=== PATIENT | female | born 1970 | race Caucasian/White ===

== ENCOUNTER 2016-02-15 10:28 | Inpatient (IN) | payer MEDICARE, MEDICAID ==
[~2016-02-15] VITALS: Ht 154.9 cm; Wt 94.9 kg
[2016-02-15] MEDS ORDERED: LORazepam 1 MG TAB As Ordered ONE ×2 (11:02→16:26)
[2016-02-15 11:27] LABS: MEAN CORPUSCULAR HEMOGLOBIN 29.8 pg (27.0-33.0); MEAN CORPUSCULAR HGB CONC 33.9 g/dl (32.0-36.5); RED CELL DISTRIBUTION WIDTH 15.2 % (11.5-14.5); WHITE BLOOD COUNT 13.7 K/mm3 (4.0-10.0)
[2016-02-15 11:34] LABS: AMPHETAMINES LEVEL URINE NEGATIVE (NEGATIVE); BENZODIAZEPINES URINE POSITIVE (NEGATIVE); COCAINE METABOLITE URINE NEGATIVE (NEGATIVE); CONTROL LINE INT CTR LINE PRESENT; METHADONE URINE NEGATIVE (NEGATIVE); OPIATES URINE NEGATIVE (NEGATIVE); TRICYCLIC ANTIDEPRESS URINE NEGATIVE (NEGATIVE)
[2016-02-15 11:36] LABS: CONTROL LINE HCG INT CTR LINE PRESENT
[2016-02-15 11:48] LABS: ALBUMIN 3.9 GM/DL (3.2-5.2); ALBUMIN/GLOBULIN RATIO 1.22 (1.00-1.93); ALKALINE PHOSPHATASE 57 U/L (45-117); ALT/SGPT 24 U/L (12-78); ANION GAP 8 MEQ/L (8-16); AST/SGOT 10 U/L (15-37); BILIRUBIN,DIRECT 0.1 MG/DL (0.0-0.2); BILIRUBIN,TOTAL 0.2 MG/DL (0.2-1.0); BLOOD UREA NITROGEN 16 MG/DL (7-18); CALCIUM LEVEL 8.9 MG/DL (8.5-10.1); CARBON DIOXIDE LEVEL 25 MEQ/L (21-32); CHLORIDE LEVEL 107 MEQ/L (98-107); CREATININE FOR GFR 0.89 MG/DL (0.55-1.02); FREE T4 1.46 NG/DL (0.76-1.46); GLOMERULAR FILTRATION RATE > 60.0 (>58); GLUCOSE, FASTING 107 MG/DL (70-105); POTASSIUM SERUM 4.4 MEQ/L (3.5-5.1); SODIUM LEVEL 140 MEQ/L (136-145); TOTAL PROTEIN 7.1 GM/DL (6.4-8.2)
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
--- NOTE | 2016-02-15 18:23 | EDDOCDS ---
Physician Documentation [facility] Name: Felicita Loomis Age: 45 yrs Sex: Female : 1970 Arrival Date: 02/15/2016 Time: 10:28 Bed BHU2 Private MD: Disposition: 02/14 14:18 Critical Care: Critical care not applicable. pc Disposition: 02/15/16 14:22 Hospitalization ordered by Serafin Watts for Inpatient Admission. Preliminary diagnosis is Delusional disorders. - Bed requested for Admit. - Status is Inpatient Admission. bcj - Condition is Stable. - Problem is new. - Symptoms are unchanged. HPI: 11:36 This 45 yrs old Female presents to ER via Police Car with complaints of Psych pc Problem. 11:36 The history is obtained from the patient, the patient's family/friend, a police pc officer. Her manager stone called police for her bizarre behavior; running in the street, believing a plow reefer truck driver was plotting to kill her, that her apartment was bugged. Her daughter states she has been smoking a lot of marijuana lately but does have a psychiatric history. Historical: - Allergies: Codeine Sulfate (Rash); Morphine ("issues during surgery"); PENICILLINS (Unknown); - PMHx: Anxiety; COPD; Depression; Herniated Disc in Neck and Back; Hypothyroidism; DAVID; - PSHx: ; Lumpectomy- Right; Breast biopsy- Right; Breast Reduction; Hernia repair; Gastric Bypass; Cholecystectomy; - The history from nurses notes was reviewed: and I agree with what is documented. - Social history: Smoking status: Patient uses tobacco products, current every day smoker. No barriers to communication noted, The patient speaks fluent Armenian. - : The pt / caregiver states he / she is not on anticoagulants. Note Will call Eleazar in [place] for current list. - Hospitalizations: : No recent hospitalization is reported. - Exposure Risk Screening:: None identified. - Immunization history:: All immunizations up-to-date. - Family history: Not pertinent. - Social history:: the patient smokes cigarettes the patient drinks alcohol, the patient uses illicit drugs, including marijuana. SPRAYER INSECTICIDE: 10:43 LMP N/A - Post-menopause aa3 ROS: 11:36 All systems are negative except as listed. The psychiatric and neurological components pc are also addressed in the HPI. Exam: 11:36 General Appearance: alert, no acute distress. pc 11:36 ENT: ear, nose and throat normal, pharynx normal. 11:36 Eyes: pupils equal, round and reactive to light, extraocular motions intact. 11:36 Neck: The exam reveals no acute abnormalities. ROM is normal and painless. No nuchal rigidity is noted.. 11:36 Respiratory: breathing is even and unlabored, breath sounds are normal. 11:36 Cardiovascular: regular pulse rate, regular heart rhythm, normal heart sounds, equal and full pulses bilaterally. 11:36 Abdomen: soft, non-tender, no organomegaly, normal bowel sounds. 11:36 Skin: skin color is normal, warm, dry. 11:36 Extremities: The extremities have a grossly normal appearance, are non-tender, without acute ROM abnormalities. 11:36 Neuro: alert, oriented to person, place and time, cranial nerves normal as tested, no motor deficits, no sensory deficits. 11:36 Psych: mood is angry, paranoid. affect is animated. Vital Signs: 11:02 BP 176 / 91; Pulse 118; Resp 18; Temp 98.4(TE); Pulse Ox 94% on R/A; nb2 11:19 Weight 99.79 kg / 220 lbs; Height 5 ft. 2 in. (157.48 cm); js13 18:13 BP 145 / 72; Pulse 108; Resp 20; Temp 97.9; Pulse Ox 99% on R/A; nb2 11:19 Body Mass Index 40.24 (99.79 kg, 157.48 cm) js13 MDM: 10:37 Consult PFS/PSA/Supervisor Looping: Patient's case requires discussion with on-call pc Psychiatrist ordered. 10:37 PSA/PFS to call Nursing Endoscopy Technican, to enter patient data on [place] Safe Act if patient pc involuntarily admitted or transferred for SI or HI ordered. 10:37 Confirm accurate psychiatric medication list and times of last dosage ordered. pc 10:37 Detain Pt Until Medically/PFS Cleared ordered. pc 10:38 Acetaminophen Level Ordered. EDMS 10:38 Basic Metabolic Profile Ordered. EDMS 10:38 Complete Blood Count Ordered. EDMS 10:38 Drug Eval Toxicology ED Only Ordered. EDMS 10:38 Ethyl Alcohol (ethanol) Ordered. EDMS 10:38 HCG,Serum Qualitative Ordered. EDMS 10:38 Liver Profile Ordered. EDMS 10:38 Salicylate Level Ordered. EDMS 10:38 Thyroid Stimulating Hormone Ordered. EDMS 10:42 FREE T4 Ordered. EDMS 10:58 LORazepam 2 mg PO once ordered. pc 11:17 Financial registration complete. mm15 11:18 [facility] Payment Agreement was scanned into [employer] and attached to record. mm15 11:29 LORazepam 1 mg PO once ordered. js13 11:36 Differential diagnosis: acute paranoia. Plan: labs, meds, PFS eval. pc 11:41 Complete Blood Count Reviewed. pc 11:41 Drug Eval Toxicology ED Only Reviewed. pc 11:41 HCG,Serum Qualitative Reviewed. pc 12:03 Acetaminophen Level Reviewed. pc 12:03 Basic Metabolic Profile Reviewed. pc 12:03 Liver Profile Reviewed. pc 12:03 Salicylate Level Reviewed. pc 12:03 Ethyl Alcohol (ethanol) Reviewed. pc 12:03 HCG,Serum Qualitative Reviewed. pc 12:03 Thyroid Stimulating Hormone Reviewed. pc 12:03 FREE T4 Reviewed. pc 13:17 Consult PFS/PSA/Supervisor Looping: Patient's case requires discussion with on-call ms Psychiatrist complete. 13:17 PSA/PFS to call Nursing Endoscopy Technican, to enter patient data on [facility] Safe Act if patient ms involuntarily admitted or transferred for SI or HI complete. 13:20 REGULAR DIET PLASTIC CORONA+DIET ordered. EDMS 13:45 BED REQUEST+ADM ordered. EDMS 14:18 The patient has been medically cleared for psychiatric evaluation, admission and/or pc transfer. [place] Safe Act reporting: Reporting to the [place] Safe [place] was not completed because the patient did not display any suicidal or homicidal ideation and was not considered a risk to self or others. Data reviewed: old medical records, vital signs, nurses notes, lab test results. Test interpretation: LAB - all labs as ordered have been reviewed, interpreted and considered in the overall management of the clinical presentation;. The patient has been re-examined and re-evaluated. The patient's symptoms have mildly improved after treatment. Disposition: The historical points, examination findings, and any diagnostic results supporting the provided diagnosis, were discussed with the patient or legal guardian. The need for further work-up and/or treatment in the hospital was explained. 16:25 LORazepam 2 mg PO once ordered. pc 17:34 Admit to [facility]: ordered. EDMS 17:36 [facility] Legal paperwork was scanned into [employer] and attached to record. ml4 18:13 [facility] Legal paperwork was scanned into [employer] and attached to record. ml4 Administered Medications: 11:25 Drug: LORazepam 1 mg [lorazepam 1 mg tablet (1 tabs)] Route: PO; js13 12:30 Follow up: Response: Anxiety is improved js13 11:28 Not Given (Patient Refused): LORazepam 2 mg PO once js13 16:39 Drug: LORazepam 2 mg [lorazepam 1 mg tablet (2 tabs)] Route: PO; [facility] Signatures: Dispatcher [employer] EDMS Dedrick Stacy MD MD pc Johnson, Bruce, RN RN bcj Kenia Brewer, PSA PSA ms Mi Hobson, PSA PSA ml4 Gaby Sun,RN RN js13 Jeanne Cox mm15 Deyanira Nair,RN RN aa3 The chart was reviewed and I authenticate all verbal orders and agree with the evaluation and treatment provided.Corrections: (The following items were deleted from the chart) 10:42 10:38 FREE T4+LAB ordered. EDMS EDMS Attachments: 11:18 [facility] Payment Agreement mm15 MTDD
[2016-02-15 18:43] VITALS: BP 138/94
[2016-02-15] MEDS ORDERED: MOM 30ML SUSPENSION UDC PO PRN (20:15)
[2016-02-15] MEDS ORDERED: traZODone 50 MG TAB PO PRN (20:15)
[2016-02-16] MEDS: MAALOX 30 ML SUSP *UDC PO PRN (02:51)
[2016-02-16] MEDS: ACETAMINOPHEN TAB 650MG DOSE (2X325MG) PO PRN (02:52)
[2016-02-16 06:22] VITALS: BP 148/83
[2016-02-16] MEDS: NICOTINE 21MG/24HR 1 EA TRANSDERMAL TD SCH (09:39)
--- NOTE | 2016-02-16 10:01 | HPEPDOC ---
Medical History and Physical Date of Admission Feb 15, 2016 at 18:38 History and Physical PCP: Enmanuel RODRIGUES ATTENDING: Dr. Sushant Ross HPI: 45 yo F admitted to [facility] for psychotic disorder, being medically examined today. Patient was seen at the emergency department 02/12/16 and treated for COPD exacerbation with doxycycline 100 mg by mouth twice a day. She states breathing has been better. Cough improved. Less sputum production. No chest discomfort. She also recently established with a new PCP, Enmanuel RODRIGUES. She has orders at home for a mammogram. Routine lab work. And has been referred for routine colonoscopy/EGD. Denies any fevers, chills, weakness, fatigue, GUTIERREZ, CP, SOB, cough, palpitations, abdominal pain, N/V/D or changes in bowel or bladder habits. PMHx: COPD Anxiety/depression Degenerative disc disease Chronic neck pain/low back pain History of obesity status post gastric bypass-patient states has maintained 100 pound weight loss since 2004 History of DAVID, off CPAP since gastric bypass restarted on nocturnal oxygen 2 L nasal cannula as per PCP. Hypothyroidism PSHX: Right lumpectomy Right breast biopsy Breast reduction Hernia repair Gastric bypass Cholecystectomy SOCHX: Resides in: [place] Marital Status: Kids: 1 Employment: Disabled Tobacco use: One half pack per day ETOH: One drink every 6 months or less Illicit Drugs: Marijuana daily for the past 2-3 months IV Drug Use: Denies Tattoos done unprofessionally: Denies FAMHX: Mother: , CAD Father: , colon cancer Siblings: One sister Alive, well. One sister breast cancer Children: Alive, well Unexpected deaths due to medical reasons: None. ROS: As noted in HPI, otherwise 11pt ROS of systems reviewed and remarkable only for LMP NA-uterine ablation. PE: GEN: 45 yo F, appears stated age. Well-nourished, well developed. No acute distress. Alert and oriented x 3. Pleasant, interactive. HEENT: Normocephalic, atraumatic. Pupils are equal, round, and reactive to light. Extraocular movements are intact. No nystagmus appreciated. Sclera are nonicteric. Conjunctiva without injection. Nose midline. Nasal turbinates without bogginess. EACs both patent BL. TMs both visualized and villa with good cone of light, no bulging or erythema. No facial asymmetry. Moist mucous membranes. Dentition fair. Pharynx pink and moist, no cobblestoning. Neck supple , trachea midline. No lymphadenopathy or thyromegaly appreciated. CHEST: Regular rate and rhythm, +S1, +S2 LUNGS: Clear to auscultation bilaterally. No wheezes, rales, or rhonchi. Breathing appears symmetric and easy. Patient is speaking in full sentences. No accessory muscle use. ABD: Round, soft, non-tender, non-distended. Healed surgical scars. +Bowel sounds throughout. No rebound or guarding. No costovertebral angle tenderness. EXT: Pulses 2+ bilaterally dorsalis pedis and radial. No lower extremity edema appreciated. SKIN: [place], dry, warm. Capillary refill <2sec. No rashes. NEURO: Alert and oriented x 3. Cranial nerves III-XII are intact. No focal deficits appreciated. EK02/12/16 SR 95 bpm. PCXR 02/12/16 Negative portable chest radiograph. A&P: 45 yo F admitted to [facility] for psychotic disorder 1. Psych. Plan per Psychiatry. EKG on file. Also check UA/UC. 2. Nicotine dependence. Patch available. 3. COPD/COPD exacerbation. Patient will finish course of doxycycline 100 mg by mouth twice a day started at the emergency department 02/12/16. Recheck CBC in AM. 4. Follow up with PCP on discharge. Enmanuel RODRIGUES. 5. Substance use. Per psychiatry. 6. Accompanied throughout exam by staff member safety raquel Griffin. 7. Await medication reconciliation. Vital Signs Vital Signs Label Value Date Time Patient Temperature 97.7 degrees F 02/16/16 06 Temperature Source Tympanic 02/16/16 06 Pulse 90 02/16/16 06 Respiratory Rate 18 bpm 02/16/16 06 Blood Pressure Assessment 148/83 (104) 02/16/16 06 Laboratory Data Labs 24H Laboratory Tests 2 02/15/16 11:13: Acetaminophen Level < 2.0L, Aspartate Amino Transf (AST/SGOT) 10L, Alanine Aminotransferase (ALT/SGPT) 24, Alkaline Phosphatase 57, Total Bilirubin 0.2, Direct Bilirubin 0.1, Albumin 3.9, Albumin/Globulin Ratio 1.22, Anion Gap 8, Calcium Level 8.9, Ethyl Alcohol Level < 0.003, Free Thyroxine 1.46, Glomerular Filtration Rate > 60.0, Human Chorionic Gonadotropin, Qual NEGATIVE, Salicylates Level 4.2L, Thyroid Stimulating Hormone (TSH) 0.706, Total Protein 7.1, Urine Amphetamine Level NEGATIVE, Urine Benzodiazepines Screen POSITIVEH, Urine Cannabinoids POSITIVEH, Urine Cocaine Metabolite NEGATIVE, Urine Opiates Screen NEGATIVE, Urine Barbiturates, Qualitative NEGATIVE, Urine Methadone Screen NEGATIVE, Urine Tricyclic Antidepressants NEGATIVE CBC/BMP Laboratory Tests 02/15/16 11:13 Red Blood Count 4.21, Mean Corpuscular Volume 88.0, Mean Corpuscular Hemoglobin 29.8, Mean Corpuscular Hemoglobin Concent 33.9, Red Cell Distribution Width 15.2 H Home Medications Unable to Obtain Active Prescriptions or Reported Meds Allergies Coded Allergies: Morphine (Verified Allergy, Unknown, 02/15/16) Penicillins (Verified Allergy, Unknown, 02/15/16) Childhood allergy Nataly Escalante Feb 16, 2016 10:01
[2016-02-16 10:51] LABS: MEAN CORPUSCULAR HEMOGLOBIN 28.8 pg (27.0-33.0); MEAN CORPUSCULAR VOLUME 84.9 fl (80.0-96.0); RED CELL DISTRIBUTION WIDTH 14.4 % (11.5-14.5); WHITE BLOOD COUNT 9.4 K/mm3 (4.0-10.0)
[2016-02-16] MEDS: DOXYCYCLINE HYCLATE 100 MG TAB PO SCH ×2 (14:22→21:10)
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
[2016-02-16 18:00] VITALS: BP 144/85
[2016-02-16] MEDS ORDERED: VITA50003 PO (19:04)
[2016-02-16] MEDS ORDERED: BUPR200T PO (19:04)
[2016-02-16] MEDS ORDERED: DULO1CAP3 PO (19:04)
[2016-02-16] MEDS ORDERED: HYDR-4274 PO (19:04)
[2016-02-16] MEDS ORDERED: ATIV1TAB7 PO (19:04)
[2016-02-16] MEDS ORDERED: DOXY-278 PO (19:04)
[2016-02-16] MEDS ORDERED: LEVO125T3 PO (19:04)
[2016-02-16] MEDS ORDERED: OXYC1TAB23 PO (19:04)
[2016-02-16] MEDS ORDERED: BENZ200C44 PO (19:04)
[2016-02-16] MEDS ORDERED: IBUP-1114 PO (19:04)
[2016-02-16] MEDS ORDERED: FURO20TA2 PO (19:04)
[2016-02-16] MEDS: hydrOXYzine 50 MG TAB PO PRN (21:47)
[2016-02-16 22:50] VITALS: BP 186/90
[2016-02-16 23:30] VITALS: BP 120/80
[2016-02-17] MEDS ORDERED: FUROSEMIDE 20 MG TAB PO ONE (00:30)
[2016-02-17] MEDS: LEVOTHYROXINE 0.125 MG TAB (125 MCG) PO SCH (06:06)
[2016-02-17 06:34] VITALS: BP 141/97
--- NOTE | 2016-02-17 08:18 | ECGEPIP ---
Stationary ECG Study [facility] Test Date: 2016-02-16 Pat Name: CALEB OSPINA Department: Room: [place] [address] Gender: F Medical Lab Specialist: SOURAV NICE : 1970 Requested By: CARISA WHITMAN Order Number: [id number] Reading MD: Kimberly Cohen Measurements Intervals [place] Rate: 99 P: -6 [place]: 121 QRS: 38 QRSD: 86 T: 40 QT: 332 QTc: 427 Interpretive Statements SINUS RHYTHM NORMAL STABLE C/W 02/12/16 Electronically Signed On 02-17-2016 8:18:28 EST by Kimberly Cohen
[2016-02-17] MEDS: DOXYCYCLINE HYCLATE 100 MG TAB PO SCH ×2 (09:26→21:06)
[2016-02-17] MEDS: DULoxetine 30 MG CAP (CYMBALTA) PO SCH (09:26)
[2016-02-17] MEDS: NICOTINE 21MG/24HR 1 EA TRANSDERMAL TD SCH (09:26)
[2016-02-17] MEDS: hydrOXYzine 50 MG TAB PO PRN (09:28)
[2016-02-17] MEDS: LORazepam 1 MG TAB PO PRN ×2 (10:53→23:25)
[2016-02-17 10:54] VITALS: BP 144/88
[2016-02-17] MEDS: ACETAMINOPHEN TAB 650MG DOSE (2X325MG) PO PRN ×2 (12:59→21:07)
[2016-02-17] MEDS: hydrOXYzine 50 MG TAB PO SCH ×2 (16:58→21:06)
[2016-02-17 18:00] VITALS: BP 148/90
--- NOTE | 2016-02-17 19:23 | EDDOCDS ---
Physician Documentation [facility] Name: Felicita Loomis Age: 45 yrs Sex: Female : 1970 Arrival Date: 02/15/2016 Time: 10:28 Bed BHU2 Private MD: Disposition: 02/14 14:18 Critical Care: Critical care not applicable. pc Disposition: 02/15/16 14:22 Hospitalization ordered by Serafin Watts for Inpatient Admission. Preliminary diagnosis is Delusional disorders. - Bed requested for Admit. - Status is Inpatient Admission. bcj - Condition is Stable. - Problem is new. - Symptoms are unchanged. HPI: 11:36 This 45 yrs old Female presents to ER via Police Car with complaints of Psych pc Problem. 11:36 The history is obtained from the patient, the patient's family/friend, a police pc officer. Her physical plant manager called police for her bizarre behavior; running in the street, believing a plow driver trainer was plotting to kill her, that her apartment was bugged. Her daughter states she has been smoking a lot of marijuana lately but does have a psychiatric history. Historical: - Allergies: Codeine Sulfate (Rash); Morphine ("issues during surgery"); PENICILLINS (Unknown); - PMHx: Anxiety; COPD; Depression; Herniated Disc in Neck and Back; Hypothyroidism; DAVID; - PSHx: ; Lumpectomy- Right; Breast biopsy- Right; Breast Reduction; Hernia repair; Gastric Bypass; Cholecystectomy; - The history from nurses notes was reviewed: and I agree with what is documented. - Social history: Smoking status: Patient uses tobacco products, current every day smoker. No barriers to communication noted, The patient speaks fluent Jamaican. - : The pt / caregiver states he / she is not on anticoagulants. Note Will call [facility] in [place] for current list. - Hospitalizations: : No recent hospitalization is reported. - Exposure Risk Screening:: None identified. - Immunization history:: All immunizations up-to-date. - Family history: Not pertinent. - Social history:: the patient smokes cigarettes the patient drinks alcohol, the patient uses illicit drugs, including marijuana. PERSONAL SECURITY SPECIALIST: 10:43 LMP N/A - Post-menopause aa3 ROS: 11:36 All systems are negative except as listed. The psychiatric and neurological components pc are also addressed in the HPI. Exam: 11:36 General Appearance: alert, no acute distress. pc 11:36 ENT: ear, nose and throat normal, pharynx normal. 11:36 Eyes: pupils equal, round and reactive to light, extraocular motions intact. 11:36 Neck: The exam reveals no acute abnormalities. ROM is normal and painless. No nuchal rigidity is noted.. 11:36 Respiratory: breathing is even and unlabored, breath sounds are normal. 11:36 Cardiovascular: regular pulse rate, regular heart rhythm, normal heart sounds, equal and full pulses bilaterally. 11:36 Abdomen: soft, non-tender, no organomegaly, normal bowel sounds. 11:36 Skin: skin color is normal, warm, dry. 11:36 Extremities: The extremities have a grossly normal appearance, are non-tender, without acute ROM abnormalities. 11:36 Neuro: alert, oriented to person, place and time, cranial nerves normal as tested, no motor deficits, no sensory deficits. 11:36 Psych: mood is angry, paranoid. affect is animated. Vital Signs: 11:02 BP 176 / 91; Pulse 118; Resp 18; Temp 98.4(TE); Pulse Ox 94% on R/A; nb2 11:19 Weight 99.79 kg / 220 lbs; Height 5 ft. 2 in. (157.48 cm); js13 18:13 BP 145 / 72; Pulse 108; Resp 20; Temp 97.9; Pulse Ox 99% on R/A; nb2 11:19 Body Mass Index 40.24 (99.79 kg, 157.48 cm) js13 MDM: 10:37 Consult PFS/PSA/Market Research Manager: Patient's case requires discussion with on-call pc Psychiatrist ordered. 10:37 PSA/PFS to call Nursing Computer Forensics Investigator, to enter patient data on [place] Safe Act if patient pc involuntarily admitted or transferred for SI or HI ordered. 10:37 Confirm accurate psychiatric medication list and times of last dosage ordered. pc 10:37 Detain Pt Until Medically/PFS Cleared ordered. pc 10:38 Acetaminophen Level Ordered. EDMS 10:38 Basic Metabolic Profile Ordered. EDMS 10:38 Complete Blood Count Ordered. EDMS 10:38 Drug Eval Toxicology ED Only Ordered. EDMS 10:38 Ethyl Alcohol (ethanol) Ordered. EDMS 10:38 HCG,Serum Qualitative Ordered. EDMS 10:38 Liver Profile Ordered. EDMS 10:38 Salicylate Level Ordered. EDMS 10:38 Thyroid Stimulating Hormone Ordered. EDMS 10:42 FREE T4 Ordered. EDMS 10:58 LORazepam 2 mg PO once ordered. pc 11:17 Financial registration complete. mm15 11:18 [facility] Payment Agreement was scanned into [employer] and attached to record. mm15 11:29 LORazepam 1 mg PO once ordered. js13 11:36 Differential diagnosis: acute paranoia. Plan: labs, meds, PFS eval. pc 11:41 Complete Blood Count Reviewed. pc 11:41 Drug Eval Toxicology ED Only Reviewed. pc 11:41 HCG,Serum Qualitative Reviewed. pc 12:03 Acetaminophen Level Reviewed. pc 12:03 Basic Metabolic Profile Reviewed. pc 12:03 Liver Profile Reviewed. pc 12:03 Salicylate Level Reviewed. pc 12:03 Ethyl Alcohol (ethanol) Reviewed. pc 12:03 HCG,Serum Qualitative Reviewed. pc 12:03 Thyroid Stimulating Hormone Reviewed. pc 12:03 FREE T4 Reviewed. pc 13:17 Consult PFS/PSA/Market Research Manager: Patient's case requires discussion with on-call ms Psychiatrist complete. 13:17 PSA/PFS to call Nursing Computer Forensics Investigator, to enter patient data on [facility] Safe Act if patient ms involuntarily admitted or transferred for SI or HI complete. 13:20 REGULAR DIET PLASTIC CORONA+DIET ordered. EDMS 13:45 BED REQUEST+ADM ordered. EDMS 14:18 The patient has been medically cleared for psychiatric evaluation, admission and/or pc transfer. [place] Safe [place] reporting: Reporting to the [place] Safe [place] was not completed because the patient did not display any suicidal or homicidal ideation and was not considered a risk to self or others. Data reviewed: old medical records, vital signs, nurses notes, lab test results. Test interpretation: LAB - all labs as ordered have been reviewed, interpreted and considered in the overall management of the clinical presentation;. The patient has been re-examined and re-evaluated. The patient's symptoms have mildly improved after treatment. Disposition: The historical points, examination findings, and any diagnostic results supporting the provided diagnosis, were discussed with the patient or legal guardian. The need for further work-up and/or treatment in the hospital was explained. 16:25 LORazepam 2 mg PO once ordered. pc 17:34 [facility] to [facility]: ordered. EDMS 17:36 [facility] Legal paperwork was scanned into [employer] and attached to record. ml4 18:13 [facility] Legal paperwork was scanned into [employer] and attached to record. ml4 Administered Medications: 11:25 Drug: LORazepam 1 mg [lorazepam 1 mg tablet (1 tabs)] Route: PO; js13 12:30 Follow up: Response: Anxiety is improved js13 11:28 Not Given (Patient Refused): LORazepam 2 mg PO once js13 16:39 Drug: LORazepam 2 mg [lorazepam 1 mg tablet (2 tabs)] Route: PO; [facility] Signatures: Dispatcher [employer] EDMS Dedrick Stacy MD MD pc Johnson, Bruce, RN RN bcj Kenia Brewer, PSA PSA ms Mi Hobson, PSA PSA ml4 Gaby Sun,RN RN js13 Jeanne Cox mm15 Deyanira Nair,RN RN aa3 The chart was reviewed and I authenticate all verbal orders and agree with the evaluation and treatment provided.Corrections: (The following items were deleted from the chart) 10:42 10:38 FREE T4+LAB ordered. EDMS EDMS Attachments: 11:18 [facility] Payment Agreement mm15 Chart Complete MTDD
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
--- NOTE | 2016-02-17 19:24 | EDDOCDS ---
Physician Documentation [facility] Name: Felicita Loomis Age: 45 yrs Sex: Female : 1970 Arrival Date: 02/15/2016 Time: 10:28 Bed BHU2 Private MD: Disposition: 02/14 14:18 Critical Care: Critical care not applicable. pc Disposition: 02/15/16 14:22 Hospitalization ordered by Serafin Watts for Inpatient Admission. Preliminary diagnosis is Delusional disorders. - Bed requested for Admit. - Status is Inpatient Admission. bcj - Condition is Stable. - Problem is new. - Symptoms are unchanged. HPI: 11:36 This 45 yrs old Female presents to ER via Police Car with complaints of Psych pc Problem. 11:36 The history is obtained from the patient, the patient's family/friend, a police pc officer. Her business development manager called police for her bizarre behavior; running in the street, believing a plow water truck driver was plotting to kill her, that her apartment was bugged. Her daughter states she has been smoking a lot of marijuana lately but does have a psychiatric history. Historical: - Allergies: Codeine Sulfate (Rash); Morphine ("issues during surgery"); PENICILLINS (Unknown); - PMHx: Anxiety; COPD; Depression; Herniated Disc in Neck and Back; Hypothyroidism; DAVID; - PSHx: ; Lumpectomy- Right; Breast biopsy- Right; Breast Reduction; Hernia repair; Gastric Bypass; Cholecystectomy; - The history from nurses notes was reviewed: and I agree with what is documented. - Social history: Smoking status: Patient uses tobacco products, current every day smoker. No barriers to communication noted, The patient speaks fluent Tuvaluan. - : The pt / caregiver states he / she is not on anticoagulants. Note Will call [facility] in [place] for current list. - Hospitalizations: : No recent hospitalization is reported. - Exposure Risk Screening:: None identified. - Immunization history:: All immunizations up-to-date. - Family history: Not pertinent. - Social history:: the patient smokes cigarettes the patient drinks alcohol, the patient uses illicit drugs, including marijuana. INSULATION PACKER: 10:43 LMP N/A - Post-menopause aa3 ROS: 11:36 All systems are negative except as listed. The psychiatric and neurological components pc are also addressed in the HPI. Exam: 11:36 General Appearance: alert, no acute distress. pc 11:36 ENT: ear, nose and throat normal, pharynx normal. 11:36 Eyes: pupils equal, round and reactive to light, extraocular motions intact. 11:36 Neck: The exam reveals no acute abnormalities. ROM is normal and painless. No nuchal rigidity is noted.. 11:36 Respiratory: breathing is even and unlabored, breath sounds are normal. 11:36 Cardiovascular: regular pulse rate, regular heart rhythm, normal heart sounds, equal and full pulses bilaterally. 11:36 Abdomen: soft, non-tender, no organomegaly, normal bowel sounds. 11:36 Skin: skin color is normal, warm, dry. 11:36 Extremities: The extremities have a grossly normal appearance, are non-tender, without acute ROM abnormalities. 11:36 Neuro: alert, oriented to person, place and time, cranial nerves normal as tested, no motor deficits, no sensory deficits. 11:36 Psych: mood is angry, paranoid. affect is animated. Vital Signs: 11:02 BP 176 / 91; Pulse 118; Resp 18; Temp 98.4(TE); Pulse Ox 94% on R/A; nb2 11:19 Weight 99.79 kg / 220 lbs; Height 5 ft. 2 in. (157.48 cm); js13 18:13 BP 145 / 72; Pulse 108; Resp 20; Temp 97.9; Pulse Ox 99% on R/A; nb2 11:19 Body Mass Index 40.24 (99.79 kg, 157.48 cm) js13 MDM: 10:37 Consult PFS/PSA/Chemistry Instructor: Patient's case requires discussion with on-call pc Psychiatrist ordered. 10:37 PSA/PFS to call Nursing Automatic Punch Press Operator, to enter patient data on [place] Safe Act if patient pc involuntarily admitted or transferred for SI or HI ordered. 10:37 Confirm accurate psychiatric medication list and times of last dosage ordered. pc 10:37 Detain Pt Until Medically/PFS Cleared ordered. pc 10:38 Acetaminophen Level Ordered. EDMS 10:38 Basic Metabolic Profile Ordered. EDMS 10:38 Complete Blood Count Ordered. EDMS 10:38 Drug Eval Toxicology ED Only Ordered. EDMS 10:38 Ethyl Alcohol (ethanol) Ordered. EDMS 10:38 HCG,Serum Qualitative Ordered. EDMS 10:38 Liver Profile Ordered. EDMS 10:38 Salicylate Level Ordered. EDMS 10:38 Thyroid Stimulating Hormone Ordered. EDMS 10:42 FREE T4 Ordered. EDMS 10:58 LORazepam 2 mg PO once ordered. pc 11:17 Financial registration complete. mm15 11:18 [facility] Payment Agreement was scanned into [employer] and attached to record. mm15 11:29 LORazepam 1 mg PO once ordered. js13 11:36 Differential diagnosis: acute paranoia. Plan: labs, meds, PFS eval. pc 11:41 Complete Blood Count Reviewed. pc 11:41 Drug Eval Toxicology ED Only Reviewed. pc 11:41 HCG,Serum Qualitative Reviewed. pc 12:03 Acetaminophen Level Reviewed. pc 12:03 Basic Metabolic Profile Reviewed. pc 12:03 Liver Profile Reviewed. pc 12:03 Salicylate Level Reviewed. pc 12:03 Ethyl Alcohol (ethanol) Reviewed. pc 12:03 HCG,Serum Qualitative Reviewed. pc 12:03 Thyroid Stimulating Hormone Reviewed. pc 12:03 FREE T4 Reviewed. pc 13:17 Consult PFS/PSA/Chemistry Instructor: Patient's case requires discussion with on-call ms Psychiatrist complete. 13:17 PSA/PFS to call Nursing Automatic Punch Press Operator, to enter patient data on [facility] Safe Act if patient ms involuntarily admitted or transferred for SI or HI complete. 13:20 REGULAR DIET PLASTIC CORONA+DIET ordered. EDMS 13:45 BED REQUEST+ADM ordered. EDMS 14:18 The patient has been medically cleared for psychiatric evaluation, admission and/or pc transfer. [place] Safe [place] reporting: Reporting to the [place] Safe [place] was not completed because the patient did not display any suicidal or homicidal ideation and was not considered a risk to self or others. Data reviewed: old medical records, vital signs, nurses notes, lab test results. Test interpretation: LAB - all labs as ordered have been reviewed, interpreted and considered in the overall management of the clinical presentation;. The patient has been re-examined and re-evaluated. The patient's symptoms have mildly improved after treatment. Disposition: The historical points, examination findings, and any diagnostic results supporting the provided diagnosis, were discussed with the patient or legal guardian. The need for further work-up and/or treatment in the hospital was explained. 16:25 LORazepam 2 mg PO once ordered. pc 17:34 Admit to [facility]: ordered. EDMS 17:36 [facility] Legal paperwork was scanned into [employer] and attached to record. ml4 18:13 [facility] Legal paperwork was scanned into [employer] and attached to record. ml4 Administered Medications: 11:25 Drug: LORazepam 1 mg [lorazepam 1 mg tablet (1 tabs)] Route: PO; js13 12:30 Follow up: Response: Anxiety is improved js13 11:28 Not Given (Patient Refused): LORazepam 2 mg PO once js13 16:39 Drug: LORazepam 2 mg [lorazepam 1 mg tablet (2 tabs)] Route: PO; [facility] Signatures: Dispatcher [employer] EDMS Dedrick Stacy MD MD pc Johnson, Bruce, RN RN bcj Kenia Brewer, PSA PSA ms Mi Hobson, PSA PSA ml4 Gaby Sun,RN RN js13 Jeanne Cox mm15 Deyanira Nair,RN RN aa3 The chart was reviewed and I authenticate all verbal orders and agree with the evaluation and treatment provided.Corrections: (The following items were deleted from the chart) 10:42 10:38 FREE T4+LAB ordered. EDMS EDMS Attachments: 11:18 [facility] [place] mm15 Chart Complete MTDD
[2016-02-17] MEDS: DOCUSATE SODIUM 100 MG CAP PO SCH (21:06)
[2016-02-18] MEDS: LEVOTHYROXINE 0.125 MG TAB (125 MCG) PO SCH (05:33)
[2016-02-18] MEDS: ACETAMINOPHEN TAB 650MG DOSE (2X325MG) PO PRN ×3 (05:47→21:31)
[2016-02-18 06:25] VITALS: BP 138/78
[2016-02-18] MEDS: hydrOXYzine 50 MG TAB PO SCH ×4 (08:37→21:31)
[2016-02-18] MEDS: NICOTINE 21MG/24HR 1 EA TRANSDERMAL TD SCH (08:40)
[2016-02-18] MEDS: DULoxetine 30 MG CAP (CYMBALTA) PO SCH (08:40)
[2016-02-18] MEDS: DOXYCYCLINE HYCLATE 100 MG TAB PO SCH ×2 (08:40→21:31)
[2016-02-18] MEDS: DOCUSATE SODIUM 100 MG CAP PO SCH ×2 (08:40→21:34)
[2016-02-18] MEDS: FUROSEMIDE 20 MG TAB PO SCH (08:40)
[2016-02-18 18:00] VITALS: BP 128/82
[2016-02-18] MEDS: LORazepam 0.5 MG TAB PO PRN (18:27)
[2016-02-19] MEDS: LORazepam 0.5 MG TAB PO PRN ×3 (01:34→23:00)
[2016-02-19 06:00] VITALS: BP 154/91
[2016-02-19] MEDS: LEVOTHYROXINE 0.125 MG TAB (125 MCG) PO SCH (06:09)
[2016-02-19] MEDS: DOCUSATE SODIUM 100 MG CAP PO SCH ×2 (08:38→21:07)
[2016-02-19] MEDS: NICOTINE 21MG/24HR 1 EA TRANSDERMAL TD SCH (08:38)
[2016-02-19] MEDS: DULoxetine 30 MG CAP (CYMBALTA) PO SCH (08:38)
[2016-02-19] MEDS: DOXYCYCLINE HYCLATE 100 MG TAB PO SCH ×2 (08:39→21:08)
[2016-02-19] MEDS: ACETAMINOPHEN TAB 650MG DOSE (2X325MG) PO PRN ×2 (08:39→16:53)
[2016-02-19] MEDS: hydrOXYzine 50 MG TAB PO SCH ×4 (08:39→21:07)
[2016-02-19 18:00] VITALS: BP 135/75
[2016-02-19] MEDS: MAALOX 30 ML SUSP *UDC PO PRN (23:38)
[2016-02-20] MEDS: LEVOTHYROXINE 0.125 MG TAB (125 MCG) PO SCH (06:04)
[2016-02-20] MEDS: ACETAMINOPHEN TAB 650MG DOSE (2X325MG) PO PRN ×3 (06:15→21:57)
[2016-02-20 06:55] VITALS: BP 134/74
[2016-02-20] MEDS: DOCUSATE SODIUM 100 MG CAP PO SCH ×2 (09:32→21:57)
[2016-02-20] MEDS: DULoxetine 30 MG CAP (CYMBALTA) PO SCH (09:32)
[2016-02-20] MEDS: FUROSEMIDE 20 MG TAB PO SCH (09:32)
[2016-02-20] MEDS: DOXYCYCLINE HYCLATE 100 MG TAB PO SCH ×2 (09:32→21:57)
[2016-02-20] MEDS: hydrOXYzine 50 MG TAB PO SCH ×4 (09:32→21:57)
[2016-02-20] MEDS: NICOTINE 21MG/24HR 1 EA TRANSDERMAL TD SCH (09:36)
[2016-02-20 18:00] VITALS: BP 148/88
--- NOTE | 2016-02-20 18:26 | IPN ---
DATE: 02/17/2016 VITAL SIGNS: Temperature 97.5, pulse 99, respiratory rate 16, blood pressure 141/97. CURRENT MEDICATIONS: - Lasix - hydroxyzine as needed - Cymbalta 60 mg - Synthroid - Ativan as needed - trazodone as needed HISTORY OF PRESENTING ILLNESS: The patient's daughter was visiting when I went to see her and they both wanted to talk to me. The patient complained about the fact that her medication list was just confirmed today and her medications are just back on board. She states she is not sure if Atarax is the medication for her. The patient stating she wants to back on the Atarax scheduled versus as needed, and she wants to decide if Atarax is sufficient for anxiety. If not, she states she wants to discuss with the prescriber here about an alternative for Atarax for her anxiety management. She states she does not particularly want to be on benzodiazepines. She states she thinks she is here because her marijuana was laced with something else. 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 The patient is displaying pressured speech. MENTAL STATUS EXAMINATION: A 45-year-old Lithuanian female, average height, obese build, agitated, angry, irritable. Affect restricted, mood congruent. Thought form logical, coherent, goal directed, organized but pressured speech. Thought content: Denies suicidal ideation (SI), homicidal ideation (HI), delusions. Perception: Denies auditory or visual hallucinations. Insight and judgment fair. Impulse control fair. ASSESSMENT: A 45-year-old Lithuanian female hospitalized with psychotic symptoms. PLAN: Continue current medication unchanged. Monitor closely. Change Atarax as needed to scheduled four times a day dosing. DIAGNOSES: 1. Rule out narcissistic personality disorder. 2. Rule out bipolar disorder, unspecified.
--- NOTE | 2016-02-20 18:38 | IPNPDOC ---
[facility] Progress Note Progress Note DATE: 02/20/16 HISTORY: Patient was seen today to assess treatment progress on the inpatient unit. Patient was observed to be visible in the hallway, had been attending group, and readily engaged with fiction writer for assessment purposes. Patient denied symptoms of anxiety and depression, denied suicidal and homicidal ideation, denied audiovisual hallucinations, and denied urge to engage in self-injurious behavior. However, when asked how doing, patient noted "I cry but there are tears of seeing the light. I can now clearly see that they were trying to sell me and my daughter for sex. I know too much information and the security demarco knows my daughter." Patient reiterates she feels her current symptom status is directly related to smoking laced marijuana noting, "there are lots of people in the world to get taken and just like I did buy drug dealers. It's a huge prostitution ring and they cover the business up to disguise it. It's all a disguise and now makes perfect sense. They're sick people." Patient also noted that she believes the police at been watching her and are "keeping tabs" on her. Patient presented with no signs of acute distress, denied challenges to appetite, sleep, concentration or energy levels. Patient indicated she feels safe on the inpatient unit. Patient was able to verbalize that the thinking she is experiencing may be paranoia and was open to discussing possible changes to her medication regimen. Patient denies current medication side effects and she denied symptoms of pain. VITAL SIGNS: See below. Patient is asymptomatic, will monitor vitals. NEW TEST RESULTS: Please see below. Cardiac markers WNL, Hct on 02/16/16 low. Labs on admission indicate AST and Hct low, glucose elevated. UDS positive for benzos and cannabis on admission. UA pending. CURRENT MEDICATIONS: See below. MENTAL STATUS EXAMINATION: Patient is a 45 year old female female who has one adult child, presents today as disheveled dressed in personal clothing. Patient is cooperative, is obese, and appears stated age. Speech: Is pressured at times, tangential at times, normal volume Thought processes: Racing at times, generally goal-directed Thought content: Delusional, paranoid, indicates she has been associating with drug dealers and "bad people" Abstract reasoning: Tangential. Abnormal or psychotic thoughts: Denies hallucinations and delusions however symptoms are noted pertaining to grandiose and paranoid delusional system Judgment: Poor Insight: Poor Oriented to Time, place and person. Recent and Remote Memory: Limited. Attention Span and Concentration: Limited. Language: Within normal limits. Fund of knowledge: Appears limited Mood: "I'm okay, is concerned, this is so big and I don't think there is anywhere safe for me to go and I get out of here. I'll have to go on the witness protection program." Expansive and lability noted at time of interaction Affect: Constriction but brightens, lability noted, generally congruent with mood DIAGNOSES: Unspecified mood disorder, cannabis use disorder, rule out substance- induced psychosis, rule out bipolar disorder, rule out narcissistic personality disorder ASSESSMENT: Patient presents today with increased symptoms of psychosis, she appears delusional, and her mood is more labile than noted during last interaction with this fiction writer. Patient continues to experience paranoid thinking , believes she will be the target of drug dealers and sex trade operators upon discharge adding she will need to be placed in the witness protection program as there is "nowhere safe" for her to go upon discharge. Patient's speech is pressured, rambling, tangential, rapid, her mood is labile and expansive at times, and she appears anxious with mild agitation at times. Patient was recently restarted on Cymbalta which may be exacerbating symptoms of mood instability. Due to patient's potential cardiac complications, this fiction writer spoke with patient about trialing Latuda in effort to address symptoms. Patient is in agreement with the discontinuation of Cymbalta and the initiation of Latuda. Patient otherwise appears to be adjusting to unit well, has been visible , attending most groups, and interacting with peers and staff. Patient is again requesting to take medication in am due to reported impact on nighttime symptoms of DAVID and COPD so will prescribe Latuda for am dosing. Patient was encouraged to participate in unit programming. Patient had previously indicated when ready she would like to discharge to home and follow-up with outpatient psychotherapy and medication management services in the [place] area. However , today patient indicates discharge to home up he safe due to persecution by drug dealers. Will continue to make efforts to engage patient in the discharge planning process. MANAGEMENT PLAN: Discontinue Cymbalta 60 mg po q hs Initiate Latuda 20 mg po q am to be taken with food, continue standing order of hydroxyzine Maintain safety precautions Patient to attend groups and participate in unit programming to develop coping strategies Engage patient in discharge planning process to ensure safe and effective discharge plan Patient to follow up with PCM within 5-7 days of discharge Vital Signs Vital Sign - Last 24 Hours 02/20/16 02/20/16 06:55 18:00 Temp 96.6 96.9 Pulse 104 102 Resp 18 18 B/P 134/74 148/88 Current Medications Current Medications Acetaminophen (Tylenol) 650 mg Q6HP PRN PO HEADACHE or DISCOMFORT Last administered on 02/20/16at 13:49; Start 02/15/16 at 20:15; Stop 03/16/16 at 20: 14 Al Hydrox/Mg Hydrox/Simethicone (Mylanta) 30 ml Q4HP PRN PO HEARTBURN/ INDIGESTION Last administered on 02/19/16at 23:38; Start 02/15/16 at 20:15; Stop 03/16/16 at 20:14 Docusate Sodium (Colace) 100 mg BID PO Last administered on 02/20/16at 09:32; Start 02/17/16 at 21:00; Stop 03/18/16 at 20:59 Doxycycline Hyclate (Vibramycin) 100 mg BID PO Last administered on 02/20/16at 09:32; Start 02/16/16 at 09:00; Stop 02/22/16 at 23:59 Duloxetine HCl (Cymbalta) 60 mg QAM PO Last administered on 02/20/16at 09:32; Start 02/17/16 at 09:00; Stop 02/20/16 at 17:49; Status DC Furosemide (Lasix) 20 mg NOW ONCE PO Last administered on 02/17/16at 00:37; Start 02/17/16 at 00:30; Stop 02/17/16 at 00:31; Status DC Furosemide (Lasix) 20 mg Q2D PO Last administered on 02/20/16at 09:32; Start 02/18/16 at 09:00; Stop 03/19/16 at 08:59 Home Med (Med Rec Complete!) ASDIRECTED XX ; Start 02/15/16 at 14:15; Stop at 14:15; Status DC Home Med (Med Rec Complete!) ASDIRECTED XX ; Start 02/16/16 at 19:15; Stop at 19:15; Status DC Hydroxyzine HCl (Atarax) 50 mg Q6HP PRN PO ANXIETY Last administered on at 09:28; Start 02/16/16 at 18:30; Stop 02/17/16 at 15:54; Status DC Hydroxyzine HCl (Atarax) 50 mg QID PO Last administered on 02/20/16at 17:33; Start 02/17/16 at 17:00; Stop 03/18/16 at 16:59 Levothyroxine Sodium (Synthroid) 0.125 mg DAILY@06 PO Last administered on at 06:04; Start 02/17/16 at 06:00; Stop 03/18/16 at 05:59 Lorazepam (Ativan) 0.5 mg Q6HP PRN PO ANXIETY/AGITATION Last administered on at 23:00; Start 02/18/16 at 10:30; Stop 02/25/16 at 10:29 Lorazepam (Ativan) 1 mg Q6HP PRN PO ANXIETY/AGITATION Last administered on at 23:25; Start 02/15/16 at 20:15; Stop 02/18/16 at 10:22; Status DC Lorazepam (Ativan) 2 mg STK-MED ONCE As Ordered ; Start 02/15/16 at 11:02; Stop 02/15/16 at 11:03; Status DC Lorazepam (Ativan) 2 mg STK-MED ONCE As Ordered ; Start 02/15/16 at 16:26; Stop 02/15/16 at 16:27; Status DC Lurasidone HCl (Latuda (Lurasidone)) 20 mg DAILY@08 PO ; Start 02/21/16 at 08: 00; Stop 03/22/16 at 07:59 Magnesium Hydroxide (Milk Of Magnesia) 30 ml DAILYPRN PRN PO CONSTIPATION; Start 02/15/16 at 20:15; Stop 03/16/16 at 20:14 Nicotine (Nicoderm Cq 21mg) 1 patch DAILY TD Last administered on 02/20/16at 09 :36; Start 02/16/16 at 09:00; Stop 1/22/17 at 08:59 Trazodone HCl (Desyrel) 50 mg QHSP PRN PO INSOMNIA; Start 02/15/16 at 20:15; Stop 03/16/16 at 20:14 Allergies Coded Allergies: Morphine (Verified Allergy, Unknown, 02/15/16) Penicillins (Verified Allergy, Unknown, 02/15/16) Childhood allergy KarynAzaelSarah Feb 20, 2016 18:38 Start 02/17/16 at 17:00; Stop 03/18/16 at 16:59 Levothyroxine Sodium (Synthroid) 0.125 mg DAILY@06 PO Last administered on at 06:04; Start 02/17/16 at 06:00; Stop 03/18/16 at 05:59 Lorazepam (Ativan) 0.5 mg Q6HP PRN PO ANXIETY/AGITATION Last administered on at 23:00; Start 02/18/16 at 10:30; Stop 02/25/16 at 10:29 Lorazepam (Ativan) 1 mg Q6HP PRN PO ANXIETY/AGITATION Last administered on at 23:25; Start 02/15/16 at 20:15; Stop 02/18/16 at 10:22; Status DC Lorazepam (Ativan) 2 mg STK-MED ONCE As Ordered ; Start 02/15/16 at 11:02; Stop 02/15/16 at 11:03; Status DC Lorazepam (Ativan) 2 mg STK-MED ONCE As Ordered ; Start 02/15/16 at 16:26; Stop 02/15/16 at 16:27; Status DC Lurasidone HCl (Latuda (Lurasidone)) 20 mg DAILY@08 PO ; Start 02/21/16 at 08: 00; Stop 03/22/16 at 07:59 Magnesium Hydroxide (Milk Of Magnesia) 30 ml DAILYPRN PRN PO CONSTIPATION; Start 02/15/16 at 20:15; Stop 03/16/16 at 20:14 Nicotine (Nicoderm Cq 21mg) 1 patch DAILY TD Last administered on 02/20/16at 09 :36; Start 02/16/16 at 09:00; Stop 03/17/16 at 08:59 Trazodone HCl (Desyrel) 50 mg QHSP PRN PO INSOMNIA; Start 02/15/16 at 20:15; Stop 03/16/16 at 20:14 Allergies Coded Allergies: Morphine (Verified Allergy, Unknown, 02/15/16) Penicillins (Verified Allergy, Unknown, 02/15/16) Childhood allergy Sarah Boss Feb 20, 2016 18:38 Trazodone HCl (Desyrel) 50 mg QHSP PRN PO INSOMNIA; Start 02/15/16 at 20:15; Stop 03/16/16 at 20:14 Allergies Coded Allergies: Morphine (Verified Allergy, Unknown, 02/15/16) Penicillins (Verified Allergy, Unknown, 02/15/16) Childhood allergy Sarah Boss Feb 20, 2016 18:38
[2016-02-20] MEDS: LORazepam 0.5 MG TAB PO PRN (22:40)
--- NOTE | 2016-02-21 05:29 | IPN ---
DATE: 02/18/2016 VITAL SIGNS: Temperature 98.4, pulse 78, respiratory rate 16, blood pressure 138/78. CURRENT MEDICATION: - Lasix 20 mg every 2 days - Colace - Atarax - Cymbalta - Synthroid - doxycycline - trazodone as needed HISTORY OF PRESENT ILLNESS: Patient is pressured in speech. She is angry stating she found a bug on her bed. On close inspection, several staff looked at it. It looks like flea. I have advised her staff nurse Leslye to put in an incident report about this. Patient states that there are several things on this unit and in "I have special osborn and I know how to pull out bad people and find everything that is wrong here. The state is going to come down on this unit checking everything because they messed up my medication." She states, she refused her scheduled Atarax because she took Ativan last night. We reduced Ativan to 0.5 because she states the 1 mg is too much and she is used to taking 0.5. She denies suicidal ideation. Denies thoughts to hurt herself or other. However, she remains very pressured, grandiose delusional beliefs and got some paranoid ideas. MENTAL STATUS EXAMINATION: 45-year-old [place] female, average height, obese build, agitated, cooperative. Affect restricted. Mood congruent. Thought form logical, coherent and goal directed, organized. Thought content: Denies suicidal ideation (SI), homicidal ideation (HI). Endorses delusions. Perception: Denies auditory or visual hallucinations. Insight and judgment poor. Impulse control poor. ASSESSMENT: 45-year-old Slov[place] female hospitalized for psychotic symptoms. PLAN: Continue to monitor response to medication. Edited: 02/21/2016 0531 danisha DOBSON
[2016-02-21] MEDS: LEVOTHYROXINE 0.125 MG TAB (125 MCG) PO SCH (06:18)
[2016-02-21 06:23] VITALS: BP 141/71
--- NOTE | 2016-02-21 07:53 | IPN ---
DATE: 02/19/2016 VITAL SIGNS: Temperature 99.3, pulse 102, respiratory rate 16, blood pressure 154/91, pulse oximetry 97% room air. CURRENT MEDICATION: - Ativan as needed - Lasix - Colace - Atarax - Cymbalta - Synthroid - doxycycline HISTORY OF PRESENTING ILLNESS: Patient states that he is feeling better today. She states she is feeling calm. Patient does appear to be better and less pressured. She appears to be thinking clearer today. She states cannabis helps her for chronic pain and she does not want to take opiates because she states that is too addictive and it makes her crave the opiates more than you need. She states her daughter did not visit yesterday, but she understood she was busy at work. She states she does not want to return to her home because it has mold and she needs to contact the local agency to help with that. She states till then she needs to find some emergency housing such as with [facility]. She states if she really had to she could stay with her daughter, although she does not want to be because her daughter has a significant other. She thinks she got a bad batch of cannabis laced with something. She states she does not want to take any drugs from the street for pain relief and wants to get it her from her doctor, such as medical marijuana. MENTAL STATUS EXAMINATION: 45-year-old Fijian male, average height, obese build, pleasant, calm, cooperative. Mood is euthymic. Affect full range, reactive. Mood congruent. Thought form logical, coherent, goal directed, organized. Thought content: Denies suicidal ideation (SI), homicidal ideation (HI), delusions. Perception: Denies auditory or visual hallucinations. Insight and judgment fair. Impulse control fair. ASSESSMENT: 46-year-old Fijian female hospitalized for psychosis. PLAN: Continue to monitor response to current medication. Patient may need help with finding a place to return to upon discharge. MTDD
[2016-02-21] MEDS: DOXYCYCLINE HYCLATE 100 MG TAB PO SCH ×2 (08:23→20:45)
[2016-02-21] MEDS: DOCUSATE SODIUM 100 MG CAP PO SCH ×2 (08:24→20:45)
[2016-02-21] MEDS: LURASIDONE 20 MG TAB (LATUDA) PO SCH (08:24)
[2016-02-21] MEDS: ACETAMINOPHEN TAB 650MG DOSE (2X325MG) PO PRN ×2 (08:24→22:41)
[2016-02-21] MEDS: hydrOXYzine 50 MG TAB PO SCH ×4 (08:24→20:45)
[2016-02-21] MEDS: NICOTINE 21MG/24HR 1 EA TRANSDERMAL TD SCH (08:25)
[2016-02-21] MEDS: MAALOX 30 ML SUSP *UDC PO PRN (11:18)
--- NOTE | 2016-02-21 12:34 | IPNPDOC ---
[facility] Progress Note Progress Note DATE: 02/21/16 HISTORY: Patient was seen today to assess treatment progress on the inpatient unit. Patient was observed to be visible in the hallway, walking, interacting with peers, and she remains easily engaged and met with racebook writer in office. Patient reported current anxiety level as 3/10, denied depression, denied suicidal and homicidal ideation, denied audiovisual hallucinations, and denied urge to engage in self-injurious behavior. Patient today presents as calmer, more redirectable, reduced pressured speech, but remains rambling and tangential. Patient indicates she continues to experience mood lability but feels she is less paranoid and feeling "better." Patient became tearful 1 during today's interaction when talking about her daughter and the possibility that she might have "black mold" in her apartment. Patient indicated that though she feels safer, she still needs "to be careful who I talked to, my building is on by [employer] but you just never know who is connected." Patient today states she does not feel she will need to go into the witness protection program upon discharge from hospital. Patient remains pleasant with no signs of acute distress, denied challenges to appetite, sleep, concentration or energy levels. Patient indicated she feels safe on the inpatient unit. Patient presented with medication side effect printout, asked multiple questions pertaining to potential side effects, indicated she is comfortable with the med change which she started this morning , denies medication side effects. VITAL SIGNS: See below. Patient is asymptomatic, will continue to monitor vitals. NEW TEST RESULTS: Please see below. Glucose, A1c, and CMP within normal limits. EKG - sinus rhythm normal, stable c/w 02/12/16. Cardiac markers WNL, Hct on low. Labs on admission indicate AST and Hct low, glucose elevated. UDS positive for benzos and cannabis on admission. UA pending. CURRENT MEDICATIONS: See below. MENTAL STATUS EXAMINATION: Patient is a 45 year old female female who has one adult child, presents today with improved personal hygiene, dressed in personal clothing and makeup applied appropriately. Patient is obese and appears stated age. Speech: Is pressured at times, tangential at times, normal volume Thought processes: Racing at times, generally goal-directed Thought content: Delusional, paranoid, indicates she must remain cautious in terms of with whom she speaks, today denies need for witness protection program Abstract reasoning: Tangential. Abnormal or psychotic thoughts: Denies hallucinations and delusions however symptoms are noted pertaining to grandiose and paranoid delusional system Judgment: Poor Insight: Poor Oriented to Time, place and person. Recent and Remote Memory: Limited. Attention Span and Concentration: Limited. Language: Within normal limits. Fund of knowledge: Appears limited Mood: "I'm feeling better, today I do not feel in danger." Some expansiveness and lability noted at time of interaction Affect: Constricted but brightens, lability noted but less than yesterday, generally more congruent with mood DIAGNOSES: Unspecified mood disorder, cannabis use disorder, rule out substance- induced psychosis, rule out bipolar disorder, rule out narcissistic personality disorder ASSESSMENT: Patient presents today with slight reduction to symptoms of delusional thinking, mood remains labile, patient denies symptoms of depression , reports ongoing low level anxiety which she today he attributes to "the black mold in my apartment." Patient continues to experience paranoid thinking. Patient denies suicidal and homicidal ideation, denies audiovisual hallucinations, and denies urge to engage in self-injurious behavior. Patient's speech remains pressured, rambling, tangential, and her mood is labile and expansive at times. Patient appears less anxious today with no indication of agitation. Patient took first dose of Latuda 20 mg by mouth this morning, denies side effects. Patient presents today with medication printout and her questions pertaining to side effects were answered, she remained in agreement with continuing Latuda medication trial. Patient was encouraged to continue participating in unit programming. Patient today indicates she remains unsure as to her discharge location, but remains willing to follow-up with outpatient psychotherapy and medication management services in the [place] area. Patient was also encouraged to consider participating in outpatient substance abuse treatment. MANAGEMENT PLAN: Continue Latuda 20 mg po q am to be taken with food, continue standing order of hydroxyzine Maintain safety precautions Patient to attend groups and participate in unit programming to develop coping strategies Engage patient in discharge planning process to ensure safe and effective discharge plan Encourage patient to consider participating in outpatient substance abuse treatment Patient to follow up with PCM within 5-7 days of discharge Vital Signs Vital Sign - Last 24 Hours 02/20/16 02/21/16 18:00 06:23 Temp 96.9 97.0 Pulse 102 95 Resp 18 18 B/P 148/88 141/71 Laboratory Data 24H Labs Laboratory Tests 2 02/21/16 06:31: Triglycerides Level 70, Cholesterol Level 124, HDL Cholesterol 57, LDL Cholesterol 53.0, Cholesterol/HDL Ratio 2.175, Estimated Mean Plasma Glucose 91 , Hemoglobin A1c 4.8, Non-HDL Cholesterol (LDL + VLDL) 67 Current Medications Current Medications Acetaminophen (Tylenol) 650 mg Q6HP PRN PO HEADACHE or DISCOMFORT Last administered on 02/21/16at 08:24; Start 02/15/16 at 20:15; Stop 03/16/16 at 20: 14 Al Hydrox/Mg Hydrox/Simethicone (Mylanta) 30 ml Q4HP PRN PO HEARTBURN/ INDIGESTION Last administered on 02/21/16at 11:18; Start 02/15/16 at 20:15; Stop 03/16/16 at 20:14 Docusate Sodium (Colace) 100 mg BID PO Last administered on 02/21/16at 08:24; Start 02/17/16 at 21:00; Stop 03/18/16 at 20:59 Doxycycline Hyclate (Vibramycin) 100 mg BID PO Last administered on 02/21/16at 08:23; Start 02/16/16 at 09:00; Stop 02/22/16 at 23:59 Duloxetine HCl (Cymbalta) 60 mg QAM PO Last administered on 02/20/16at 09:32; Start 02/17/16 at 09:00; Stop 02/20/16 at 17:49; Status DC Furosemide (Lasix) 20 mg NOW ONCE PO Last administered on 02/17/16at 00:37; Start 02/17/16 at 00:30; Stop 02/17/16 at 00:31; Status DC Furosemide (Lasix) 20 mg Q2D PO Last administered on 02/20/16at 09:32; Start 02/18/16 at 09:00; Stop 03/19/16 at 08:59 Home Med (Med Rec Complete!) ASDIRECTED XX ; Start 02/15/16 at 14:15; Stop at 14:15; Status DC Home Med (Med Rec Complete!) ASDIRECTED XX ; Start 02/16/16 at 19:15; Stop at 19:15; Status DC Hydroxyzine HCl (Atarax) 50 mg Q6HP PRN PO ANXIETY Last administered on at 09:28; Start 02/16/16 at 18:30; Stop 02/17/16 at 15:54; Status DC Hydroxyzine HCl (Atarax) 50 mg QID PO Last administered on 02/21/16at 08:24; Start 02/17/16 at 17:00; Stop 03/18/16 at 16:59 Levothyroxine Sodium (Synthroid) 0.125 mg DAILY@06 PO Last administered on at 06:18; Start 02/17/16 at 06:00; Stop 03/18/16 at 05:59 Lorazepam (Ativan) 0.5 mg Q6HP PRN PO ANXIETY/AGITATION Last administered on at 22:40; Start 02/18/16 at 10:30; Stop 02/25/16 at 10:29 Lorazepam (Ativan) 1 mg Q6HP PRN PO ANXIETY/AGITATION Last administered on at 23:25; Start 02/15/16 at 20:15; Stop 02/18/16 at 10:22; Status DC Lorazepam (Ativan) 2 mg STK-MED ONCE As Ordered ; Start 02/15/16 at 11:02; Stop 02/15/16 at 11:03; Status DC Lorazepam (Ativan) 2 mg STK-MED ONCE As Ordered ; Start 02/15/16 at 16:26; Stop 02/15/16 at 16:27; Status DC Lurasidone HCl (Latuda (Lurasidone)) 20 mg DAILY@08 PO Last administered on at 08:24; Start 02/21/16 at 08:00; Stop 03/22/16 at 07:59 Magnesium Hydroxide (Milk Of Magnesia) 30 ml DAILYPRN PRN PO CONSTIPATION; Start 02/15/16 at 20:15; Stop 03/16/16 at 20:14 Nicotine (Nicoderm Cq 21mg) 1 patch DAILY TD Last administered on 02/21/16at 08 :25; Start 02/16/16 at 09:00; Stop 03/17/16 at 08:59 Trazodone HCl (Desyrel) 50 mg QHSP PRN PO INSOMNIA; Start 02/15/16 at 20:15; Stop 03/16/16 at 20:14 Allergies Coded Allergies: Morphine (Verified Allergy, Unknown, 02/15/16) Penicillins (Verified Allergy, Unknown, 02/15/16) Childhood allergy Sarah Boss Feb 21, 2016 12:34
[2016-02-21] MEDS: BISACODYL 5 MG TAB PO SCH (14:41)
[2016-02-21 18:00] VITALS: BP 133/85
[2016-02-21] MEDS: LORazepam 0.5 MG TAB PO PRN (22:40)
[2016-02-22] MEDS: LEVOTHYROXINE 0.125 MG TAB (125 MCG) PO SCH (05:58)
[2016-02-22] MEDS: ACETAMINOPHEN TAB 650MG DOSE (2X325MG) PO PRN ×3 (06:02→21:48)
[2016-02-22 06:09] VITALS: BP 131/84
[2016-02-22] MEDS: DOXYCYCLINE HYCLATE 100 MG TAB PO SCH ×2 (08:23→21:17)
[2016-02-22] MEDS: LURASIDONE 20 MG TAB (LATUDA) PO SCH (08:23)
[2016-02-22] MEDS: NICOTINE 21MG/24HR 1 EA TRANSDERMAL TD SCH (08:23)
[2016-02-22] MEDS: DOCUSATE SODIUM 100 MG CAP PO SCH ×2 (08:23→21:17)
[2016-02-22] MEDS: hydrOXYzine 50 MG TAB PO SCH ×4 (08:23→21:17)
[2016-02-22] MEDS: BISACODYL 5 MG TAB PO SCH (08:23)
[2016-02-22] MEDS: FUROSEMIDE 20 MG TAB PO SCH (08:23)
[2016-02-22] MEDS ORDERED: ALBUTEROL 90 MCG/ACT 8GM HFA INHALER INH PRN (11:30)
[2016-02-22] MEDS: SYMBICORT 160/4.5MCG INHALER 6GM INH SCH ×2 (12:48→21:17)
--- NOTE | 2016-02-22 15:30 | IPNPDOC ---
[facility] Progress Note Progress Note DATE: 02/22/16 HISTORY: Patient was seen today to assess treatment progress on the inpatient unit. Patient was observed to be visible in the hallway, walking, interacting with peers, and she remains easily engaged and met with medical writer in office. Patient reported current anxiety level as 2/10, denied depression, denied suicidal and homicidal ideation, denied audiovisual hallucinations, and denied urge to engage in self-injurious behavior. Patient indicates today she feels Latuda is helpful in reducing racing thoughts and symptoms of anxiety and agitation, denies medication side effects. Patient also continues to take hydroxyzine 50 mg QID and ativan 0.5 mg po PRN with good effect reported. Patient presents as calmer, more redirectable than yesterday, continues to display rapid, pressured speech, and remains rambling and tangential. Patient feels she is experiencing reduced mood lability and reduce symptoms of paranoia. Patient becomes tearful 1 during this interaction as singing her grandchildren, also continues to express unusual thinking related to returning home, apartment complex conspiracy, her "special gifts," and the need to be careful about with whom she speaks. Patient reiterates today she no longer believes she needs to be in the witness protection program upon discharge from hospital, and she is able to verbalize some insight in terms of her "unusual" thinking and behavior prior to hospitalization. Patient remains pleasant with no signs of acute distress, denied challenges to appetite, sleep, concentration or energy levels. Patient denies physical pain. Patient indicated she feels safe on the inpatient unit. VITAL SIGNS: See below. Patient is asymptomatic, will continue to monitor vitals. NEW TEST RESULTS: Please see below. Glucose, A1c, and CMP within normal limits. EKG - sinus rhythm normal, stable c/w 02/12/16. Cardiac markers WNL, Hct on low. Labs on admission indicate AST and Hct low, glucose elevated. UDS positive for benzos and cannabis on admission. UA pending. CURRENT MEDICATIONS: See below. MENTAL STATUS EXAMINATION: Patient is a 45 year old female female who has one adult child, presents today with improved personal hygiene, dressed in personal clothing and makeup applied appropriately. Patient is obese and appears stated age. Speech: Is pressured, rambling, tangential at times, normal volume Thought processes: Racing, generally goal-directed Thought content: Delusional, less paranoid Abstract reasoning: Tangential. Abnormal or psychotic thoughts: Denies hallucinations and delusions however symptoms are noted pertaining to grandiose and paranoid delusional system Judgment: Poor Insight: Poor, some improvement Oriented to Time, place and person. Recent and Remote Memory: Limited. Attention Span and Concentration: Limited. Language: Within normal limits. Fund of knowledge: Appears limited Mood: "I'm feeling better, happy but not too happy most of the time." Some expansiveness, some euphoria and lability noted at time of interaction Affect: Constricted but brightens, lability noted but less than yesterday, generally more congruent with mood DIAGNOSES: Unspecified mood disorder, cannabis use disorder, rule out substance- induced psychosis, rule out bipolar disorder, rule out narcissistic personality disorder ASSESSMENT: Patient presents today with slight reduction to symptoms of delusional thinking, mood remains labile, patient denies symptoms of depression , reports ongoing low level anxiety which she today he attributes to "being away from my babies (grandchildren)." Patient continues to express concern related to the black mold in her apartment which may or may not be justified, and continues to express concerns about being the target of a drug cartel, however denise no longer indicates she needs to be in the witness protection program upon discharge. Patient continues to express paranoid thinking, denies suicidal and homicidal ideation, denies audiovisual hallucinations, and denies urge to engage in self-injurious behavior. Patient's speech remains pressured, rambling, tangential. Patient's mood remains labile but is less so than yesterday, she appears less anxious and displays no symptoms of agitation, remains expansive at times. Patient has been taking Latuda 20 mg po X 2 days with good effect reported patient denies side effects. Patient states she feels medication is helping to stabilize her mood and reduce symptoms of anxiety, depression, paranoid thinking, and racing thoughts. Patient states today she is in agreement with dose increase in effort to further reduce aforementioned symptoms. Patient was encouraged to continue participating in unit programming. Patient today indicates she is not certain of her discharge plan, but states she is considering going to stay with her daughter temporarily into her home. Patient also today indicates she is willing to participate in outpatient substance abuse treatment at [facility], adds she is considering dissipating in outpatient psychotherapy and medication management at the [facility]. MANAGEMENT PLAN: Increase Latuda to 40 mg po q am to be taken with food, continue standing order of hydroxyzine Maintain safety precautions Patient to attend groups and participate in unit programming to develop coping strategies Engage patient in discharge planning process to ensure safe and effective discharge plan Encourage patient to consider participating in outpatient substance abuse treatment, agrees to attend [facility] and [facility] Patient to follow up with PCM within 5-7 days of discharge Vital Signs Vital Sign - Last 24 Hours 02/21/16 02/21/16 02/22/16 18:00 18:00 06:09 Temp 96.5 96.1 Pulse 80 104 Resp 98 16 18 B/P 133/85 131/84 FiO2 95 Current Medications Current Medications Acetaminophen (Tylenol) 650 mg Q6HP PRN PO HEADACHE or DISCOMFORT Last administered on 02/22/16at 06:02; Start 02/15/16 at 20:15; Stop 03/16/16 at 20: 14 Al Hydrox/Mg Hydrox/Simethicone (Mylanta) 30 ml Q4HP PRN PO HEARTBURN/ INDIGESTION Last administered on 02/21/16at 11:18; Start 02/15/16 at 20:15; Stop 03/16/16 at 20:14 Albuterol Sulfate (Proventil, Ventolin Hfa) 2 puff Q4HP PRN INH SHORTNESS OF BREATH; Start 02/22/16 at 11:30; Stop 03/23/16 at 11:29 Bisacodyl (Dulcolax) 10 mg DAILY PO Last administered on 02/22/16at 08:23; Start 02/21/16 at 09:00; Stop 03/22/16 at 08:59 Budesonide/ Formoterol Fumarate (Symbicort 160/ 4.5mcg) 2 puff BID INH Last administered on 02/22/16at 12:48; Start 02/22/16 at 09:00; Stop 03/23/16 at 08: 59 Docusate Sodium (Colace) 100 mg BID PO Last administered on 02/22/16at 08:23; Start 02/17/16 at 21:00; Stop 03/18/16 at 20:59 Doxycycline Hyclate (Vibramycin) 100 mg BID PO Last administered on 02/22/16at 08:23; Start 02/16/16 at 09:00; Stop 02/22/16 at 23:59 Duloxetine HCl (Cymbalta) 60 mg QAM PO Last administered on 02/20/16at 09:32; Start 02/17/16 at 09:00; Stop 02/20/16 at 17:49; Status DC Furosemide (Lasix) 20 mg NOW ONCE PO Last administered on 02/17/16at 00:37; Start 02/17/16 at 00:30; Stop 02/17/16 at 00:31; Status DC Furosemide (Lasix) 20 mg Q2D PO Last administered on 02/22/16at 08:23; Start 02/18/16 at 09:00; Stop 03/19/16 at 08:59 Home Med (Med Rec Complete!) ASDIRECTED XX ; Start 02/15/16 at 14:15; Stop at 14:15; Status DC Home Med (Med Rec Complete!) ASDIRECTED XX ; Start 02/16/16 at 19:15; Stop at 19:15; Status DC Hydroxyzine HCl (Atarax) 50 mg Q6HP PRN PO ANXIETY Last administered on at 09:28; Start 02/16/16 at 18:30; Stop 02/17/16 at 15:54; Status DC Hydroxyzine HCl (Atarax) 50 mg QID PO Last administered on 02/22/16at 12:48; Start 02/17/16 at 17:00; Stop 03/18/16 at 16:59 Levothyroxine Sodium (Synthroid) 0.125 mg DAILY@06 PO Last administered on at 05:58; Start 02/17/16 at 06:00; Stop 03/18/16 at 05:59 Lorazepam (Ativan) 0.5 mg Q6HP PRN PO ANXIETY/AGITATION Last administered on at 22:40; Start 02/18/16 at 10:30; Stop 02/25/16 at 10:29 Lorazepam (Ativan) 1 mg Q6HP PRN PO ANXIETY/AGITATION Last administered on at 23:25; Start 02/15/16 at 20:15; Stop 02/18/16 at 10:22; Status DC Lorazepam (Ativan) 2 mg STK-MED ONCE As Ordered ; Start 02/15/16 at 11:02; Stop 02/15/16 at 11:03; Status DC Lorazepam (Ativan) 2 mg STK-MED ONCE As Ordered ; Start 02/15/16 at 16:26; Stop 02/15/16 at 16:27; Status DC Lurasidone HCl (Latuda (Lurasidone)) 20 mg DAILY@08 PO Last administered on at 08:23; Start 02/21/16 at 08:00; Stop 02/22/16 at 15:05; Status DC Lurasidone HCl (Latuda (Lurasidone)) 40 mg DAILY@08 PO ; Start 02/23/16 at 08: 00; Stop 03/24/16 at 07:59; Status UNV Magnesium Hydroxide (Milk Of Magnesia) 30 ml DAILYPRN PRN PO CONSTIPATION; Start 02/15/16 at 20:15; Stop 03/16/16 at 20:14 Nicotine (Nicoderm Cq 21mg) 1 patch DAILY TD Last administered on 02/22/16at 08 :23; Start 02/16/16 at 09:00; Stop 03/17/16 at 08:59 Trazodone HCl (Desyrel) 50 mg QHSP PRN PO INSOMNIA; Start 02/15/16 at 20:15; Stop 03/16/16 at 20:14 Allergies Coded Allergies: Morphine (Verified Allergy, Unknown, 02/15/16) Penicillins (Verified Allergy, Unknown, 02/15/16) Childhood allergy Sarah Boss Feb 22, 2016 15:30
[2016-02-22] MEDS: LORazepam 0.5 MG TAB PO PRN ×2 (15:55→21:47)
[2016-02-22 16:37] VITALS: BP 159/101
[2016-02-22 16:38] VITALS: BP_SYST 159; BP_SYST 165; BP_DIAS 89; BP_DIAS 94
[2016-02-22 17:18] VITALS: BP 122/82
[2016-02-22 18:00] VITALS: BP 142/76
[2016-02-22] MEDS: MAALOX 30 ML SUSP *UDC PO PRN (22:26)
[2016-02-23] MEDS: LEVOTHYROXINE 0.125 MG TAB (125 MCG) PO SCH (05:30)
[2016-02-23 06:27] VITALS: BP 117/66
[2016-02-23] MEDS: BISACODYL 5 MG TAB PO SCH (08:32)
[2016-02-23] MEDS: SYMBICORT 160/4.5MCG INHALER 6GM INH SCH ×2 (08:32→22:04)
[2016-02-23] MEDS: NICOTINE 21MG/24HR 1 EA TRANSDERMAL TD SCH (08:32)
[2016-02-23] MEDS: LURASIDONE HCL 40 MG TAB (LATUDA) PO SCH (08:32)
[2016-02-23] MEDS: hydrOXYzine 50 MG TAB PO SCH ×4 (08:32→22:05)
[2016-02-23] MEDS: DOCUSATE SODIUM 100 MG CAP PO SCH ×2 (08:32→22:04)
--- NOTE | 2016-02-23 11:24 | IPNPDOC ---
[facility] Progress Note Progress Note DATE: 02/23/16 HISTORY: Patient was seen today to assess treatment progress on the inpatient unit. Patient was observed to be visible in the hallway, walking, interacting with peers, and she has been attending groups. Patient met with typewriter aligner in office and reported reduced anxiety level of 1/10, denied depression, denied suicidal and homicidal ideation, denied audiovisual hallucinations, and denied urge to engage in self-injurious behavior. Patient took first increased dose of dose Latuda this morning, notes she feels medication remains "very helpful," and denies medication side effects. Patient stated "I feel like I'm more in reality, I'm more peaceful, and my mood feels like it's getting more level." Patient also continues to take hydroxyzine 50 mg QID and ativan 0.5 mg po PRN with good effect reported. Patient presents as clear with fewer indications of delusional thinking, she is calmer, mood appears more stable though is still labile, patient is less tangential and focus and concentration appear to be improved. Patient is able to verbalize previous experiences involving paranoid thinking and racing thoughts, notes today she has residual symptoms but reports notable improvement, continues shows signs of improved insight and judgment. Patient remains pleasant and cooperative with staff on unit. Patient presents with no signs of acute distress, denies challenges to appetite and energy level , and denies sleep-related challenges. Patient denies physical pain at time of interaction, however, notes she has been experiencing GI related discomfort, notes she was given Mylanta last night with good but temporary effect, adds she has a history of GERD and has taken omeprazole with good effect in the past. Strip Mine Supervisor has asked that patient be evaluated to rule out other possible origins of symptoms and to determine if omeprazole restart would be appropriate. VITAL SIGNS: See below. Patient is asymptomatic at time of interaction but typewriter aligner has requested evaluation of blood pressure in light of fluctuation and recently reported symptoms of GERD-type discomfort. NEW TEST RESULTS: Please see below. Glucose, A1c, and CMP within normal limits. EKG - sinus rhythm normal, stable c/w 02/12/16. Cardiac markers WNL, Hct on low. Labs on admission indicate AST and Hct low, glucose elevated. UDS positive for benzos and cannabis on admission. UA pending. CURRENT MEDICATIONS: See below. MENTAL STATUS EXAMINATION: Patient is a 45 year old female female who has one adult child, presents today with improved personal hygiene, dressed in personal clothing and makeup applied appropriately. Patient is obese and appears stated age. Speech: Is less pressured, continues to be rambling but is less tangential, normal volume Thought processes: Less racing, more goal-directed Thought content: Less delusional, less paranoid Abstract reasoning: Remains tangential but less so today. Abnormal or psychotic thoughts: Denies hallucinations and delusions. Delusional thinking appears to be reduced and there is less grandiosity and paranoia Judgment: Poor, some improvement Insight: Limited, continues to improve Oriented to Time, place and person. Recent and Remote Memory: Limited but improving. Attention Span and Concentration: Limited but improving. Language: Within normal limits. Fund of knowledge: Appears limited but improving Mood: "I'm starting to feel better, more like I'm in reality again." Remains expansive, less euphoria and lability noted Affect: Constricted but brightens, lability noted but less than yesterday, generally more congruent with mood DIAGNOSES: Unspecified mood disorder, cannabis use disorder, rule out substance- induced psychosis, rule out bipolar disorder, rule out narcissistic personality disorder ASSESSMENT: Patient presents today with reduction to symptoms of delusional thinking and mood lability, she is clearer and more logical, no tearfulness noted during today's interaction. Patient denies symptoms of depression, reports ongoing low level anxiety which she states is related to "being here and not being at home for the holiday." Patient today mentions concerns about black mold in her apartment, makes reference to finding "true love" and her melonie in God, but is generally less labile, less tangential, displays reduction in pressured speech and racing thoughts. Patient is also able to verbalize today that when she came into the hospital she was "not reality based," indicates she is beginning to feel "better." Patient continues to express some paranoid thinking, denies suicidal and homicidal ideation, denies audiovisual hallucinations, and denies urge to engage in self-injurious behavior. Patient has been taking Latuda 40 mg po X 1 day with good effect reported and patient denies side effects. Patient states she feels medication continues to help stabilize her mood and reduce symptoms of anxiety, depression, paranoid thinking , and racing thoughts. Patient was encouraged to continue participating in unit programming. Patient remains uncertain of discharge plan, but reiterates today she is considering going to stay with her daughter temporarily prior to returning to her home. Patient also reiterates today she is willing to participate in outpatient substance abuse treatment at [facility], adds she is working with commercial coordinator to arrange outpatient psychotherapy and medication management at the [facility]. MANAGEMENT PLAN: Continue Latuda to 40 mg po q am to be taken with food, continue standing order of hydroxyzine and PRN Ativan Maintain safety precautions Patient to attend groups and participate in unit programming to develop coping strategies Engage patient in discharge planning process to ensure safe and effective discharge plan Encourage patient to consider participating in outpatient substance abuse treatment, agrees to attend [facility] and [facility] Patient to follow up with PCM within 5-7 days of discharge Vital Signs Vital Sign - Last 24 Hours 02/22/16 02/22/16 02/22/16 02/22/16 16:37 16:38 16:38 17:18 Pulse 99 106 101 104 B/P 159/101 165/94 159/89 122/82 02/22/16 02/23/16 18:00 06:27 Temp 97.8 96.5 Pulse 104 97 Resp 16 16 B/P 142/76 117/66 Pulse Ox 97 O2 Delivery Room Air Current Medications Current Medications Acetaminophen (Tylenol) 650 mg Q6HP PRN PO HEADACHE or DISCOMFORT Last administered on 02/22/16at 21:48; Start 02/15/16 at 20:15; Stop 03/16/16 at 20: 14 Al Hydrox/Mg Hydrox/Simethicone (Mylanta) 30 ml Q4HP PRN PO HEARTBURN/ INDIGESTION Last administered on 02/22/16at 22:26; Start 02/15/16 at 20:15; Stop 03/16/16 at 20:14 Albuterol Sulfate (Proventil, Ventolin Hfa) 2 puff Q4HP PRN INH SHORTNESS OF BREATH; Start 02/22/16 at 11:30; Stop 03/23/16 at 11:29 Bisacodyl (Dulcolax) 10 mg DAILY PO Last administered on 02/23/16at 08:32; Start 02/21/16 at 09:00; Stop 03/22/16 at 08:59 Budesonide/ Formoterol Fumarate (Symbicort 160/ 4.5mcg) 2 puff BID INH Last administered on 02/23/16 08:32; Start 02/22/16 at 09:00; Stop 03/23/16 at 08: 59 Docusate Sodium (Colace) 100 mg BID PO Last administered on 02/23/16at 08:32; Start 02/17/16 at 21:00; Stop 03/18/16 at 20:59 Doxycycline Hyclate (Vibramycin) 100 mg BID PO Last administered on 02/22/16at 21:17; Start 02/16/16 at 09:00; Stop 02/22/16 at 23:59; Status DC Duloxetine HCl (Cymbalta) 60 mg QAM PO Last administered on 02/20/16at 09:32; Start 02/17/16 at 09:00; Stop 02/20/16 at 17:49; Status DC Furosemide (Lasix) 20 mg NOW ONCE PO Last administered on 02/17/16at 00:37; Start 02/17/16 at 00:30; Stop 02/17/16 at 00:31; Status DC Furosemide (Lasix) 20 mg Q2D PO Last administered on 02/22/16at 08:23; Start 02/18/16 at 09:00; Stop 03/19/16 at 08:59 Home Med (Med Rec Complete!) ASDIRECTED XX ; Start 02/15/16 at 14:15; Stop at 14:15; Status DC Home Med (Med Rec Complete!) ASDIRECTED XX ; Start 02/16/16 at 19:15; Stop at 19:15; Status DC Hydroxyzine HCl (Atarax) 50 mg Q6HP PRN PO ANXIETY Last administered on at 09:28; Start 02/16/16 at 18:30; Stop 02/17/16 at 15:54; Status DC Hydroxyzine HCl (Atarax) 50 mg QID PO Last administered on 02/23/16at 08:32; Start 02/17/16 at 17:00; Stop 03/18/16 at 16:59 Levothyroxine Sodium (Synthroid) 0.125 mg DAILY@06 PO Last administered on at 05:30; Start 02/17/16 at 06:00; Stop 03/18/16 at 05:59 Lorazepam (Ativan) 0.5 mg Q6HP PRN PO ANXIETY/AGITATION Last administered on at 21:47; Start 02/18/16 at 10:30; Stop 02/25/16 at 10:29 Lorazepam (Ativan) 1 mg Q6HP PRN PO ANXIETY/AGITATION Last administered on at 23:25; Start 02/15/16 at 20:15; Stop 02/18/16 at 10:22; Status DC Lorazepam (Ativan) 2 mg STK-MED ONCE As Ordered ; Start 02/15/16 at 11:02; Stop 02/15/16 at 11:03; Status DC Lorazepam (Ativan) 2 mg STK-MED ONCE As Ordered ; Start 02/15/16 at 16:26; Stop 02/15/16 at 16:27; Status DC Lurasidone HCl (Latuda (Lurasidone)) 20 mg DAILY@08 PO Last administered on at 08:23; Start 02/21/16 at 08:00; Stop 02/22/16 at 15:05; Status DC Lurasidone HCl (Latuda) 40 mg DAILY@08 PO Last administered on 02/23/16at 08:32 ; Start 02/23/16 at 08:00; Stop 03/24/16 at 07:59 Magnesium Hydroxide (Milk Of Magnesia) 30 ml DAILYPRN PRN PO CONSTIPATION; Start 02/15/16 at 20:15; Stop 03/16/16 at 20:14 Nicotine (Nicoderm Cq 21mg) 1 patch DAILY TD Last administered on 02/23/16at 08 :32; Start 02/16/16 at 09:00; Stop 03/17/16 at 08:59 Trazodone HCl (Desyrel) 50 mg QHSP PRN PO INSOMNIA; Start 02/15/16 at 20:15; Stop 03/16/16 at 20:14 Allergies Coded Allergies: Morphine (Verified Allergy, Unknown, 02/15/16) Penicillins (Verified Allergy, Unknown, 02/15/16) Childhood allergy Sarah Boss Feb 23, 2016 11:24
[2016-02-23] MEDS: ACETAMINOPHEN TAB 650MG DOSE (2X325MG) PO PRN ×2 (11:56→18:41)
[2016-02-23 18:00] VITALS: BP 137/74
[2016-02-23] MEDS: LORazepam 0.5 MG TAB PO PRN (18:59)
[2016-02-23] MEDS: OMEPRAZOLE 20 MG CAP PO SCH (22:04)
[2016-02-24] MEDS: ACETAMINOPHEN TAB 650MG DOSE (2X325MG) PO PRN ×3 (01:27→23:48)
[2016-02-24] MEDS: LEVOTHYROXINE 0.125 MG TAB (125 MCG) PO SCH (06:10)
[2016-02-24] MEDS: MAALOX 30 ML SUSP *UDC PO PRN (06:19)
[2016-02-24 06:28] VITALS: BP 128/88
[2016-02-24] MEDS: FUROSEMIDE 20 MG TAB PO SCH (08:26)
[2016-02-24] MEDS: DOCUSATE SODIUM 100 MG CAP PO SCH ×2 (08:26→23:48)
[2016-02-24] MEDS: SYMBICORT 160/4.5MCG INHALER 6GM INH SCH ×2 (08:26→23:49)
[2016-02-24] MEDS: LURASIDONE HCL 40 MG TAB (LATUDA) PO SCH (08:27)
[2016-02-24] MEDS: hydrOXYzine 50 MG TAB PO SCH ×4 (08:27→23:48)
[2016-02-24] MEDS: BISACODYL 5 MG TAB PO SCH (08:27)
[2016-02-24] MEDS: NICOTINE 21MG/24HR 1 EA TRANSDERMAL TD SCH (08:27)
[2016-02-24] MEDS: FLUTICASONE PROP 0.05% NASAL SPRAY 16 GM (FLONASE) SCH ×2 (09:55→23:48)
[2016-02-24 18:00] VITALS: BP 126/84
[2016-02-24 20:17] VITALS: BP 126/84
[2016-02-24] MEDS: OMEPRAZOLE 20 MG CAP PO SCH (23:48)
[2016-02-25] MEDS: MAALOX 30 ML SUSP *UDC PO PRN (03:57)
[2016-02-25] MEDS: LEVOTHYROXINE 0.125 MG TAB (125 MCG) PO SCH (06:01)
[2016-02-25 06:07] VITALS: BP 134/89
[2016-02-25] MEDS: BISACODYL 5 MG TAB PO SCH (08:20)
[2016-02-25] MEDS: FLUTICASONE PROP 0.05% NASAL SPRAY 16 GM (FLONASE) SCH ×2 (08:20→21:22)
[2016-02-25] MEDS: hydrOXYzine 50 MG TAB PO SCH ×4 (08:20→21:22)
[2016-02-25] MEDS: LURASIDONE HCL 40 MG TAB (LATUDA) PO SCH (08:21)
[2016-02-25] MEDS: DOCUSATE SODIUM 100 MG CAP PO SCH ×2 (08:21→21:22)
[2016-02-25] MEDS: NICOTINE 21MG/24HR 1 EA TRANSDERMAL TD SCH (08:21)
[2016-02-25] MEDS: SYMBICORT 160/4.5MCG INHALER 6GM INH SCH ×2 (08:21→21:21)
[2016-02-25] MEDS: ACETAMINOPHEN TAB 650MG DOSE (2X325MG) PO PRN (12:11)
[2016-02-25] MEDS: LORazepam 0.5 MG TAB PO PRN ×2 (14:58→22:49)
[2016-02-25 18:00] VITALS: BP 134/78
[2016-02-25] MEDS: OMEPRAZOLE 20 MG CAP PO SCH (21:22)
[2016-02-26] MEDS: LEVOTHYROXINE 0.125 MG TAB (125 MCG) PO SCH (05:34)
[2016-02-26 06:00] VITALS: BP 140/77
[2016-02-26] MEDS: LURASIDONE HCL 40 MG TAB (LATUDA) PO SCH (07:33)
[2016-02-26] MEDS: LORazepam 0.5 MG TAB PO PRN ×3 (07:34→22:08)
--- NOTE | 2016-02-26 07:39 | IPN ---
DATE: 02/23/2016 I was asked to see her on an acute care visit. She has history of gastric bypass. She has been having severe heartburn, especially when lying down. She had it as an outpatient as well. She has had intermittent rectal bleeding. She states she is being set up as an outpatient for a colonoscopy and upper endoscopy. She also has history of a breast lumps and in the past she has had history of biopsies. She is set to have a mammogram as an outpatient. She denies any nipple discharge. No cough. No hemoptysis. No orthopnea. She states she used to take omeprazole 40 twice a day and that her doctor had to cut that back secondary to having gastric bypass. She has tried ranitidine with no improvement. She has tried Maalox with some improvement, but she states it is bad again where she lies down and it comes up into her throat. OBJECTIVE: Blood pressure 137/74. Pulse 76. Respirations 16. Temperature 96.1. The patient is alert and oriented times three. Pupils equal and react to light. Extraocular movements intact. Cornea and sclera clear. Conjunctiva normal. No facial asymmetry. Pharynx, tongue and gums pink and moist. Tongue is midline. Neck is supple, without lymphadenopathy. No thyromegaly. No goiter. Chest clear to auscultation, without wheeze or retraction. Heart is regular. Abdomen benign. Bowel sounds positive. Genitourinary ()/Rectal: Not done. Extremities show no cyanosis, clubbing or edema. Skin is warm and dry. IMPRESSION: Gastroesophageal reflux disease (GERD). Will do omeprazole just at a low dose 20 mg. Monitor her magnesium level. Maalox as needed. She needs to keep her appointments as an outpatient. Need to ensure that they are made for her and that she has dates and times for them. She states she is having a colonoscopy set up as an outpatient by her primary as well as a mammography and an upper endoscopy. Edited: frederick 02/28/2016 1058 MTDD
[2016-02-26] MEDS: SYMBICORT 160/4.5MCG INHALER 6GM INH SCH ×2 (08:45→20:40)
[2016-02-26] MEDS: NICOTINE 21MG/24HR 1 EA TRANSDERMAL TD SCH (08:46)
[2016-02-26] MEDS: FUROSEMIDE 20 MG TAB PO SCH (08:46)
[2016-02-26] MEDS: FLUTICASONE PROP 0.05% NASAL SPRAY 16 GM (FLONASE) SCH ×2 (08:46→20:40)
[2016-02-26] MEDS: DOCUSATE SODIUM 100 MG CAP PO SCH ×2 (08:46→20:39)
[2016-02-26] MEDS: hydrOXYzine 50 MG TAB PO SCH ×4 (08:46→20:39)
[2016-02-26] MEDS: BISACODYL 5 MG TAB PO SCH (08:46)
[2016-02-26] MEDS: ACETAMINOPHEN TAB 650MG DOSE (2X325MG) PO PRN (08:47)
[2016-02-26 18:00] VITALS: BP 141/71
[2016-02-26] MEDS: OMEPRAZOLE 20 MG CAP PO SCH (20:39)
[2016-02-27] MEDS: MAALOX 30 ML SUSP *UDC PO PRN (00:55)
[2016-02-27] MEDS: LEVOTHYROXINE 0.125 MG TAB (125 MCG) PO SCH (05:02)
[2016-02-27 06:00] VITALS: BP 149/95
[2016-02-27] MEDS: LURASIDONE HCL 40 MG TAB (LATUDA) PO SCH (07:37)
[2016-02-27] MEDS: DOCUSATE SODIUM 100 MG CAP PO SCH (08:08)
[2016-02-27] MEDS: BISACODYL 5 MG TAB PO SCH (08:08)
[2016-02-27] MEDS: FLUTICASONE PROP 0.05% NASAL SPRAY 16 GM (FLONASE) SCH (08:08)
[2016-02-27] MEDS: SYMBICORT 160/4.5MCG INHALER 6GM INH SCH (08:08)
[2016-02-27] MEDS: hydrOXYzine 50 MG TAB PO SCH ×2 (08:08→12:03)
[2016-02-27] MEDS: ACETAMINOPHEN TAB 650MG DOSE (2X325MG) PO PRN (08:09)
[2016-02-27] MEDS: NICOTINE 21MG/24HR 1 EA TRANSDERMAL TD SCH (08:09)
[2016-02-27] MEDS ORDERED: LATU40TA PO (11:16)
[2016-02-27 11:34] VITALS: BP 132/90
[2016-02-27] MEDS ORDERED: FLON50SP (11:59)
[2016-02-27] MEDS ORDERED: PRIL20CA PO (11:59)
[2016-02-27] MEDS ORDERED: NICO14DI3 TD (11:59)
[2016-02-27] MEDS ORDERED: SYMB16INH INH (12:22)
[2016-02-27] MEDS ORDERED: ATIV1TAB10 PO (12:22)
[2016-02-27] MEDS ORDERED: IBUP200C PO (12:22)
[2016-02-27] MEDS ORDERED: ALBU17IN2 INH (12:22)
[2016-02-27 13:56] LABS: CONTROL LINE INT CTR LINE PRESENT; HIV SCRN NEGATIVE (NEGATIVE); HIV SCRN1 NEGATIVE (NEGATIVE)
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
== END 2016-02-27 14:00 | disposition home or self-care (01) | DRG 897 ==
LOC: M ED 10:28 → M PSY 18:38
PROVIDERS: ADMIT Psychiatry & Neurology Psychiatry; ATTEND Psychiatry & Neurology Psychiatry
DX: F19.94 Other psychoactive substance use, unspecified with psychoactive substance-induced mood disorder (principal); J44.1 Chronic obstructive pulmonary disease with (acute) exacerbation; F31.9 Bipolar disorder, unspecified; F60.81 Narcissistic personality disorder; F12.90 Cannabis use, unspecified, uncomplicated; F17.210 Nicotine dependence, cigarettes, uncomplicated; M79.7 Fibromyalgia; G47.33 Obstructive sleep apnea (adult) (pediatric); E03.9 Hypothyroidism, unspecified; E66.9 Obesity, unspecified; I10 Essential (primary) hypertension; K21.9 Gastro-esophageal reflux disease without esophagitis; Z88.0 Allergy status to penicillin; Z88.5 Allergy status to narcotic agent; Z79.899 Other long term (current) drug therapy; M54.5 Low back pain; Z98.84 Bariatric surgery status; M54.2 Cervicalgia

== ENCOUNTER 2016-03-04 01:04 | Emergency (ER) | payer MEDICARE, MEDICAID ==
[~2016-03-04 01:04] MED LIST: ALBU17IN2 INH; ATIV1TAB10 PO; ATIV1TAB7 PO; BENZ200C44 PO; BUPR200T PO; DOXY-278 PO; DULO1CAP3 PO; FLON50SP; FURO20TA2 PO; HYDR-4274 PO; IBUP-1114 PO; IBUP200C PO; LATU40TA PO; LEVO125T3 PO; NICO14DI3 TD; OXYC1TAB23 PO; PRIL20CA9 PO; SYMB16INH INH; VITA50003 PO
[2016-03-04] MEDS ORDERED: LORazepam 1 MG TAB As Ordered ONE (02:32)
[2016-03-04] MEDS ORDERED: ONDANSETRON 4 MG ORAL DISINTEGRATING TAB (S0181) As Ordered ONE (02:52)
[2016-03-04 02:58] LABS: MEAN CORPUSCULAR HEMOGLOBIN 29.8 pg (27.0-33.0); MEAN CORPUSCULAR HGB CONC 34.4 g/dl (32.0-36.5); MEAN CORPUSCULAR VOLUME 86.7 fl (80.0-96.0); RED CELL DISTRIBUTION WIDTH 14.4 % (11.5-14.5)
[2016-03-04 03:10] LABS: AMPHETAMINES LEVEL URINE NEGATIVE (NEGATIVE); BENZODIAZEPINES URINE NEGATIVE (NEGATIVE); COCAINE METABOLITE URINE NEGATIVE (NEGATIVE); CONTROL LINE INT CTR LINE PRESENT; METHADONE URINE NEGATIVE (NEGATIVE); OPIATES URINE NEGATIVE (NEGATIVE); TRICYCLIC ANTIDEPRESS URINE NEGATIVE (NEGATIVE)
[2016-03-04 03:25] LABS: ALBUMIN 3.4 GM/DL (3.2-5.2); ALKALINE PHOSPHATASE 66 U/L (45-117); ALT/SGPT 34 U/L (12-78); ANION GAP 15 MEQ/L (8-16); AST/SGOT 15 U/L (15-37); BILIRUBIN,DIRECT 0.1 MG/DL (0.0-0.2); BILIRUBIN,TOTAL 0.2 MG/DL (0.2-1.0); BLOOD UREA NITROGEN 8 MG/DL (7-18); CALCIUM LEVEL 8.1 MG/DL (8.5-10.1); CARBON DIOXIDE LEVEL 22 MEQ/L (21-32); CHLORIDE LEVEL 108 MEQ/L (98-107); CREATININE FOR GFR 0.96 MG/DL (0.55-1.02); GLOMERULAR FILTRATION RATE > 60.0 (>58); GLUCOSE, FASTING 90 MG/DL (70-105); MAGNESIUM LEVEL 2.1 MG/DL (1.8-2.4); POTASSIUM SERUM 3.5 MEQ/L (3.5-5.1); SODIUM LEVEL 145 MEQ/L (136-145); TOTAL PROTEIN 6.5 GM/DL (6.4-8.2)
--- NOTE | 2016-03-04 04:10 | EDDOCDS ---
Physician Documentation [facility] Name: Felicita Loomis Age: 45 yrs Sex: Female : 1970 Arrival Date: 03/04/2016 Time: 01:04 Bed 31 Private MD: Disposition: 03/04/16 03:54 Discharged to Home/Self Care. Impression: Acute stress reaction. - Condition is Stable. - Discharge Instructions: Panic Attacks, Self-Destructive Behavior, Panic Attacks, [id number]. - Medication Reconciliation, Local Pharmacy Hours form. - Follow up: Private Physician; When: Call to arrange an appointment; Reason: Continuance of care. - Problem is an acute exacerbation. - Symptoms have improved. Historical: - Allergies: PENICILLINS (Unknown); Morphine ("issues during surgery"); Codeine Sulfate (Rash); - Home Meds: 1. albuterol sulfate 90 mcg/actuation Inhl HFAA 1 puff every 4 hours 2. cough and cold medicine 3. cyclobenzaprine 10 mg Oral tab 1 tab 3 times per day as needed 4. Cymbalta 60 mg Oral cpDR 1 cap twice a day 5. furosemide 20 mg Oral tab 1 tab every other day 6. hydroxyzine HCl 50 mg Oral tab 1 tab 4 times per day 7. levothyroxine 125 mcg Oral tab 1 tab once daily 8. Oxygen 2 Liters nightly 9. BERENICE-COLACE oral 1 cap twice a day 10. Symbicort inhalation 2 puffs 2 times per day 11. Tylenol 500 mg Oral 2 tabs as needed 12. Vitamin C 500 mg Oral tab twice a day 13. [place] [address] unit three times weekly 14. Wellbutrin 100 mg Oral tab 2 tab 2 times per day - PMHx: Anxiety; COPD; Depression; Herniated Disc in Neck and Back; Hypothyroidism; DAVID; - PSHx: ; Lumpectomy- Right; Breast biopsy- Right; Breast Reduction; Hernia repair; Gastric Bypass; Cholecystectomy; - Social history: Smoking status: Patient uses tobacco products, light tobacco smoker. No barriers to communication noted, The patient speaks fluent Urdu, Speaks appropriately for age. - Family history: Not pertinent. - : The pt / caregiver states he / she is not on anticoagulants. Home medication list is obtained from the patient, [employer] import data. - Exposure Risk Screening:: None identified. PIPE STRIPPER: 03/04 01:17 LMP N/A - Uterine ablation kmg1 Vital Signs: 01:17 BP 154 / 84; Pulse 99; Resp 18; Temp 97.5(O); Pulse Ox 95% on R/A; Weight 94.8 kg / 209 kmg1 lbs (R); Height 5 ft. 1 in. (154.94 cm) (R); Pain 0/10; 04:09 BP 157 / 91; Pulse 93; Resp 18 S; Temp 97.1(O); Pulse Ox 99% on R/A; af2 01:17 Body Mass Index 39.49 (94.80 kg, 154.94 cm) kmg1 MDM: 01:52 Consult PFS/PSA/Pug Mill Operator ordered. feb 01:52 Consult PFS/PSA/Pug Mill Operator: Patient's case requires discussion with on-call lucrecia Psychiatrist ordered. 01:52 PSA/PFS to call Nursing Recycling Sorter, to enter patient data [place] if patient lucrecia involuntarily admitted or transferred for SI or HI ordered. 01:52 Confirm accurate psychiatric medication list and times of last dosage ordered. feb 01:52 Detain Pt Until Medically/PFS Cleared ordered. feb 01:52 Acetaminophen Level Ordered. EDMS 01:52 Basic Metabolic Profile Ordered. EDMS 01:52 Complete Blood Count Ordered. EDMS 01:52 Drug Eval Toxicology ED Only Ordered. EDMS 01:53 Ethyl Alcohol (ethanol) Ordered. EDMS 01:53 Liver Profile Ordered. EDMS 01:53 Salicylate Level Ordered. EDMS 01:53 Thyroid Stimulating Hormone Ordered. EDMS 02:30 LORazepam 0.5 mg PO once ordered. mm11 02:49 Ondansetron ODT Oral Disintegrating Tablet 4 mg PO once ordered. mm11 02:53 MAGNESIUM LEVEL Ordered. EDMS 03:36 Acetaminophen Level Reviewed. mm11 03:36 Basic Metabolic Profile Reviewed. mm11 03:36 Complete Blood Count Reviewed. mm11 03:36 Salicylate Level Reviewed. mm11 03:36 Thyroid Stimulating Hormone Reviewed. mm11 03:36 Drug Eval Toxicology ED Only Reviewed. mm11 03:36 Ethyl Alcohol (ethanol) Reviewed. mm11 03:36 Liver Profile Reviewed. mm11 03:36 MAGNESIUM LEVEL Reviewed. mm11 03:39 Consult PFS/PSA/Pug Mill Operator complete. hm1 03:39 Consult PFS/PSA/Pug Mill Operator: Patient's case requires discussion with on-call hm1 Psychiatrist complete. 03:39 PSA/PFS to call Nursing Recycling Sorter, to enter patient data [place] if patient hm1 involuntarily admitted or transferred for SI or HI complete. 03:55 Financial registration complete. [facility] 03:58 PSA Outpatient Referrals was scanned into [employer] and attached to record. [facility] 04:01 [facility] Payment Agreement was scanned into [employer] and attached to record. [facility] Administered Medications: 02:48 Drug: LORazepam 0.5 mg [lorazepam 0.5 mg tablet (1 tabs)] Route: PO; ka4 03:55 Follow up: Response: Anxiety is improved af2 02:55 Drug: Ondansetron ODT 4 mg [ondansetron 4 mg disintegrating tablet (1 tabs)] Route: PO; ka4 03:56 Follow up: Response: Nausea is decreased af2 Signatures: Dispatcher [employer] EDMS Sarah Pemberton RN RN kmg1 Magui Mcallister RN RN Jabier Doherty, DO mm11 Sonja Long, PSA PSA hm1 Katina Wheeler,MAKE UP OPERATOR MAKE UP OPERATOR ka4 Lacy Daugherty Moraima Berger RN af2 The chart was reviewed and I authenticate all verbal orders and agree with the evaluation and treatment provided.Corrections: (The following items were deleted from the chart) 02:53 02:31 MAGNESIUM LEVEL+LAB ordered. EDMS EDMS Attachments: 04:01 [facility] Payment Agreement [facility] MTDD
--- NOTE | 2016-03-04 04:10 | EDDOCDS ---
Nurse's Notes [facility] Name: Felicita Loomis Age: 45 yrs Sex: Female : 1970 Arrival Date: 03/04/2016 Time: 01:04 Bed 31 Private MD: Diagnosis: Acute stress reaction Presentation: 03/04 01:07 Presenting complaint: Patient states: Daughter called police and reported that patient kmg1 needs to have blood tests. Patient is angry because "I called her out on everything." Daughter feels that patient is taking drugs. Patient reports that she has a walk in appointment at [facility] for help with marijuana abuse. Patient has not used in 18-20 days. Mental Health Triage Level: Level 1- Pt displays no suicidal or homicidal ideations and does not appear to be a danger to self or others. Suicide/Homicide risk assessment- The patient reports that he/she has been admitted to an inpatient mental health facility in the last 30 days. The patient reports that he/she has a recent or current history of substance abuse. The patient reports that he/she has no prior history of suicide attempt and/or organized plan. The patient reports that he/she has experienced a significant life altering event in the last 30 days. The patient reports that he/she. Status: Patient is not a cloud services architect or dependent. Transition of care: patient was not received from another setting of care. 01:07 Method Of Arrival[place] [facility] [place] Acuity: HARIS Level 3 [facility] 04:08 Adult Sepsis Screening: The patient does not have new or worsening altered mentation. af2 Patient's respiratory rate is less than 22. Systolic blood pressure is greater than 100. Patient has a qSOFA score of 0- Negative Sepsis Screen. Triage Assessment: 01:17 General: Appears in no apparent distress, comfortable, Behavior is appropriate for age, kmg1 cooperative. Pain: Denies pain. HIV screening NA for this visit Offered previously. Neurological: Level of Consciousness is awake, alert. EENT: No deficits noted. Cardiovascular: No deficits noted. Respiratory: No deficits noted. Airway is patent Respiratory effort is even, unlabored, Respiratory pattern is regular, symmetrical. GI: No deficits noted. : No deficits noted. Derm: No deficits noted. Musculoskeletal: No deficits noted. HYDROPONICS GROWER: 01:17 LMP N/A - Uterine ablation [facility] Historical: - Allergies: PENICILLINS (Unknown); Morphine ("issues during surgery"); Codeine Sulfate (Rash); - Home Meds: 1. albuterol sulfate 90 mcg/actuation Inhl HFAA 1 puff every 4 hours 2. cough and cold medicine 3. cyclobenzaprine 10 mg Oral tab 1 tab 3 times per day as needed 4. Cymbalta 60 mg Oral cpDR 1 cap twice a day 5. furosemide 20 mg Oral tab 1 tab every other day 6. hydroxyzine HCl 50 mg Oral tab 1 tab 4 times per day 7. levothyroxine 125 mcg Oral tab 1 tab once daily 8. Oxygen 2 Liters nightly 9. BERENICE-COLACE oral 1 cap twice a day 10. Symbicort inhalation 2 puffs 2 times per day 11. Tylenol 500 mg Oral 2 tabs as needed 12. Vitamin C 500 mg Oral tab twice a day 13. Vitamin D Oral 28886 unit three times weekly 14. Wellbutrin 100 mg Oral tab 2 tab 2 times per day - PMHx: Anxiety; COPD; Depression; Herniated Disc in Neck and Back; Hypothyroidism; DAVID; - PSHx: ; Lumpectomy- Right; Breast biopsy- Right; Breast Reduction; Hernia repair; Gastric Bypass; Cholecystectomy; - Social history: Smoking status: Patient uses tobacco products, light tobacco smoker. No barriers to communication noted, The patient speaks fluent Sri Lankan, Speaks appropriately for age. - Family history: Not pertinent. - : The pt / caregiver states he / she is not on anticoagulants. Home medication list is obtained from the patient, [employer] import data. - Exposure Risk Screening:: None identified. Screenin:28 Screening information is obtained from the patient. Fall risk: No risks identified. af2 Assistance ADL's: requires no assistance with activities of daily living. Abuse/DV Screen: The patient / caregiver reports he/she is: not in a situation that causes fear, pain or injury. Nutritional screening: No deficits noted. Advance Directives: Currently, there is no health care proxy. home support is adequate. Assessment: 01:50 General: Appears in no apparent distress, Behavior is cooperative. General: PSA Sonja Long in speaking with pt.. Respiratory: Airway is patent Respiratory effort is even, unlabored, Respiratory pattern is regular, symmetrical. 03:29 General: Appears in no apparent distress, Behavior is cooperative, pt lying on af2 stretcher resting quietly with eyes closed. safety maintained, security observing. will continue to monitor. . 04:00 General: Appears in no apparent distress, comfortable, Behavior is cooperative. ka4 Respiratory: Airway is patent Respiratory effort is even, unlabored, Respiratory pattern is regular, symmetrical. Derm: Skin is pink, warm & dry. Mental Health Eval: 03:07 Mental health consult is initiated at 02:20. Status: The patient is not a hm1 cloud services architect or dependent. [facility] Behavioral Health: The patient is not an established patient of [facility] Behavioral Health. Referral Information: Evaluation referral is generated by the patient himself / herself. The patient was referred for evaluation because Pt's daughter called police to check on her welfare after pt got into an argument with her daughter on the phone, police did not feel pt met criteria for involuntary transport, however pt agreed to bring herself to the ED as she felt that she should have blood work and a drug test to prove herself to her daughter. Subjective: The patients chief complaint is Pt reports that she had been staying with her daughter following her discharge from [facility], however they weren't getting along and pt states that she reported her daughter to CPS, leading to her moving out and staying at [facility]. Pt states that her daughter called her today and accused her of continuing to use drugs, pt reports that her daughter sent the police to check on her and she agreed to bring herself for further evaluation. Pt denies SI/HI. Delusions are denied. Patient's mood is anxious, Hallucinations are denied. Pt was admitted to [facility] from 02/14-02/26, reports that she has followed up with all recommendations, states that she has been taking her medications as prescribed, she had her first appointment for therapy with LANEY Coyne, and she had an intake appointment with LANEY to assist her with housing. Pt also has an intake appointment scheduled for later this morning at [facility]. Pt states that her daughter accused her of using acid and marijuana today, prompting her to come to the ED for drug testing. Pt also states that she worries her magnesium levels are toxic, which she states she discovered by researching her symptoms on the internet. She states that she decided to bring herself into the ED to "make everyone happy". she adamantly denies SI/HI, admits to telling her daughter that she was "condemning her to hell", which her daughter had reported to the police, however pt states that she believes this because her daughter told her she doesn't believe in God. Mental Health history: anxiety, psychosis, Mental Health Admissions: [facility], 02/15/16-02/27/16 Current Outpatient Mental Health Services: Therapist / Agency: [facility] Coyne. Current living environment is Family / Home Support: pt is currently paying for herself to stay [place] until she is able to secure more appropriate housing homeless. Patient presents to Emergency Department with the following symptoms within the past 2 weeks: anxiety, relational problem, sleep disturbance - insomnia. Substance abuse: Pt denies. Mental status exam: Patients appearance is appropriate, Patient's behavior is cooperative, Speech is rapid. Affect is appropriate. Mood is anxious. Hallucinations are denied. Appetite is normal. Memory is fair. Energy level is normal. Content of thought is normal. Thought process is intact. Cognitive level is oriented to person, place, time and situation Patient's insight is fair. Judgement is fair. Rapport with interviewer is good. Suicidal Ideation is denied. Homicidal ideation is denied. 03:37 Disposition: Medically cleared for disposition by Jabier Champagne DO Psychiatric 1 Consult is performed by phone with Dr Atilio Mayorga The patient has a safe destination which is pt will be discharged back to her motel room and will continue to follow up with outpatient providers as scheduled. Pt continues to deny SI/Hi/AH/VH, fully oriented, denies any safety concerns at this time. Pt will drive herself back to her room. [facility] Admission Criteria: Not Applicable. [place] because the patient does not display any suicidal or homicidal ideations and does not pose a risk to self or others. DSM-V Differential Diagnosis: Unspecified Anxiety Disorder (F41.9). Vital Signs: 01:17 BP 154 / 84; Pulse 99; Resp 18; Temp 97.5(O); Pulse Ox 95% on R/A; Weight 94.8 kg (R); kmg1 Height 5 ft. 1 in. (154.94 cm) (R); Pain 0/10; 04:09 BP 157 / 91; Pulse 93; Resp 18 S; Temp 97.1(O); Pulse Ox 99% on R/A; af2 01:17 Body Mass Index 39.49 (94.80 kg, 154.94 cm) [facility] Vitals: 01:17 Log In Time: March 04, 2016 at 01:04. [facility] ED Course: 01:05 Patient visited by Aletha Davey. gjb 01:05 Patient moved to Waiting gjb 01:07 Patient moved to Triage 1 km 01:13 Triage Initiated [facility] 01:19 Jabier Davis,SIM is Primary Nurse. mgs 01:20 Patient moved to [facility] km 01:51 Patient visited by Katina Wheeler LPN. ka4 01:53 Katina Wheeler LPN is Primary Nurse. ka4 02:08 Jabier Champagne DO is Attending Physician. mm11 02:08 Patient visited by Jabier Champagne DO. mm11 02:29 Patient visited by Jabier Champagne DO. mm11 02:48 Acetaminophen Level Sent. ka4 02:48 Basic Metabolic Profile Sent. ka4 02:48 Complete Blood Count Sent. ka4 02:48 Drug Eval Toxicology ED Only Sent. ka4 02:48 Ethyl Alcohol (ethanol) Sent. ka4 02:48 Liver Profile Sent. ka4 02:48 Thyroid Stimulating Hormone Sent. ka4 02:48 Salicylate Level Sent. ka4 03:00 Psych Safety Check: Location: Psych Room. Visual Assessment: Cooperative. kb5 03:13 Patient visited by Andres Dan PCA. kb5 03:29 The patient / caregiver is instructed regarding the plan of care and ED course. Patient af2 has correct armband on for positive identification. Placed in gown. 03:29 No IV's were initiated during this patient's visit. No procedures done that require af2 assistance. 03:31 Patient visited by Moraima Christina RN. af2 03:34 Patient visited by Andres Dan PCA. kb5 03:46 Patient visited by Anrdes Dan PCA. kb5 03:58 PSA Outpatient Referrals was scanned into [employer] and attached to record. ka4 04:01 [facility] [place] Agreement was scanned into [employer] and attached to record. [facility] 04:03 Patient visited by Andres Dan PCA. kb5 04:06 Patient moved to 31 ka4 Administered Medications: 02:48 Drug: LORazepam 0.5 mg [lorazepam 0.5 mg tablet (1 tabs)] Route: PO; ka4 03:55 Follow up: Response: Anxiety is improved af2 02:55 Drug: Ondansetron ODT 4 mg [ondansetron 4 mg disintegrating tablet (1 tabs)] Route: PO; ka4 03:56 Follow up: Response: Nausea is decreased af2 Order Results: Lab Order: Acetaminophen Level; SPEC'M 03/04/16 02:46 Test: ACETAMINOPHEN LEVEL; Value: 6.4; Range: 10.0-30.0; Abnormal: Below low normal; Units: UG/ML; Status: F Lab Order: Basic Metabolic Profile; SPEC'M 03/04/16 02:46 Test: GLUCOSE, FASTING; Value: 90; Range: 70-105; Units: MG/DL; Status: F Test: BLOOD UREA NITROGEN; Value: 8; Range: 7-18; Units: MG/DL; Status: F Test: CREATININE FOR GFR; Value: 0.96; Range: 0.55-1.02; Units: MG/DL; Status: F Test: GLOMERULAR FILTRATION RATE; Value: > 60.0; Range: >58; Status: F Test: SODIUM LEVEL; Value: 145; Range: 136-145; Units: MEQ/L; Status: F Test: POTASSIUM SERUM; Value: 3.5; Range: 3.5-5.1; Units: MEQ/L; Status: F Test: CHLORIDE LEVEL; Value: 108; Range: 98-107; Abnormal: Above high normal; Units: MEQ/L; Status: F Test: CARBON DIOXIDE LEVEL; Value: 22; Range: 21-32; Units: MEQ/L; Status: F Test: ANION GAP; Value: 15; Range: 8-16; Units: MEQ/L; Status: F Test: CALCIUM LEVEL; Value: 8.1; Range: 8.5-10.1; Abnormal: Below low normal; Units: MG/DL; Status: F Test Note: ; Units are mL/min/1.73 m2 Chronic Kidney Disease Staging per NKF: Stage I & II GFR >=60 Normal to Mildly Decreased Stage III GFR 30-59 Moderately Decreased Stage IV GFR 15-29 Severely Decreased Stage V GFR <15 Very Little GFR Left ESRD GFR <15 on [employer]OFF [employer]UCK [employer]IVER Lab Order: Complete Blood Count; SPEC'M 03/04/16 02:46 Test: WHITE BLOOD COUNT; Value: 9.0; Range: 4.0-10.0; Units: K/mm3; Status: F Test: RED BLOOD COUNT; Value: 4.14; Range: 4.00-5.40; Units: M/mm3; Status: F Test: HEMOGLOBIN; Value: 12.3; Range: 12.0-16.0; Units: g/dl; Status: F Test: HEMATOCRIT; Value: 35.9; Range: 36.0-47.0; Abnormal: Below low normal; Units: %; Status: F Test: MEAN CORPUSCULAR VOLUME; Value: 86.7; Range: 80.0-96.0; Units: fl; Status: F Test: MEAN CORPUSCULAR HEMOGLOBIN; Value: 29.8; Range: 27.0-33.0; Units: pg; Status: F Test: MEAN CORPUSCULAR HGB CONC; Value: 34.4; Range: 32.0-36.5; Units: g/dl; Status: F Test: RED CELL DISTRIBUTION WIDTH; Value: 14.4; Range: 11.5-14.5; Units: %; Status: F Test: PLATELET COUNT, AUTOMATED; Value: 241; Range: 150-450; Units: k/mm3; Status: F Lab Order: Drug Eval Toxicology ED Only; SPEC'M 03/04/16 02:39 Test: AMPHETAMINES LEVEL URINE; Value: NEGATIVE; Range: NEGATIVE; Status: F Test: BARBITURATES URINE; Value: NEGATIVE; Range: NEGATIVE; Status: F Test: BENZODIAZEPINES URINE; Value: NEGATIVE; Range: NEGATIVE; Status: F Test: CANNABINOIDS URINE; Value: NEGATIVE; Range: NEGATIVE; Status: F Test: COCAINE METABOLITE URINE; Value: NEGATIVE; Range: NEGATIVE; Status: F Test: METHADONE URINE; Value: NEGATIVE; Range: NEGATIVE; Status: F Test: OPIATES URINE; Value: NEGATIVE; Range: NEGATIVE; Status: F Test: TRICYCLIC ANTIDEPRESS URINE; Value: NEGATIVE; Range: NEGATIVE; Status: F Test Note: ; ALL PRESUMPTIVE POSITIVE FINDINGS ARE UNCONFIRMED NORMAL VALUES THRESHOLD IN NG/ML AMPHETAMINES 1000 METHAMPHETAMINES 1000 BARBITURATES 300 BENZODIAZEPINES 300 CANNABINOIDS (THC) 50 COCAINE METABOLITE 300 METHADONE 300 OPIATES 300 PHENCYCLIDINE 25 TRICYCLIC ANTIDEPRESSANTS 1000 RESULTS ARE FOR MEDICAL PURPOSES ONLY. ALL URINE SPECIMENS WILL BE SAVED FOR 3 DAYS. IF CONFIRMATION OF A PRESUMPTIVE POSTIVE SCREEN RESULT IS DESIRED, CALL CHEMISTRY ([phone]) AND REQUEST URINE TO BE SENT TO REFERENCE LAB. FOR A LIST OF CLOSELY RELATED COMPOUNDS PLEASE CALL THE LAB. Lab Order: Ethyl Alcohol (ethanol); SPEC03/04/16 02:46 Test: ETHYL ALCOHOL (ETHANOL); Value: < 0.003; Range: 0.000-0.010; Units: %; Status: F Lab Order: Liver Profile; 03/04/16 02:46 Test: AST/SGOT; Value: 15; Range: 15-37; Units: U/L; Status: F Test: ALT/SGPT; Value: 34; Range: 12-78; Units: U/L; Status: F Test: ALKALINE PHOSPHATASE; Value: 66; Range: 45-117; Units: U/L; Status: F Test: BILIRUBIN,TOTAL; Value: 0.2; Range: 0.2-1.0; Units: MG/DL; Status: F Test: BILIRUBIN,DIRECT; Value: 0.1; Range: 0.0-0.2; Units: MG/DL; Status: F Test: TOTAL PROTEIN; Value: 6.5; Range: 6.4-8.2; Units: GM/DL; Status: F Test: ALBUMIN; Value: 3.4; Range: 3.2-5.2; Units: GM/DL; Status: F Test: ALBUMIN/GLOBULIN RATIO; Value: 1.10; Range: 1.00-1.93; Status: F Lab Order: Salicylate Level; 03/04/16 02:46 Test: SALICYLATE LEVEL; Value: 2.2; Range: 5.0-30.0; Abnormal: Below low normal; Units: MG/DL; Status: F Lab Order: Thyroid Stimulating Hormone; 03/04/16 02:46 Test: THYROID STIMULATING HORMONE; Value: 0.194; Range: 0.358-3.740; Abnormal: Below low normal; Units: uIU/ML; Status: F Lab Order: MAGNESIUM LEVEL; SPEC'M 03/04/16 02:46 Test: MAGNESIUM LEVEL; Value: 2.1; Range: 1.8-2.4; Units: MG/DL; Status: F Outcome: 03:54 Discharge ordered by Provider. mm11 04:00 Discharge Assessment: Patient awake, alert and oriented x 3. No cognitive and/or ka4 functional deficits noted. Patient verbalized understanding of disposition instructions. patient administered narcotics - no. The following High Risk Discharge criteria are identified: None. Discharged to home ambulatory. Condition: good Condition: stable. No special radiology studies were completed. Property :Personal belongings accompany Pt. 04:00 Discharge instructions given to patient, Instructed on discharge instructions, follow ka4 up and referral plans. Demonstrated understanding of instructions, Pt was receptive of discharge instructions/ teaching. 04:09 Patient left the ED. ka4 Signatures: Sarah Pemberton, RN RN kmg1 Andres Dan, STUDENT DEVELOPMENT DEAN STUDENT DEVELOPMENT DEAN kb5 Jabier Champagne, DO mm11 Sonja Long, PSA PSA hm1 Katina Wheeler,PROGRAMMER PROGRAMMER ka4 Lacy Daugherty Matthew, RN RN mgs [place], AmberRN RN teddy2 Aletha Davey Corrections: (The following items were deleted from the chart) 02:53 02:48 MAGNESIUM LEVEL+LAB sent. ka4 EDMS BRONSON
--- NOTE | 2016-03-06 05:10 | EDDOCDS ---
Physician Documentation [facility] Name: Felicita Loomis Age: 45 yrs Sex: Female : 1970 Arrival Date: 03/04/2016 Time: 01:04 Bed 31 Private MD: Disposition: 03/04/16 03:54 Discharged to Home/Self Care. Impression: Acute stress reaction. - Condition is Stable. - Discharge Instructions: Panic Attacks, Self-Destructive Behavior, Panic Attacks, [id number]. - Medication Reconciliation, Local Pharmacy Hours form. - Follow up: Private Physician; When: Call to arrange an appointment; Reason: Continuance of care. - Problem is an acute exacerbation. - Symptoms have improved. Historical: - Allergies: PENICILLINS (Unknown); Morphine ("issues during surgery"); Codeine Sulfate (Rash); - Home Meds: 1. albuterol sulfate 90 mcg/actuation Inhl HFAA 1 puff every 4 hours 2. cough and cold medicine 3. cyclobenzaprine 10 mg Oral tab 1 tab 3 times per day as needed 4. Cymbalta 60 mg Oral cpDR 1 cap twice a day 5. furosemide 20 mg Oral tab 1 tab every other day 6. hydroxyzine HCl 50 mg Oral tab 1 tab 4 times per day 7. levothyroxine 125 mcg Oral tab 1 tab once daily 8. Oxygen 2 Liters nightly 9. BERENICE-COLACE oral 1 cap twice a day 10. Symbicort inhalation 2 puffs 2 times per day 11. Tylenol 500 mg Oral 2 tabs as needed 12. Vitamin C 500 mg Oral tab twice a day 13. [place] [address] unit three times weekly 14. Wellbutrin 100 mg Oral tab 2 tab 2 times per day - PMHx: Anxiety; COPD; Depression; Herniated Disc in Neck and Back; Hypothyroidism; DAVID; - PSHx: ; Lumpectomy- Right; Breast biopsy- Right; Breast Reduction; Hernia repair; Gastric Bypass; Cholecystectomy; - Social history: Smoking status: Patient uses tobacco products, light tobacco smoker. No barriers to communication noted, The patient speaks fluent Yi, Speaks appropriately for age. - Family history: Not pertinent. - : The pt / caregiver states he / she is not on anticoagulants. Home medication list is obtained from the patient, [employer] import data. - Exposure Risk Screening:: None identified. 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 1 in. (154.94 cm) (R); Pain 0/10; 04:09 BP 157 / 91; Pulse 93; Resp 18 S; Temp 97.1(O); Pulse Ox 99% on R/A; af2 01:17 Body Mass Index 39.49 (94.80 kg, 154.94 cm) kmg1 MDM: 01:52 Consult PFS/PSA/Wound Treatment Rn ordered. feb 01:52 Consult PFS/PSA/Wound Treatment Rn: Patient's case requires discussion with on-call lucrecia Psychiatrist ordered. 01:52 PSA/PFS to call Nursing Vamp Throater, to enter patient data on [place] Safe [place] if patient lucrecia involuntarily admitted or transferred for SI or HI ordered. 01:52 Confirm accurate psychiatric medication list and times of last dosage ordered. feb 01:52 Detain Pt Until Medically/PFS Cleared ordered. feb 01:52 Acetaminophen Level Ordered. EDMS 01:52 Basic Metabolic Profile Ordered. EDMS 01:52 Complete Blood Count Ordered. EDMS 01:52 Drug Eval Toxicology ED Only Ordered. EDMS 01:53 Ethyl Alcohol (ethanol) Ordered. EDMS 01:53 Liver Profile Ordered. EDMS 01:53 Salicylate Level Ordered. EDMS 01:53 Thyroid Stimulating Hormone Ordered. EDMS 02:30 LORazepam 0.5 mg PO once ordered. mm11 02:49 Ondansetron ODT Oral Disintegrating Tablet 4 mg PO once ordered. mm11 02:53 MAGNESIUM LEVEL Ordered. EDMS 03:36 Acetaminophen Level Reviewed. mm11 03:36 Basic Metabolic Profile Reviewed. mm11 03:36 Complete Blood Count Reviewed. mm11 03:36 Salicylate Level Reviewed. mm11 03:36 Thyroid Stimulating Hormone Reviewed. mm11 03:36 Drug Eval Toxicology ED Only Reviewed. mm11 03:36 Ethyl Alcohol (ethanol) Reviewed. mm11 03:36 Liver Profile Reviewed. mm11 03:36 MAGNESIUM LEVEL Reviewed. mm11 03:39 Consult PFS/PSA/Wound Treatment Rn complete. hm1 03:39 Consult PFS/PSA/Wound Treatment Rn: Patient's case requires discussion with on-call hm1 Psychiatrist complete. 03:39 PSA/PFS to call Nursing Vamp Throater, to enter patient data [place] Safe [place] if patient hm1 involuntarily admitted or transferred for SI or HI complete. 03:55 Financial registration complete. [facility] 03:58 PSA Outpatient Referrals was scanned into [employer] and attached to record. [facility] 04:01 [facility] Payment Agreement was scanned into [employer] and attached to record. [facility] 13:26 T-Sheet-- Draft Copy was scanned into [employer] and attached to record. gb Administered Medications: 02:48 Drug: LORazepam 0.5 mg [lorazepam 0.5 mg tablet (1 tabs)] Route: PO; ka4 03:55 Follow up: Response: Anxiety is improved af2 02:55 Drug: Ondansetron ODT 4 mg [ondansetron 4 mg disintegrating tablet (1 tabs)] Route: PO; ka4 03:56 Follow up: Response: Nausea is decreased af2 Signatures: Dispatcher [employer] EDSarah Cook, RN RN kmg1 Magui Mcallister RN RN Stacy Dawn, Reg Reg gb Jabier Champagne, DO mm11 Sonja Long, PSA PSA hm1 Katina Wheeler,SARAHY WEATHERS ka4 Lacy Daugherty Moraima Berger RN af2 The chart was reviewed and I authenticate all verbal orders and agree with the evaluation and treatment provided.Corrections: (The following items were deleted from the chart) 02:53 02:31 MAGNESIUM LEVEL+LAB ordered. EDMS EDMS Attachments: 04:01 [facility] Payment Agreement [facility] 13:26 T-Sheet-- Draft Copy gb Chart Complete MTDD
--- NOTE | 2016-03-06 05:10 | EDDOCDS ---
Nurse's Notes [facility] Name: Felicita Loomis Age: 45 yrs Sex: Female : 1970 Arrival Date: 03/04/2016 Time: 01:04 Bed 31 Private MD: Diagnosis: Acute stress reaction Presentation: 03/04 01:07 Presenting complaint: Patient states: Daughter called police and reported that patient kmg1 needs to have blood tests. Patient is angry because "I called her out on everything." Daughter feels that patient is taking drugs. Patient reports that she has a walk in appointment at [facility] for help with marijuana abuse. Patient has not used in 18-20 days. Mental Health Triage Level: Level 1- Pt displays no suicidal or homicidal ideations and does not appear to be a danger to self or others. Suicide/Homicide risk assessment- The patient reports that he/she has been admitted to an inpatient mental health facility in the last 30 days. The patient reports that he/she has a recent or current history of substance abuse. The patient reports that he/she has no prior history of suicide attempt and/or organized plan. The patient reports that he/she has experienced a significant life altering event in the last 30 days. The patient reports that he/she. Status: Patient is not a dictating transcribing machine servicer or dependent. Transition of care: patient was not received from another setting of care. 01:07 Method Of Arrival: Ambulance [facility] 01:07 Acuity: HARIS Level 3 [facility] 04:08 Adult Sepsis Screening: The patient does not have new or worsening altered mentation. af2 Patient's respiratory rate is less than 22. Systolic blood pressure is greater than 100. Patient has a qSOFA score of 0- Negative Sepsis Screen. Triage Assessment: 01:17 General: Appears in no apparent distress, comfortable, Behavior is appropriate for age, kmg1 cooperative. Pain: Denies pain. HIV screening NA for this visit Offered previously. Neurological: Level of Consciousness is awake, alert. EENT: No deficits noted. Cardiovascular: No deficits noted. Respiratory: No deficits noted. Airway is patent Respiratory effort is even, unlabored, Respiratory pattern is regular, symmetrical. GI: No deficits noted. : No deficits noted. Derm: No deficits noted. Musculoskeletal: No deficits noted. 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 albuterol sulfate 90 mcg/actuation Inhl HFAA 1 puff every 4 hours 2. cough and cold medicine 3. cyclobenzaprine 10 mg Oral tab 1 tab 3 times per day as needed 4. Cymbalta 60 mg Oral cpDR 1 cap twice a day 5. furosemide 20 mg Oral tab 1 tab every other day 6. hydroxyzine HCl 50 mg Oral tab 1 tab 4 times per day 7. levothyroxine 125 mcg Oral tab 1 tab once daily 8. Oxygen 2 Liters nightly 9. BERENICE-COLACE oral 1 cap twice a day 10. Symbicort inhalation 2 puffs 2 times per day 11. Tylenol 500 mg Oral 2 tabs as needed 12. Vitamin C 500 mg Oral tab twice a day 13. Vitamin D Oral 38379 unit three times weekly 14. Wellbutrin 100 mg Oral tab 2 tab 2 times per day - PMHx: Anxiety; COPD; Depression; Herniated Disc in Neck and Back; Hypothyroidism; DAVID; - PSHx: ; Lumpectomy- Right; Breast biopsy- Right; Breast Reduction; Hernia repair; Gastric Bypass; Cholecystectomy; - Social history: Smoking status: Patient uses tobacco products, light tobacco smoker. No barriers to communication noted, The patient speaks fluent Indonesian, Speaks appropriately for age. - Family history: Not pertinent. - : The pt / caregiver states he / she is not on anticoagulants. Home medication list is obtained from the patient, [employer] import data. - Exposure Risk Screening:: None identified. Screenin:28 Screening information is obtained from the patient. Fall risk: No risks identified. af2 Assistance ADL's: requires no assistance with activities of daily living. Abuse/DV Screen: The patient / caregiver reports he/she is: not in a situation that causes fear, pain or injury. Nutritional screening: No deficits noted. Advance Directives: Currently, there is no health care proxy. home support is adequate. Assessment: 01:50 General: Appears in no apparent distress, Behavior is cooperative. General: PSA Sonja Long in speaking with pt.. Respiratory: Airway is patent Respiratory effort is even, unlabored, Respiratory pattern is regular, symmetrical. 03:29 General: Appears in no apparent distress, Behavior is cooperative, pt lying on af2 stretcher resting quietly with eyes closed. safety maintained, security observing. will continue to monitor. . 04:00 General: Appears in no apparent distress, comfortable, Behavior is cooperative. ka4 Respiratory: Airway is patent Respiratory effort is even, unlabored, Respiratory pattern is regular, symmetrical. Derm: Skin is pink, warm & dry. Mental Health Eval: 03:07 Mental health consult is initiated at 02:20. Status: The patient is not a hm1 dictating transcribing machine servicer or dependent. [facility] Behavioral Health: The patient is not an established patient of [facility] Behavioral Health. Referral Information: Evaluation referral is generated by the patient himself / herself. The patient was referred for evaluation because Pt's daughter called police to check on her welfare after pt got into an argument with her daughter on the phone, police did not feel pt met criteria for involuntary transport, however pt agreed to bring herself to the ED as she felt that she should have blood work and a drug test to prove herself to her daughter. Subjective: The patients chief complaint is Pt reports that she had been staying with her daughter following her discharge from [facility], however they weren't getting along and pt states that she reported her daughter to CPS, leading to her moving out and staying at [facility]. Pt states that her daughter called her today and accused her of continuing to use drugs, pt reports that her daughter sent the police to check on her and she agreed to bring herself for further evaluation. Pt denies SI/HI. Delusions are denied. Patient's mood is anxious, Hallucinations are denied. Pt was admitted to [facility] from 02/14-02/26, reports that she has followed up with all recommendations, states that she has been taking her medications as prescribed, she had her first appointment for therapy with LANEY Coyne, and she had an intake appointment with LANEY to assist her with housing. Pt also has an intake appointment scheduled for later this morning at [facility]. Pt states that her daughter accused her of using acid and marijuana today, prompting her to come to the ED for drug testing. Pt also states that she worries her magnesium levels are toxic, which she states she discovered by researching her symptoms on the internet. She states that she decided to bring herself into the ED to "make everyone happy". she adamantly denies SI/HI, admits to telling her daughter that she was "condemning her to hell", which her daughter had reported to the police, however pt states that she believes this because her daughter told her she doesn't believe in God. Mental Health history: anxiety, psychosis, Mental Health Admissions: [facility], 02/15/16-02/27/16 Current Outpatient Mental Health Services: Therapist / Agency: [facility] Coyne. Current living environment is Family / Home Support: pt is currently paying for herself to stay at [place] until she is able to secure more appropriate housing homeless. Patient presents to Emergency Department with the following symptoms within the past 2 weeks: anxiety, relational problem, sleep disturbance - insomnia. Substance abuse: Pt denies. Mental status exam: Patients appearance is appropriate, Patient's behavior is cooperative, Speech is rapid. Affect is appropriate. Mood is anxious. Hallucinations are denied. Appetite is normal. Memory is fair. Energy level is normal. Content of thought is normal. Thought process is intact. Cognitive level is oriented to person, place, time and situation Patient's insight is fair. Judgement is fair. Rapport with interviewer is good. Suicidal Ideation is denied. Homicidal ideation is denied. 03:37 Disposition: Medically cleared for disposition by Jabier Champagne DO Psychiatric 1 Consult is performed by phone with Dr Atilio Mayorga The patient has a safe destination which is pt will be discharged back to her motel room and will continue to follow up with outpatient providers as scheduled. Pt continues to deny SI/Hi/AH/VH, fully oriented, denies any safety concerns at this time. Pt will drive herself back to her room. [facility] Admission Criteria: Not Applicable. [place] because the patient does not display any suicidal or homicidal ideations and does not pose a risk to self or others. DSM-V Differential Diagnosis: Unspecified Anxiety Disorder (F41.9). Vital Signs: 01:17 BP 154 / 84; Pulse 99; Resp 18; Temp 97.5(O); Pulse Ox 95% on R/A; Weight 94.8 kg (R); kmg1 Height 5 ft. 1 in. (154.94 cm) (R); Pain 0/10; 04:09 BP 157 / 91; Pulse 93; Resp 18 S; Temp 97.1(O); Pulse Ox 99% on R/A; af2 01:17 Body Mass Index 39.49 (94.80 kg, 154.94 cm) [facility] Vitals: 01:17 Log In Time: March 04, 2016 at 01:04. [facility] ED Course: 01:05 Patient visited by Aletha Davey. gjb 01:05 Patient moved to Waiting gjb 01:07 Patient moved to Triage 1 km 01:13 Triage Initiated [facility] 01:19 Jabier Davis,SIM is Primary Nurse. mgs 01:20 Patient moved to RUST km 01:51 Patient visited by Katina Wheeler LPN. ka4 01:53 Katina Wheeler LPN is Primary Nurse. ka4 02:08 Jabier Champagne DO is Attending Physician. mm11 02:08 Patient visited by Jabier Champagne DO. mm11 02:29 Patient visited by Jabier Champagne DO. mm11 02:48 Acetaminophen Level Sent. ka4 02:48 Basic Metabolic Profile Sent. ka4 02:48 Complete Blood Count Sent. ka4 02:48 Drug Eval Toxicology ED Only Sent. ka4 02:48 Ethyl Alcohol (ethanol) Sent. ka4 02:48 Liver Profile Sent. ka4 02:48 Thyroid Stimulating Hormone Sent. ka4 02:48 Salicylate Level Sent. ka4 03:00 Psych Safety Check: Location: Psych Room. Visual Assessment: Cooperative. kb5 03:13 Patient visited by Andres Dan PCA. kb5 03:29 The patient / caregiver is instructed regarding the plan of care and ED course. Patient af2 has correct armband on for positive identification. Placed in gown. 03:29 No IV's were initiated during this patient's visit. No procedures done that require af2 assistance. 03:31 Patient visited by Moraima Christina RN. af2 03:34 Patient visited by Andres Dan PCA. kb5 03:46 Patient visited by Andres Dan PCA. kb5 03:58 PSA Outpatient Referrals was scanned into [employer] and attached to record. ka4 04:01 [facility] [place] Agreement was scanned into [employer] and attached to record. [facility] 04:03 Patient visited by Andres Dan PCA. kb5 04:06 Patient moved to 31 ka4 13:26 T-Sheet-- Draft Copy was scanned into [employer] and attached to record. gb Administered Medications: 02:48 Drug: LORazepam 0.5 mg [lorazepam 0.5 mg tablet (1 tabs)] Route: PO; ka4 03:55 Follow up: Response: Anxiety is improved af2 02:55 Drug: Ondansetron ODT 4 mg [ondansetron 4 mg disintegrating tablet (1 tabs)] Route: PO; ka4 03:56 Follow up: Response: Nausea is decreased af2 Order Results: Lab Order: Acetaminophen Level; SPEC'M 03/04/16 02:46 Test: ACETAMINOPHEN LEVEL; Value: 6.4; Range: 10.0-30.0; Abnormal: Below low normal; Units: UG/ML; Status: F Lab Order: Basic Metabolic Profile; SPEC'M 03/04/16 02:46 Test: GLUCOSE, FASTING; Value: 90; Range: 70-105; Units: MG/DL; Status: F Test: BLOOD UREA NITROGEN; Value: 8; Range: 7-18; Units: MG/DL; Status: F Test: CREATININE FOR GFR; Value: 0.96; Range: 0.55-1.02; Units: MG/DL; Status: F Test: GLOMERULAR FILTRATION RATE; Value: > 60.0; Range: >58; Status: F Test: SODIUM LEVEL; Value: 145; Range: 136-145; Units: MEQ/L; Status: F Test: POTASSIUM SERUM; Value: 3.5; Range: 3.5-5.1; Units: MEQ/L; Status: F Test: CHLORIDE LEVEL; Value: 108; Range: 98-107; Abnormal: Above high normal; Units: MEQ/L; Status: F Test: CARBON DIOXIDE LEVEL; Value: 22; Range: 21-32; Units: MEQ/L; Status: F Test: ANION GAP; Value: 15; Range: 8-16; Units: MEQ/L; Status: F Test: CALCIUM LEVEL; Value: 8.1; Range: 8.5-10.1; Abnormal: Below low normal; Units: MG/DL; Status: F Test Note: ; Units are mL/min/1.73 m2 Chronic Kidney Disease Staging per NKF: Stage I & II GFR >=60 Normal to Mildly Decreased Stage III GFR 30-59 Moderately Decreased Stage IV GFR 15-29 Severely Decreased Stage V GFR <15 Very Little GFR Left ESRD GFR <15 on [employer] Lab Order: Complete Blood Count; SPEC'M 03/04/16 02:46 Test: WHITE BLOOD COUNT; Value: 9.0; Range: 4.0-10.0; Units: K/mm3; Status: F Test: RED BLOOD COUNT; Value: 4.14; Range: 4.00-5.40; Units: M/mm3; Status: F Test: HEMOGLOBIN; Value: 12.3; Range: 12.0-16.0; Units: g/dl; Status: F Test: HEMATOCRIT; Value: 35.9; Range: 36.0-47.0; Abnormal: Below low normal; Units: %; Status: F Test: MEAN CORPUSCULAR VOLUME; Value: 86.7; Range: 80.0-96.0; Units: fl; Status: F Test: MEAN CORPUSCULAR HEMOGLOBIN; Value: 29.8; Range: 27.0-33.0; Units: pg; Status: F Test: MEAN CORPUSCULAR HGB CONC; Value: 34.4; Range: 32.0-36.5; Units: g/dl; Status: F Test: RED CELL DISTRIBUTION WIDTH; Value: 14.4; Range: 11.5-14.5; Units: %; Status: F Test: PLATELET COUNT, AUTOMATED; Value: 241; Range: 150-450; Units: k/mm3; Status: F Lab Order: Drug Eval Toxicology ED Only; SPEC'M 03/04/16 02:39 Test: AMPHETAMINES LEVEL URINE; Value: NEGATIVE; Range: NEGATIVE; Status: F Test: BARBITURATES URINE; Value: NEGATIVE; Range: NEGATIVE; Status: F Test: BENZODIAZEPINES URINE; Value: NEGATIVE; Range: NEGATIVE; Status: F Test: CANNABINOIDS URINE; Value: NEGATIVE; Range: NEGATIVE; Status: F Test: COCAINE METABOLITE URINE; Value: NEGATIVE; Range: NEGATIVE; Status: F Test: METHADONE URINE; Value: NEGATIVE; Range: NEGATIVE; Status: F Test: OPIATES URINE; Value: NEGATIVE; Range: NEGATIVE; Status: F Test: TRICYCLIC ANTIDEPRESS URINE; Value: NEGATIVE; Range: NEGATIVE; Status: F Test Note: ; ALL PRESUMPTIVE POSITIVE FINDINGS ARE UNCONFIRMED NORMAL VALUES THRESHOLD IN NG/ML AMPHETAMINES 1000 METHAMPHETAMINES 1000 BARBITURATES 300 BENZODIAZEPINES 300 CANNABINOIDS (THC) 50 COCAINE METABOLITE 300 METHADONE 300 OPIATES 300 PHENCYCLIDINE 25 TRICYCLIC ANTIDEPRESSANTS 1000 RESULTS ARE FOR MEDICAL PURPOSES ONLY. ALL URINE SPECIMENS WILL BE SAVED FOR 3 DAYS. IF CONFIRMATION OF A PRESUMPTIVE POSTIVE SCREEN RESULT IS DESIRED, CALL CHEMISTRY ([phone]) AND REQUEST URINE TO BE SENT TO REFERENCE LAB. FOR A LIST OF CLOSELY RELATED COMPOUNDS PLEASE CALL THE LAB. Lab Order: Ethyl Alcohol (ethanol); SPEC'03/04/16 02:46 Test: ETHYL ALCOHOL (ETHANOL); Value: < 0.003; Range: 0.000-0.010; Units: %; Status: F Lab Order: Liver Profile; SPEC' 03/04/16 02:46 Test: AST/SGOT; Value: 15; Range: 15-37; Units: U/L; Status: F Test: ALT/SGPT; Value: 34; Range: 12-78; Units: U/L; Status: F Test: ALKALINE PHOSPHATASE; Value: 66; Range: 45-117; Units: U/L; Status: F Test: BILIRUBIN,TOTAL; Value: 0.2; Range: 0.2-1.0; Units: MG/DL; Status: F Test: BILIRUBIN,DIRECT; Value: 0.1; Range: 0.0-0.2; Units: MG/DL; Status: F Test: TOTAL PROTEIN; Value: 6.5; Range: 6.4-8.2; Units: GM/DL; Status: F Test: ALBUMIN; Value: 3.4; Range: 3.2-5.2; Units: GM/DL; Status: F Test: ALBUMIN/GLOBULIN RATIO; Value: 1.10; Range: 1.00-1.93; Status: F Lab Order: Salicylate Level; SPEC'03/04/16 02:46 Test: SALICYLATE LEVEL; Value: 2.2; Range: 5.0-30.0; Abnormal: Below low normal; Units: MG/DL; Status: F Lab Order: Thyroid Stimulating Hormone; SPEC'03/04/16 02:46 Test: THYROID STIMULATING HORMONE; Value: 0.194; Range: 0.358-3.740; Abnormal: Below low normal; Units: uIU/ML; Status: F Lab Order: MAGNESIUM LEVEL; CHRISTEL'lAyse 03/04/16 02:46 Test: MAGNESIUM LEVEL; Value: 2.1; Range: 1.8-2.4; Units: MG/DL; Status: F Outcome: 03:54 Discharge ordered by Provider. mm11 04:00 Discharge Assessment: Patient awake, alert and oriented x 3. No cognitive and/or ka4 functional deficits noted. Patient verbalized understanding of disposition instructions. patient administered narcotics - no. The following High Risk Discharge criteria are identified: None. Discharged to home ambulatory. Condition: good Condition: stable. No special radiology studies were completed. Property :Personal belongings accompany Pt. 04:00 Discharge instructions given to patient, Instructed on discharge instructions, follow ka4 up and referral plans. Demonstrated understanding of instructions, Pt was receptive of discharge instructions/ teaching. 04:09 Patient left the ED. ka4 Signatures: Sarah Pemberton, RN RN kmg1 Stacy Holland, Reg Reg gb Ni, Andres, CERTIFIED JUVENILE PROBATION OFFICER CERTIFIED JUVENILE PROBATION OFFICER kb5 Jabier Champagne, DO mm11 Sonja Long, PSA PSA hm1 Katina Wheeler,SARAHY GROUNDWATER MONITORING TECHNICIAN ka4 Lacy Daugherty Matthew,RN RN Moraima Patel,RN RN af2 Aletha Davey Corrections: (The following items were deleted from the chart) 02:53 02:48 MAGNESIUM LEVEL+LAB sent. ka4 EDMS Chart Complete MTDD
--- NOTE | 2016-03-06 05:10 | EDDOCDS ---
Physician Documentation Name: Felicita Loomis Age: 45 yrs Sex: Female : 1970 Arrival Date: 03/04/2016 Time: 01:04 Bed 31 Private MD: Disposition: 03/04/16 03:54 Discharged to Home/Self Care. Impression: Acute stress reaction. - Condition is Stable. - Discharge Instructions: Panic Attacks, Self-Destructive Behavior, Panic Attacks, [id number]. - Medication Reconciliation, Local Pharmacy Hours form. - Follow up: Private Physician; When: Call to arrange an appointment; Reason: Continuance of care. - Problem is an acute exacerbation. - Symptoms have improved. Historical: - Allergies: PENICILLINS (Unknown); Morphine ("issues during surgery"); Codeine Sulfate (Rash); - Home Meds: 1. albuterol sulfate 90 mcg/actuation Inhl HFAA 1 puff every 4 hours 2. cough and cold medicine 3. cyclobenzaprine 10 mg Oral tab 1 tab 3 times per day as needed 4. Cymbalta 60 mg Oral cpDR 1 cap twice a day 5. furosemide 20 mg Oral tab 1 tab every other day 6. hydroxyzine HCl 50 mg Oral tab 1 tab 4 times per day 7. levothyroxine 125 mcg Oral tab 1 tab once daily 8. Oxygen 2 Liters nightly 9. BERENICE-COLACE oral 1 cap twice a day 10. Symbicort inhalation 2 puffs 2 times per day 11. Tylenol 500 mg Oral 2 tabs as needed 12. Vitamin C 500 mg Oral tab twice a day 13. [place] [address] unit three times weekly 14. Wellbutrin 100 mg Oral tab 2 tab 2 times per day - PMHx: Anxiety; COPD; Depression; Herniated Disc in Neck and Back; Hypothyroidism; DAVID; - PSHx: ; Lumpectomy- Right; Breast biopsy- Right; Breast Reduction; Hernia repair; Gastric Bypass; Cholecystectomy; - Social history: Smoking status: Patient uses tobacco products, light tobacco smoker. No barriers to communication noted, The patient speaks fluent Amharic, Speaks appropriately for age. - Family history: Not pertinent. - : The pt / caregiver states he / she is not on anticoagulants. Home medication list is obtained from the patient, PingSome import data. - Exposure Risk Screening:: None identified. 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 1 in. (154.94 cm) (R); Pain 0/10; 04:09 BP 157 / 91; Pulse 93; Resp 18 S; Temp 97.1(O); Pulse Ox 99% on R/A; af2 01:17 Body Mass Index 39.49 (94.80 kg, 154.94 cm) kmg1 MDM: 01:52 Consult PFS/PSA/Golf Ball Cover Treater ordered. feb 01:52 Consult PFS/PSA/Golf Ball Cover Treater: Patient's case requires discussion with on-call lucrecia Psychiatrist ordered. 01:52 PSA/PFS to call Nursing Artistic Director, to enter patient data on [place] Safe Act if patient lucrecia involuntarily admitted or transferred for SI or HI ordered. 01:52 Confirm accurate psychiatric medication list and times of last dosage ordered. feb 01:52 Detain Pt Until Medically/PFS Cleared ordered. feb 01:52 Acetaminophen Level Ordered. EDMS 01:52 Basic Metabolic Profile Ordered. EDMS 01:52 Complete Blood Count Ordered. EDMS 01:52 Drug Eval Toxicology ED Only Ordered. EDMS 01:53 Ethyl Alcohol (ethanol) Ordered. EDMS 01:53 Liver Profile Ordered. EDMS 01:53 Salicylate Level Ordered. EDMS 01:53 Thyroid Stimulating Hormone Ordered. EDMS 02:30 LORazepam 0.5 mg PO once ordered. mm11 02:49 Ondansetron ODT Oral Disintegrating Tablet 4 mg PO once ordered. mm11 02:53 MAGNESIUM LEVEL Ordered. EDMS 03:36 Acetaminophen Level Reviewed. mm11 03:36 Basic Metabolic Profile Reviewed. mm11 03:36 Complete Blood Count Reviewed. mm11 03:36 Salicylate Level Reviewed. mm11 03:36 Thyroid Stimulating Hormone Reviewed. mm11 03:36 Drug Eval Toxicology ED Only Reviewed. mm11 03:36 Ethyl Alcohol (ethanol) Reviewed. mm11 03:36 Liver Profile Reviewed. mm11 03:36 MAGNESIUM LEVEL Reviewed. mm11 03:39 Consult PFS/PSA/Golf Ball Cover Treater complete. hm1 03:39 Consult PFS/PSA/Golf Ball Cover Treater: Patient's case requires discussion with on-call hm1 Psychiatrist complete. 03:39 PSA/PFS to call Nursing Artistic Director, to enter patient data [place] Safe [place] if patient hm1 involuntarily admitted or transferred for SI or HI complete. 03:55 Financial registration complete. [facility] 03:58 PSA Outpatient Referrals was scanned into [employer] and attached to record. [facility] 04:01 [facility] Payment Agreement was scanned into [employer] and attached to record. [facility] 13:26 T-Sheet-- Draft Copy was scanned into [employer] and attached to record. gb Administered Medications: 02:48 Drug: LORazepam 0.5 mg [lorazepam 0.5 mg tablet (1 tabs)] Route: PO; ka4 03:55 Follow up: Response: Anxiety is improved af2 02:55 Drug: Ondansetron ODT 4 mg [ondansetron 4 mg disintegrating tablet (1 tabs)] Route: PO; ka4 03:56 Follow up: Response: Nausea is decreased af2 Signatures: Dispatcher MedHost EDSarah Cook, RN RN kmg1 Magui Mcallister RN RN Stacy Dawn, Reg Reg gb Jabier Champagne, DO mm11 Sonja Long, PSA PSA hm1 Katina Wheeler,SARAHY [employer]ATH[employer] ka4 Lacy Daugherty Moraima Berger RN af2 The chart was reviewed and I authenticate all verbal orders and agree with the evaluation and treatment provided.Corrections: (The following items were deleted from the chart) 02:53 02:31 MAGNESIUM LEVEL+LAB ordered. EDMS EDMS Attachments: 04:01 [facility] Payment Agreement [facility] 13:26 T-Sheet-- Draft Copy gb Chart Complete MTDD
== END 2016-03-04 04:09 | disposition home or self-care (01) ==
LOC: M ED 01:04
DX: F43.0 Acute stress reaction (principal); F41.9 Anxiety disorder, unspecified; F32.9 Major depressive disorder, single episode, unspecified; J44.9 Chronic obstructive pulmonary disease, unspecified; E03.9 Hypothyroidism, unspecified; G47.33 Obstructive sleep apnea (adult) (pediatric); M50.20 Other cervical disc displacement, unspecified cervical region; M51.27 Other intervertebral disc displacement, lumbosacral region; Z98.84 Bariatric surgery status; Z90.49 Acquired absence of other specified parts of digestive tract; F17.200 Nicotine dependence, unspecified, uncomplicated; Z79.51 Long term (current) use of inhaled steroids; Z79.899 Other long term (current) drug therapy; Z88.0 Allergy status to penicillin; Z88.2 Allergy status to sulfonamides; Z88.5 Allergy status to narcotic agent
CPT/HCPCS: 36415; 80048; 80076; 80306; 83735; 84443; 85027; 99283; G0480

== ENCOUNTER 2016-03-08 03:38 | Emergency (ER) | payer MEDICARE, MEDICAID ==
[2016-03-08] MEDS ORDERED: METOCLOPRAMIDE INJ 10MG/2ML VIAL (J2765) As Ordered ONE (05:39)
[2016-03-08] MEDS ORDERED: KETOROLAC 30 MG/ML VIAL (J1885) As Ordered ONE (06:04)
[2016-03-08 06:15] LABS: BASO # 0.1 K/mm3 (0.0-0.2); EOS # 0.3 K/mm3 (0.0-0.50); EOS % 2.6 % (0.0-3.0); LARGE UNSTAINED CELL # 0.3 K/mm3 (0.0-0.4); LARGE UNSTAINED CELL % 2.5 % (0.0-4.0); LYMPH # 2.4 K/mm3 (1.5-4.5); LYMPH % 21.1 % (24.0-44.0); MEAN CORPUSCULAR HEMOGLOBIN 28.5 pg (27.0-33.0); MEAN CORPUSCULAR HGB CONC 33.3 g/dl (32.0-36.5); MEAN CORPUSCULAR VOLUME 85.5 fl (80.0-96.0); MONO # 0.7 K/mm3 (0.0-0.8); MONO % 6.3 % (0.0-5.0); NEUTROPHILS # 6.9 K/mm3 (1.8-7.7); NEUTROPHILS % 66.6 % (36.0-66.0); PLATELET COUNT, AUTOMATED 243 k/mm3 (150-450); RED CELL DISTRIBUTION WIDTH 15.1 % (11.5-14.5); WHITE BLOOD COUNT 10.3 K/mm3 (4.0-10.0)
[2016-03-08 06:29] LABS: ALBUMIN 3.2 GM/DL (3.2-5.2); ALBUMIN/GLOBULIN RATIO 1.03 (1.00-1.93); ALKALINE PHOSPHATASE 64 U/L (45-117); ALT/SGPT 28 U/L (12-78); AMYLASE 26 U/L (25-115); ANION GAP 8 MEQ/L (8-16); AST/SGOT 14 U/L (15-37); BILIRUBIN,DIRECT 0.1 MG/DL (0.0-0.2); BILIRUBIN,TOTAL 0.2 MG/DL (0.2-1.0); BLOOD UREA NITROGEN 8 MG/DL (7-18); CALCIUM LEVEL 8.6 MG/DL (8.5-10.1); CARBON DIOXIDE LEVEL 25 MEQ/L (21-32); CHLORIDE LEVEL 108 MEQ/L (98-107); CREATININE FOR GFR 0.76 MG/DL (0.55-1.02); GLOMERULAR FILTRATION RATE > 60.0 (>58); GLUCOSE, FASTING 80 MG/DL (70-105); POTASSIUM SERUM 3.5 MEQ/L (3.5-5.1); SODIUM LEVEL 141 MEQ/L (136-145); TOTAL PROTEIN 6.3 GM/DL (6.4-8.2)
--- NOTE | 2016-03-08 07:26 | EDDOCDS ---
Physician Documentation [facility] Name: Felicita Loomis Age: 45 yrs Sex: Female : 1970 Arrival Date: 03/08/2016 Time: 03:38 Bed 7 Private MD: Disposition: 03/08/16 07:12 Discharged to Home/Self Care. Impression: Other and unspecified noninfective gastroenteritis and colitis. - Condition is Stable. - Discharge Instructions: Nausea and Vomiting, Nausea and Vomiting, [id number]. - Medication Reconciliation, Local Pharmacy Hours form. - Follow up: Private Physician; When: Call to arrange an appointment; Reason: Recheck today's complaints. - Problem is new. - Symptoms are resolved. Historical: - Allergies: Codeine Sulfate (Rash); Morphine ("issues during surgery"); PENICILLINS (Unknown); - Home Meds: 1. albuterol sulfate 90 mcg/actuation Inhl HFAA 1 puff every 4 hours 2. cough and cold medicine 3. cyclobenzaprine 10 mg Oral tab 1 tab 3 times per day as needed 4. Cymbalta 60 mg Oral cpDR 1 cap twice a day 5. furosemide 20 mg Oral tab 1 tab every other day 6. hydroxyzine HCl 50 mg Oral tab 1 tab 4 times per day 7. levothyroxine 125 mcg Oral tab 1 tab once daily 8. Oxygen 2 Liters nightly 9. BERENICE-COLACE oral 1 cap twice a day 10. Symbicort inhalation 2 puffs 2 times per day 11. Tylenol 500 mg Oral 2 tabs as needed 12. Vitamin C 500 mg Oral tab twice a day 13. Vitamin D Oral 96916 unit three times weekly 14. Wellbutrin 100 mg Oral tab 2 tab 2 times per day - PMHx: Anxiety; COPD; Depression; Herniated Disc in Neck and Back; Hypothyroidism; DAVID; - Social history: Smoking status: Patient uses tobacco products, light tobacco smoker. No barriers to communication noted, The patient speaks fluent Gabonese, Speaks appropriately for age. - Family history: Not pertinent. - : The pt / caregiver states he / she is not on anticoagulants. Home medication list is obtained from the patient. - Exposure Risk Screening:: None identified. 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 1 in. (154.94 cm); 07:22 BP 130 / 63; Pulse 97; Resp 18; Temp 97.6; Pulse Ox 99% on R/A; Pain 0/10; pml 03:46 Body Mass Index 39.30 (94.35 kg, 154.94 cm) cz MDM: 05:00 Financial registration complete. hs2 05:16 [facility] Payment Agreement was scanned into [employer] and attached to record. hs2 05:20 IV Saline Lock ordered. cs11 05:20 Metoclopramide 10 mg IV at 40 mg/hr once over 15 mins ordered. cs11 05:20 Consult PFS/PSA/Classification Analyst ordered. cs11 05:20 NS 0.9% 500 ml IV at bolus once ordered. cs11 05:20 CBC with Diff Ordered. EDMS 05:20 MED Profile Ordered. EDMS 05:20 Liver Profile Ordered. EDMS 05:20 Amylase Ordered. EDMS 05:20 Lipase Ordered. EDMS 05:33 Consult PFS/PSA/Classification Analyst complete. cf2 06:04 ketorolac 30 mg IVP once ordered. cs11 06:36 CBC with Diff Reviewed. cs11 06:36 MED Profile Reviewed. cs11 06:36 Liver Profile Reviewed. cs11 06:36 Amylase Reviewed. cs11 06:36 Lipase Reviewed. cs11 Administered Medications: 06:08 Drug: Metoclopramide 10 mg [metoclopramide 5 mg/mL injection solution] Route: IV; Rate: cf2 40 mg/hr; Infused Over: 15 mins; Site: left antecubital; 06:08 Drug: NS 0.9% 500 ml [sodium chloride 0.9 % intravenous solution] Route: IV; Rate: cf2 bolus; Site: left antecubital; 07:23 Follow up: IV Status: Completed infusion; IV Intake: 500ml pml 06:08 Drug: ketorolac 30 mg [ketorolac 30 mg/mL (1 mL) injection solution (1 mL)] Route: IVP; cf2 Site: left antecubital; Signatures: Dispatcher MedHost EDMS Keshia Larson MD MD sd1 Zecher, Joni, Sagrario Damon RN, RN RN pml Schiff, Craig, DO cs11 Radha Tian, Reg Reg hs2 Idalia Caban RN RN cf2 The chart was reviewed and I authenticate all verbal orders and agree with the evaluation and treatment provided.Attachments: 05:16 [facility] Payment Agreement hs2 MTDD
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
[2016-03-08] MEDS ORDERED: LATU40TA PO (16:33)
[2016-03-08] MEDS ORDERED: LEVO125T3 PO (16:33)
[2016-03-08] MEDS ORDERED: NICO14DI20 TD (16:33)
[2016-03-08] MEDS ORDERED: FLON1SPR (16:33)
[2016-03-08] MEDS ORDERED: OMEP20CA3 PO (16:33)
--- NOTE | 2016-03-10 08:26 | EDDOCDS ---
Physician Documentation [facility] Name: Felicita Loomis Age: 45 yrs Sex: Female : 1970 Arrival Date: 03/08/2016 Time: 03:38 Bed 7 Private MD: Disposition: 03/08/16 07:12 Discharged to Home/Self Care. Impression: Other and unspecified noninfective gastroenteritis and colitis. - Condition is Stable. - Discharge Instructions: Nausea and Vomiting, Nausea and Vomiting, [id number]. - Medication Reconciliation, Local Pharmacy Hours form. - Follow up: Private Physician; When: Call to arrange an appointment; Reason: Recheck today's complaints. - Problem is new. - Symptoms are resolved. Historical: - Allergies: Codeine Sulfate (Rash); Morphine ("issues during surgery"); PENICILLINS (Unknown); - Home Meds: 1. albuterol sulfate 90 mcg/actuation Inhl HFAA 1 puff every 4 hours 2. cough and cold medicine 3. cyclobenzaprine 10 mg Oral tab 1 tab 3 times per day as needed 4. Cymbalta 60 mg Oral cpDR 1 cap twice a day 5. furosemide 20 mg Oral tab 1 tab every other day 6. hydroxyzine HCl 50 mg Oral tab 1 tab 4 times per day 7. levothyroxine 125 mcg Oral tab 1 tab once daily 8. Oxygen 2 Liters nightly 9. BERENICE-COLACE oral 1 cap twice a day 10. Symbicort inhalation 2 puffs 2 times per day 11. Tylenol 500 mg Oral 2 tabs as needed 12. Vitamin C 500 mg Oral tab twice a day 13. Vitamin D Oral 65001 unit three times weekly 14. Wellbutrin 100 mg Oral tab 2 tab 2 times per day - PMHx: Anxiety; COPD; Depression; Herniated Disc in Neck and Back; Hypothyroidism; DAVID; - Social history: Smoking status: Patient uses tobacco products, light tobacco smoker. No barriers to communication noted, The patient speaks fluent Gambian, Speaks appropriately for age. - Family history: Not pertinent. - : The pt / caregiver states he / she is not on anticoagulants. Home medication list is obtained from the patient. - Exposure Risk Screening:: None identified. PSYCH ARNP: 03/08 03:46 history of uterine ablasion cz Vital Signs: 03:46 BP 138 / 88; Pulse 92; Resp 16; Temp 97(T); Pulse Ox 99% ; Weight 94.35 kg / 208.01 cz lbs; Height 5 ft. 1 in. (154.94 cm); 07:22 BP 130 / 63; Pulse 97; Resp 18; Temp 97.6; Pulse Ox 99% on R/A; Pain 0/10; pml 03:46 Body Mass Index 39.30 (94.35 kg, 154.94 cm) cz MDM: 05:00 Financial registration complete. hs2 05:16 [facility] Payment Agreement was scanned into [employer] and attached to record. hs2 05:20 IV Saline Lock ordered. cs11 05:20 Metoclopramide 10 mg IV at 40 mg/hr once over 15 mins ordered. cs11 05:20 Consult PFS/PSA/Raw Scales Operator ordered. cs11 05:20 NS 0.9% 500 ml IV at bolus once ordered. cs11 05:20 CBC with Diff Ordered. EDMS 05:20 MED Profile Ordered. EDMS 05:20 Liver Profile Ordered. EDMS 05:20 Amylase Ordered. EDMS 05:20 Lipase Ordered. EDMS 05:33 Consult PFS/PSA/Raw Scales Operator complete. cf2 06:04 ketorolac 30 mg IVP once ordered. cs11 06:36 CBC with Diff Reviewed. cs11 06:36 MED Profile Reviewed. cs11 06:36 Liver Profile Reviewed. cs11 06:36 Amylase Reviewed. cs11 06:36 Lipase Reviewed. cs11 14:27 T-Sheet-- Draft Copy was scanned into [employer] and attached to record. gb Administered Medications: 06:08 Drug: Metoclopramide 10 mg [metoclopramide 5 mg/mL injection solution] Route: IV; Rate: cf2 40 mg/hr; Infused Over: 15 mins; Site: left antecubital; 06:08 Drug: NS 0.9% 500 ml [sodium chloride 0.9 % intravenous solution] Route: IV; Rate: cf2 bolus; Site: left antecubital; 07:23 Follow up: IV Status: Completed infusion; IV Intake: 500ml pml 06:08 Drug: ketorolac 30 mg [ketorolac 30 mg/mL (1 mL) injection solution (1 mL)] Route: IVP; cf2 Site: left antecubital; Signatures: Dispatcher [employer] EDMS Jeevan Larsonah, MD MD sd1 Joni Lobo RN RN cz Stacy Holland, Reg Reg gb Sagrario Noguera RN RN Joe Holliday, DO cs11 Radha Tian, Reg Reg hs2 Idalia Caban RN RN cf2 The chart was reviewed and I authenticate all verbal orders and agree with the evaluation and treatment provided.Attachments: 05:16 [facility] Payment Agreement hs2 14:27 T-Sheet-- Draft Copy gb Chart Complete MTDD
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
--- NOTE | 2016-03-10 08:26 | EDDOCDS ---
Physician Documentation [facility] Name: Felicita Loomis Age: 45 yrs Sex: Female : 1970 Arrival Date: 03/08/2016 Time: 03:38 Bed 7 Private MD: Disposition: 03/08/16 07:12 Discharged to Home/Self Care. Impression: Other and unspecified noninfective gastroenteritis and colitis. - Condition is Stable. - Discharge Instructions: Nausea and Vomiting, Nausea and Vomiting, [id number]. - Medication Reconciliation, Local Pharmacy Hours form. - Follow up: Private Physician; When: Call to arrange an appointment; Reason: Recheck today's complaints. - Problem is new. - Symptoms are resolved. Historical: - Allergies: Codeine Sulfate (Rash); Morphine ("issues during surgery"); PENICILLINS (Unknown); - Home Meds: 1. albuterol sulfate 90 mcg/actuation Inhl HFAA 1 puff every 4 hours 2. cough and cold medicine 3. cyclobenzaprine 10 mg Oral tab 1 tab 3 times per day as needed 4. Cymbalta 60 mg Oral cpDR 1 cap twice a day 5. furosemide 20 mg Oral tab 1 tab every other day 6. hydroxyzine HCl 50 mg Oral tab 1 tab 4 times per day 7. levothyroxine 125 mcg Oral tab 1 tab once daily 8. Oxygen 2 Liters nightly 9. BERENICE-COLACE oral 1 cap twice a day 10. Symbicort inhalation 2 puffs 2 times per day 11. Tylenol 500 mg Oral 2 tabs as needed 12. Vitamin C 500 mg Oral tab twice a day 13. Vitamin D Oral 92000 unit three times weekly 14. Wellbutrin 100 mg Oral tab 2 tab 2 times per day - PMHx: Anxiety; COPD; Depression; Herniated Disc in Neck and Back; Hypothyroidism; DAVID; - Social history: Smoking status: Patient uses tobacco products, light tobacco smoker. No barriers to communication noted, The patient speaks fluent Iraqi, Speaks appropriately for age. - Family history: Not pertinent. - : The pt / caregiver states he / she is not on anticoagulants. Home medication list is obtained from the patient. - Exposure Risk Screening:: None identified. 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 1 in. (154.94 cm); 07:22 BP 130 / 63; Pulse 97; Resp 18; Temp 97.6; Pulse Ox 99% on R/A; Pain 0/10; pml 03:46 Body Mass Index 39.30 (94.35 kg, 154.94 cm) cz MDM: 05:00 Financial registration complete. hs2 05:16 [facility] Payment Agreement was scanned into [employer] and attached to record. hs2 05:20 IV Saline Lock ordered. cs11 05:20 Metoclopramide 10 mg IV at 40 mg/hr once over 15 mins ordered. cs11 05:20 Consult PFS/PSA/Machine Finisher ordered. cs11 05:20 NS 0.9% 500 ml IV at bolus once ordered. cs11 05:20 CBC with Diff Ordered. EDMS 05:20 MED Profile Ordered. EDMS 05:20 Liver Profile Ordered. EDMS 05:20 Amylase Ordered. EDMS 05:20 Lipase Ordered. EDMS 05:33 Consult PFS/PSA/Machine Finisher complete. cf2 06:04 ketorolac 30 mg IVP once ordered. cs11 06:36 CBC with Diff Reviewed. cs11 06:36 MED Profile Reviewed. cs11 06:36 Liver Profile Reviewed. cs11 06:36 Amylase Reviewed. cs11 06:36 Lipase Reviewed. cs11 14:27 T-Sheet-- Draft Copy was scanned into [employer] and attached to record. gb Administered Medications: 06:08 Drug: Metoclopramide 10 mg [metoclopramide 5 mg/mL injection solution] Route: IV; Rate: cf2 40 mg/hr; Infused Over: 15 mins; Site: left antecubital; 06:08 Drug: NS 0.9% 500 ml [sodium chloride 0.9 % intravenous solution] Route: IV; Rate: cf2 bolus; Site: left antecubital; 07:23 Follow up: IV Status: Completed infusion; IV Intake: 500ml pml 06:08 Drug: ketorolac 30 mg [ketorolac 30 mg/mL (1 mL) injection solution (1 mL)] Route: IVP; cf2 Site: left antecubital; Signatures: Dispatcher [employer] EDMS Jeevan Larsonah, MD MD sd1 Joni Lobo RN RN cz Stacy Holland, Reg Reg gb Sagrario Noguera RN RN Joe Holliday, DO cs11 Radha Tian, Reg Reg hs2 Idalia Caban RN RN cf2 The chart was reviewed and I authenticate all verbal orders and agree with the evaluation and treatment provided.Attachments: 05:16 [facility] [place] Payment Agreement hs2 14:27 T-Sheet-- Draft Copy gb Chart Complete MTDD
== END 2016-03-08 07:24 | disposition home or self-care (01) ==
LOC: M ED 03:38
DX: K52.9 Noninfective gastroenteritis and colitis, unspecified (principal); F41.9 Anxiety disorder, unspecified; J44.9 Chronic obstructive pulmonary disease, unspecified; F32.9 Major depressive disorder, single episode, unspecified; M51.9 Unspecified thoracic, thoracolumbar and lumbosacral intervertebral disc disorder; E03.9 Hypothyroidism, unspecified; G47.33 Obstructive sleep apnea (adult) (pediatric); F17.210 Nicotine dependence, cigarettes, uncomplicated; Z99.81 Dependence on supplemental oxygen; Z79.899 Other long term (current) drug therapy; Z79.51 Long term (current) use of inhaled steroids; Z88.8 Allergy status to other drugs, medicaments and biological substances; Z88.0 Allergy status to penicillin

== ENCOUNTER 2016-03-08 12:57 | Inpatient (IN) | payer MEDICARE, MEDICAID ==
[~2016-03-08] VITALS: Ht 167.6 cm; Wt 95.5 kg
[2016-03-08 13:55] LABS: AMPHETAMINES LEVEL URINE NEGATIVE (NEGATIVE); BENZODIAZEPINES URINE POSITIVE (NEGATIVE)
[2016-03-08 13:56] LABS: COCAINE METABOLITE URINE NEGATIVE (NEGATIVE); CONTROL LINE INT CTR LINE PRESENT; METHADONE URINE NEGATIVE (NEGATIVE); OPIATES URINE NEGATIVE (NEGATIVE); TRICYCLIC ANTIDEPRESS URINE NEGATIVE (NEGATIVE)
[2016-03-08 14:09] LABS: MAGNESIUM LEVEL 2.1 MG/DL (1.8-2.4); T UPTAKE 34 % (30-39); THYROXINE (T4) 13.8 UG/DL (4.5-12.0)
[2016-03-08] MEDS ORDERED: LORazepam 1 MG TAB As Ordered ONE (15:31)
[2016-03-08] MEDS ORDERED: NICO14DI20 TD (16:33)
[2016-03-08] MEDS ORDERED: LATU40TA PO (16:33)
[2016-03-08] MEDS ORDERED: LEVO125T3 PO (16:33)
[2016-03-08] MEDS ORDERED: OMEP20CA3 PO (16:33)
[2016-03-08] MEDS ORDERED: FLON1SPR (16:33)
--- NOTE | 2016-03-08 16:48 | EDDOCDS ---
Physician Documentation [facility] Name: Felicita Loomis Age: 45 yrs Sex: Female : 1970 Arrival Date: 03/08/2016 Time: 12:57 Bed [facility] Private MD: Disposition: 03/08/16 16:00 Hospitalization ordered by Keisha Thayer for Inpatient Admission. Preliminary diagnosis is Unspecified psychosis not due to a substance or known physiological condition. - Bed requested for Admit. - Status is Inpatient Admission. js13 - Condition is Stable. - Problem is an acute exacerbation. - Symptoms are unchanged. Historical: - Allergies: Codeine Sulfate (Rash); Morphine ("issues during surgery"); PENICILLINS (Unknown); - Home Meds: 1. Cymbalta 60 mg Oral cpDR 1 cap twice a day 2. furosemide 20 mg Oral tab 1 tab every other day 3. [place] 47220 unit three times weekly 4. Oxygen 2 Liters nightly 5. levothyroxine 125 mcg Oral tab 1 tab once daily 6. lorazepam 0.5 mg Oral tab 1 tab 2 times per day PRN 7. hydroxyzine HCl 50 mg Oral tab 1 tab 4 times per day PRN 8. Wellbutrin SR 200 mg Oral TbER 1 tab 2 times per day 9. ibuprofen 800 mg Oral tab 1 tab 3 times per day 10. Flonase 50 mcg/actuation Nasal spsn 1 spray 2 times per day 11. ALL MEDICATIONS [email or web address] AND [facility] IN [place], UNABLE TO VERIFY LAST DOSE TAKEN WITH PATIENT - PMHx: Anxiety; COPD; Depression; Herniated Disc in Neck and Back; Hypothyroidism; DAVID; severe nocturnal hypoxia; - PSHx: ; Gastric Bypass; - Social history: Smoking status: unknown if patient ever smoked tobacco. No barriers to communication noted, The patient speaks fluent Indonesian. - Family history: Not pertinent. - : The pt / caregiver states he / she is not on anticoagulants. Home medication list is obtained from [employer] import data. - Exposure Risk Screening:: None identified. SOCIAL WORKER MASTERS: 03/08 13:40 LMP N/A - Post-menopause Vital Signs: 13:31 BP 135 / 82; Pulse 100; Resp 18; Temp 98.7(T); Pulse Ox 96% on R/A; Weight 94.35 kg / rn1 208.01 lbs (R); Height 5 ft. 1 in. (154.94 cm) (R); Pain 0/10; 16:43 BP 153 / 93; Pulse 101; Resp 16; Temp 98.0(O); Pulse Ox 99% on R/A; Pain 0/10; js13 13:31 Body Mass Index 39.30 (94.35 kg, 154.94 cm) rn1 MDM: 13:34 Consult PFS/PSA/Field Investigator ordered. le 13:34 Consult PFS/PSA/Field Investigator: Patient's case requires discussion with on-call le Psychiatrist ordered. 13:34 PSA/PFS to call Nursing Remanufacturing Technician, to enter patient data on [place] Safe [place] if patient le involuntarily admitted or transferred for SI or HI ordered. 13:34 Confirm accurate psychiatric medication list and times of last dosage ordered. le 13:34 Detain Pt Until Medically/PFS Cleared ordered. le 13:35 Acetaminophen Level Ordered. EDMS 13:35 Salicylate Level Ordered. EDMS 13:35 ETOH Ordered. EDMS 13:35 Thyroid Profile Ordered. EDMS 13:35 Magnesium Level Ordered. EDMS 13:35 Urine Toxicology Ordered. EDMS 14:26 Acetaminophen Level Reviewed. le 14:26 Salicylate Level Reviewed. le 14:26 Thyroid Profile Reviewed. le 14:26 Urine Toxicology Reviewed. le 14:26 ETOH Reviewed. le 14:26 Magnesium Level Reviewed. le 14:46 Consult PFS/PSA/Field Investigator complete. rb 15:02 Financial registration complete. lg 15:31 LORazepam 0.5 mg PO once ordered. le 15:48 Consult PFS/PSA/Field Investigator: Patient's case requires discussion with on-call rb Psychiatrist complete. 15:49 PSA/PFS to call Nursing Remanufacturing Technician, to enter patient data [place] Safe [place] if patient rb involuntarily admitted or transferred for SI or HI complete. 15:59 [facility] [place] was scanned into [employer] and attached to record. gjb 16:03 BED REQUEST+ADM ordered. EDMS 16:14 Admit to [facility]: ordered. EDMS 16:23 [facility] Legal paperwork was scanned into [employer] and attached to record. cs Administered Medications: 15:40 Drug: LORazepam 0.5 mg [lorazepam 1 mg tablet (0.5 tabs)] Route: PO; js13 16:41 Follow up: Response: Anxiety is improved Signatures: Dispatcher [employer] EDMS Jaqueline Yan, PSA PSA rb Jesus Khan, PSA PSA cs Pito Ramos, Reg Reg lg Hannah Cash, ENVIRONMENTAL DESIGNER ENVIRONMENTAL DESIGNER Gaby Benoit,RN RN js13 Aletha Davey The chart was reviewed and I authenticate all verbal orders and agree with the evaluation and treatment provided.Corrections: (The following items were deleted from the chart) 13:22 Home Meds: Wellbutrin 100 mg Oral tab 2 tab 2 times per day; js 14: 13:22 Home Meds: albuterol sulfate 90 mcg/actuation Inhl HFAA 1 puff every 4 hours; [id number] 14: 13:22 Home Meds: cough and cold medicine; js 14: 13:22 Home Meds: cyclobenzaprine 10 mg Oral tab 1 tab 3 times per day; as needed; 14: 13:22 Home Meds: hydroxyzine HCl 50 mg Oral tab 1 tab 4 times per day; js 14: 13:22 Home Meds: Vitamin C 500 mg Oral tab twice a day; 14: 13:22 Home Meds: Tylenol 500 mg Oral 2 tabs as needed; js 14: 13:22 Home Meds: Symbicort inhalation 2 puffs 2 times per day; js js13 14: 13:22 Home Meds: BERENICE-COLACE oral 1 cap twice a day; js13 js13 Attachments: 15:59 [facility] Payment Agreement gjb MTDD
--- NOTE | 2016-03-08 16:48 | EDDOCDS ---
Nurse's Notes [facility] Name: Felicita Loomis Age: 45 yrs Sex: Female : 1970 Arrival Date: 03/08/2016 Time: 12:[address] MD: Diagnosis: Unspecified psychosis not due to a substance or known physiological condition Presentation: 03/08 13:12 Presenting complaint: State troopers brought patient in after numerous complaints from [facility] neighbors in same apartment building. Patient has been knocking on doors stating that people are out to kill her and are poisoning her. Patient states that there are people everywhere that want to kill her and that she just wants to move. State police state that she has been coming to the station almost daily for approx 2 weeks stating the same and that they have had to respond to her stalking people thinking they were going to kill her. Mental Health Triage Level: Level 2: The patient was brought to the ED for evaluation because of a legal pickup order. Adult Sepsis Screening: Patient has new or worsening altered mentation (1 point). Patient's respiratory rate is less than 22. Systolic blood pressure is greater than 100. Patient has a qSOFA score of 1- Negative Sepsis Screen. Mental Health Triage Level: Level 2: The patient was brought to the ED for evaluation because of a legal pickup order. Suicide/Homicide risk assessment- the patient denies having any suicidal and/or homicidal ideations and does not present with any other emotional, behavioral or mental health complaints. Status: Patient is not a mail service coordinator or dependent. Transition of care: patient was not received from another setting of care. 13:12 Acuity: HARIS Level 3 [facility] 13:12 Method Of Arrival: Police Car [facility] Triage Assessment: 13:22 General: Appears obese, Behavior is agitated, anxious, restless. Pain: Denies pain. Pt js13 Declines HIV testing. Neurological: Level of Consciousness is awake, alert. Respiratory: Airway is patent Respiratory effort is even, unlabored, Respiratory pattern is regular, symmetrical. Derm: Skin is pink, warm & dry. MAINTENANCE PORTER: 13:40 LMP N/A - Post-menopause js13 Historical: - Allergies: Codeine Sulfate (Rash); Morphine ("issues during surgery"); PENICILLINS (Unknown); - Home Meds: 1. Cymbalta 60 mg Oral cpDR 1 cap twice a day 2. furosemide 20 mg Oral tab 1 tab every other day 3. Vitamin D [place] 99334 unit three times weekly 4. Oxygen 2 Liters nightly 5. levothyroxine 125 mcg Oral tab 1 tab once daily 6. lorazepam 0.5 mg Oral tab 1 tab 2 times per day PRN 7. hydroxyzine HCl 50 mg Oral tab 1 tab 4 times per day PRN 8. Wellbutrin SR 200 mg Oral TbER 1 tab 2 times per day 9. ibuprofen 800 mg Oral tab 1 tab 3 times per day 10. Flonase 50 mcg/actuation Nasal spsn 1 spray 2 times per day 11. ALL MEDICATIONS VERIFIED BY [facility] IN [facility] AND [facility] IN [place], UNABLE TO VERIFY LAST DOSE TAKEN WITH PATIENT - PMHx: Anxiety; COPD; Depression; Herniated Disc in Neck and Back; Hypothyroidism; DAVID; severe nocturnal hypoxia; - PSHx: ; Gastric Bypass; - Social history: Smoking status: unknown if patient ever smoked tobacco. No barriers to communication noted, The patient speaks fluent Croatian. - Family history: Not pertinent. - : The pt / caregiver states he / she is not on anticoagulants. Home medication list is obtained from [employer] import data. - Exposure Risk Screening:: None identified. Screenin:40 Screening information is obtained from the patient. Fall risk: No risks identified. js13 Assistance ADL's: requires no assistance with activities of daily living. Abuse/DV Screen: The patient / caregiver reports he/she is: not in a situation that causes fear, pain or injury. Nutritional screening: No deficits noted. Advance Directives: There is no active DNR order. home support is adequate. Assessment: 13:40 General: Appears obese, Behavior is agitated, anxious, inappropriate for age, restless. js13 Pain: Denies pain. Neurological: Level of Consciousness is awake, alert. Respiratory: Airway is patent Respiratory effort is even, unlabored, Respiratory pattern is regular, symmetrical. GI: Abdomen is non- distended Bowel sounds Abd is soft and non tender. Derm: Skin is pink, warm & dry. 15:00 General: Appears in no apparent distress, comfortable, to be sleeping. Respiratory: js13 Airway is patent Respiratory effort is even, unlabored, Respiratory pattern is regular, symmetrical. Derm: Skin is pink, warm & dry. 15:47 General: Patient came out of room and was stating that she was feeling that something js13 was going to happen to someone in her family. She states she has a sixth sense and can tell things like that. Patient then tried to hug RN and then was laying on the floor hugging the RN's leg and stating she loved the RN and that she felt safe with her. Patient is coming out and arguing with staff about being admitted and wants to make sure that the RN tells Hannah Shreya GLORIA "thanks for ruining her fucking life and to shove her doctorate up her ass." Patient was given Ativan 0.5 mg at 1540 and patient still arguing and being belligerent with staff. . 16:22 General: Appears obese, Behavior is agitated, anxious, inappropriate for age, restless. js13 Pain: Denies pain. Neurological: Level of Consciousness is awake, alert. Respiratory: Airway is patent Respiratory effort is even, unlabored, Respiratory pattern is regular, symmetrical. GI: Abdomen is non- distended obese. Derm: Skin is pink, warm & dry. Mental Health Eval: 14:44 Mental health consult is initiated at 14:00. Status: The patient is not a mail service coordinator or dependent. [facility]: The patient is not an established patient of [facility]. Referral Information: Evaluation referral is generated by a police agency: [facility] randa Ro #[id number]. The patient was referred for evaluation because Pt was reported to have been knocking on neighbors doors past 7- 8 days, paranoid delusions of people trying to kill her, and she has been going to the [address] for the same amount of time, [place]. Pt reports there is evil in her apartment building, people on the bottom floor are all ing, "everything I feel is in my heart, God is great, people are evil, they are trying to kill me, I have to solve my own murder case, police are not doing anything, a demarco named Jorge is using all different names on face book to get me, poisoned with magnesium, know she is going to be , somebody has stolen, from me before I was DC from upstairs, someone poisoned, messed with her old bottles of medications, thrown them all out, and staying at [facility] [address] since [place] because she refusing to stay where evil is.". Subjective: The patients chief complaint is Pt reports she believes someone is trying to kill her,, she wants the police to look into her attempted murder, knocking on her neighbor's doors, neighbors called the police today, screaming "I am the light of God" Randa reports she has been seeing them daily for the past 7-8 days, not sure if she is taking her medications, pt states she has, but threw all of her medications out because she believed evil has poisoned them all, not sleeping, given a lunch packet, kept the milk and was afraid someone did something to the packet.. Delusions are jain, paranoid, persecutory, Patient's mood is angry, anxious, depressed, elevated, euphoric, hopeless, Hallucinations are denied. Mental Health history: anxiety, depression, abusing narcotics. Mental Health Admissions: [facility] 02/15/16 until Feb 27 2016 Current Outpatient Mental Health Services: [facility] / Agency: [facility], . Current living environment is. Patient presents to Emergency Department with the following symptoms within the past 2 weeks: agitation, anxiety, delusions of persecution, denial, depressed mood, euphoria, feelings of helplessness/hopelessness, hyperactivity, labile mood, brian, non-compliance, poor concentration, poor impulse control, psychosis, relational problem, sleep disturbance - insomnia. Substance abuse: Pt denies. Substance abuse: Pt was looking for [employer] 2-3 days ago, kenny JOSEPH certified financial planner. Per Hannah RODRIGUES pt is Hyperthyroid Down TSH,, UP T4, normal T3 uptake, and vitals do not support a thyroid issue. Mental status exam: Patients appearance is disheveled obese, Patient's behavior is agitated, bizarre, Speech is pressured. rapid. Affect is labile. Mood is angry. anxious. depressed. euphoric. irritable. Hallucinations are denied. Appetite is poor. Memory is poor. Energy level is tires easily. Content of thought is paranoid. Evil, Everyone is evil, I am the light of God, Jorge is messing with me, someone is trying to kill me, my neighbor is trying to kill me because I turned in his son a convicted criminal, that he was staying in the complex to the financial risk manager, and swears she did not, and they are poisoning her with magnesium. She also has complained to the police and they are doing nothing to solve her being attempted to be murdered, she will do it herself delusional. The evil is in the apartment complex and she will not live there, she is staying at [facility] on [address] The ground floor, "Every one is dieing, for no good reason, unexpectedly" Thought process is tangential. loose. characterized by flight of ideas. Cognitive level is oriented to person, place, time and situation Patient's insight is absent. Judgement is absent. Rapport with interviewer is poor. Suicidal Ideation is denied. Homicidal ideation is denied. Disposition: Medically cleared for disposition by Hannah CASTRO. Disposition: Psychiatric Consult is performed by phone with Dr Keisha Thayer. [facility] Admission Criteria: The patient displays symptoms of severe psychiatric disorder resulting in disordered behavior and significant interference with his / her ability to maintain self care. Delusions. Severe Anxiety. The patient requires continuous observation and/or control to protect self, others or property. The patient's care requires a multi-modal treatment plan under close supervision and coordination due to the complexity and severity of the patient's symptoms. The patient requires administration and monitoring of psychoactive medications by skilled medical providers due to the side effects of the psychoactive medications or significant dosage adjustments. Legal Status: Patient's legal status will be Emergency admission: . [place] Safe [place] because patient was registered less than 6 months ago. 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 Psych: 13:53 Mental Health Triage Level: Level 2: The patient was brought to the ED for evaluation js13 because of a legal pickup order. 13:53 Subjective: The patients chief complaint is Patient thinks numerous people are out to kill her. Patient has been knocking on doors of neighbors stating that someone is trying to kill her also stalking people thinking they are the ones who are trying to kill her. . 13:53 Objective: Patient is agitated, bizarre, challenging, defensive, irritable, restless, suspicious, Speech is normal. loud, rapid, Affect is tearful. 13:53 Substance abuse: Pt denies Vital Signs: 13:31 BP 135 / 82; Pulse 100; Resp 18; Temp 98.7(T); Pulse Ox 96% on R/A; Weight 94.35 kg rn1 (R); Height 5 ft. 1 in. (154.94 cm) (R); Pain 0/10; 16:43 BP 153 / 93; Pulse 101; Resp 16; Temp 98.0(O); Pulse Ox 99% on R/A; Pain 0/10; js13 13:31 Body Mass Index 39.30 (94.35 kg, 154.94 cm) rn1 Vitals: 13:39 Log In Time: March 08, 2016 at 12:57. 13 ED Course: 13:00 Patient visited by Jeanne Cox. mm15 13:00 Patient moved to [facility] mm15 13:03 Hannah Cash FNP is [facility]. le 13:09 Patient moved to [address] 13:09 Pt greeted and oriented to ED. Patient advised of names of staff involved in care, pjf location of call doyle, wait times and NPO status. Accompanied by Law Enforcement, Patient has correct armband on for positive identification. Placed in psych safe attire. Bed in low position. Call light in reach. Side rails up X 1. Security observing. Property removed, secured in belongings bag- Placed in locker #3. Door closed. Noise minimized. Visitors limited. Report received from rn - psych. triage level #2, Ams, cooperative \\T\\ this time. The patient / caregiver is instructed regarding the plan of care and ED course. Psych Safety Check: Location: Psych Room. 13:12 Patient visited by Fernando Shell Security Aideaston. pjf 13:17 Triage Initiated js13 13:23 Patient visited by Gaby Sun RN. js13 13:32 Psych Safety Check: Location: Psych Room. Visual Assessment: Agitated. rn1 13:34 Patient visited by Hannah Cash FNP. le 13:34 Patient visited by Hannah Cash FNP. le 13:38 Urine Toxicology Sent. js13 13:38 Magnesium Level Sent. js13 13:38 Thyroid Profile Sent. js13 13:38 ETOH Sent. js13 13:38 Salicylate Level Sent. js13 13:38 Acetaminophen Level Sent. js13 13:40 No IV's were initiated during this patient's visit. No procedures done that require [facility] assistance. Labs drawn. (by ED staff). Sent per order to lab. Urine collected. Clean catch specimen. Urine specimen sent to lab. 13:53 Patient visited by Gaby Sun RN. js13 14:10 Patient visited by Fernando Shell Security Aide. pjf 14:29 Patient visited by Fernando Shell Security Aide. pjf 14:45 Patient visited by Fernando hSell Security Aide. pjf 14:59 Patient visited by Fernando Shell Security Aide. pjf 15:29 Psych Safety Check: Location: Psych Room. Visual Assessment: Agitated. pjf 15:59 [facility] Payment Agreement was scanned into [employer] and attached to record. b 16:00 Keisha Thayer is Hospitalizing Provider. le 16:23 [facility] Legal paperwork was scanned into [employer] and attached to record. cs Administered Medications: 15:40 Drug: LORazepam 0.5 mg [lorazepam 1 mg tablet (0.5 tabs)] Route: PO; js13 16:41 Follow up: Response: Anxiety is improved js13 Attachments: 16:23 E Legal paperwork cs Order Results: Lab Order: Acetaminophen Level; SPEC'M 03/08/16 13:31 Test: ACETAMINOPHEN LEVEL; Value: < 2.0; Range: 10.0-30.0; Abnormal: Below low normal; Units: UG/ML; Status: F Lab Order: Salicylate Level; SPEC'M 03/08/16 13:31 Test: SALICYLATE LEVEL; Value: 2.2; Range: 5.0-30.0; Abnormal: Below low normal; Units: MG/DL; Status: F Lab Order: ETOH; SPEC'M 03/08/16 13:31 Test: ETHYL ALCOHOL (ETHANOL); Value: < 0.003; Range: 0.000-0.010; Units: %; Status: F Lab Order: Thyroid Profile; SPEC'M 03/08/16 13:31 Test: T UPTAKE; Value: 34; Range: 30-39; Units: %; Status: F Test: THYROXINE (T4); Value: 13.8; Range: 4.5-12.0; Abnormal: Above high normal; Units: UG/DL; Status: F Test: FREE THYROXINE INDEX; Value: 4.7; Range: 1.3-4.8; Units: %; Status: F Test: THYROID STIMULATING HORMONE; Value: 0.087; Range: 0.358-3.740; Abnormal: Below low normal; Units: uIU/ML; Status: F Lab Order: Magnesium Level; SPEC'M 03/08/16 13:31 Test: MAGNESIUM LEVEL; Value: 2.1; Range: 1.8-2.4; Units: MG/DL; Status: F Lab Order: Urine Toxicology; SPEC'M 03/08/16 13:31 Test: AMPHETAMINES LEVEL URINE; Value: NEGATIVE; Range: NEGATIVE; Status: F Test: BARBITURATES URINE; Value: NEGATIVE; Range: NEGATIVE; Status: F Test: BENZODIAZEPINES URINE; Value: POSITIVE; Range: NEGATIVE; Abnormal: Above high normal; Status: F Test: CANNABINOIDS URINE; Value: POSITIVE; Range: NEGATIVE; Abnormal: Above high normal; Status: F Test: COCAINE METABOLITE URINE; Value: NEGATIVE; Range: NEGATIVE; Status: F Test: METHADONE URINE; Value: NEGATIVE; Range: NEGATIVE; Status: F Test: OPIATES URINE; Value: NEGATIVE; Range: NEGATIVE; Status: F Test: TRICYCLIC ANTIDEPRESS URINE; Value: NEGATIVE; Range: NEGATIVE; Status: F Test Note: ; FALSE POSITIVE RESULTS CAN BE CAUSED BY THE USE OF PANTOPRAZOLE (PROTONIX). Outcome: 16:00 Decision to Hospitalize by Provider. le 16:44 Discharge Assessment: Patient awake, alert and oriented x 3. No cognitive and/or js13 functional deficits noted. Patient verbalized understanding of disposition instructions. patient administered narcotics - yes. Patient was admitted to the hospital or transferred to another facility. The following High Risk Discharge criteria are identified: None. Admitted to Psych accompanied by tech, via wheelchair, with chart. Condition: stable. No special radiology studies were completed. Admission hand-off:. 16:47 Patient left the ED. js13 Signatures: Jesus Khan, EDYTA PSA Fernando Hooper, Security Aide Hannah Hicks, COMPENSATION BUSINESS PARTNER COMPENSATION BUSINESS PARTNER Gaby Benoit,RN RN js13 Jeanne Cox mm15 Toro Mcallister rn1 Aletha Davey Corrections: (The following items were deleted from the chart) 13:22 Home Meds: Wellbutrin 100 mg Oral tab 2 tab 2 times per day; 13:22 Home Meds: albuterol sulfate 90 mcg/actuation Inhl HFAA 1 puff every 4 hours; [id number] 14:09 13:22 Home Meds: cough and cold medicine; 13:22 Home Meds: cyclobenzaprine 10 mg Oral tab 1 tab 3 times per day; as needed; 13: Home Meds: hydroxyzine HCl 50 mg Oral tab 1 tab 4 times per day; 13:22 Home Meds: Vitamin C 500 mg Oral tab twice a day; 13:22 Home Meds: Tylenol 500 mg Oral 2 tabs as needed; 13:22 Home Meds: Symbicort inhalation 2 puffs 2 times per day; 13:22 Home Meds: BERENICE-COLACE oral 1 cap twice a day; MTDD
[2016-03-08 17:20] VITALS: BP 136/86
[2016-03-08] MEDS ORDERED: LORazepam 1 MG TAB PO PRN (19:00)
[2016-03-08] MEDS: hydrOXYzine 50 MG TAB PO PRN (20:05)
[2016-03-08] MEDS: MOM 30ML SUSPENSION UDC PO PRN (20:05)
[2016-03-08] MEDS: DOCUSATE SODIUM 100 MG CAP PO SCH (20:47)
[2016-03-08] MEDS: LORazepam 0.5 MG TAB PO PRN (20:47)
[2016-03-08] MEDS: SYMBICORT 160/4.5MCG INHALER 6GM INH SCH (23:23)
[2016-03-09 06:03] VITALS: BP 144/59
[2016-03-09] MEDS: LEVOTHYROXINE 0.125 MG TAB (125 MCG) PO SCH (06:07)
[2016-03-09] MEDS: hydrOXYzine 50 MG TAB PO PRN ×4 (07:16→23:03)
[2016-03-09] MEDS: LORazepam 0.5 MG TAB PO PRN (07:49)
[2016-03-09] MEDS: OMEPRAZOLE 20 MG CAP PO SCH (07:52)
[2016-03-09] MEDS: DOCUSATE SODIUM 100 MG CAP PO SCH ×2 (07:52→20:24)
[2016-03-09] MEDS: LURASIDONE HCL 40 MG TAB (LATUDA) PO SCH (07:52)
[2016-03-09] MEDS: SYMBICORT 160/4.5MCG INHALER 6GM INH SCH ×2 (07:54→20:25)
[2016-03-09] MEDS ORDERED: LORazepam 2 MG TAB PO PRN (09:15)
[2016-03-09] MEDS: MAALOX 30 ML SUSP *UDC PO PRN ×2 (09:24→19:14)
[2016-03-09] MEDS: LORazepam 1 MG TAB PO PRN ×2 (13:00→20:25)
[2016-03-09] MEDS: ALBUTEROL 90 MCG/ACT 8GM HFA INHALER INH PRN (14:57)
[2016-03-09 18:00] VITALS: BP 120/72
[2016-03-10] MEDS: ALBUTEROL 90 MCG/ACT 8GM HFA INHALER INH PRN ×3 (03:33→15:52)
[2016-03-10] MEDS: LEVOTHYROXINE 0.125 MG TAB (125 MCG) PO SCH (06:15)
[2016-03-10 06:22] VITALS: BP 127/87
[2016-03-10] MEDS: hydrOXYzine 50 MG TAB PO PRN ×4 (08:04→22:12)
[2016-03-10] MEDS: OMEPRAZOLE 20 MG CAP PO SCH (08:05)
[2016-03-10] MEDS: FUROSEMIDE 20 MG TAB PO PRN (08:05)
[2016-03-10] MEDS: LURASIDONE HCL 40 MG TAB (LATUDA) PO SCH (08:05)
[2016-03-10] MEDS: SYMBICORT 160/4.5MCG INHALER 6GM INH SCH ×2 (08:05→20:03)
[2016-03-10] MEDS: DOCUSATE SODIUM 100 MG CAP PO SCH ×2 (08:05→20:03)
[2016-03-10] MEDS: ACETAMINOPHEN TAB 650MG DOSE (2X325MG) PO PRN ×3 (08:07→22:32)
[2016-03-10] MEDS: LORazepam 1 MG TAB PO PRN ×3 (08:50→20:46)
--- NOTE | 2016-03-10 09:29 | MHHPE ---
DATE OF ADMISSION: 03/08/2016 DATE OF EVALUATION: 03/09/2016 HISTORY OF PRESENT ILLNESS: This is a 45-year-old white woman with a long standing history of treatment for bipolar disorder, who was admitted after she was brought in by the police. She had been knocking on neighbor's doors over the past days, very delusional and thinking that people were trying to kill her. She was talking about there being evil in her apartment building. She is making statements like "everything I feel is in my heart, God is great, people are evil , they are trying to kill me." She says that there is someone named Deejay is using different names on Facebook trying to get her killed and poison her with magnesium. She has been staying at a motel because she is refusing to stay in her apartment building. The patient is fairly unreliable. It is not clear whether she has been taking her medications. In the emergency room, she says that someone had messed with her bottles of medications, someone threw them out. Today, the patient is very irritated and angry and very loud. She is constantly talking and at times even yelling. She wants to know why she is in the hospital. She says that there is nothing wrong with her. She is demanding to be discharged and basically I am not able to get any reliable information from her. I did review the medications the patient was discharged on and she was discharged on Latuda 40 mg daily, Cymbalta 60 mg twice a day, hydroxyzine 50 mg four times a day as needed for anxiety. In the emergency room records, it says that she is also on Cymbalta 60 mg twice a day and Wellbutrin SR 200 mg twice a day, however , when I looked at the medication that she was discharged on, these medications were not included. I reviewed the old records to obtain some history about this patient and it seemed that she was just in the hospital from 02/15/2016 and discharged on 02/27/2016. She was admitted in what appeared to be a manic-like episode. She had been upset with a snowplow man because she thought that he was affiliated with some drug dealers. She was noted to be paranoid with grandiose delusions, talking about being able to predict the future. She also thought that someone was trying to kill her. The patient was diagnosed with unspecified mood disorder, cannabis use disorder, rule out substance induced psychosis, rule out bipolar disorder, rule out narcissistic personality disorder. She was discharged to [facility] for her substance abuse and also for her psychiatric treatment. She was going to [facility] ([facility] PAST PSYCHIATRIC HISTORY: This is obtained from the medical record where it states that she was receiving outpatient treatment from [facility] and they had been prescribing Cymbalta 60 mg twice a day for fibromyalgia and Wellbutrin 200 mg twice a day for depression. She also said they were prescribing Ativan as needed for anxiety. She denies that she has ever made any suicidal attempts and when she was admitted in January she indicated that was her first psychiatric hospitalization, so this would be her second psychiatric hospitalization. FAMILY HISTORY: The patient's mother is bipolar, according to the patient's information that was obtained during her January hospitalization. Also, there was no reported history of family suicides. SUBSTANCE ABUSE: The patient uses cannabis for at least the past few months. According to the January admission, they indicated "off and on all day long," as far as the marijuana goes. According to the records from her January admission , there is some mention that the patient stated that she had some reduced appetite , depressed mood and paranoia during that admission. ABUSE HISTORY: According to the January records, the patient denied any physical or sexual abuse. MEDICAL HISTORY: According to the January hospitalization records, she has a history of fibromyalgia, chronic obstructive pulmonary disease (COPD), history of gastric bypass, history of hypertension, hypothyroidism, gastroesophageal reflux disease (GERD). REVIEW OF SYSTEMS: VITAL SIGNS: Blood pressure 144/59, pulse 98, respirations 20. NEUROMUSCULAR SYSTEM: There were no involuntary movements noted. Her gait was normal. APPEARANCE: The patient appeared to exhibit fairly good hygiene. All other systems were reviewed and found to be negative. MENTAL STATUS EXAMINATION: This patient is pacing the hallway back and forth. She is agitated with pressured speech, at times screaming. She is going to every person that she sees stating that there is nothing wrong with her and that she be discharged. There are flight of ideas noted. She denies any hallucinations. She is severely paranoid talking about how someone is trying to kill her and how everybody is evil. She denies suicidal or homicidal ideations. Affect is labile. Concentration is poor. Insight and judgment are poor. DIAGNOSES: 1. Other specified bipolar disorder. 2. Cannabis use disorder, severe. 3. Fibromyalgia. 4. Chronic obstructive pulmonary disease (COPD). 5. Sleep apnea. 6. Status post gastric bypass. 7. History of hypertension. 8. Hypothyroidism. TREATMENT PLAN: At this point, we are going to continue the patient on her current medications of Latuda 40 mg daily and hydroxyzine 50 mg four times a day as needed for anxiety. I have also ordered some Ativan up to 1 mg every four hours as needed for anxiety since the patient is very agitated. MTDD
--- NOTE | 2016-03-10 17:47 | EDDOCDS ---
Nurse's Notes [facility] Name: Felicita Loomis Age: 45 yrs Sex: Female : 1970 Arrival Date: 03/08/2016 Time: 12:[address] MD: Diagnosis: Unspecified psychosis not due to a substance or known physiological condition Presentation: 03/08 13:12 Presenting complaint: State troopers brought patient in after numerous complaints from [facility] neighbors in same apartment building. Patient has been knocking on doors stating that people are out to kill her and are poisoning her. Patient states that there are people everywhere that want to kill her and that she just wants to move. State police state that she has been coming to the station almost daily for approx 2 weeks stating the same and that they have had to respond to her stalking people thinking they were going to kill her. Mental Health Triage Level: Level 2: The patient was brought to the ED for evaluation because of a legal pickup order. Adult Sepsis Screening: Patient has new or worsening altered mentation (1 point). Patient's respiratory rate is less than 22. Systolic blood pressure is greater than 100. Patient has a qSOFA score of 1- Negative Sepsis Screen. Mental Health Triage Level: Level 2: The patient was brought to the ED for evaluation because of a legal pickup order. Suicide/Homicide risk assessment- the patient denies having any suicidal and/or homicidal ideations and does not present with any other emotional, behavioral or mental health complaints. Status: Patient is not a sales service manager or dependent. Transition of care: patient was not received from another setting of care. 13:12 Acuity: HARIS Level [address] [facility] 13:12 Method Of Arrival: Police Car [facility] Triage Assessment: 13:22 General: Appears obese, Behavior is agitated, anxious, restless. Pain: Denies pain. Pt js13 Declines HIV testing. Neurological: Level of Consciousness is awake, alert. Respiratory: Airway is patent Respiratory effort is even, unlabored, Respiratory pattern is regular, symmetrical. Derm: Skin is pink, warm & dry. MACHINE DYER: 13:40 LMP N/A - Post-menopause js13 Historical: - Allergies: Codeine Sulfate (Rash); Morphine ("issues during surgery"); PENICILLINS (Unknown); - Home Meds: 1. Cymbalta 60 mg Oral cpDR 1 cap twice a day 2. furosemide 20 mg Oral tab 1 tab every other day 3. [place] [address] unit three times weekly 4. Oxygen 2 Liters nightly 5. levothyroxine 125 mcg Oral tab 1 tab once daily 6. lorazepam 0.5 mg Oral tab 1 tab 2 times per day PRN 7. hydroxyzine HCl 50 mg Oral tab 1 tab 4 times per day PRN 8. Wellbutrin SR 200 mg Oral TbER 1 tab 2 times per day 9. ibuprofen 800 mg Oral tab 1 tab 3 times per day 10. Flonase 50 mcg/actuation Nasal spsn 1 spray 2 times per day 11. ALL MEDICATIONS VERIFIED BY [facility] [place], UNABLE TO VERIFY LAST DOSE TAKEN WITH PATIENT - PMHx: Anxiety; COPD; Depression; Herniated Disc in Neck and Back; Hypothyroidism; DAVID; severe nocturnal hypoxia; - PSHx: ; Gastric Bypass; - Social history: Smoking status: unknown if patient ever smoked tobacco. No barriers to communication noted, The patient speaks fluent Kyrgyz. - Family history: Not pertinent. - : The pt / caregiver states he / she is not on anticoagulants. Home medication list is obtained from [employer] import data. - Exposure Risk Screening:: None identified. Screenin:40 Screening information is obtained from the patient. Fall risk: No risks identified. js13 Assistance ADL's: requires no assistance with activities of daily living. Abuse/DV Screen: The patient / caregiver reports he/she is: not in a situation that causes fear, pain or injury. Nutritional screening: No deficits noted. Advance Directives: There is no active DNR order. home support is adequate. Assessment: 13:40 General: Appears obese, Behavior is agitated, anxious, inappropriate for age, restless. js13 Pain: Denies pain. Neurological: Level of Consciousness is awake, alert. Respiratory: Airway is patent Respiratory effort is even, unlabored, Respiratory pattern is regular, symmetrical. GI: Abdomen is non- distended Bowel sounds Abd is soft and non tender. Derm: Skin is pink, warm & dry. 15:00 General: Appears in no apparent distress, comfortable, to be sleeping. Respiratory: js13 Airway is patent Respiratory effort is even, unlabored, Respiratory pattern is regular, symmetrical. Derm: Skin is pink, warm & dry. 15:47 General: Patient came out of room and was stating that she was feeling that something js13 was going to happen to someone in her family. She states she has a sixth sense and can tell things like that. Patient then tried to hug RN and then was laying on the floor hugging the RN's leg and stating she loved the RN and that she felt safe with her. Patient is coming out and arguing with staff about being admitted and wants to make sure that the RN tells Hannah Shreya GLORIA "thanks for ruining her fucking life and to shove her doctorate up her ass." Patient was given Ativan 0.5 mg at 1540 and patient still arguing and being belligerent with staff. . 16:22 General: Appears obese, Behavior is agitated, anxious, inappropriate for age, restless. js13 Pain: Denies pain. Neurological: Level of Consciousness is awake, alert. Respiratory: Airway is patent Respiratory effort is even, unlabored, Respiratory pattern is regular, symmetrical. GI: Abdomen is non- distended obese. Derm: Skin is pink, warm & dry. Mental Health Eval: 14:44 Mental health consult is initiated at 14:00. Status: The patient is not a sales service manager or dependent. [facility] Behavioral Health: The patient is not an established patient of [facility] Behavioral Health. Referral Information: Evaluation referral is generated by a police agency: [facility] randa Ro [id number]. The patient was referred for evaluation because Pt was reported to have been knocking on neighbors doors past 7- 8 days, paranoid delusions of people trying to kill her, and she has been going to the [address] for the same amount of time, Randa Ro. Pt reports there is evil in her apartment building, people on the bottom floor are all ing, "everything I feel is in my heart, God is great, people are evil, they are trying to kill me, I have to solve my own murder case, police are not doing anything, a demarco named Jorge is using all different names on face book to get me, poisoned with magnesium, know she is going to be , somebody has stolen, from me before I was DC from upstairs, someone poisoned, messed with her old bottles of medications, thrown them all out, and staying at [facility] [address] since [place] because she refusing to stay where evil is.". Subjective: The patients chief complaint is Pt reports she believes someone is trying to kill her,, she wants the police to look into her attempted murder, knocking on her neighbor's doors, neighbors called the police today, screaming "I am the light of God" Randa reports she has been seeing them daily for the past 7-8 days, not sure if she is taking her medications, pt states she has, but threw all of her medications out because she believed evil has poisoned them all, not sleeping, given a lunch packet, kept the milk and was afraid someone did something to the packet.. Delusions are bahai, paranoid, persecutory, Patient's mood is angry, anxious, depressed, elevated, euphoric, hopeless, Hallucinations are denied. Mental Health history: anxiety, depression, abusing narcotics. Mental Health Admissions: [facility] 02/15/16 until Feb 27 2016 Current Outpatient Mental Health Services: [employer] / Agency: [facility], . Current living environment is. Patient presents to Emergency Department with the following symptoms within the past 2 weeks: agitation, anxiety, delusions of persecution, denial, depressed mood, euphoria, feelings of helplessness/hopelessness, hyperactivity, labile mood, brian, non-compliance, poor concentration, poor impulse control, psychosis, relational problem, sleep disturbance - insomnia. Substance abuse: Pt denies. Substance abuse: Pt was looking for [facility] 2-3 days ago, kenny JOSEPH regional planner. Per Hannah RODRIGUES pt is Hyperthyroid Down TSH,, UP T4, normal T3 uptake, and vitals do not support a thyroid issue. Mental status exam: Patients appearance is disheveled obese, Patient's behavior is agitated, bizarre, Speech is pressured. rapid. Affect is labile. Mood is angry. anxious. depressed. euphoric. irritable. Hallucinations are denied. Appetite is poor. Memory is poor. Energy level is tires easily. Content of thought is paranoid. Evil, Everyone is evil, I am the light of God, Jorge is messing with me, someone is trying to kill me, my neighbor is trying to kill me because I turned in his son a convicted criminal, that he was staying in the complex to the escrow manager, and swears she did not, and they are poisoning her with magnesium. She also has complained to the police and they are doing nothing to solve her being attempted to be murdered, she will do it herself delusional. The evil is in the apartment complex and she will not live there, she is staying at [facility] on [address] The ground floor, "Every one is dieing, for no good reason, unexpectedly" Thought process is tangential. loose. characterized by flight of ideas. Cognitive level is oriented to person, place, time and situation Patient's insight is absent. Judgement is absent. Rapport with interviewer is poor. Suicidal Ideation is denied. Homicidal ideation is denied. Disposition: Medically cleared for disposition by Hannah CASTRO. Disposition: Psychiatric Consult is performed by phone with Dr Keisha Thayer. [facility] Admission Criteria: The patient displays symptoms of severe psychiatric disorder resulting in disordered behavior and significant interference with his / her ability to maintain self care. Delusions. Severe Anxiety. The patient requires continuous observation and/or control to protect self, others or property. The patient's care requires a multi-modal treatment plan under close supervision and coordination due to the complexity and severity of the patient's symptoms. The patient requires administration and monitoring of psychoactive medications by skilled medical providers due to the side effects of the psychoactive medications or significant dosage adjustments. Legal Status: Patient's legal status will be Emergency admission: . [place] because patient was registered less than 6 months ago. 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 Psych: 13:53 Mental Health Triage Level: Level 2: The patient was brought to the ED for evaluation js13 because of a legal pickup order. 13:53 Subjective: The patients chief complaint is Patient thinks numerous people are out to kill her. Patient has been knocking on doors of neighbors stating that someone is trying to kill her also stalking people thinking they are the ones who are trying to kill her. . 13:53 Objective: Patient is agitated, bizarre, challenging, defensive, irritable, restless, suspicious, Speech is normal. loud, rapid, Affect is tearful. 13:53 Substance abuse: Pt denies Vital Signs: 13:31 BP 135 / 82; Pulse 100; Resp 18; Temp 98.7(T); Pulse Ox 96% on R/A; Weight 94.35 kg rn1 (R); Height 5 ft. 1 in. (154.94 cm) (R); Pain 0/10; 16:43 BP 153 / 93; Pulse 101; Resp 16; Temp 98.0(O); Pulse Ox 99% on R/A; Pain 0/10; js13 13:31 Body Mass Index 39.30 (94.35 kg, 154.94 cm) rn1 Vitals: 13:39 Log In Time: March 08, 2016 at 12:57. 13 ED Course: 13:00 Patient visited by Jeanne Cox. mm15 13:00 Patient moved to [facility] mm15 13:03 Hannah Cash FNP is [facility]. le 13:09 Patient moved to [address] 13:09 Pt greeted and oriented to ED. Patient advised of names of staff involved in care, pjf location of call doyle, wait times and NPO status. Accompanied by Law Enforcement, Patient has correct armband on for positive identification. Placed in psych safe attire. Bed in low position. Call light in reach. Side rails up X 1. Security observing. Property removed, secured in belongings bag- Placed in locker #3. Door closed. Noise minimized. Visitors limited. Report received from rn - psych. triage level #2, Ams, cooperative \\T\\ this time. The patient / caregiver is instructed regarding the plan of care and ED course. Psych Safety Check: Location: Psych Room. 13:12 Patient visited by Fernando Shell Security Aideaston. pjf 13:17 Triage Initiated js13 13:23 Patient visited by Gaby Sun RN. js13 13:32 Psych Safety Check: Location: Psych Room. Visual Assessment: Agitated. rn1 13:34 Patient visited by Hannah Cash FNP. le 13:34 Patient visited by Hannah Cash FNP. le 13:38 Urine Toxicology Sent. js13 13:38 Magnesium Level Sent. js13 13:38 Thyroid Profile Sent. js13 13:38 ETOH Sent. js13 13:38 Salicylate Level Sent. js13 13:38 Acetaminophen Level Sent. js13 13:40 No IV's were initiated during this patient's visit. No procedures done that require [facility] assistance. Labs drawn. (by ED staff). Sent per order to lab. Urine collected. Clean catch specimen. Urine specimen sent to lab. 13:53 Patient visited by Gaby Sun RN. js13 14:10 Patient visited by Fernando Shell Security Aide. pjf 14:29 Patient visited by Fernando Shell Security Aide. pjf 14:45 Patient visited by Fernando Shell Security Aide. pjf 14:59 Patient visited by Fernando Shell Security Aide. pjf 15:29 Psych Safety Check: Location: Psych Room. Visual Assessment: Agitated. pjf 15:59 [facility] Payment Agreement was scanned into [employer] and attached to record. gjb 16:00 Keisha Thayer is Hospitalizing Provider. le 16:23 [facility] Legal paperwork was scanned into [employer] and attached to record. cs 03/09 08:43 T-Sheet-- Draft Copy was scanned into [employer] and attached to record. se 11:58 Other: DRUG UTILIZATION REPORT was scanned into [employer] and attached to record. gb Administered Medications: 03/08 15:40 Drug: LORazepam 0.5 mg [lorazepam 1 mg tablet (0.5 tabs)] Route: PO; js13 16:41 Follow up: Response: Anxiety is improved [facility] Attachments: 16:23 E Legal paperwork cs Order Results: Lab Order: Acetaminophen Level; SPEC'M 03/08/16 13:31 Test: ACETAMINOPHEN LEVEL; Value: < 2.0; Range: 10.0-30.0; Abnormal: Below low normal; Units: UG/ML; Status: F Lab Order: Salicylate Level; SPEC'M 03/08/16 13:31 Test: SALICYLATE LEVEL; Value: 2.2; Range: 5.0-30.0; Abnormal: Below low normal; Units: MG/DL; Status: F Lab Order: ETOH; SPEC'M 03/08/16 13:31 Test: ETHYL ALCOHOL (ETHANOL); Value: < 0.003; Range: 0.000-0.010; Units: %; Status: F Lab Order: Thyroid Profile; SPEC'M 03/08/16 13:31 Test: T UPTAKE; Value: 34; Range: 30-39; Units: %; Status: F Test: THYROXINE (T4); Value: 13.8; Range: 4.5-12.0; Abnormal: Above high normal; Units: UG/DL; Status: F Test: FREE THYROXINE INDEX; Value: 4.7; Range: 1.3-4.8; Units: %; Status: F Test: THYROID STIMULATING HORMONE; Value: 0.087; Range: 0.358-3.740; Abnormal: Below low normal; Units: uIU/ML; Status: F Lab Order: Magnesium Level; SPEC'M 03/08/16 13:31 Test: MAGNESIUM LEVEL; Value: 2.1; Range: 1.8-2.4; Units: MG/DL; Status: F Lab Order: Urine Toxicology; SPEC'M 03/08/16 13:31 Test: AMPHETAMINES LEVEL URINE; Value: NEGATIVE; Range: NEGATIVE; Status: F Test: BARBITURATES URINE; Value: NEGATIVE; Range: NEGATIVE; Status: F Test: BENZODIAZEPINES URINE; Value: POSITIVE; Range: NEGATIVE; Abnormal: Above high normal; Status: F Test: CANNABINOIDS URINE; Value: POSITIVE; Range: NEGATIVE; Abnormal: Above high normal; Status: F Test: COCAINE METABOLITE URINE; Value: NEGATIVE; Range: NEGATIVE; Status: F Test: METHADONE URINE; Value: NEGATIVE; Range: NEGATIVE; Status: F Test: OPIATES URINE; Value: NEGATIVE; Range: NEGATIVE; Status: F Test: TRICYCLIC ANTIDEPRESS URINE; Value: NEGATIVE; Range: NEGATIVE; Status: F Test Note: ; FALSE POSITIVE RESULTS CAN BE CAUSED BY THE USE OF PANTOPRAZOLE (PROTONIX). Outcome: 03/08 16:00 Decision to Hospitalize by Provider. le 16:44 Discharge Assessment: Patient awake, alert and oriented x 3. No cognitive and/or js13 functional deficits noted. Patient verbalized understanding of disposition instructions. patient administered narcotics - yes. Patient was admitted to the hospital or transferred to another facility. The following High Risk Discharge criteria are identified: None. Admitted to Psych accompanied by tech, via wheelchair, with chart. Condition: stable. No special radiology studies were completed. Admission hand-off:. 16:47 Patient left the ED. js13 Signatures: Jesus Khan, PSA PSA Stacy Marquez, Abdoulaye Reg Fernando Onofre, Security Aide Jose Manuelpjf Hannah Cash, MIXER HELPER MIXER HELPER Gaby Benoit,RN RN js13 Jeanne Cox mm15 Toro Mcallister rn1 Aletha Davey Sarah seh Corrections: (The following items were deleted from the chart) 14: 13:22 Home Meds: Wellbutrin 100 mg Oral tab 2 tab 2 times per day; js js 14 13:22 Home Meds: albuterol sulfate 90 mcg/actuation Inhl HFAA 1 puff every 4 hours; [id number] 14: 13:22 Home Meds: cough and cold medicine; js13 js13 14: 13:22 Home Meds: cyclobenzaprine 10 mg Oral tab 1 tab 3 times per day; as needed; js13 13 14 13:22 Home Meds: hydroxyzine HCl 50 mg Oral tab 1 tab 4 times per day; js13 js13 14: 13:22 Home Meds: Vitamin C 500 mg Oral tab twice a day; js13 13 14: 13:22 Home Meds: Tylenol 500 mg Oral 2 tabs as needed; js13 js13 14: 13:22 Home Meds: Symbicort inhalation 2 puffs 2 times per day; js13 js13 : 13:22 Home Meds: BERENICE-COLACE oral 1 cap twice a day; js13 js13 Chart Complete MTDD
--- NOTE | 2016-03-10 17:47 | EDDOCDS ---
Physician Documentation [facility] Name: Felicita Loomis Age: 45 yrs Sex: Female : 1970 Arrival Date: 03/08/2016 Time: 12:57 Bed [facility] Private MD: Disposition: 03/08/16 16:00 Hospitalization ordered by Keisha Thayer for Inpatient Admission. Preliminary diagnosis is Unspecified psychosis not due to a substance or known physiological condition. - Bed requested for Admit. - Status is Inpatient Admission. [id number] - Condition is Stable. - Problem is an acute exacerbation. - Symptoms are unchanged. Historical: - Allergies: Codeine Sulfate (Rash); Morphine ("issues during surgery"); PENICILLINS (Unknown); - Home Meds: 1. Cymbalta 60 mg Oral cpDR 1 cap twice a day 2. furosemide 20 mg Oral tab 1 tab every other day 3. Vitamin D Oral 97349 unit three times weekly 4. Oxygen 2 Liters nightly 5. levothyroxine 125 mcg Oral tab 1 tab once daily 6. lorazepam 0.5 mg Oral tab 1 tab 2 times per day PRN 7. hydroxyzine HCl 50 mg Oral tab 1 tab 4 times per day PRN 8. Wellbutrin SR 200 mg Oral TbER 1 tab 2 times per day 9. ibuprofen 800 mg Oral tab 1 tab 3 times per day 10. Flonase 50 mcg/actuation Nasal spsn 1 spray 2 times per day 11. ALL MEDICATIONS [facility] BY [facility] AND [facility] IN [place], UNABLE TO VERIFY LAST DOSE TAKEN WITH PATIENT - PMHx: Anxiety; COPD; Depression; Herniated Disc in Neck and Back; Hypothyroidism; DAVID; severe nocturnal hypoxia; - PSHx: ; Gastric Bypass; - Social history: Smoking status: unknown if patient ever smoked tobacco. No barriers to communication noted, The patient speaks fluent Brazilian. - Family history: Not pertinent. - : The pt / caregiver states he / she is not on anticoagulants. Home medication list is obtained from [employer] import data. - Exposure Risk Screening:: None identified. AUTOMATION DESIGN ENGINEER: 03/08 13:40 LMP N/A - Post-menopause Vital Signs: 13:31 BP 135 / 82; Pulse 100; Resp 18; Temp 98.7(T); Pulse Ox 96% on R/A; Weight 94.35 kg / rn1 208.01 lbs (R); Height 5 ft. 1 in. (154.94 cm) (R); Pain 0/10; 16:43 BP 153 / 93; Pulse 101; Resp 16; Temp 98.0(O); Pulse Ox 99% on R/A; Pain 0/10; js13 13:31 Body Mass Index 39.30 (94.35 kg, 154.94 cm) rn1 MDM: 13:34 Consult PFS/PSA/Outboard Motor Tester ordered. le 13:34 Consult PFS/PSA/Outboard Motor Tester: Patient's case requires discussion with on-call le Psychiatrist ordered. 13:34 PSA/PFS to call Nursing Stone Rubber, to [place] if patient le involuntarily admitted or transferred for SI or HI ordered. 13:34 Confirm accurate psychiatric medication list and times of last dosage ordered. le 13:34 Detain Pt Until Medically/PFS Cleared ordered. le 13:35 Acetaminophen Level Ordered. EDMS 13:35 Salicylate Level Ordered. EDMS 13:35 ETOH Ordered. EDMS 13:35 Thyroid Profile Ordered. EDMS 13:35 Magnesium Level Ordered. EDMS 13:35 Urine Toxicology Ordered. EDMS 14:26 Acetaminophen Level Reviewed. le 14:26 Salicylate Level Reviewed. le 14:26 Thyroid Profile Reviewed. le 14:26 Urine Toxicology Reviewed. le 14:26 ETOH Reviewed. le 14:26 Magnesium Level Reviewed. le 14:46 Consult PFS/PSA/Outboard Motor Tester complete. rb 15:02 Financial registration complete. lg 15:31 LORazepam 0.5 mg PO once ordered. le 15:48 Consult PFS/PSA/Outboard Motor Tester: Patient's case requires discussion with on-call rb Psychiatrist complete. 15:49 PSA/PFS to call Nursing [employer]ber, to enter [place] if patient rb involuntarily admitted or transferred for SI or HI complete. 15:59 [facility] Payment Agreement was scanned into [employer] and attached to record. gjb 16:03 BED REQUEST+ADM ordered. EDMS 16:14 Admit to [facility]: ordered. EDMS 16:23 M[facility] Legal paperwork was scanned into [employer] and attached to record. cs 03/09 08:43 T-Sheet-- Draft Copy was scanned into [employer] and attached to record. seh 11:58 Other: DRUG UTILIZATION REPORT was scanned into [employer] and attached to record. Administered Medications: 03/08 15:40 Drug: LORazepam 0.5 mg [lorazepam 1 mg tablet (0.5 tabs)] Route: PO; 16:41 Follow up: Response: Anxiety is improved Signatures: Dispatcher [employer] EDMS Yan, Jaqueline, PSA PSA rb Jesus Khan, PSA PSA cs Stacy Holland, Reg Reg gb Pito Ramos, Reg Reg lg Hannah Cash, MID LEVEL PROJECT MANAGER Gaby Santos,RN RN [id number] Aletha Davey Sarah se The chart was reviewed and I authenticate all verbal orders and agree with the evaluation and treatment provided.Corrections: (The following items were deleted from the chart) 14: 13:22 Home Meds: Wellbutrin 100 mg Oral tab 2 tab 2 times per day; 14: 13:22 Home Meds: albuterol sulfate 90 mcg/actuation Inhl HFAA 1 puff every 4 hours; [id number] 14: 13:22 Home Meds: cough and cold medicine; 14: 13:22 Home Meds: cyclobenzaprine 10 mg Oral tab 1 tab 3 times per day; as needed; 14: 13:22 Home Meds: hydroxyzine HCl 50 mg Oral tab 1 tab 4 times per day; 14: 13:22 Home Meds: Vitamin C 500 mg Oral tab twice a day; 14: 13:22 Home Meds: Tylenol 500 mg Oral 2 tabs as needed; 14: 13:22 Home Meds: Symbicort inhalation 2 puffs 2 times per day; 14: 13:22 Home Meds: BERENICE-COLACE oral 1 cap twice a day; js Attachments: 15:59 [facility] Payment Agreement gjb 03/09 08:43 T-Sheet-- Draft Copy [facility] Chart Complete MTDD
--- NOTE | 2016-03-10 17:47 | EDDOCDS ---
Physician Documentation [facility] Name: Felicita Loomis Age: 45 yrs Sex: Female : 1970 Arrival Date: 03/08/2016 Time: 12:57 Bed [facility] Private MD: Disposition: 03/08/16 16:00 Hospitalization ordered by Keisha Thayer for Inpatient Admission. Preliminary diagnosis is Unspecified psychosis not due to a substance or known physiological condition. - Bed requested for Admit. - Status is Inpatient Admission. [id number] - Condition is Stable. - Problem is an acute exacerbation. - Symptoms are unchanged. Historical: - Allergies: Codeine Sulfate (Rash); Morphine ("issues during surgery"); PENICILLINS (Unknown); - Home Meds: 1. Cymbalta 60 mg Oral cpDR 1 cap twice a day 2. furosemide 20 mg Oral tab 1 tab every other day 3. Vitamin D Oral 25099 unit three times weekly 4. Oxygen 2 Liters nightly 5. levothyroxine 125 mcg Oral tab 1 tab once daily 6. lorazepam 0.5 mg Oral tab 1 tab 2 times per day PRN 7. hydroxyzine HCl 50 mg Oral tab 1 tab 4 times per day PRN 8. Wellbutrin SR 200 mg Oral TbER 1 tab 2 times per day 9. ibuprofen 800 mg Oral tab 1 tab 3 times per day 10. Flonase 50 mcg/actuation Nasal spsn 1 spray 2 times per day 11. ALL MEDICATIONS VERIFIED [facility] AND [facility] IN [place], UNABLE TO VERIFY LAST DOSE TAKEN WITH PATIENT - PMHx: Anxiety; COPD; Depression; Herniated Disc in Neck and Back; Hypothyroidism; DAVID; severe nocturnal hypoxia; - PSHx: ; Gastric Bypass; - Social history: Smoking status: unknown if patient ever smoked tobacco. No barriers to communication noted, The patient speaks fluent Chilean. - Family history: Not pertinent. - : The pt / caregiver states he / she is not on anticoagulants. Home medication list is obtained from [employer] import data. - Exposure Risk Screening:: None identified. ANESTHESIOLOGY PHYSICIAN ASSISTANT: 03/08 13:40 LMP N/A - Post-menopause Vital Signs: 13:31 BP 135 / 82; Pulse 100; Resp 18; Temp 98.7(T); Pulse Ox 96% on R/A; Weight 94.35 kg / rn1 208.01 lbs (R); Height 5 ft. 1 in. (154.94 cm) (R); Pain 0/10; 16:43 BP 153 / 93; Pulse 101; Resp 16; Temp 98.0(O); Pulse Ox 99% on R/A; Pain 0/10; js13 13:31 Body Mass Index 39.30 (94.35 kg, 154.94 cm) rn1 MDM: 13:34 Consult PFS/PSA/Political Science Professor ordered. le 13:34 Consult PFS/PSA/Political Science Professor: Patient's case requires discussion with on-call le Psychiatrist ordered. 13:34 PSA/PFS to call Nursing Cds Sales Advisor, to [place] if patient le involuntarily admitted or transferred for SI or HI ordered. 13:34 Confirm accurate psychiatric medication list and times of last dosage ordered. le 13:34 Detain Pt Until Medically/PFS Cleared ordered. le 13:35 Acetaminophen Level Ordered. EDMS 13:35 Salicylate Level Ordered. EDMS 13:35 ETOH Ordered. EDMS 13:35 Thyroid Profile Ordered. EDMS 13:35 Magnesium Level Ordered. EDMS 13:35 Urine Toxicology Ordered. EDMS 14:26 Acetaminophen Level Reviewed. le 14:26 Salicylate Level Reviewed. le 14:26 Thyroid Profile Reviewed. le 14:26 Urine Toxicology Reviewed. le 14:26 ETOH Reviewed. le 14:26 Magnesium Level Reviewed. le 14:46 Consult PFS/PSA/Political Science Professor complete. rb 15:02 Financial registration complete. lg 15:31 LORazepam 0.5 mg PO once ordered. le 15:48 Consult PFS/PSA/Political Science Professor: Patient's case requires discussion with on-call rb Psychiatrist complete. 15:49 PSA/PFS to call Nursing Cds Sales Advisor, to enter [place] if patient rb involuntarily admitted or transferred for SI or HI complete. 15:59 [facility] Payment Agreement was scanned into [employer] and attached to record. gjb 16:03 BED REQUEST+ADM ordered. EDMS 16:14 Admit to [facility]: ordered. EDMS 16:23 M[facility] Legal paperwork was scanned into [employer] and attached to record. cs 03/09 08:43 T-Sheet-- Draft Copy was scanned into [employer] and attached to record. seh 11:58 Other: DRUG UTILIZATION REPORT was scanned into [employer] and attached to record. Administered Medications: 03/08 15:40 Drug: LORazepam 0.5 mg [lorazepam 1 mg tablet (0.5 tabs)] Route: PO; 16:41 Follow up: Response: Anxiety is improved Signatures: Dispatcher [employer] EDMS Yan, Jaqueline, PSA PSA rb Jesus Khan, PSA PSA cs Stacy Holland, Reg Reg gb Pito Ramos, Reg Reg lg Hannah Cash, CAD MANAGER Gaby Santos,RN RN [id number] Aletha Davey Sarah se The chart was reviewed and I authenticate all verbal orders and agree with the evaluation and treatment provided.Corrections: (The following items were deleted from the chart) 14: 13:22 Home Meds: Wellbutrin 100 mg Oral tab 2 tab 2 times per day; 14: 13:22 Home Meds: albuterol sulfate 90 mcg/actuation Inhl HFAA 1 puff every 4 hours; [id number] 14: 13:22 Home Meds: cough and cold medicine; 14: 13:22 Home Meds: cyclobenzaprine 10 mg Oral tab 1 tab 3 times per day; as needed; 14: 13:22 Home Meds: hydroxyzine HCl 50 mg Oral tab 1 tab 4 times per day; 14: 13:22 Home Meds: Vitamin C 500 mg Oral tab twice a day; 14: 13:22 Home Meds: Tylenol 500 mg Oral 2 tabs as needed; 14: 13:22 Home Meds: Symbicort inhalation 2 puffs 2 times per day; 14: 13:22 Home Meds: BERENICE-COLACE oral 1 cap twice a day; js Attachments: 15:59 [facility] Payment Agreement gjb 03/09 08:43 T-Sheet-- Draft Copy [facility] Chart Complete MTDD
[2016-03-10 18:00] VITALS: BP 134/86
[2016-03-10 21:03] VITALS: BP 135/79
[2016-03-10 22:15] LABS: BASO % 0.3 % (0.0-1.0); EOS # 0.1 K/mm3 (0.0-0.50); EOS % 1.7 % (0.0-3.0); LARGE UNSTAINED CELL # 0.1 K/mm3 (0.0-0.4); LARGE UNSTAINED CELL % 1.6 % (0.0-4.0); LYMPH # 1.3 K/mm3 (1.5-4.5); LYMPH % 18.6 % (24.0-44.0); MEAN CORPUSCULAR HGB CONC 34.3 g/dl (32.0-36.5); MEAN CORPUSCULAR VOLUME 87.5 fl (80.0-96.0); MONO # 0.5 K/mm3 (0.0-0.8); MONO % 6.6 % (0.0-5.0); NEUTROPHILS # 4.8 K/mm3 (1.8-7.7); NEUTROPHILS % 71.2 % (36.0-66.0); PLATELET COUNT, AUTOMATED 211 k/mm3 (150-450); RED CELL DISTRIBUTION WIDTH 14.3 % (11.5-14.5); WHITE BLOOD COUNT 6.7 K/mm3 (4.0-10.0)
--- NOTE | 2016-03-10 22:20 | REPUSA ---
CLINICAL HISTORY: Cough. COMMENTS: PA and lateral views of chest reveal no evidence of active pleural or pulmonary parenchymal abnormali ty. The cardiac silhouette is within limits of normal. The mediastinum and pulmonary vessels appear n ormal. The bony structures are unremarkable. IMPRESSION: No evidence of acute pulmonary pathology.
[2016-03-10] MEDS: FLUTICASONE PROP 0.05% NASAL SPRAY 16 GM (FLONASE) SCH (22:29)
[2016-03-10] MEDS: LevoFLOXacin 750 MG TABLET PO SCH (22:29)
[2016-03-10 22:33] LABS: ANION GAP 9 MEQ/L (8-16); BLOOD UREA NITROGEN 7 MG/DL (7-18); CALCIUM LEVEL 8.1 MG/DL (8.5-10.1); CARBON DIOXIDE LEVEL 23 MEQ/L (21-32); CHLORIDE LEVEL 111 MEQ/L (98-107); CREATININE FOR GFR 0.83 MG/DL (0.55-1.02); GLOMERULAR FILTRATION RATE > 60.0 (>58); GLUCOSE, FASTING 96 MG/DL (70-105); POTASSIUM SERUM 3.7 MEQ/L (3.5-5.1); SODIUM LEVEL 143 MEQ/L (136-145)
[2016-03-10] MEDS: CEPACOL LOZENGE PO PRN (23:01)
--- NOTE | 2016-03-11 01:54 | IPN ---
DATE OF SERVICE: 03/10/2016 The patient today remains quite manic and paranoid. She just came out of [place] and she said that "I have to tell Lulu she can't have my daughter." She said something about having to take the song with this message. She feels that this person has been taking advantage of his daughter. The patient is very paranoid about everything and everyone. MENTAL STATUS EXAMINATION: She is alert and oriented times three. Eye contact is fairly good. Speech is pressured. She has flight of ideas to the point where it is very difficult to redirect her sometimes. She says her mood is fine, but she is very irritable and her affect is labile. She is very paranoid. She is denying suicidal or homicidal ideation. Concentration is fair. Memory is intact. Insight and judgment is poor. DIAGNOSES: 1. Other specified bipolar disorder. 2. Cannabis use disorder. TREATMENT PLAN: We will further observe and evaluate this patient for ongoing psychotic and manic episode. She has been restarted on her Latuda 40 mg daily as apparently there was a lapse of the Latuda when she was discharged. I have increased the Ativan to 1 mg every 4 hours as needed for anxiety also.
[2016-03-11] MEDS: CEPACOL LOZENGE PO PRN ×3 (02:18→21:06)
[2016-03-11] MEDS: LORazepam 1 MG TAB PO PRN ×3 (03:34→15:05)
[2016-03-11] MEDS: ACETAMINOPHEN TAB 650MG DOSE (2X325MG) PO PRN ×3 (03:35→23:37)
--- NOTE | 2016-03-11 04:10 | HPE ---
DATE OF ADMISSION: 03/08/2016 HISTORY OF PRESENT ILLNESS: Please refer to psychiatric history and evaluation for further details on this admission. This examination and history is intended for medical issues, which may need treatment, followup or consult on this 45-year-old female that was discharged approximately a week ago from an inpatient mental health unit. SOCIAL HISTORY: She resides in [place]. She is . She smokes 1/2 pack of cigarettes per day. She has alcohol once every 6 months. Recreational drug use: Marijuana. FAMILY HISTORY: Mother , coronary artery disease. Father , colon cancer. Siblings, one sister alive and well. One sister with breast cancer. PAST MEDICAL HISTORY: 1. Chronic obstructive pulmonary disease (COPD). 2. Anxiety. 3. Depression. 4. Degenerative disc disease. 5. Chronic neck pain. 6. Chronic low back pain. 7. History of obesity status post gastric bypass. Patient states she has maintained 100-pound weight loss since 2004. 8. History of obstructive sleep apnea, does not use a continuous positive airway pressure (CPAP) since gastric bypass. She is now using nocturnal oxygen at 2 liters nasal cannula. 9. Hypothyroidism. PAST SURGICAL HISTORY: 1. (C) section. 2. Right lumpectomy. 3. Right breast biopsy. 4. Breast reduction. 5. Hernia repair. 6. Gastric bypass. 7. Cholecystectomy. REVIEW OF SYSTEMS: No complaint of headache. No blurred or double vision. She complains of fever, chills, slight scratchy throat, postnasal drip, shortness of breath, occasional wheezing. No lightheadedness. No vertigo. Breasts: History of breast masses, negative. She is due to be scheduled for an outpatient mammogram. Cardiovascular: No complaints of chest pain, shortness of breath, palpitations or edema. Complains of cough. No hemoptysis. No orthopnea. No wheeze. Gastrointestinal: Occasional stool. No current constipation. No hemtemesis. No hematochezia. No melena. Due for routine colonoscopy and esophagogastroduodenoscopy (EGD). She does have gastroesophageal reflux disease (GERD). Hematological: No history of anemia. Psychological: See psychiatric history of present illness (HPI). Neurological: Clinically stable. PHYSICAL EXAMINATION: 45-year-old obese female in no acute distress. Height 66 inches. Weight 95.2 kg. Body mass index (BMI) 33.2. Temperature 100.2, pulse 100, respirations 20, blood pressure 165/79, oxygen saturation 98% on room air. Patient is alert and oriented times three. Pupils equal and react to light. Extraocular muscles intact. Cornea and sclerae clear. Conjunctivae were normal. No facial asymmetry. Small cold sore left lower lip. No swelling, redness or drainage. Pharynx slightly reddened. Tongue and gums pink and moist. Tongue is midline. Neck is supple without lymphadenopathy. No thyromegaly, no goiter. Chest has coarse breath sounds without wheeze or retraction. Heart is regular. Abdomen is benign. Bowel sounds are positive. Genitourinary/rectal: Not done. Extremities: Show equal strength. Full range of motion. No cyanosis, clubbing or edema. Peripheral pulses equal and palpable bilaterally. Skin is warm and dry. IMPRESSION: 1. Upper respiratory infection (URI), bronchitis. Plan: Levaquin 750 by mouth by mouth daily for 10 days, increase fluids by mouth, nebulizer treatment. 2. Psychiatric plan per psychiatry. 3. History of hypothyroidism. Thyroid profile pending. PLAN: Discharge to home, continue current medications. Continue use of oxygen 2 liters at night. Maintain and reschedule outpatient colonoscopy and esophagogastroduodenoscopy (EGD). Patient to have a mammogram bilaterally. No other acute medical issues.
[2016-03-11] MEDS: LEVOTHYROXINE 0.125 MG TAB (125 MCG) PO SCH (05:57)
[2016-03-11 06:00] VITALS: BP 125/66
[2016-03-11 07:20] LABS: THYROXINE (T4) 11.1 UG/DL (4.5-12.0)
[2016-03-11] MEDS: ALBUTEROL 90 MCG/ACT 8GM HFA INHALER INH PRN ×2 (07:39→15:05)
[2016-03-11] MEDS: LURASIDONE HCL 40 MG TAB (LATUDA) PO SCH (08:32)
[2016-03-11] MEDS: OMEPRAZOLE 20 MG CAP PO SCH (08:32)
[2016-03-11] MEDS: VITAMIN D 1,000 INTERNATIONAL UNITS TABLET PO SCH (08:32)
[2016-03-11] MEDS: DOCUSATE SODIUM 100 MG CAP PO SCH ×2 (08:32→21:05)
[2016-03-11] MEDS: valACYclovir HCL 500 MG TAB PO SCH ×2 (08:32→21:05)
[2016-03-11] MEDS: FLUTICASONE PROP 0.05% NASAL SPRAY 16 GM (FLONASE) SCH ×2 (08:32→21:06)
[2016-03-11] MEDS: SYMBICORT 160/4.5MCG INHALER 6GM INH SCH ×2 (08:32→21:06)
[2016-03-11] MEDS: hydrOXYzine 50 MG TAB PO PRN ×3 (08:34→21:05)
--- NOTE | 2016-03-11 13:44 | EDDOCDS ---
Physician Documentation [facility] Name: Felicita Loomis Age: 45 yrs Sex: Female : 1970 Arrival Date: 03/08/2016 Time: 12:57 Bed [facility] Private MD: Disposition: 03/08/16 16:00 Hospitalization ordered by Keisha Thayer for Inpatient Admission. Preliminary diagnosis is Unspecified psychosis not due to a substance or known physiological condition. - Bed requested for Admit. - Status is Inpatient Admission. js13 - Condition is Stable. - Problem is an acute exacerbation. - Symptoms are unchanged. Historical: - Allergies: Codeine Sulfate (Rash); Morphine ("issues during surgery"); PENICILLINS (Unknown); - Home Meds: 1. Cymbalta 60 mg Oral cpDR 1 cap twice a day 2. furosemide 20 mg Oral tab 1 tab every other day 3. Vitamin D [place] [address] unit three times weekly 4. Oxygen 2 Liters nightly 5. levothyroxine 125 mcg Oral tab 1 tab once daily 6. lorazepam 0.5 mg Oral tab 1 tab 2 times per day PRN 7. hydroxyzine HCl 50 mg Oral tab 1 tab 4 times per day PRN 8. Wellbutrin SR 200 mg Oral TbER 1 tab 2 times per day 9. ibuprofen 800 mg Oral tab 1 tab 3 times per day 10. Flonase 50 mcg/actuation Nasal spsn 1 spray 2 times per day 11. ALL MEDICATIONS VERIFIED BY [facility] AND [facility] IN [place], UNABLE TO VERIFY LAST DOSE TAKEN WITH PATIENT - PMHx: Anxiety; COPD; Depression; Herniated Disc in Neck and Back; Hypothyroidism; DAVID; severe nocturnal hypoxia; - PSHx: ; Gastric Bypass; - Social history: Smoking status: unknown if patient ever smoked tobacco. No barriers to communication noted, The patient speaks fluent Mauritanian. - Family history: Not pertinent. - : The pt / caregiver states he / she is not on anticoagulants. Home medication list is obtained from [employer] import data. - Exposure Risk Screening:: None identified. DOCENT COORDINATOR: 03/08 13:40 LMP N/A - Post-menopause Vital Signs: 13:31 BP 135 / 82; Pulse 100; Resp 18; Temp 98.7(T); Pulse Ox 96% on R/A; Weight 94.35 kg / rn1 208.01 lbs (R); Height 5 ft. 1 in. (154.94 cm) (R); Pain 0/10; 16:43 BP 153 / 93; Pulse 101; Resp 16; Temp 98.0(O); Pulse Ox 99% on R/A; Pain 0/10; js13 13:31 Body Mass Index 39.30 (94.35 kg, 154.94 cm) rn1 MDM: 13:34 Consult PFS/PSA/Video Game Technician ordered. le 13:34 Consult PFS/PSA/Video Game Technician: Patient's case requires discussion with on-call le Psychiatrist ordered. 13:34 PSA/PFS to call Nursing Under Baster, to enter [place] data [place] if patient le involuntarily admitted or transferred for SI or HI ordered. 13:34 Confirm accurate psychiatric medication list and times of last dosage ordered. le 13:34 Detain Pt Until Medically/PFS Cleared ordered. le 13:35 Acetaminophen Level Ordered. EDMS 13:35 Salicylate Level Ordered. EDMS 13:35 ETOH Ordered. EDMS 13:35 Thyroid Profile Ordered. EDMS 13:35 Magnesium Level Ordered. EDMS 13:35 Urine Toxicology Ordered. EDMS 14:26 Acetaminophen Level Reviewed. le 14:26 Salicylate Level Reviewed. le 14:26 Thyroid Profile Reviewed. le 14:26 Urine Toxicology Reviewed. le 14:26 ETOH Reviewed. le 14:26 Magnesium Level Reviewed. le 14:46 Consult PFS/PSA/Video Game Technician complete. rb 15:02 Financial registration complete. lg 15:31 LORazepam 0.5 mg PO once ordered. le 15:48 Consult PFS/PSA/Video Game Technician: Patient's case requires discussion with on-call rb Psychiatrist complete. 15:49 PSA/PFS to call Nursing Under [employer]aster, to enter [place] data [place] if patient rb involuntarily admitted or transferred for SI or HI complete. 15:59 [facility] Payment Agreement was scanned into [employer] and attached to record. gjb 16:03 BED REQUEST+ADM ordered. EDMS 16:14 Admit to [facility]: ordered. EDMS 16:23 MHE Legal paperwork was scanned into [employer] and attached to record. cs 03/09 08:43 T-Sheet-- Draft Copy was scanned into [employer] and attached to record. seh 11:58 Other: DRUG UTILIZATION REPORT was scanned into [employer] and attached to record. Administered Medications: 03/08 15:40 Drug: LORazepam 0.5 mg [lorazepam 1 mg tablet (0.5 tabs)] Route: PO; 16:41 Follow up: Response: Anxiety is improved Signatures: Dispatcher [employer] EDMS Yan, Jaqueline, PSA PSA rb Jesus Khan, PSA PSA cs Stacy Holland, Reg Reg gb Pito Ramos, Reg Reg lg Hannah Cash, FLOUR MIXER Gaby Santos,RN RN [id number] Aletha Davey Sarah se The chart was reviewed and I authenticate all verbal orders and agree with the evaluation and treatment provided.Corrections: (The following items were deleted from the chart) 14: 13:22 Home Meds: Wellbutrin 100 mg Oral tab 2 tab 2 times per day; 14: 13:22 Home Meds: albuterol sulfate 90 mcg/actuation Inhl HFAA 1 puff every 4 hours; [id number] 14: 13:22 Home Meds: cough and cold medicine; 14: 13:22 Home Meds: cyclobenzaprine 10 mg Oral tab 1 tab 3 times per day; as needed; 14: 13:22 Home Meds: hydroxyzine HCl 50 mg Oral tab 1 tab 4 times per day; 14: 13:22 Home Meds: Vitamin C 500 mg Oral tab twice a day; 14: 13:22 Home Meds: Tylenol 500 mg Oral 2 tabs as needed; 14: 13:22 Home Meds: Symbicort inhalation 2 puffs 2 times per day; 14: 13:22 Home Meds: BERENICE-COLACE oral 1 cap twice a day; js Attachments: 15:59 [facility] Payment Agreement gjb 03/09 08:43 T-Sheet-- Draft Copy [facility] MTDD
--- NOTE | 2016-03-11 13:44 | EDDOCDS ---
Nurse's Notes [facility] Name: Felicita Loomis Age: 45 yrs Sex: Female : 1970 Arrival Date: 03/08/2016 Time: 12:[address] MD: Diagnosis: Unspecified psychosis not due to a substance or known physiological condition Presentation: 03/08 13:12 Presenting complaint: State troopers brought patient in after numerous complaints from [facility] neighbors in same apartment building. Patient has been knocking on doors stating that people are out to kill her and are poisoning her. Patient states that there are people everywhere that want to kill her and that she just wants to move. State police state that she has been coming to the station almost daily for approx 2 weeks stating the same and that they have had to respond to her stalking people thinking they were going to kill her. Mental Health Triage Level: Level 2: The patient was brought to the ED for evaluation because of a legal pickup order. Adult Sepsis Screening: Patient has new or worsening altered mentation (1 point). Patient's respiratory rate is less than 22. Systolic blood pressure is greater than 100. Patient has a qSOFA score of 1- Negative Sepsis Screen. Mental Health Triage Level: Level 2: The patient was brought to the ED for evaluation because of a legal pickup order. Suicide/Homicide risk assessment- the patient denies having any suicidal and/or homicidal ideations and does not present with any other emotional, behavioral or mental health complaints. Status: Patient is not a career services officer or dependent. Transition of care: patient was not received from another setting of care. 13:12 Acuity: HARIS Level 3 [facility] 13:12 Method Of Arrival: Police Car [facility] Triage Assessment: 13:22 General: Appears obese, Behavior is agitated, anxious, restless. Pain: Denies pain. Pt js13 Declines HIV testing. Neurological: Level of Consciousness is awake, alert. Respiratory: Airway is patent Respiratory effort is even, unlabored, Respiratory pattern is regular, symmetrical. Derm: Skin is pink, warm & dry. 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 Cymbalta 60 mg Oral cpDR 1 cap twice a day 2. furosemide 20 mg Oral tab 1 tab every other day 3. Vitamin D Oral [address]28 unit three times weekly 4. Oxygen 2 Liters nightly 5. levothyroxine 125 mcg Oral tab 1 tab once daily 6. lorazepam 0.5 mg Oral tab 1 tab 2 times per day PRN 7. hydroxyzine HCl 50 mg Oral tab 1 tab 4 times per day PRN 8. Wellbutrin SR 200 mg Oral TbER 1 tab 2 times per day 9. ibuprofen 800 mg Oral tab 1 tab 3 times per day 10. Flonase 50 mcg/actuation Nasal spsn 1 spray 2 times per day 11. ALL MEDICATIONS VERIFIED BY LOC&ALL PHARMACY IN [facility] AND [facility] IN [place], UNABLE TO VERIFY LAST DOSE TAKEN WITH PATIENT - PMHx: Anxiety; COPD; Depression; Herniated Disc in Neck and Back; Hypothyroidism; DAVID; severe nocturnal hypoxia; - PSHx: ; Gastric Bypass; - Social history: Smoking status: unknown if patient ever smoked tobacco. No barriers to communication noted, The patient speaks fluent Czech. - Family history: Not pertinent. - : The pt / caregiver states he / she is not on anticoagulants. Home medication list is obtained from [employer] import data. - Exposure Risk Screening:: None identified. Screenin:40 Screening information is obtained from the patient. Fall risk: No risks identified. js13 Assistance ADL's: requires no assistance with activities of daily living. Abuse/DV Screen: The patient / caregiver reports he/she is: not in a situation that causes fear, pain or injury. Nutritional screening: No deficits noted. Advance Directives: There is no active DNR order. home support is adequate. Assessment: 13:40 General: Appears obese, Behavior is agitated, anxious, inappropriate for age, restless. js13 Pain: Denies pain. Neurological: Level of Consciousness is awake, alert. Respiratory: Airway is patent Respiratory effort is even, unlabored, Respiratory pattern is regular, symmetrical. GI: Abdomen is non- distended Bowel sounds Abd is soft and non tender. Derm: Skin is pink, warm & dry. 15:00 General: Appears in no apparent distress, comfortable, to be sleeping. Respiratory: js13 Airway is patent Respiratory effort is even, unlabored, Respiratory pattern is regular, symmetrical. Derm: Skin is pink, warm & dry. 15:47 General: Patient came out of room and was stating that she was feeling that something js13 was going to happen to someone in her family. She states she has a sixth sense and can tell things like that. Patient then tried to hug RN and then was laying on the floor hugging the RN's leg and stating she loved the RN and that she felt safe with her. Patient is coming out and arguing with staff about being admitted and wants to make sure that the RN tells Hannah Shreya GLORIA "thanks for ruining her fucking life and to shove her doctorate up her ass." Patient was given Ativan 0.5 mg at 1540 and patient still arguing and being belligerent with staff. . 16:22 General: Appears obese, Behavior is agitated, anxious, inappropriate for age, restless. js13 Pain: Denies pain. Neurological: Level of Consciousness is awake, alert. Respiratory: Airway is patent Respiratory effort is even, unlabored, Respiratory pattern is regular, symmetrical. GI: Abdomen is non- distended obese. Derm: Skin is pink, warm & dry. Mental Health Eval: 14:44 Mental health consult is initiated at 14:00. Status: The patient is not a career services officer or dependent. [facility] Behavioral Health: The patient is not an established patient of [facility] Behavioral Health. Referral Information: Evaluation referral is generated by a police agency: [facility] randa Ro #[id number]. The patient was referred for evaluation because Pt was reported to have been knocking on neighbors doors past 7- 8 days, paranoid delusions of people trying to kill her, and she has been going to the [address] for the same amount of time, Randa Ro. Pt reports there is evil in her apartment building, people on the bottom floor are all ing, "everything I feel is in my heart, God is great, people are evil, they are trying to kill me, I have to solve my own murder case, police are not doing anything, a demarco named Jorge is using all different names on face book to get me, poisoned with magnesium, know she is going to be , somebody has stolen, from me before I was DC from upstairs, someone poisoned, messed with her old bottles of medications, thrown them all out, and staying at [facility] [address] since [place] because she refusing to stay where evil is.". Subjective: The patients chief complaint is Pt reports she believes someone is trying to kill her,, she wants the police to look into her attempted murder, knocking on her neighbor's doors, neighbors called the police today, screaming "I am the light of God" Randa reports she has been seeing them daily for the past 7-8 days, not sure if she is taking her medications, pt states she has, but threw all of her medications out because she believed evil has poisoned them all, not sleeping, given a lunch packet, kept the milk and was afraid someone did something to the packet.. Delusions are bahai, paranoid, persecutory, Patient's mood is angry, anxious, depressed, elevated, euphoric, hopeless, Hallucinations are denied. Mental Health history: anxiety, depression, abusing narcotics. Mental Health Admissions: [facility] 02/15/16 until Feb 27 2016 Current Outpatient Mental Health Services: Research Methodologist / Agency: [facility], . Current living environment is. Patient presents to Emergency Department with the following symptoms within the past 2 weeks: agitation, anxiety, delusions of persecution, denial, depressed mood, euphoria, feelings of helplessness/hopelessness, hyperactivity, labile mood, brian, non-compliance, poor concentration, poor impulse control, psychosis, relational problem, sleep disturbance - insomnia. Substance abuse: Pt denies. 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 Per Hannah RODRIGUES pt is Hyperthyroid Down TSH,, UP T4, normal T3 uptake, and vitals do not support a thyroid issue. Mental status exam: Patients appearance is disheveled obese, Patient's behavior is agitated, bizarre, Speech is pressured. rapid. Affect is labile. Mood is angry. anxious. depressed. euphoric. irritable. Hallucinations are denied. Appetite is poor. Memory is poor. Energy level is tires easily. Content of thought is paranoid. Evil, Everyone is evil, I am the light of God, Jorge is messing with me, someone is trying to kill me, my neighbor is trying to kill me because I turned in his son a convicted criminal, that he was staying in the complex to the manager behavioral, and swears she did not, and they are poisoning her with magnesium. She also has complained to the police and they are doing nothing to solve her being attempted to be murdered, she will do it herself delusional. The evil is in the apartment complex and she will not live there, she is staying at [facility] on [address] The ground floor, "Every one is dieing, for no good reason, unexpectedly" Thought process is tangential. loose. characterized by flight of ideas. Cognitive level is oriented to person, place, time and situation Patient's insight is absent. Judgement is absent. Rapport with interviewer is poor. Suicidal Ideation is denied. Homicidal ideation is denied. Disposition: Medically cleared for disposition by Hannah CASTRO. Disposition: Psychiatric Consult is performed by phone with Dr Keisha Thayer. [facility] Admission Criteria: The patient displays symptoms of severe psychiatric disorder resulting in disordered behavior and significant interference with his / her ability to maintain self care. Delusions. Severe Anxiety. The patient requires continuous observation and/or control to protect self, others or property. The patient's care requires a multi-modal treatment plan under close supervision and coordination due to the complexity and severity of the patient's symptoms. The patient requires administration and monitoring of psychoactive medications by skilled medical providers due to the side effects of the psychoactive medications or significant dosage adjustments. Legal Status: Patient's legal status will be Emergency admission: . [place] because patient was registered less than 6 months ago. 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 Psych: 13:53 Mental Health Triage Level: Level 2: The patient was brought to the ED for evaluation js13 because of a legal pickup order. 13:53 Subjective: The patients chief complaint is Patient thinks numerous people are out to kill her. Patient has been knocking on doors of neighbors stating that someone is trying to kill her also stalking people thinking they are the ones who are trying to kill her. . 13:53 Objective: Patient is agitated, bizarre, challenging, defensive, irritable, restless, suspicious, Speech is normal. loud, rapid, Affect is tearful. 13:53 Substance abuse: Pt denies Vital Signs: 13:31 BP 135 / 82; Pulse 100; Resp 18; Temp 98.7(T); Pulse Ox 96% on R/A; Weight 94.35 kg rn1 (R); Height 5 ft. 1 in. (154.94 cm) (R); Pain 0/10; 16:43 BP 153 / 93; Pulse 101; Resp 16; Temp 98.0(O); Pulse Ox 99% on R/A; Pain 0/10; js13 13:31 Body Mass Index 39.30 (94.35 kg, 154.94 cm) rn1 Vitals: 13:39 Log In Time: March 08, 2016 at 12:57. 13 ED Course: 13:00 Patient visited by Jeanne Cox. mm15 13:00 Patient moved to [facility] mm15 13:03 Hannah Cash FNP is [facility]. le 13:09 Patient moved to [address] 13:09 Pt greeted and oriented to ED. Patient advised of names of staff involved in care, pjf location of call doyle, wait times and NPO status. Accompanied by Law Enforcement, Patient has correct armband on for positive identification. Placed in psych safe attire. Bed in low position. Call light in reach. Side rails up X 1. Security observing. Property removed, secured in belongings bag- Placed in locker #3. Door closed. Noise minimized. Visitors limited. Report received from rn - psych. triage level #2, Ams, cooperative \\T\\ this time. The patient / caregiver is instructed regarding the plan of care and ED course. Psych Safety Check: Location: Psych Room. 13:12 Patient visited by Fernando Shell Security Aideaston. pjf 13:17 Triage Initiated js13 13:23 Patient visited by Gaby Sun RN. js13 13:32 Psych Safety Check: Location: Psych Room. Visual Assessment: Agitated. rn1 13:34 Patient visited by Hannah Cash FNP. le 13:34 Patient visited by Hannah Cash FNP. le 13:38 Urine Toxicology Sent. js13 13:38 Magnesium Level Sent. js13 13:38 Thyroid Profile Sent. js13 13:38 ETOH Sent. js13 13:38 Salicylate Level Sent. js13 13:38 Acetaminophen Level Sent. js13 13:40 No IV's were initiated during this patient's visit. No procedures done that require [facility] assistance. Labs drawn. (by ED staff). Sent per order to lab. Urine collected. Clean catch specimen. Urine specimen sent to lab. 13:53 Patient visited by Gaby Sun RN. js13 14:10 Patient visited by Fernando Shell Security Aide. pjf 14:29 Patient visited by Fernando Shell Security Aide. pjf 14:45 Patient visited by Fernando Shell Security Aide. pjf 14:59 Patient visited by Fernando Shell Security Aide. pjf 15:29 Psych Safety Check: Location: Psych Room. Visual Assessment: Agitated. pjf 15:59 [facility] Payment Agreement was scanned into j-Grab and attached to record. gjb 16:00 Keisha Thayer is Hospitalizing Provider. le 16:23 [facility] Legal paperwork was scanned into [employer]-Grab and attached to record. cs 03/09 08:43 T-Sheet-- Draft Copy was scanned into [employer] and attached to record. se 11:58 Other: DRUG UTILIZATION REPORT was scanned into [employer]-Grab and attached to record. gb Administered Medications: 03/08 15:40 Drug: LORazepam 0.5 mg [lorazepam 1 mg tablet (0.5 tabs)] Route: PO; js13 16:41 Follow up: Response: Anxiety is improved [facility] Attachments: 16:23 E Legal paperwork cs Order Results: Lab Order: Acetaminophen Level; SPEC'M 03/08/16 13:31 Test: ACETAMINOPHEN LEVEL; Value: < 2.0; Range: 10.0-30.0; Abnormal: Below low normal; Units: UG/ML; Status: F Lab Order: Salicylate Level; SPEC'M 03/08/16 13:31 Test: SALICYLATE LEVEL; Value: 2.2; Range: 5.0-30.0; Abnormal: Below low normal; Units: MG/DL; Status: F Lab Order: ETOH; SPEC'M 03/08/16 13:31 Test: ETHYL ALCOHOL (ETHANOL); Value: < 0.003; Range: 0.000-0.010; Units: %; Status: F Lab Order: Thyroid Profile; SPEC'M 03/08/16 13:31 Test: T UPTAKE; Value: 34; Range: 30-39; Units: %; Status: F Test: THYROXINE (T4); Value: 13.8; Range: 4.5-12.0; Abnormal: Above high normal; Units: UG/DL; Status: F Test: FREE THYROXINE INDEX; Value: 4.7; Range: 1.3-4.8; Units: %; Status: F Test: THYROID STIMULATING HORMONE; Value: 0.087; Range: 0.358-3.740; Abnormal: Below low normal; Units: uIU/ML; Status: F Lab Order: Magnesium Level; SPEC'M 03/08/16 13:31 Test: MAGNESIUM LEVEL; Value: 2.1; Range: 1.8-2.4; Units: MG/DL; Status: F Lab Order: Urine Toxicology; SPEC'M 03/08/16 13:31 Test: AMPHETAMINES LEVEL URINE; Value: NEGATIVE; Range: NEGATIVE; Status: F Test: BARBITURATES URINE; Value: NEGATIVE; Range: NEGATIVE; Status: F Test: BENZODIAZEPINES URINE; Value: POSITIVE; Range: NEGATIVE; Abnormal: Above high normal; Status: F Test: CANNABINOIDS URINE; Value: POSITIVE; Range: NEGATIVE; Abnormal: Above high normal; Status: F Test: COCAINE METABOLITE URINE; Value: NEGATIVE; Range: NEGATIVE; Status: F Test: METHADONE URINE; Value: NEGATIVE; Range: NEGATIVE; Status: F Test: OPIATES URINE; Value: NEGATIVE; Range: NEGATIVE; Status: F Test: TRICYCLIC ANTIDEPRESS URINE; Value: NEGATIVE; Range: NEGATIVE; Status: F Test Note: ; FALSE POSITIVE RESULTS CAN BE CAUSED BY THE USE OF PANTOPRAZOLE (PROTONIX). Outcome: 03/08 16:00 Decision to Hospitalize by Provider. le 16:44 Discharge Assessment: Patient awake, alert and oriented x 3. No cognitive and/or js13 functional deficits noted. Patient verbalized understanding of disposition instructions. patient administered narcotics - yes. Patient was admitted to the hospital or transferred to another facility. The following High Risk Discharge criteria are identified: None. Admitted to Psych accompanied by tech, via wheelchair, with chart. Condition: stable. No special radiology studies were completed. Admission hand-off:. 16:47 Patient left the ED. js13 Addendum: 03/11/2016 13:41 Narrative: Per Medicare Blue reference number will be [id number]. Left to request jfb call back to proved clinical information. Also left Idalia Bose phone number. Signatures: Jesus Khan, PSA PSA cs Amalia, Stacy, Reg Reg gb Suleman, Fernando, Security Aide Securpjf Hannah Cash, PRODUCTION CLOTH CUTTER PRODUCTION CLOTH CUTTER Gabriella Pagan, PSA PSA jfb Gaby Sun,SIM RN js13 Jeanne Cox mm15 Toro Mcallister rn1 Aletha Davey Sarah seh Corrections: (The following items were deleted from the chart) 03/08 14: 13:22 Home Meds: Wellbutrin 100 mg Oral tab 2 tab 2 times per day; 14 13:22 Home Meds: albuterol sulfate 90 mcg/actuation Inhl HFAA 1 puff every 4 hours; 14 13:22 Home Meds: cough and cold medicine; 14 13:22 Home Meds: cyclobenzaprine 10 mg Oral tab 1 tab 3 times per day; as needed; 13:22 Home Meds: hydroxyzine HCl 50 mg Oral tab 1 tab 4 times per day; 14 13:22 Home Meds: Vitamin C 500 mg Oral tab twice a day; 13:22 Home Meds: Tylenol 500 mg Oral 2 tabs as needed; 14 13:22 Home Meds: Symbicort inhalation 2 puffs 2 times per day; 13:22 Home Meds: BERENICE-COLACE oral 1 cap twice a day; MTDD
--- NOTE | 2016-03-11 13:44 | EDDOCDS ---
Physician Documentation [facility] Name: Felicita Loomis Age: 45 yrs Sex: Female : 1970 Arrival Date: 03/08/2016 Time: 12:57 Bed [facility] Private MD: Disposition: 03/08/16 16:00 Hospitalization ordered by Keisha Thayer for Inpatient Admission. Preliminary diagnosis is Unspecified psychosis not due to a substance or known physiological condition. - Bed requested for Admit. - Status is Inpatient Admission. js13 - Condition is Stable. - Problem is an acute exacerbation. - Symptoms are unchanged. Historical: - Allergies: Codeine Sulfate (Rash); Morphine ("issues during surgery"); PENICILLINS (Unknown); - Home Meds: 1. Cymbalta 60 mg Oral cpDR 1 cap twice a day 2. furosemide 20 mg Oral tab 1 tab every other day 3. Vitamin D [place] [address] unit three times weekly 4. Oxygen 2 Liters nightly 5. levothyroxine 125 mcg Oral tab 1 tab once daily 6. lorazepam 0.5 mg Oral tab 1 tab 2 times per day PRN 7. hydroxyzine HCl 50 mg Oral tab 1 tab 4 times per day PRN 8. Wellbutrin SR 200 mg Oral TbER 1 tab 2 times per day 9. ibuprofen 800 mg Oral tab 1 tab 3 times per day 10. Flonase 50 mcg/actuation Nasal spsn 1 spray 2 times per day 11. ALL MEDICATIONS [facility] AND [facility] IN [place], UNABLE TO VERIFY LAST DOSE TAKEN WITH PATIENT - PMHx: Anxiety; COPD; Depression; Herniated Disc in Neck and Back; Hypothyroidism; DAVID; severe nocturnal hypoxia; - PSHx: ; Gastric Bypass; - Social history: Smoking status: unknown if patient ever smoked tobacco. No barriers to communication noted, The patient speaks fluent Maltese. - Family history: Not pertinent. - : The pt / caregiver states he / she is not on anticoagulants. Home medication list is obtained from [employer] import data. - Exposure Risk Screening:: None identified. 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 1 in. (154.94 cm) (R); Pain 0/10; 16:43 BP 153 / 93; Pulse 101; Resp 16; Temp 98.0(O); Pulse Ox 99% on R/A; Pain 0/10; js13 13:31 Body Mass Index 39.30 (94.35 kg, 154.94 cm) rn1 MDM: 13:34 Consult PFS/PSA/Enrober ordered. le 13:34 Consult PFS/PSA/Enrober: Patient's case requires discussion with on-call le Psychiatrist ordered. 13:34 PSA/PFS to call [employer] Tax Manager, to enter patient data on [place] Safe Act if patient le involuntarily admitted or transferred for SI or HI ordered. 13:34 Confirm accurate psychiatric medication list and times of last dosage ordered. le 13:34 Detain Pt Until Medically/PFS Cleared ordered. le 13:35 Acetaminophen Level Ordered. EDMS 13:35 Salicylate Level Ordered. EDMS 13:35 ETOH Ordered. EDMS 13:35 Thyroid Profile Ordered. EDMS 13:35 Magnesium Level Ordered. EDMS 13:35 Urine Toxicology Ordered. EDMS 14:26 Acetaminophen Level Reviewed. le 14:26 Salicylate Level Reviewed. le 14:26 Thyroid Profile Reviewed. le 14:26 Urine Toxicology Reviewed. le 14:26 ETOH Reviewed. le 14:26 Magnesium Level Reviewed. le 14:46 Consult PFS/PSA/Enrober complete. rb 15:02 Financial registration complete. lg 15:31 LORazepam 0.5 mg PO once ordered. le 15:48 Consult PFS/PSA/Enrober: Patient's case requires discussion with on-call rb Psychiatrist complete. 15:49 PSA/PFS to call [employer] Tax Manager, to enter patient data [place] Safe [place] if patient rb involuntarily admitted or transferred for SI or HI complete. 15:59 [facility] Payment Agreement was scanned into [facility] and attached to record. gjb 16:03 BED REQUEST+ADM ordered. EDMS 16:14 Admit to [facility]: ordered. EDMS 16:23 [facility] Legal paperwork was scanned into [employer] and attached to record. cs 03/09 08:43 T-Sheet-- Draft Copy was scanned into [facility] and attached to record. seh 11:58 Other: DRUG UTILIZATION REPORT was scanned into [employer] and attached to record. Administered Medications: 03/08 15:40 Drug: LORazepam 0.5 mg [lorazepam 1 mg tablet (0.5 tabs)] Route: PO; 16:41 Follow up: Response: Anxiety is improved Signatures: Dispatcher [employer] EDMS Yan, Jaqueline, PSA PSA rb Jesus Khan, PSA PSA cs Stacy Holland, Reg Reg gb Pito Ramos, Reg Reg lg Hannah Cash, SAFE EXPERT Gaby Santos,RN RN js13 Aletha Davey Sarah se The chart was reviewed and I authenticate all verbal orders and agree with the evaluation and treatment provided.Corrections: (The following items were deleted from the chart) 14: 13:22 Home Meds: Wellbutrin 100 mg Oral tab 2 tab 2 times per day; 14: 13:22 Home Meds: albuterol sulfate 90 mcg/actuation Inhl HFAA 1 puff every 4 hours; [id number] 14: 13:22 Home Meds: cough and cold medicine; 14: 13:22 Home Meds: cyclobenzaprine 10 mg Oral tab 1 tab 3 times per day; as needed; 14: 13:22 Home Meds: hydroxyzine HCl 50 mg Oral tab 1 tab 4 times per day; 14: 13:22 Home Meds: Vitamin C 500 mg Oral tab twice a day; 14: 13:22 Home Meds: Tylenol 500 mg Oral 2 tabs as needed; 14: 13:22 Home Meds: Symbicort inhalation 2 puffs 2 times per day; 14: 13:22 Home Meds: BERENICE-COLACE oral 1 cap twice a day; js Attachments: 15:59 [facility] Payment Agreement gjb 03/09 08:43 T-Sheet-- Draft Copy [facility] MTDD
--- NOTE | 2016-03-11 13:45 | EDDOCDS ---
Physician Documentation [facility] Name: Felicita Loomis Age: 45 yrs Sex: Female : 1970 Arrival Date: 03/08/2016 Time: 12:57 Bed [facility] Private MD: Disposition: 03/08/16 16:00 Hospitalization ordered by Keisha Thayer for Inpatient Admission. Preliminary diagnosis is Unspecified psychosis not due to a substance or known physiological condition. - Bed requested for Admit. - Status is Inpatient Admission. [id number] - Condition is Stable. - Problem is an acute exacerbation. - Symptoms are unchanged. Historical: - Allergies: Codeine Sulfate (Rash); Morphine ("issues during surgery"); PENICILLINS (Unknown); - Home Meds: 1. Cymbalta 60 mg Oral cpDR 1 cap twice a day 2. furosemide 20 mg Oral tab 1 tab every other day 3. Vitamin D Oral 13453 unit three times weekly 4. Oxygen 2 Liters nightly 5. levothyroxine 125 mcg Oral tab 1 tab once daily 6. lorazepam 0.5 mg Oral tab 1 tab 2 times per day PRN 7. hydroxyzine HCl 50 mg Oral tab 1 tab 4 times per day PRN 8. Wellbutrin SR 200 mg Oral TbER 1 tab 2 times per day 9. ibuprofen 800 mg Oral tab 1 tab 3 times per day 10. Flonase 50 mcg/actuation Nasal spsn 1 spray 2 times per day 11. ALL MEDICATIONS [facility]IF[facility] BY [facility] AND [facility] [place] [facility], UNABLE TO VERIFY LAST DOSE TAKEN WITH PATIENT - PMHx: Anxiety; COPD; Depression; Herniated Disc in Neck and Back; Hypothyroidism; DAVID; severe nocturnal hypoxia; - PSHx: ; Gastric Bypass; - Social history: Smoking status: unknown if patient ever smoked tobacco. No barriers to communication noted, The patient speaks fluent Tongan. - Family history: Not pertinent. - : The pt / caregiver states he / she is not on anticoagulants. Home medication list is obtained from [employer] import data. - Exposure Risk Screening:: None identified. IP ATTORNEY: 03/08 13:40 LMP N/A - Post-menopause Vital Signs: 13:31 BP 135 / 82; Pulse 100; Resp 18; Temp 98.7(T); Pulse Ox 96% on R/A; Weight 94.35 kg / rn1 208.01 lbs (R); Height 5 ft. 1 in. (154.94 cm) (R); Pain 0/10; 16:43 BP 153 / 93; Pulse 101; Resp 16; Temp 98.0(O); Pulse Ox 99% on R/A; Pain 0/10; js13 13:31 Body Mass Index 39.30 (94.35 kg, 154.94 cm) rn1 MDM: 13:34 Consult PFS/PSA/Vice President Business Development ordered. le 13:34 Consult PFS/PSA/Vice President Business Development: Patient's case requires discussion with on-call le Psychiatrist ordered. 13:34 PSA/PFS to call Nursing Coremaking Machine Setter, to enter patient data on [place] Safe [place] if patient le involuntarily admitted or transferred for SI or HI ordered. 13:34 Confirm accurate psychiatric medication list and times of last dosage ordered. le 13:34 Detain Pt Until Medically/PFS Cleared ordered. le 13:35 Acetaminophen Level Ordered. EDMS 13:35 Salicylate Level Ordered. EDMS 13:35 ETOH Ordered. EDMS 13:35 Thyroid Profile Ordered. EDMS 13:35 Magnesium Level Ordered. EDMS 13:35 Urine Toxicology Ordered. EDMS 14:26 Acetaminophen Level Reviewed. le 14:26 Salicylate Level Reviewed. le 14:26 Thyroid Profile Reviewed. le 14:26 Urine Toxicology Reviewed. le 14:26 ETOH Reviewed. le 14:26 Magnesium Level Reviewed. le 14:46 Consult PFS/PSA/Vice President Business Development complete. rb 15:02 Financial registration complete. lg 15:31 LORazepam 0.5 mg PO once ordered. le 15:48 Consult PFS/PSA/Vice President Business Development: Patient's case requires discussion with on-call rb Psychiatrist complete. 15:49 PSA/PFS to call Nursing Coremaking Machine Setter, to enter patient data [place] if patient rb involuntarily admitted or transferred for SI or HI complete. 15:59 [facility] Payment Agreement was scanned into [employer] and attached to record. gjb 16:03 BED REQUEST+ADM ordered. EDMS 16:14 Admit to [facility]: ordered. EDMS 16:23 [facility] Legal paperwork was scanned into [employer] and attached to record. cs 03/09 08:43 T-Sheet-- Draft Copy was scanned into [employer] and attached to record. seh 11:58 Other: DRUG UTILIZATION REPORT was scanned into [employer] and attached to record. Administered Medications: 03/08 15:40 Drug: LORazepam 0.5 mg [lorazepam 1 mg tablet (0.5 tabs)] Route: PO; 16:41 Follow up: Response: Anxiety is improved Signatures: Dispatcher [employer] EDMS Yan, Jaqueline, PSA PSA rb Jesus Khan, PSA PSA cs Stacy Holland, Reg Reg gb Pito Ramos, Reg Reg lg Hannah Cash, AIRCRAFT NAVIGATOR Gaby Santos,RN RN [id number] Aletha Davey Sarah se The chart was reviewed and I authenticate all verbal orders and agree with the evaluation and treatment provided.Corrections: (The following items were deleted from the chart) 14: 13:22 Home Meds: Wellbutrin 100 mg Oral tab 2 tab 2 times per day; 14: 13:22 Home Meds: albuterol sulfate 90 mcg/actuation Inhl HFAA 1 puff every 4 hours; [id number] 14: 13:22 Home Meds: cough and cold medicine; 14: 13:22 Home Meds: cyclobenzaprine 10 mg Oral tab 1 tab 3 times per day; as needed; 14: 13:22 Home Meds: hydroxyzine HCl 50 mg Oral tab 1 tab 4 times per day; 14: 13:22 Home Meds: Vitamin C 500 mg Oral tab twice a day; 14: 13:22 Home Meds: Tylenol 500 mg Oral 2 tabs as needed; 14: 13:22 Home Meds: Symbicort inhalation 2 puffs 2 times per day; 14: 13:22 Home Meds: BERENICE-COLACE oral 1 cap twice a day; js Attachments: 15:59 [facility] Payment Agreement gjb 03/09 08:43 T-Sheet-- Draft [facility] Complete MTDD
--- NOTE | 2016-03-11 13:45 | EDDOCDS ---
Physician Documentation [facility] Name: Felicita Loomis Age: 45 yrs Sex: Female : 1970 Arrival Date: 03/08/2016 Time: 12:57 Bed [facility] Private MD: Disposition: 03/08/16 16:00 Hospitalization ordered by Keisha Thayer for Inpatient Admission. Preliminary diagnosis is Unspecified psychosis not due to a substance or known physiological condition. - Bed requested for Admit. - Status is Inpatient Admission. [id number] - Condition is Stable. - Problem is an acute exacerbation. - Symptoms are unchanged. Historical: - Allergies: Codeine Sulfate (Rash); Morphine ("issues during surgery"); PENICILLINS (Unknown); - Home Meds: 1. Cymbalta 60 mg Oral cpDR 1 cap twice a day 2. furosemide 20 mg Oral tab 1 tab every other day 3. Vitamin D Oral 11223 unit three times weekly 4. Oxygen 2 Liters nightly 5. levothyroxine 125 mcg Oral tab 1 tab once daily 6. lorazepam 0.5 mg Oral tab 1 tab 2 times per day PRN 7. hydroxyzine HCl 50 mg Oral tab 1 tab 4 times per day PRN 8. Wellbutrin SR 200 mg Oral TbER 1 tab 2 times per day 9. ibuprofen 800 mg Oral tab 1 tab 3 times per day 10. Flonase 50 mcg/actuation Nasal spsn 1 spray 2 times per day 11. ALL MEDICATIONS VERIFIED BY [facility] AND [facility] [place], UNABLE TO VERIFY LAST DOSE TAKEN WITH PATIENT - PMHx: Anxiety; COPD; Depression; Herniated Disc in Neck and Back; Hypothyroidism; DAVID; severe nocturnal hypoxia; - PSHx: ; Gastric Bypass; - Social history: Smoking status: unknown if patient ever smoked tobacco. No barriers to communication noted, The patient speaks fluent [place] Island[place]. - Family history: Not pertinent. - : The pt / caregiver states he / she is not on anticoagulants. Home medication list is obtained from [employer] import data. - Exposure Risk Screening:: None identified. RECREATIONAL FACILITIES MOTEL MANAGER: 03/08 13:40 LMP N/A - Post-menopause Vital Signs: 13:31 BP 135 / 82; Pulse 100; Resp 18; Temp 98.7(T); Pulse Ox 96% on R/A; Weight 94.35 kg / rn1 208.01 lbs (R); Height 5 ft. 1 in. (154.94 cm) (R); Pain 0/10; 16:43 BP 153 / 93; Pulse 101; Resp 16; Temp 98.0(O); Pulse Ox 99% on R/A; Pain 0/10; js13 13:31 Body Mass Index 39.30 (94.35 kg, 154.94 cm) rn1 MDM: 13:34 Consult PFS/PSA/Sales Ledger Administrator ordered. le 13:34 Consult PFS/PSA/Sales Ledger Administrator: Patient's case requires discussion with on-call le Psychiatrist ordered. 13:34 PSA/PFS to call Nursing Customs Inspector, to enter [place] data [place] if patient le involuntarily admitted or transferred for SI or HI ordered. 13:34 Confirm accurate psychiatric medication list and times of last dosage ordered. le 13:34 Detain Pt Until Medically/PFS Cleared ordered. le 13:35 Acetaminophen Level Ordered. EDMS 13:35 Salicylate Level Ordered. EDMS 13:35 ETOH Ordered. EDMS 13:35 Thyroid Profile Ordered. EDMS 13:35 Magnesium Level Ordered. EDMS 13:35 Urine Toxicology Ordered. EDMS 14:26 Acetaminophen Level Reviewed. le 14:26 Salicylate Level Reviewed. le 14:26 Thyroid Profile Reviewed. le 14:26 Urine Toxicology Reviewed. le 14:26 ETOH Reviewed. le 14:26 Magnesium Level Reviewed. le 14:46 Consult PFS/PSA/Sales Ledger Administrator complete. rb 15:02 Financial registration complete. lg 15:31 LORazepam 0.5 mg PO once ordered. le 15:48 Consult PFS/PSA/Sales Ledger Administrator: Patient's case requires discussion with on-call rb Psychiatrist complete. 15:49 PSA/PFS to call Nursing Customs Inspector, to enter patient data [place] if patient rb involuntarily admitted or transferred for SI or HI complete. 15:59 [facility] Payment Agreement was scanned into [employer] and attached to record. gjb 16:03 BED REQUEST+ADM ordered. EDMS 16:14 Admit to [facility]: ordered. EDMS 16:23 [facility] Legal paperwork was scanned into [employer] and attached to record. cs 03/09 08:43 T-Sheet-- Draft Copy was scanned into [employer] and attached to record. seh 11:58 Other: DRUG UTILIZATION REPORT was scanned into [employer] and attached to record. Administered Medications: 03/08 15:40 Drug: LORazepam 0.5 mg [lorazepam 1 mg tablet (0.5 tabs)] Route: PO; 16:41 Follow up: Response: Anxiety is improved Signatures: Dispatcher [employer] EDMS Yan, Jaqueline, PSA PSA rb Jesus Khan, PSA PSA cs Stacy Holland, Reg Reg gb Pito Ramos, Reg Reg lg Hannah Cash, PICKING TABLE WORKER Gaby Santos,RN RN [id number] Aletha Davey Sarah se The chart was reviewed and I authenticate all verbal orders and agree with the evaluation and treatment provided.Corrections: (The following items were deleted from the chart) 14: 13:22 Home Meds: Wellbutrin 100 mg Oral tab 2 tab 2 times per day; 14: 13:22 Home Meds: albuterol sulfate 90 mcg/actuation Inhl HFAA 1 puff every 4 hours; [id number] 14: 13:22 Home Meds: cough and cold medicine; 14: 13:22 Home Meds: cyclobenzaprine 10 mg Oral tab 1 tab 3 times per day; as needed; 14: 13:22 Home Meds: hydroxyzine HCl 50 mg Oral tab 1 tab 4 times per day; 14: 13:22 Home Meds: Vitamin C 500 mg Oral tab twice a day; 14: 13:22 Home Meds: Tylenol 500 mg Oral 2 tabs as needed; 14: 13:22 Home Meds: Symbicort inhalation 2 puffs 2 times per day; 14: 13:22 Home Meds: BERENICE-COLACE oral 1 cap twice a day; js Attachments: 15:59 [facility] Payment Agreement gjb 03/09 08:43 T-Sheet-- Draft Copy [facility] Chart Complete MTDD
--- NOTE | 2016-03-11 13:45 | EDDOCDS ---
Nurse's Notes [facility] Name: Felicita Loomis Age: 45 yrs Sex: Female : 1970 Arrival Date: 03/08/2016 Time: 12:[address] MD: Diagnosis: Unspecified psychosis not due to a substance or known physiological condition Presentation: 03/08 13:12 Presenting complaint: State troopers brought patient in after numerous complaints from [facility] neighbors in same apartment building. Patient has been knocking on doors stating that people are out to kill her and are poisoning her. Patient states that there are people everywhere that want to kill her and that she just wants to move. State police state that she has been coming to the station almost daily for approx 2 weeks stating the same and that they have had to respond to her stalking people thinking they were going to kill her. Mental Health Triage Level: Level 2: The patient was brought to the ED for evaluation because of a legal pickup order. Adult Sepsis Screening: Patient has new or worsening altered mentation (1 point). Patient's respiratory rate is less than 22. Systolic blood pressure is greater than 100. Patient has a qSOFA score of 1- Negative Sepsis Screen. Mental Health Triage Level: Level 2: The patient was brought to the ED for evaluation because of a legal pickup order. Suicide/Homicide risk assessment- the patient denies having any suicidal and/or homicidal ideations and does not present with any other emotional, behavioral or mental health complaints. Status: Patient is not a building services supervisor or dependent. Transition of care: patient was not received from another setting of care. 13:12 Acuity: HARIS Level 3 [facility] 13:12 Method Of Arrival: Police Car [facility] Triage Assessment: 13:22 General: Appears obese, Behavior is agitated, anxious, restless. Pain: Denies pain. Pt js13 Declines HIV testing. Neurological: Level of Consciousness is awake, alert. Respiratory: Airway is patent Respiratory effort is even, unlabored, Respiratory pattern is regular, symmetrical. Derm: Skin is pink, warm & dry. 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 Cymbalta 60 mg Oral cpDR 1 cap twice a day 2. furosemide 20 mg Oral tab 1 tab every other day 3. Vitamin [place] Oral 35887 unit three times weekly 4. Oxygen 2 Liters nightly 5. levothyroxine 125 mcg Oral tab 1 tab once daily 6. lorazepam 0.5 mg Oral tab 1 tab 2 times per day PRN 7. hydroxyzine HCl 50 mg Oral tab 1 tab 4 times per day PRN 8. Wellbutrin SR 200 mg Oral TbER 1 tab 2 times per day 9. ibuprofen 800 mg Oral tab 1 tab 3 times per day 10. Flonase 50 mcg/actuation Nasal spsn 1 spray 2 times per day 11. ALL MEDICATIONS VERIFIED BY [facility] IN [facility] AND [facility] IN [place], UNABLE TO VERIFY LAST DOSE TAKEN WITH PATIENT - PMHx: Anxiety; COPD; Depression; Herniated Disc in Neck and Back; Hypothyroidism; DAVID; severe nocturnal hypoxia; - PSHx: ; Gastric Bypass; - Social history: Smoking status: unknown if patient ever smoked tobacco. No barriers to communication noted, The patient speaks fluent Mohawk. - Family history: Not pertinent. - : The pt / caregiver states he / she is not on anticoagulants. Home medication list is obtained from [facility] import data. - Exposure Risk Screening:: None identified. Screenin:40 Screening information is obtained from the patient. Fall risk: No risks identified. js13 Assistance ADL's: requires no assistance with activities of daily living. Abuse/DV Screen: The patient / caregiver reports he/she is: not in a situation that causes fear, pain or injury. Nutritional screening: No deficits noted. Advance Directives: There is no active DNR order. home support is adequate. Assessment: 13:40 General: Appears obese, Behavior is agitated, anxious, inappropriate for age, restless. js13 Pain: Denies pain. Neurological: Level of Consciousness is awake, alert. Respiratory: Airway is patent Respiratory effort is even, unlabored, Respiratory pattern is regular, symmetrical. GI: Abdomen is non- distended Bowel sounds Abd is soft and non tender. Derm: Skin is pink, warm & dry. 15:00 General: Appears in no apparent distress, comfortable, to be sleeping. Respiratory: js13 Airway is patent Respiratory effort is even, unlabored, Respiratory pattern is regular, symmetrical. Derm: Skin is pink, warm & dry. 15:47 General: Patient came out of room and was stating that she was feeling that something js13 was going to happen to someone in her family. She states she has a sixth sense and can tell things like that. Patient then tried to hug RN and then was laying on the floor hugging the RN's leg and stating she loved the RN and that she felt safe with her. Patient is coming out and arguing with staff about being admitted and wants to make sure that the RN tells Hannah Shreya GLORIA "thanks for ruining her fucking life and to shove her doctorate up her ass." Patient was given Ativan 0.5 mg at 1540 and patient still arguing and being belligerent with staff. . 16:22 General: Appears obese, Behavior is agitated, anxious, inappropriate for age, restless. js13 Pain: Denies pain. Neurological: Level of Consciousness is awake, alert. Respiratory: Airway is patent Respiratory effort is even, unlabored, Respiratory pattern is regular, symmetrical. GI: Abdomen is non- distended obese. Derm: Skin is pink, warm & dry. Mental Health Eval: 14:44 Mental health consult is initiated at 14:00. Status: The patient is not a building services supervisor or dependent. [facility] Behavioral Health: The patient is not an established patient of [facility] Behavioral Health. Referral Information: Evaluation referral is generated by a police agency: [facility] randa Ro #[id number]. The patient was referred for evaluation because Pt was reported to have been knocking on neighbors doors past 7- 8 days, paranoid delusions of people trying to kill her, and she has been going to the [address] for the same amount of time, Randa Ro. Pt reports there is evil in her apartment building, people on the bottom floor are all ing, "everything I feel is in my heart, God is great, people are evil, they are trying to kill me, I have to solve my own murder case, police are not doing anything, a demarco named Jorge is using all different names on face book to get me, poisoned with magnesium, know she is going to be , somebody has stolen, from me before I was DC from upstairs, someone poisoned, messed with her old bottles of medications, thrown them all out, and staying at [facility] [address] since [place] because she refusing to stay where evil is.". Subjective: The patients chief complaint is Pt reports she believes someone is trying to kill her,, she wants the police to look into her attempted murder, knocking on her neighbor's doors, neighbors called the police today, screaming "I am the light of God" Randa reports she has been seeing them daily for the past 7-8 days, not sure if she is taking her medications, pt states she has, but threw all of her medications out because she believed evil has poisoned them all, not sleeping, given a lunch packet, kept the milk and was afraid someone did something to the packet.. Delusions are yazidi, paranoid, persecutory, Patient's mood is angry, anxious, depressed, elevated, euphoric, hopeless, Hallucinations are denied. Mental Health history: anxiety, depression, abusing narcotics. 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 Current living environment is. Patient presents to Emergency Department with the following symptoms within the past 2 weeks: agitation, anxiety, delusions of persecution, denial, depressed mood, euphoria, feelings of helplessness/hopelessness, hyperactivity, labile mood, brian, non-compliance, poor concentration, poor impulse control, psychosis, relational problem, sleep disturbance - insomnia. Substance abuse: Pt denies. Substance abuse: Pt was looking for [employer] 2-3 days ago, kenny JOSEPH neighborhood planner. Per Hannah RODRIGUES pt is Hyperthyroid Down TSH,, UP T4, normal T3 uptake, and vitals do not support a thyroid issue. Mental status exam: Patients appearance is disheveled obese, Patient's behavior is agitated, bizarre, Speech is pressured. rapid. Affect is labile. Mood is angry. anxious. depressed. euphoric. irritable. Hallucinations are denied. Appetite is poor. Memory is poor. Energy level is tires easily. Content of thought is paranoid. Evil, Everyone is evil, I am the light of God, Jorge is messing with me, someone is trying to kill me, my neighbor is trying to kill me because I turned in his son a convicted criminal, that he was staying in the complex to the dairy farm manager, and swears she did not, and they are poisoning her with magnesium. She also has complained to the police and they are doing nothing to solve her being attempted to be murdered, she will do it herself delusional. The evil is in the apartment complex and she will not live there, she is staying at [facility] on [address] The ground floor, "Every one is dieing, for no good reason, unexpectedly" Thought process is tangential. loose. characterized by flight of ideas. Cognitive level is oriented to person, place, time and situation Patient's insight is absent. Judgement is absent. Rapport with interviewer is poor. Suicidal Ideation is denied. Homicidal ideation is denied. Disposition: Medically cleared for disposition by Hannah CASTRO. Disposition: Psychiatric Consult is performed by phone with Dr Keisha Thayer. [facility] Admission Criteria: The patient displays symptoms of severe psychiatric disorder resulting in disordered behavior and significant interference with his / her ability to maintain self care. Delusions. Severe Anxiety. The patient requires continuous observation and/or control to protect self, others or property. The patient's care requires a multi-modal treatment plan under close supervision and coordination due to the complexity and severity of the patient's symptoms. The patient requires administration and monitoring of psychoactive medications by skilled medical providers due to the side effects of the psychoactive medications or significant dosage adjustments. Legal Status: Patient's legal status will be Emergency admission: . [place] because patient was registered less than 6 months ago. 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 Psych: 13:53 Mental Health Triage Level: Level 2: The patient was brought to the ED for evaluation js13 because of a legal pickup order. 13:53 Subjective: The patients chief complaint is Patient thinks numerous people are out to kill her. Patient has been knocking on doors of neighbors stating that someone is trying to kill her also stalking people thinking they are the ones who are trying to kill her. . 13:53 Objective: Patient is agitated, bizarre, challenging, defensive, irritable, restless, suspicious, Speech is normal. loud, rapid, Affect is tearful. 13:53 Substance abuse: Pt denies Vital Signs: 13:31 BP 135 / 82; Pulse 100; Resp 18; Temp 98.7(T); Pulse Ox 96% on R/A; Weight 94.35 kg rn1 (R); Height 5 ft. 1 in. (154.94 cm) (R); Pain 0/10; 16:43 BP 153 / 93; Pulse 101; Resp 16; Temp 98.0(O); Pulse Ox 99% on R/A; Pain 0/10; js13 13:31 Body Mass Index 39.30 (94.35 kg, 154.94 cm) rn1 Vitals: 13:39 Log In Time: March 08, 2016 at 12:57. 13 ED Course: 13:00 Patient visited by Jeanne Cox. mm15 13:00 Patient moved to [facility] mm15 13:03 Hannah Cash FNP is [facility]. le 13:09 Patient moved to [address] 13:09 Pt greeted and oriented to ED. Patient advised of names of staff involved in care, pjf location of call doyle, wait times and NPO status. Accompanied by Law Enforcement, Patient has correct armband on for positive identification. Placed in psych safe attire. Bed in low position. Call light in reach. Side rails up X 1. Security observing. Property removed, secured in belongings bag- Placed in locker #3. Door closed. Noise minimized. Visitors limited. Report received from rn - psych. triage level #2, Ams, cooperative \\T\\ this time. The patient / caregiver is instructed regarding the plan of care and ED course. Psych Safety Check: Location: Psych Room. 13:12 Patient visited by Fernando Shell Security Aideaston. pjf 13:17 Triage Initiated js13 13:23 Patient visited by Gaby Sun RN. js13 13:32 Psych Safety Check: Location: Psych Room. Visual Assessment: Agitated. rn1 13:34 Patient visited by Hannah Cash FNP. le 13:34 Patient visited by Hannah Cash FNP. le 13:38 Urine Toxicology Sent. js13 13:38 Magnesium Level Sent. js13 13:38 Thyroid Profile Sent. js13 13:38 ETOH Sent. js13 13:38 Salicylate Level Sent. js13 13:38 Acetaminophen Level Sent. js13 13:40 No IV's were initiated during this patient's visit. No procedures done that require [facility] assistance. Labs drawn. (by ED staff). Sent per order to lab. Urine collected. Clean catch specimen. Urine specimen sent to lab. 13:53 Patient visited by Gaby Sun RN. js13 14:10 Patient visited by Fernando Shell Security Aide. pjf 14:29 Patient visited by Fernando Shell Security Aide. pjf 14:45 Patient visited by Fernando Shell Security Aide. pjf 14:59 Patient visited by Fernando Shell Security Aide. pjf 15:29 Psych Safety Check: Location: Psych Room. Visual Assessment: Agitated. pjf 15:59 [facility] Payment Agreement was scanned into [employer] and attached to record. gjb 16:00 Keisha Thayer is Hospitalizing Provider. le 16:23 [facility] Legal paperwork was scanned into [employer] and attached to record. cs 03/09 08:43 T-Sheet-- Draft Copy was scanned into [employer] and attached to record. se 11:58 Other: DRUG UTILIZATION REPORT was scanned into [employer] and attached to record. gb Administered Medications: 03/08 15:40 Drug: LORazepam 0.5 mg [lorazepam 1 mg tablet (0.5 tabs)] Route: PO; js13 16:41 Follow up: Response: Anxiety is improved [facility] Attachments: 16:23 E Legal paperwork cs Order Results: Lab Order: Acetaminophen Level; SPEC'M 03/08/16 13:31 Test: ACETAMINOPHEN LEVEL; Value: < 2.0; Range: 10.0-30.0; Abnormal: Below low normal; Units: UG/ML; Status: F Lab Order: Salicylate Level; SPEC'M 03/08/16 13:31 Test: SALICYLATE LEVEL; Value: 2.2; Range: 5.0-30.0; Abnormal: Below low normal; Units: MG/DL; Status: F Lab Order: ETOH; SPEC'M 03/08/16 13:31 Test: ETHYL ALCOHOL (ETHANOL); Value: < 0.003; Range: 0.000-0.010; Units: %; Status: F Lab Order: Thyroid Profile; SPEC'M 03/08/16 13:31 Test: T UPTAKE; Value: 34; Range: 30-39; Units: %; Status: F Test: THYROXINE (T4); Value: 13.8; Range: 4.5-12.0; Abnormal: Above high normal; Units: UG/DL; Status: F Test: FREE THYROXINE INDEX; Value: 4.7; Range: 1.3-4.8; Units: %; Status: F Test: THYROID STIMULATING HORMONE; Value: 0.087; Range: 0.358-3.740; Abnormal: Below low normal; Units: uIU/ML; Status: F Lab Order: Magnesium Level; SPEC'M 03/08/16 13:31 Test: MAGNESIUM LEVEL; Value: 2.1; Range: 1.8-2.4; Units: MG/DL; Status: F Lab Order: Urine Toxicology; SPEC'M 03/08/16 13:31 Test: AMPHETAMINES LEVEL URINE; Value: NEGATIVE; Range: NEGATIVE; Status: F Test: BARBITURATES URINE; Value: NEGATIVE; Range: NEGATIVE; Status: F Test: BENZODIAZEPINES URINE; Value: POSITIVE; Range: NEGATIVE; Abnormal: Above high normal; Status: F Test: CANNABINOIDS URINE; Value: POSITIVE; Range: NEGATIVE; Abnormal: Above high normal; Status: F Test: COCAINE METABOLITE URINE; Value: NEGATIVE; Range: NEGATIVE; Status: F Test: METHADONE URINE; Value: NEGATIVE; Range: NEGATIVE; Status: F Test: OPIATES URINE; Value: NEGATIVE; Range: NEGATIVE; Status: F Test: TRICYCLIC ANTIDEPRESS URINE; Value: NEGATIVE; Range: NEGATIVE; Status: F Test Note: ; FALSE POSITIVE RESULTS CAN BE CAUSED BY THE USE OF PANTOPRAZOLE (PROTONIX). Outcome: 03/08 16:00 Decision to Hospitalize by Provider. le 16:44 Discharge Assessment: Patient awake, alert and oriented x 3. No cognitive and/or js13 functional deficits noted. Patient verbalized understanding of disposition instructions. patient administered narcotics - yes. Patient was admitted to the hospital or transferred to another facility. The following High Risk Discharge criteria are identified: None. Admitted to Psych accompanied by tech, via wheelchair, with chart. Condition: stable. No special radiology studies were completed. Admission hand-off:. 16:47 Patient left the ED. js13 Addendum: 03/11/2016 13:41 Narrative: Per Medicare Blue reference number will be [id number]. Left to request jfb call back to proved clinical information. Also left Idalia Bose phone number. Signatures: Jesus Khan, PSA PSA cs Amalia, Stacy, Reg Reg gb Sulemna, Fernando, Security Aide Securpjf Hannah Cash, SUPERVISOR FILTER ASSEMBLY SUPERVISOR FILTER ASSEMBLY Gabriella Pagan, PSA PSA jfb Gaby Sun,SIM RN js13 Jeanne Cox mm15 Toro Mcallister rn1 Aletha Davey Sarah seh Corrections: (The following items were deleted from the chart) 03/08 14: 13:22 Home Meds: Wellbutrin 100 mg Oral tab 2 tab 2 times per day; 14 13:22 Home Meds: albuterol sulfate 90 mcg/actuation Inhl HFAA 1 puff every 4 hours; 14 13:22 Home Meds: cough and cold medicine; 14 13:22 Home Meds: cyclobenzaprine 10 mg Oral tab 1 tab 3 times per day; as needed; 13:22 Home Meds: hydroxyzine HCl 50 mg Oral tab 1 tab 4 times per day; 14 13:22 Home Meds: Vitamin C 500 mg Oral tab twice a day; 13:22 Home Meds: Tylenol 500 mg Oral 2 tabs as needed; 14 13:22 Home Meds: Symbicort inhalation 2 puffs 2 times per day; 13:22 Home Meds: BERENICE-COLACE oral 1 cap twice a day; Chart Complete MTDD
[2016-03-11] MEDS: LevoFLOXacin 750 MG TABLET PO SCH (17:26)
--- NOTE | 2016-03-11 17:48 | IPNPDOC ---
[facility] Progress Note Progress Note DATE OF SERVICE: 03/11/16 HISTORY: This is a 45-year-old white woman with a long standing history of treatment for bipolar disorder, who was admitted after she was brought in by the police. She had been knocking on neighbor's doors over the past days, very delusional and thinking that people were trying to kill her. She was talking about there being evil in her apartment building. She is making statements like "everything I feel is in my heart, God is great, people are evil, they are trying to kill me." She says that there is someone named Deejay is using different names on Facebook trying to get her killed and poison her with magnesium. She has been staying at a motel because she is refusing to stay in her apartment building. The patient is fairly unreliable. It is not clear whether she has been taking her medications. In the emergency room, she says that someone had messed with her bottles of medications, someone threw them out. Today, the patient is very irritated and angry and very loud. She is constantly talking and at times even yelling. She wants to know why she is in the hospital. She says that there is nothing wrong with her. She is demanding to be discharged. Medications were reviewed; the patient was discharged on and she was discharged on Latuda 40 mg daily, Cymbalta 60 mg twice a day, hydroxyzine 50 mg four times a day as needed for anxiety. In the emergency room records, it says that she is also on Cymbalta 60 mg twice a day and Wellbutrin SR 200 mg twice a day, however, when I looked at the medication that she was discharged on, these medications were not included. I reviewed the old records to obtain some history about this patient and it seemed that she was just in the hospital from 02/15/2016 and discharged on 02/27/2016. She was admitted in what appeared to be a manic-like episode. She had been upset with a snowplow man because she thought that he was affiliated with some drug dealers. She was noted to be paranoid with grandiose delusions, talking about being able to predict the future. She also thought that someone was trying to kill her. She was discharged to [facility] for her substance abuse and also for her psychiatric treatment. [facility] PAST PSYCHIATRIC HISTORY: This is obtained from the medical record where it states that she was receiving outpatient treatment from [facility] and they had been prescribing Cymbalta 60 mg twice a day for fibromyalgia and Wellbutrin 200 mg twice a day for depression. She also said they were prescribing Ativan as needed for anxiety. She denies that she has ever made any suicidal attempts and when she was admitted in January she indicated that was her first psychiatric hospitalization, so this would be her second psychiatric hospitalization. FAMILY HISTORY: The patient's mother is bipolar, according to the patient's information that was obtained during her January hospitalization. Also, there was no reported history of family suicides. SUBSTANCE ABUSE: The patient uses cannabis for at least the past few months. According to the January admission, they indicated "off and on all day long," as far as the marijuana goes. According to the records from her January admission, there is some mention that the patient stated that she had some reduced appetite, depressed mood and paranoia during that admission. VITAL SIGNS: Please see below. NEW TEST RESULTS: NA CURRENT MEDICATIONS: See below. Atarax 50 mg po q 4 hours prn anxiety, Ativan 1 mg po q 4 hours prn anxiety, Latuda 40 mg po q am, Trazodone 50 mg po qhs PRN sleep. MENTAL STATUS EXAMINATION: Patient is a 45 year old female, who is emotional, dramatic, cooperative, mostly well kempt, of obese build. Speech: Is tangential, circumstantial, some flight of ideas, normal rate, louder than average volume, articulate, coherent, and spontaneous. Thought processes: Not clear, goal-directed for discharge only. Rate of thoughts : Normal Thought content:Rational, Logical, Tangential, Paranoid. Abstract reasoning: Limited. Computation: Limited. Associations: Tangential, Circumstantial. Abnormal or psychotic thoughts: Delusions "I feel things in my heart like my mom 's love", paranoia about people trying to kill her, poison her, tampering with her meds. Pt. states "Steve has hated me a long time", Pt. feels as though he said he wanted her . Pt. is not known to be a reliable historian. Judgment: Limited. Insight: Very limited to none. Oriented to: Time, place, person and surroundings. Recent and Remote Memory: Pt. denies issues. Attention Span and Concentration: Fair. Language: Normal. Fund of knowledge: Adequate. Mood: "Good, not great", rational, labile. Affect: Reactive, Irrational at times, Expansive, Agitated at times, Manic at times, Labile. DIAGNOSES: 1. Other specified bipolar disorder. 2. Cannabis use disorder, severe. 3. R/O Schizoaffective, bipolar type ASSESSMENT: Pt. noted to not be clearing from admit on Friday. Pt. continues to be labile, agitated at times, extremely paranoid of being poisoned or killed. Pt. seen with SIM Franco. Pt. upset that she is not discharged but then complains of being discharged too early at her last admission. Pt. admits to RN that she has had 2 sexual partners in the last month, with a third mastubating/ ejaculating in her car which she responds with "I was strong". Pt. visibly upset and weeping after find out what her tentative discharge date would be(03/15 or 03/18) if she is stable and safe to be discharged. MANAGEMENT PLAN: Patient to continue Atarax 50 mg every 6 hours when necessary as needed for anxiety or agitation(changed from 4 times a day), trazodone 50 mg by mouth daily at bedtime when necessary for sleep. Latuda 40 mg by mouth every morning with food to be discontinued. Ativan to be decreased to 0.5 mg(from 1 mg every 4 hours) by mouth every 6 hours as needed for anxiety and agitation. Patient to be started on gabapentin 100 mg by mouth daily at bedtime and Invega 3 mg by mouth daily at bedtime. New med's discussed with patient and she states her understanding with why she is getting them and any side effects there may be. Vital Signs/I&O Vital Signs Date Time Temp Pulse Resp B/P Pulse Ox O2 Delivery O2 Flow Rate FiO2 03/11/16 06:00 97.0 95 18 125/66 100 Room Air 03/10/16 06:22 2.0 Laboratory Data 24H Labs Laboratory Tests 2 03/10/16 22:05: Anion Gap 9, White Blood Count 6.7, Red Blood Count 3.68L, Hemoglobin 11.0L, Hematocrit 32.2L, Mean Corpuscular Volume 87.5, Mean Corpuscular Hemoglobin 30.0 , Mean Corpuscular Hemoglobin Concent 34.3, Red Cell Distribution Width 14.3, Platelet Count 211, Neutrophils (%) (Auto) 71.2H, Lymphocytes (%) (Auto) 18.6L, Monocytes (%) (Auto) 6.6H, Eosinophils (%) (Auto) 1.7, Basophils (%) (Auto) 0.3 , Neutrophils # (Auto) 4.8, Lymphocytes # (Auto) 1.3L, Monocytes # (Auto) 0.5, Eosinophils # (Auto) 0.1, Basophils # (Auto) 0.0, Blood Urea Nitrogen 7, Creatinine 0.83, Sodium Level 143, Potassium Level 3.7, Chloride Level 111H, Carbon Dioxide Level 23, Calcium Level 8.1L, Glomerular Filtration Rate > 60.0, Large Unclassified Cells # 0.1, Large Unclassified Cells % 1.6 03/11/16 01:08: Bedside Glucose (Misc Panel) 86 03/11/16 06:33: Free Thyroxine Index 4.0, Thyroid Stimulating Hormone (TSH) 0.080L, Thyroxine ( T4) 11.1, Triiodothyronine (T3) Uptake 36 CBC/BMP Laboratory Tests 03/10/16 22:05 Calcium Level 8.1 L, Red Blood Count 3.68 L, Mean Corpuscular Volume 87.5, Mean Corpuscular Hemoglobin 30.0, Mean Corpuscular Hemoglobin Concent 34.3, Red Cell Distribution Width 14.3, Neutrophils (%) (Auto) 71.2 H, Lymphocytes (%) (Auto) 18.6 L, Monocytes (%) (Auto) 6.6 H, Eosinophils (%) (Auto) 1.7, Basophils (%) ( Auto) 0.3, Neutrophils # (Auto) 4.8, Lymphocytes # (Auto) 1.3 L, Monocytes # ( Auto) 0.5, Eosinophils # (Auto) 0.1, Basophils # (Auto) 0.0 Current Medications Current Medications Acetaminophen (Tylenol) 650 mg Q4HP PRN PO PAIN OR FEVER Last administered on 03:35; Start 03/10/16 at 22:30; Stop 04/09/16 at 22:29 Acetaminophen (Tylenol) 650 mg Q6HP PRN PO HEADACHE or DISCOMFORT Last administered on 03/10/16 17:30; Start 03/08/16 at 19:00; Stop 03/10/16 at 22:16 ; Status DC Al Hydrox/Mg Hydrox/Simethicone (Mylanta) 30 ml Q4HP PRN PO HEARTBURN/ INDIGESTION Last administered on 03/09/16 19:14; Start 03/08/16 at 19:00; Stop 04/07/16 at 18:59 Albuterol Sulfate (Proventil, Ventolin Hfa) 2 puff Q4HP PRN INH SHORTNESS OF BREATH Last administered on 03/11/16 15:05; Start 03/08/16 at 20:30; Stop 04/07 at 20:29 Budesonide/ Formoterol Fumarate (Symbicort 160/ 4.5mcg) 2 puff BID INH Last administered on 03/11/16 08:32; Start 03/08/16 at 21:00; Stop 04/07/16 at 20:59 Cetylpyridinium Chloride (Cepacol) 1 calista Q2HP PRN PO COUGH Last administered on 03/11/16 02:18; Start 03/10/16 at 22:00; Stop 04/09/16 at 21:59 Docusate Sodium (Colace) 100 mg BID PO Last administered on 03/11/16 08:32; Start 03/08/16 at 21:00; Stop 04/07/16 at 20:59 Fluticasone Propionate (Flonase 0.05% Nasal [place]) 1 SPRAY IN EACH NOSTRIL BID NA Last administered on 03/11/16 08:32; Start 03/10/16 at 21:00; Stop at 20:59 Furosemide (Lasix) 20 mg Q2DP PRN PO FLUID RETENTION Last administered on 08:05; Start 03/08/16 at 19:00; Stop 04/07/16 at 18:59 Home Med (Med Rec Complete!) ASDIRECTED XX ; Start 03/08/16 at 16:45; Stop at 16:51; Status DC Hydroxyzine HCl (Atarax) 50 mg QIDP PRN PO ANXIETY/AGGITATION Last administered on 03/11/16 14:16; Start 03/08/16 at 19:00; Stop 04/07/16 at 18:59 Levofloxacin (Levaquin) 750 mg DAILY@18 PO Last administered on 03/10/16 22:29 ; Start 03/10/16 at 18:00; Stop 03/17/16 at 17:59 Levothyroxine Sodium (Synthroid) 0.125 mg DAILY@06 PO Last administered on 03/11 05:57; Start 03/09/16 at 06:00; Stop 04/08/16 at 05:59 Lorazepam (Ativan) 0.5 mg BID PRN PO ANXIETY/AGITATION; Start 03/08/16 at 19:00 ; Stop 03/08/16 at 20:29; Status DC Lorazepam (Ativan) 0.5 mg BID PRN PO ANXIETY/AGITATION Last administered on 07:49; Start 03/08/16 at 20:29; Stop 03/09/16 at 09:39; Status DC Lorazepam (Ativan) 1 mg Q4HP PRN PO ANXIETY/AGITATION Last administered on 03/11 15:05; Start 03/09/16 at 10:00; Stop 03/16/16 at 09:59 Lorazepam (Ativan) 1 mg STK-MED ONCE As Ordered ; Start 03/08/16 at 15:31; Stop 03/08/16 at 15:32; Status DC Lorazepam (Ativan) 2 mg Q4HP PRN PO ANXIETY/AGITATION; Start 03/09/16 at 09:15 ; Stop 03/09/16 at 09:49; Status DC Lurasidone HCl (Latuda) 40 mg DAILY@08 PO Last administered on 03/11/16 08:32 ; Start 03/09/16 at 08:00; Stop 04/08/16 at 07:59 Magnesium Hydroxide (Milk Of Magnesia) 30 ml DAILYPRN PRN PO CONSTIPATION Last administered on 03/08/16 20:05; Start 03/08/16 at 19:00; Stop 04/07/16 at 18:59 Omeprazole (PriLOSEC) 20 mg DAILY PO Last administered on 03/11/16 08:32; Start 03/09/16 at 09:00; Stop 04/08/16 at 08:59 Trazodone HCl (Desyrel) 50 mg QHSP PRN PO INSOMNIA; Start 03/08/16 at 19:00; Stop 04/07/16 at 18:59 Valacyclovir HCl (Valtrex) 500 mg BID PO Last administered on 03/11/16 08:32; Start 03/11/16 at 09:00; Stop 03/18/16 at 08:59 Vitamin D (Vitamin D) 5,000 units MoWeFr@09 PO Last administered on 03/11/16 08:32; Start 03/11/16 at 09:00; Stop 04/10/16 at 08:59 Allergies Coded Allergies: Morphine (Verified Allergy, Unknown, 02/15/16) Penicillins (Verified Allergy, Unknown, 02/15/16) Childhood allergy CLARISA BRANHAM NP Mar 11, 2016 17:48
[2016-03-11 18:00] VITALS: BP 121/88
[2016-03-11] MEDS ORDERED: LORazepam 0.5 MG TAB PO PRN (21:00)
[2016-03-11] MEDS: PALIPERIDONE 3 MG ER TAB (INVEGA) PO SCH (21:05)
[2016-03-11] MEDS: GABAPENTIN 100 MG CAP PO SCH (21:05)
[2016-03-12] MEDS: ALBUTEROL 90 MCG/ACT 8GM HFA INHALER INH PRN (01:40)
[2016-03-12] MEDS: CEPACOL LOZENGE PO PRN ×3 (01:42→19:32)
[2016-03-12] MEDS: ACETAMINOPHEN TAB 650MG DOSE (2X325MG) PO PRN ×4 (04:17→23:27)
[2016-03-12] MEDS: LEVOTHYROXINE 0.125 MG TAB (125 MCG) PO SCH (05:46)
[2016-03-12 06:31] VITALS: BP 119/81
[2016-03-12] MEDS: DOCUSATE SODIUM 100 MG CAP PO SCH ×2 (08:02→20:24)
[2016-03-12] MEDS: OMEPRAZOLE 20 MG CAP PO SCH (08:02)
[2016-03-12] MEDS: SYMBICORT 160/4.5MCG INHALER 6GM INH SCH ×2 (08:02→20:25)
[2016-03-12] MEDS: valACYclovir HCL 500 MG TAB PO SCH ×2 (08:03→20:24)
[2016-03-12] MEDS: FLUTICASONE PROP 0.05% NASAL SPRAY 16 GM (FLONASE) SCH ×2 (08:03→20:26)
[2016-03-12] MEDS: hydrOXYzine 50 MG TAB PO PRN ×3 (08:03→20:24)
[2016-03-12] MEDS: LevoFLOXacin 750 MG TABLET PO SCH (17:03)
[2016-03-12 18:00] VITALS: BP 120/76
[2016-03-12] MEDS ORDERED: GABAPENTIN 100 MG CAP PO ONE (19:30)
--- NOTE | 2016-03-12 19:53 | IPNPDOC ---
[facility] Progress Note Progress Note DATE OF SERVICE: 03/12/16 HISTORY: This is a 45-year-old white woman with a long standing history of treatment for bipolar disorder, who was admitted after she was brought in by the police. She had been knocking on neighbor's doors over the past days, very delusional and thinking that people were trying to kill her. She was talking about there being evil in her apartment building. She is making statements like "everything I feel is in my heart, God is great, people are evil, they are trying to kill me." She says that there is someone named Deejay is using different names on Facebook trying to get her killed and poison her with magnesium. She has been staying at a motel because she is refusing to stay in her apartment building. The patient is fairly unreliable. It is not clear whether she has been taking her medications. In the emergency room, she says that someone had messed with her bottles of medications, someone threw them out. Today, the patient is very irritated and angry and very loud. She is constantly talking and at times even yelling. She wants to know why she is in the hospital. She says that there is nothing wrong with her. She is demanding to be discharged. Medications were reviewed; the patient was discharged on and she was discharged on Latuda 40 mg daily, Cymbalta 60 mg twice a day, hydroxyzine 50 mg four times a day as needed for anxiety. In the emergency room records, it says that she is also on Cymbalta 60 mg twice a day and Wellbutrin SR 200 mg twice a day, however, when I looked at the medication that she was discharged on, these medications were not included. I reviewed the old records to obtain some history about this patient and it seemed that she was just in the hospital from 02/15/2016 and discharged on 02/27/2016. She was admitted in what appeared to be a manic-like episode. She had been upset with a snowplow man because she thought that he was affiliated with some drug dealers. She was noted to be paranoid with grandiose delusions, talking about being able to predict the future. She also thought that someone was trying to kill her. She was discharged to [facility] for her substance abuse and also for her psychiatric treatment. [facility] was going to [facility] PAST PSYCHIATRIC HISTORY: This is obtained from the medical record where it states that she was receiving outpatient treatment from [facility] and they had been prescribing Cymbalta 60 mg twice a day for fibromyalgia and Wellbutrin 200 mg twice a day for depression. She also said they were prescribing Ativan as needed for anxiety. She denies that she has ever made any suicidal attempts and when she was admitted in January she indicated that was her first psychiatric hospitalization, so this would be her second psychiatric hospitalization. FAMILY HISTORY: The patient's mother is bipolar, according to the patient's information that was obtained during her January hospitalization. Also, there was no reported history of family suicides. SUBSTANCE ABUSE: The patient uses cannabis for at least the past few months. According to the January admission, they indicated "off and on all day long," as far as the marijuana goes. According to the records from her January admission, there is some mention that the patient stated that she had some reduced appetite, depressed mood and paranoia during that admission. VITAL SIGNS: Please see below. NEW TEST RESULTS: NA CURRENT MEDICATIONS: See below. Atarax 50 mg po q 4 hours prn anxiety, Ativan 1 mg po q 4 hours prn anxiety, Invega 3 mg po q hs, Trazodone 50 mg po qhs PRN sleep. MENTAL STATUS EXAMINATION: Patient is a 45 year old female, who is emotional, dramatic, cooperative, mostly well kempt, of obese build. Speech: Is slight circumstantial, normal rate, louder than average volume, articulate, coherent, and spontaneous. Thought processes: Clearing, goal-directed. Rate of thoughts: Normal Thought content:Rational, Logical, Less paranoid. Abstract reasoning: Limited. Computation: Limited. Associations: Circumstantial. Abnormal or psychotic thoughts: Less paranoia, no longer feels people are out to get her or kill her. Pt. still feels neighbor Steve hates her, does think he had something to do with her meds disappearing Judgment: Limited. Insight: Very limited to none. Oriented to: Time, place, person and surroundings. Recent and Remote Memory: Pt. denies issues. Attention Span and Concentration: Fair. Language: Normal. Fund of knowledge: Adequate. Mood: "Good, not great", rational, labile. Affect: Reactive, Irrational at times, Expansive, Agitated at times, Manic at times, Labile. DIAGNOSES: 1. Bipolar Disorder 2. Cannabis use disorder, severe. 3. R/O Schizoaffective, bipolar type ASSESSMENT: Pt. noted to be clearing from assessment yesterday. Pt. continues to be less paranoid of being poisoned or killed. Pt. seen with SIM Franco. Pt. is calm, appropriate, rational, logical. Speech is not pressured, patient is able to get her thoughts out logically. MANAGEMENT PLAN: Patient to continue gabapentin 100 mg by mouth daily at bedtime and Invega 3 mg by mouth daily at bedtime. Atarax 50 mg every 6 hours when necessary as needed for anxiety or agitation, trazodone 50 mg by mouth daily at bedtime when necessary for sleep. Ativan 0.5 mg by mouth every 6 hours as needed for anxiety and agitation, to be discontinued. Pt's med's discussed with patient and she states her understanding and is happy with effects so far. Vital Signs/I&O Vital Signs Date Time Temp Pulse Resp B/P Pulse Ox O2 Delivery O2 Flow Rate FiO2 03/12/16 06:31 96.4 108 16 119/81 03/11/16 18:00 100 Room Air 03/10/16 06:22 2.0 Current Medications Current Medications Acetaminophen (Tylenol) 650 mg Q4HP PRN PO PAIN OR FEVER Last administered on 10:38; Start 03/10/16 at 22:30; Stop 04/09/16 at 22:29 Acetaminophen (Tylenol) 650 mg Q6HP PRN PO HEADACHE or DISCOMFORT Last administered on 03/10/16 17:30; Start 03/08/16 at 19:00; Stop 03/10/16 at 22:16 ; Status DC Al Hydrox/Mg Hydrox/Simethicone (Mylanta) 30 ml Q4HP PRN PO HEARTBURN/ INDIGESTION Last administered on 03/09/16 19:14; Start 03/08/16 at 19:00; Stop 04/07/16 at 18:59 Albuterol Sulfate (Proventil, Ventolin Hfa) 2 puff Q4HP PRN INH SHORTNESS OF BREATH Last administered on 03/12/16 01:40; Start 03/08/16 at 20:30; Stop 04/07 at 20:29 Budesonide/ Formoterol Fumarate (Symbicort 160/ 4.5mcg) 2 puff BID INH Last administered on 03/12/16 08:02; Start 03/08/16 at 21:00; Stop 04/07/16 at 20:59 Cetylpyridinium Chloride (Cepacol) 1 calista Q2HP PRN PO COUGH Last administered on 03/12/16 14:18; Start 03/10/16 at 22:00; Stop 04/09/16 at 21:59 Docusate Sodium (Colace) 100 mg BID PO Last administered on 03/12/16 08:02; Start 03/08/16 at 21:00; Stop 04/07/16 at 20:59 Fluticasone Propionate (Flonase 0.05% Nasal [place]) 1 SPRAY IN EACH NOSTRIL BID NA Last administered on 03/12/16 08:03; Start 03/10/16 at 21:00; Stop at 20:59 Furosemide (Lasix) 20 mg Q2DP PRN PO FLUID RETENTION Last administered on 08:05; Start 03/08/16 at 19:00; Stop 04/07/16 at 18:59 Gabapentin (Neurontin) 100 mg QHS PO Last administered on 03/11/16 21:05; Start 03/11/16 at 21:00; Stop 04/10/16 at 20:59 Home Med (Med Rec Complete!) ASDIRECTED XX ; Start 03/08/16 at 16:45; Stop at 16:51; Status DC Hydroxyzine HCl (Atarax) 50 mg Q6HP PRN PO ANXIETY/AGGITATION Last administered on 03/12/16 14:17; Start 03/11/16 at 19:00; Stop 04/10/16 at 18:59 Hydroxyzine HCl (Atarax) 50 mg QIDP PRN PO ANXIETY/AGGITATION Last administered on 03/11/16 14:16; Start 03/08/16 at 19:00; Stop 03/11/16 at 17:57 ; Status DC Levofloxacin (Levaquin) 750 mg DAILY@18 PO Last administered on 03/12/16 17:03 ; Start 03/10/16 at 18:00; Stop 03/17/16 at 17:59 Levothyroxine Sodium (Synthroid) 0.125 mg DAILY@06 PO Last administered on 03/12 05:46; Start 03/09/16 at 06:00; Stop 04/08/16 at 05:59 Lorazepam (Ativan) 0.5 mg BID PRN PO ANXIETY/AGITATION; Start 03/08/16 at 19:00 ; Stop 03/08/16 at 20:29; Status DC Lorazepam (Ativan) 0.5 mg BID PRN PO ANXIETY/AGITATION Last administered on 07:49; Start 03/08/16 at 20:29; Stop 03/09/16 at 09:39; Status DC Lorazepam (Ativan) 0.5 mg Q6HP PRN PO ANXIETY/AGITATION Last administered on 10:37; Start 03/11/16 at 21:00; Stop 03/12/16 at 15:25; Status DC Lorazepam (Ativan) 1 mg Q4HP PRN PO ANXIETY/AGITATION Last administered on 03/11 15:05; Start 03/09/16 at 10:00; Stop 03/11/16 at 17:57; Status DC Lorazepam (Ativan) 1 mg STK-MED ONCE As Ordered ; Start 03/08/16 at 15:31; Stop 03/08/16 at 15:32; Status DC Lorazepam (Ativan) 2 mg Q4HP PRN PO ANXIETY/AGITATION; Start 03/09/16 at 09:15 ; Stop 03/09/16 at 09:49; Status DC Lurasidone HCl (Latuda) 40 mg DAILY@08 PO Last administered on 03/11/16 08:32 ; Start 03/09/16 at 08:00; Stop 03/11/16 at 17:57; Status DC Magnesium Hydroxide (Milk Of Magnesia) 30 ml DAILYPRN PRN PO CONSTIPATION Last administered on 03/08/16 20:05; Start 03/08/16 at 19:00; Stop 04/07/16 at 18:59 Omeprazole (PriLOSEC) 20 mg DAILY PO Last administered on 03/12/16 08:02; Start 03/09/16 at 09:00; Stop 04/08/16 at 08:59 Paliperidone (Invega) 3 mg QHS PO Last administered on 03/11/16 21:05; Start 03/11/16 at 21:00; Stop 04/10/16 at 20:59 Trazodone HCl (Desyrel) 50 mg QHSP PRN PO INSOMNIA; Start 03/08/16 at 19:00; Stop 04/07/16 at 18:59 Valacyclovir HCl (Valtrex) 500 mg BID PO Last administered on 03/12/16 08:03; Start 03/11/16 at 09:00; Stop 03/18/16 at 08:59 Vitamin D (Vitamin D) 5,000 units MoWeFr@09 PO Last administered on 03/11/16 08:32; Start 03/11/16 at 09:00; Stop 04/10/16 at 08:59 Allergies Coded Allergies: Morphine (Verified Allergy, Unknown, 02/15/16) Penicillins (Verified Allergy, Unknown, 02/15/16) Childhood allergy CLARISA BRANHAM NP Mar 12, 2016 19:53
[2016-03-12] MEDS: PALIPERIDONE 3 MG ER TAB (INVEGA) PO SCH (20:24)
[2016-03-13] MEDS: GABAPENTIN 100 MG CAP PO SCH ×2 (00:40→20:35)
[2016-03-13] MEDS: FUROSEMIDE 20 MG TAB PO PRN (00:42)
[2016-03-13] MEDS: ALBUTEROL 90 MCG/ACT 8GM HFA INHALER INH PRN (00:44)
[2016-03-13] MEDS: hydrOXYzine 50 MG TAB PO PRN ×2 (02:39→08:04)
[2016-03-13] MEDS: CEPACOL LOZENGE PO PRN ×3 (05:00→18:52)
[2016-03-13] MEDS: LEVOTHYROXINE 0.125 MG TAB (125 MCG) PO SCH (05:43)
[2016-03-13 06:39] VITALS: BP 148/92
[2016-03-13] MEDS: FLUTICASONE PROP 0.05% NASAL SPRAY 16 GM (FLONASE) SCH ×2 (08:04→20:35)
[2016-03-13] MEDS: SYMBICORT 160/4.5MCG INHALER 6GM INH SCH ×2 (08:05→20:35)
[2016-03-13] MEDS: OMEPRAZOLE 20 MG CAP PO SCH (08:06)
[2016-03-13] MEDS: VITAMIN D 1,000 INTERNATIONAL UNITS TABLET PO SCH (08:06)
[2016-03-13] MEDS: valACYclovir HCL 500 MG TAB PO SCH ×2 (08:06→20:35)
[2016-03-13] MEDS: DOCUSATE SODIUM 100 MG CAP PO SCH ×2 (08:06→20:35)
[2016-03-13] MEDS: ACETAMINOPHEN TAB 650MG DOSE (2X325MG) PO PRN ×2 (08:35→14:43)
[2016-03-13] MEDS ORDERED: GABAPENTIN 100 MG CAP PO ONE (09:45)
--- NOTE | 2016-03-13 10:25 | IPNPDOC ---
[facility] Progress Note Progress Note DATE OF SERVICE: 03/13/16 HISTORY: This is a 45-year-old white woman with a long standing history of treatment for bipolar disorder, who was admitted after she was brought in by the police. She had been knocking on neighbor's doors over the past days, very delusional and thinking that people were trying to kill her. She was talking about there being evil in her apartment building. She is making statements like "everything I feel is in my heart, God is great, people are evil, they are trying to kill me." She says that there is someone named Deejay is using different names on Facebook trying to get her killed and poison her with magnesium. She has been staying at a motel because she is refusing to stay in her apartment building. The patient is fairly unreliable. It is not clear whether she has been taking her medications. In the emergency room, she says that someone had messed with her bottles of medications, someone threw them out. Today, the patient is very irritated and angry and very loud. She is constantly talking and at times even yelling. She wants to know why she is in the hospital. She says that there is nothing wrong with her. She is demanding to be discharged. Medications were reviewed; the patient was discharged on and she was discharged on Latuda 40 mg daily, Cymbalta 60 mg twice a day, hydroxyzine 50 mg four times a day as needed for anxiety. In the emergency room records, it says that she is also on Cymbalta 60 mg twice a day and Wellbutrin SR 200 mg twice a day, however, when I looked at the medication that she was discharged on, these medications were not included. I reviewed the old records to obtain some history about this patient and it seemed that she was just in the hospital from 02/15/2016 and discharged on 02/27/2016. She was admitted in what appeared to be a manic-like episode. She had been upset with a snowplow man because she thought that he was affiliated with some drug dealers. She was noted to be paranoid with grandiose delusions, talking about being able to predict the future. She also thought that someone was trying to kill her. She was discharged to [facility] for her substance abuse and also for her psychiatric treatment. [facility] PAST PSYCHIATRIC HISTORY: This is obtained from the medical record where it states that she was receiving outpatient treatment from [facility] and they had been prescribing Cymbalta 60 mg twice a day for fibromyalgia and Wellbutrin 200 mg twice a day for depression. She also said they were prescribing Ativan as needed for anxiety. She denies that she has ever made any suicidal attempts and when she was admitted in January she indicated that was her first psychiatric hospitalization, so this would be her second psychiatric hospitalization. FAMILY HISTORY: The patient's mother is bipolar, according to the patient's information that was obtained during her January hospitalization. Also, there was no reported history of family suicides. SUBSTANCE ABUSE: The patient uses cannabis for at least the past few months. According to the January admission, they indicated "off and on all day long," as far as the marijuana goes. According to the records from her January admission, there is some mention that the patient stated that she had some reduced appetite, depressed mood and paranoia during that admission. VITAL SIGNS: Please see below. 97.8 98 20 148/92 99% NEW TEST RESULTS: NA CURRENT MEDICATIONS: See below. Hydroxyzine hcl 25 mg po q 4 hours prn anxiety, Invega 3 mg po q hs, Trazodone 50 mg po qhs PRN sleep, Gabapentin 100 mg po q hs. MENTAL STATUS EXAMINATION: Patient is a 45 year old female, who is emotionally labile, cooperative, mostly well kempt, of obese build. Pt. states to provider and instrument mechanics supervisor Raulito, "God has me and he's gonna take care of me". Speech: Is slight circumstantial, some flight of ideas, tangential, of normal rate, louder than average volume, articulate, coherent, and spontaneous. Thought processes: Not clear, somewhat goal-directed. Rate of thoughts: Normal Thought content: Irrational, Illogical, Less paranoid. Abstract reasoning: Limited. Computation: Limited. Associations: Circumstantial , Tangential. Abnormal or psychotic thoughts: Less paranoia, no longer feels people are out to get her or kill her. Pt. now feels daughter may have had something to do with her meds disappearing. Pt. is slightly delusional when it comes to restorationism topics. Judgment: Limited. Insight: Very limited to none. Oriented to: Time, place, person and surroundings. Recent and Remote Memory: Pt. feels this is improving. Attention Span and Concentration: Poor today. Language: Normal. Fund of knowledge: Adequate. Mood: "I'm inproving", rational, labile. Affect: Appropriate, Reactive, Irrational at times, Agitated at times, Manic, Labile. DIAGNOSES: 1. Bipolar Disorder, mixed depression/anxiety 2. Medication induced delirium due to Cannabis use 3. R/O Schizoaffective, bipolar type ASSESSMENT: Pt. noted to not be as clear today during assessment. Pt. continues to be less paranoid of being poisoned or killed. Pt. seen with SIM Franco. Pt. is calm at present, manic at times, appropriate, labile, irrational and illogical at times. Speech is not pressured, patient is able to get her thoughts out logically. MANAGEMENT PLAN: Patient to continue gabapentin 100 mg by mouth daily at bedtime , increasing to 100 mg at am and noon, 200 mg po qhs, Invega 3 mg by mouth daily at bedtime, to increase to 6 mg to be taken in the AM. Change Atarax to 25 mg every 4 hours when necessary as needed for anxiety or agitation, trazodone 50 mg by mouth daily at bedtime when necessary for sleep, ibuprofen 400 mg po q 6 hours prn pain. Pt's med's discussed with patient and she states her understanding and is OK with changes. Vital Signs/I&O Vital Signs Date Time Temp Pulse Resp B/P Pulse Ox O2 Delivery O2 Flow Rate FiO2 03/13/16 06:39 97.8 98 20 148/92 99 99 03/11/16 18:00 Room Air 03/10/16 06:22 2.0 Current Medications Current Medications Acetaminophen (Tylenol) 650 mg Q4HP PRN PO PAIN OR FEVER Last administered on 08:35; Start 03/10/16 at 22:30; Stop 04/09/16 at 22:29 Acetaminophen (Tylenol) 650 mg Q6HP PRN PO HEADACHE or DISCOMFORT Last administered on 03/10/16 17:30; Start 03/08/16 at 19:00; Stop 03/10/16 at 22:16 ; Status DC Al Hydrox/Mg Hydrox/Simethicone (Mylanta) 30 ml Q4HP PRN PO HEARTBURN/ INDIGESTION Last administered on 03/09/16 19:14; Start 03/08/16 at 19:00; Stop 04/07/16 at 18:59 Albuterol Sulfate (Proventil, Ventolin Hfa) 2 puff Q4HP PRN INH SHORTNESS OF BREATH Last administered on 03/13/16 00:44; Start 03/08/16 at 20:30; Stop 04/07 at 20:29 Budesonide/ Formoterol Fumarate (Symbicort 160/ 4.5mcg) 2 puff BID INH Last administered on 03/13/16 08:05; Start 03/08/16 at 21:00; Stop 04/07/16 at 20:59 Cetylpyridinium Chloride (Cepacol) 1 calista Q2HP PRN PO COUGH Last administered on 03/13/16 05:00; Start 03/10/16 at 22:00; Stop 04/09/16 at 21:59 Docusate Sodium (Colace) 100 mg BID PO Last administered on 03/13/16 08:06; Start 03/08/16 at 21:00; Stop 04/07/16 at 20:59 Fluticasone Propionate (Flonase 0.05% Nasal [place]) 1 SPRAY IN EACH NOSTRIL BID NA Last administered on 03/13/16 08:04; Start 03/10/16 at 21:00; Stop at 20:59 Furosemide (Lasix) 20 mg Q2DP PRN PO FLUID RETENTION Last administered on 00:42; Start 03/08/16 at 19:00; Stop 04/07/16 at 18:59 Gabapentin (Neurontin) 100 mg NOW ONCE PO Last administered on 03/12/16 19:37 ; Start 03/12/16 at 19:30; Stop 03/12/16 at 19:32; Status DC Gabapentin (Neurontin) 100 mg QHS PO Last administered on 03/13/16 00:40; Start 03/11/16 at 21:00; Stop 04/10/16 at 20:59 Gabapentin (Neurontin) 200 mg NOW ONCE PO Last administered on 03/13/16 09:45 ; Start 03/13/16 at 09:45; Stop 03/13/16 at 09:46; Status DC Home Med (Med Rec Complete!) ASDIRECTED XX ; Start 03/08/16 at 16:45; Stop at 16:51; Status DC Hydroxyzine HCl (Atarax) 50 mg Q6HP PRN PO ANXIETY/AGGITATION Last administered on 03/13/16 08:04; Start 03/11/16 at 19:00; Stop 04/10/16 at 18:59 Hydroxyzine HCl (Atarax) 50 mg QIDP PRN PO ANXIETY/AGGITATION Last administered on 03/11/16 14:16; Start 03/08/16 at 19:00; Stop 03/11/16 at 17:57 ; Status DC Levofloxacin (Levaquin) 750 mg DAILY@18 PO Last administered on 03/12/16 17:03 ; Start 03/10/16 at 18:00; Stop 03/17/16 at 17:59 Levothyroxine Sodium (Synthroid) 0.125 mg DAILY@06 PO Last administered on 03/13 05:43; Start 03/09/16 at 06:00; Stop 04/08/16 at 05:59 Lorazepam (Ativan) 0.5 mg BID PRN PO ANXIETY/AGITATION; Start 03/08/16 at 19:00 ; Stop 03/08/16 at 20:29; Status DC Lorazepam (Ativan) 0.5 mg BID PRN PO ANXIETY/AGITATION Last administered on 07:49; Start 03/08/16 at 20:29; Stop 03/09/16 at 09:39; Status DC Lorazepam (Ativan) 0.5 mg Q6HP PRN PO ANXIETY/AGITATION Last administered on 10:37; Start 03/11/16 at 21:00; Stop 03/12/16 at 15:25; Status DC Lorazepam (Ativan) 1 mg Q4HP PRN PO ANXIETY/AGITATION Last administered on 03/11 15:05; Start 03/09/16 at 10:00; Stop 03/11/16 at 17:57; Status DC Lorazepam (Ativan) 1 mg STK-MED ONCE As Ordered ; Start 03/08/16 at 15:31; Stop 03/08/16 at 15:32; Status DC Lorazepam (Ativan) 2 mg Q4HP PRN PO ANXIETY/AGITATION; Start 03/09/16 at 09:15 ; Stop 03/09/16 at 09:49; Status DC Lurasidone HCl (Latuda) 40 mg DAILY@08 PO Last administered on 03/11/16 08:32 ; Start 03/09/16 at 08:00; Stop 03/11/16 at 17:57; Status DC Magnesium Hydroxide (Milk Of Magnesia) 30 ml DAILYPRN PRN PO CONSTIPATION Last administered on 03/08/16 20:05; Start 03/08/16 at 19:00; Stop 04/07/16 at 18:59 Omeprazole (PriLOSEC) 20 mg DAILY PO Last administered on 03/13/16 08:06; Start 03/09/16 at 09:00; Stop 04/08/16 at 08:59 Paliperidone (Invega) 3 mg QHS PO Last administered on 03/12/16 20:24; Start 03/11/16 at 21:00; Stop 04/10/16 at 20:59 Trazodone HCl (Desyrel) 50 mg QHSP PRN PO INSOMNIA; Start 03/08/16 at 19:00; Stop 04/07/16 at 18:59 Valacyclovir HCl (Valtrex) 500 mg BID PO Last administered on 03/13/16 08:06; Start 03/11/16 at 09:00; Stop 03/18/16 at 08:59 Vitamin D (Vitamin D) 5,000 units MoWeFr@09 PO Last administered on 03/13/16 08:06; Start 03/11/16 at 09:00; Stop 04/10/16 at 08:59 Allergies Coded Allergies: Morphine (Verified Allergy, Unknown, 02/15/16) Penicillins (Verified Allergy, Unknown, 02/15/16) Childhood allergy CLARISA BRANHAM NP Mar 13, 2016 10:25
[2016-03-13] MEDS: hydrOXYzine 25 MG TAB PO PRN ×3 (14:43→23:07)
[2016-03-13 18:00] VITALS: BP 142/85
[2016-03-13] MEDS: LevoFLOXacin 750 MG TABLET PO SCH (18:51)
[2016-03-13] MEDS ORDERED: PALIPERIDONE 3 MG ER TAB (INVEGA) PO SCH (21:00)
[2016-03-13] MEDS: IBUPROFEN 400 MG TAB PO PRN (22:47)
[2016-03-13] MEDS: traZODone 50 MG TAB PO PRN (23:07)
[2016-03-14] MEDS: ALBUTEROL 90 MCG/ACT 8GM HFA INHALER INH PRN ×2 (02:48→22:38)
[2016-03-14] MEDS: CEPACOL LOZENGE PO PRN (02:48)
[2016-03-14] MEDS: hydrOXYzine 25 MG TAB PO PRN ×5 (03:04→21:04)
[2016-03-14] MEDS: ACETAMINOPHEN TAB 650MG DOSE (2X325MG) PO PRN ×2 (03:06→10:06)
[2016-03-14] MEDS: MAALOX 30 ML SUSP *UDC PO PRN ×2 (04:36→21:04)
[2016-03-14] MEDS: LEVOTHYROXINE 0.125 MG TAB (125 MCG) PO SCH (06:20)
[2016-03-14 06:51] VITALS: BP 131/82
[2016-03-14] MEDS: IBUPROFEN 400 MG TAB PO PRN ×3 (07:53→21:04)
[2016-03-14] MEDS: SYMBICORT 160/4.5MCG INHALER 6GM INH SCH ×2 (08:47→19:59)
[2016-03-14] MEDS: DOCUSATE SODIUM 100 MG CAP PO SCH ×2 (08:47→19:59)
[2016-03-14] MEDS: GABAPENTIN 100 MG CAP PO SCH ×3 (08:47→19:58)
[2016-03-14] MEDS: OMEPRAZOLE 20 MG CAP PO SCH (08:47)
[2016-03-14] MEDS: FLUTICASONE PROP 0.05% NASAL SPRAY 16 GM (FLONASE) SCH ×2 (08:47→19:59)
[2016-03-14] MEDS: valACYclovir HCL 500 MG TAB PO SCH ×2 (08:47→19:59)
[2016-03-14] MEDS ORDERED: **PENDING PPD ENTRY XX SCH (09:00)
--- NOTE | 2016-03-14 11:35 | IPNPDOC ---
Assessment/Plan Date Seen The patient was seen on 03/14/16. Problems Problems: (1) Bronchitis Status: Acute Problem Text: * Patient is finishing course of Levaquin by mouth * Continue Flonase twice a day * Add saline nasal spray every 2 hours as needed * Robitussin 5 mL every 6 hours as needed (2) Dermatophytosis of foot Status: Acute Problem Text: * Apply ketoconazole cream to feet bilaterally daily Plan / VTE VTE Prophylaxis Ordered?: No (ambulatory) Subjective Review of Systems CC/HPI The patient is a 45-year-old female admitted with a reason for visit of Other Specified Psychotic Do. Events since last encounter Patient is finishing course of Levaquin for bronchitis. She is still experiencing some nasal congestion. She is still experiencing some cough. She states her feet feel itchy and are red. Objective Physical Examination General Exam: Positive: Alert Eye Exam: Positive: PERRLA ENT Exam: Positive: Atraumatic Chest Exam: Positive: Clear to auscultation, Normal air movement Heart Exam: Positive: Normal S1, Normal S2, Rate Normal, Regular Rhythm, Negative: Murmurs, Rubs Skin Exam: Positive: Nl turgor and temperature, Other skin issue (there is some erythema and skin scaling of the toes and between the toes bilaterally.) Vital Signs/I&O Vital Signs Date Time Temp Pulse Resp B/P Pulse Ox O2 Delivery O2 Flow Rate FiO2 03/14/16 06:51 96.8 94 18 131/82 98 Room Air 03/13/16 06:39 99 03/10/16 06:22 2.0 Laboratory Data Microbiology Microbiology 03/10/16 Blood Culture - Preliminary, Resulted No Growth after 72 hours. All specime... 03/10/16 Gram Stain - Final, Complete 03/10/16 Sputum Culture - Final, Complete 03/10/16 Eye/Ear/Nose/Throat Culture - Final, Complete Nataly Escalante Mar 14, 2016 11:35
[2016-03-14] MEDS: guaiFENesin SYRUP 200 MG/10 ML UDC PO PRN (12:02)
[2016-03-14] MEDS: KETOCONAZOLE 2% CREAM TOP SCH (12:02)
[2016-03-14] MEDS: SODIUM CHLORIDE NASAL 0.65% SPRAY BTL (OCEAN) PRN ×2 (12:06→21:06)
[2016-03-14] MEDS: FUROSEMIDE 20 MG TAB PO PRN (16:54)
[2016-03-14] MEDS: LevoFLOXacin 750 MG TABLET PO SCH (17:03)
[2016-03-14 18:00] VITALS: BP 148/85
--- NOTE | 2016-03-14 18:02 | IPNPDOC ---
[facility] Progress Note Progress Note DATE OF SERVICE: 03/14/16 HISTORY: This is a 45-year-old white woman with a long standing history of treatment for bipolar disorder, who was admitted after she was brought in by the police. She had been knocking on neighbor's doors over the past days, very delusional and thinking that people were trying to kill her. She was talking about there being evil in her apartment building. She is making statements like "everything I feel is in my heart, God is great, people are evil, they are trying to kill me." She says that there is someone named Deejay is using different names on Facebook trying to get her killed and poison her with magnesium. She has been staying at a motel because she is refusing to stay in her apartment building. The patient is fairly unreliable. It is not clear whether she has been taking her medications. In the emergency room, she says that someone had messed with her bottles of medications, someone threw them out. Today, the patient is very irritated and angry and very loud. She is constantly talking and at times even yelling. She wants to know why she is in the hospital. She says that there is nothing wrong with her. She is demanding to be discharged. Medications were reviewed; the patient was discharged on and she was discharged on Latuda 40 mg daily, Cymbalta 60 mg twice a day, hydroxyzine 50 mg four times a day as needed for anxiety. In the emergency room records, it says that she is also on Cymbalta 60 mg twice a day and Wellbutrin SR 200 mg twice a day, however, when I looked at the medication that she was discharged on, these medications were not included. I reviewed the old records to obtain some history about this patient and it seemed that she was just in the hospital from 02/15/2016 and discharged on 02/27/2016. She was admitted in what appeared to be a manic-like episode. She had been upset with a snowplow man because she thought that he was affiliated with some drug dealers. She was noted to be paranoid with grandiose delusions, talking about being able to predict the future. She also thought that someone was trying to kill her. She was discharged to [facility] for her substance abuse and also for her psychiatric treatment. [facility] PAST PSYCHIATRIC HISTORY: This is obtained from the medical record where it states that she was receiving outpatient treatment from [facility] and they had been prescribing Cymbalta 60 mg twice a day for fibromyalgia and Wellbutrin 200 mg twice a day for depression. She also said they were prescribing Ativan as needed for anxiety. She denies that she has ever made any suicidal attempts and when she was admitted in January she indicated that was her first psychiatric hospitalization, so this would be her second psychiatric hospitalization. FAMILY HISTORY: The patient's mother is bipolar, according to the patient's information that was obtained during her January hospitalization. Also, there was no reported history of family suicides. SUBSTANCE ABUSE: The patient uses cannabis for at least the past few months. According to the January admission, they indicated "off and on all day long," as far as the marijuana goes. According to the records from her January admission, there is some mention that the patient stated that she had some reduced appetite, depressed mood and paranoia during that admission. VITAL SIGNS: Please see below. 96.8 94 18 98% NEW TEST RESULTS: NA. CURRENT MEDICATIONS: See below. Hydroxyzine hcl 25 mg po q 4 hours prn anxiety , Invega 6 mg po q hs, Trazodone 50 mg po qhs PRN sleep, Gabapentin 100 mg po q hs. MENTAL STATUS EXAMINATION: Patient is a 45 year old female, who is emotionally labile, cooperative, mostly well kempt, of obese build. Pt. is assessed with gas prover Nicola MENENDEZ. Speech: Is slight circumstantial, some flight of ideas, tangential, of increased rate, louder than average volume, articulate, coherent, and spontaneous. Thought processes: Not clear, somewhat goal-directed, irrational at times. Rate of thoughts: Increased Thought content: Irrational, Illogical, Less paranoid. Abstract reasoning: Limited. Computation: Limited. Associations: Circumstantial, Tangential. Abnormal or psychotic thoughts: Less paranoia, no longer feels people are out to get her or kill her. Pt. now feels daughter may have had something to do with her meds disappearing. Pt. is slightly delusional when it comes to religion topics. Pt. has been going off on staff in ever changing tangents. Judgment: Limited. Insight: Very limited to none. Oriented to: Time, place, person and surroundings. Recent and Remote Memory: "That's getting a whole lot better, everything is brighter". Attention Span and Concentration: Poor again today. Language: Normal but rambling. Fund of knowledge: Adequate. Mood: "My mood is good, positive, my director advertising is coming tonight", rational, highly labile. Affect: Appropriate, Reactive, Irrational,illogical at times, Agitated at times, Manic, Labile. DIAGNOSES: 1. Bipolar Disorder, mixed depression/anxiety 2. Medication induced delirium due to Cannabis use 3. R/O Schizoaffective, bipolar type ASSESSMENT: Pt. noted to not be clearing as quickly as expected. Probable d/t marijuana induced symptoms. Pt. continues to be less paranoid of being poisoned or killed. Pt. seen with SHON Petersen. Pt. is crying at present, has cried on 3 separate occasions during assessment, manic at times, appropriate, labile, irrational and illogical at times. Speech is not pressured, patient is able to get her thoughts out logically for the most part. MANAGEMENT PLAN: Patient to start lithium 300 mg po qhs, continue gabapentin 200 mg by mouth daily at bedtime, 100 mg at am and noon, 200 mg po qhs, Invega 6 mg by mouth daily in the morning, hydroxyzine hcl 25 mg every 4 hours when necessary as needed for anxiety or agitation, trazodone 50 mg by mouth daily at bedtime when necessary for sleep, ibuprofen 400 mg po q 6 hours prn pain. Pt's med's discussed with patient and she states her understanding and agrees with the changes. Vital Signs/I&O Vital Signs Date Time Temp Pulse Resp B/P Pulse Ox O2 Delivery O2 Flow Rate FiO2 03/14/16 06:51 96.8 94 18 131/82 98 Room Air 03/13/16 06:39 99 03/10/16 06:22 2.0 Current Medications Current Medications Acetaminophen (Tylenol) 650 mg Q4HP PRN PO PAIN OR FEVER Last administered on 10:06; Start 03/10/16 at 22:30; Stop 04/09/16 at 22:29 Acetaminophen (Tylenol) 650 mg Q6HP PRN PO HEADACHE or DISCOMFORT Last administered on 03/10/16 17:30; Start 03/08/16 at 19:00; Stop 03/10/16 at 22:16 ; Status DC Al Hydrox/Mg Hydrox/Simethicone (Mylanta) 30 ml Q4HP PRN PO HEARTBURN/ INDIGESTION Last administered on 03/14/16 04:36; Start 03/08/16 at 19:00; Stop 04/07/16 at 18:59 Albuterol Sulfate (Proventil, Ventolin Hfa) 2 puff Q4HP PRN INH SHORTNESS OF BREATH Last administered on 03/14/16 02:48; Start 03/08/16 at 20:30; Stop 04/07 at 20:29 Budesonide/ Formoterol Fumarate (Symbicort 160/ 4.5mcg) 2 puff BID INH Last administered on 03/14/16 08:47; Start 03/08/16 at 21:00; Stop 04/07/16 at 20:59 Cetylpyridinium Chloride (Cepacol) 1 calista Q2HP PRN PO COUGH Last administered on 03/14/16 02:48; Start 03/10/16 at 22:00; Stop 03/14/16 at 10:10; Status DC Docusate Sodium (Colace) 100 mg BID PO Last administered on 03/14/16 08:47; Start 03/08/16 at 21:00; Stop 04/07/16 at 20:59 Fluticasone Propionate (Flonase 0.05% Nasal [place]) 1 SPRAY IN EACH NOSTRIL BID NA Last administered on 03/14/16 08:47; Start 03/10/16 at 21:00; Stop at 20:59 Furosemide (Lasix) 20 mg Q2DP PRN PO FLUID RETENTION Last administered on 16:54; Start 03/08/16 at 19:00; Stop 04/07/16 at 18:59 Gabapentin (Neurontin) 100 mg BID@ PO Last administered on 03/14/16 13:03 ; Start 03/14/16 at 09:00; Stop 04/13/16 at 08:59 Gabapentin (Neurontin) 100 mg NOW ONCE PO Last administered on 03/12/16 19:37 ; Start 03/12/16 at 19:30; Stop 03/12/16 at 19:32; Status DC Gabapentin (Neurontin) 100 mg QHS PO Last administered on 03/13/16 00:40; Start 03/11/16 at 21:00; Stop 03/13/16 at 14:35; Status DC Gabapentin (Neurontin) 200 mg NOW ONCE PO Last administered on 03/13/16 09:45 ; Start 03/13/16 at 09:45; Stop 03/13/16 at 09:46; Status DC Gabapentin (Neurontin) 200 mg QHS PO Last administered on 03/13/16 20:35; Start 03/13/16 at 21:00; Stop 04/12/16 at 20:59 Guaifenesin (Robitussin) 5 ml Q6HP PRN PO COUGH Last administered on 03/14/16 12:02; Start 03/14/16 at 10:15; Stop 04/13/16 at 10:14 Home Med (Med Rec Complete!) ASDIRECTED XX ; Start 03/08/16 at 16:45; Stop at 16:51; Status DC Hydroxyzine HCl (Atarax) 50 mg Q6HP PRN PO ANXIETY/AGGITATION Last administered on 03/13/16 08:04; Start 03/11/16 at 19:00; Stop 03/13/16 at 14:35 ; Status DC Hydroxyzine HCl (Atarax) 50 mg QIDP PRN PO ANXIETY/AGGITATION Last administered on 03/11/16 14:16; Start 03/08/16 at 19:00; Stop 03/11/16 at 17:57 ; Status DC Hydroxyzine HCl (Vistaril) 25 mg Q4HP PRN PO ANXIETY/AGGITATION Last administered on 03/14/16 16:54; Start 03/13/16 at 14:39; Stop 04/10/16 at 14:38 Ibuprofen (Advil) 400 mg Q6HP PRN PO PAIN Last administered on 03/14/16 14:32 ; Start 03/13/16 at 17:15; Stop 04/12/16 at 17:14 Ketoconazole (Nizoral) 1 dose DAILY TOP Last administered on 03/14/16 12:02; Start 03/14/16 at 09:00; Stop 04/13/16 at 08:59 Levofloxacin (Levaquin) 750 mg DAILY@18 PO Last administered on 03/14/16 17:03 ; Start 03/10/16 at 18:00; Stop 03/17/16 at 17:59 Levothyroxine Sodium (Synthroid) 0.125 mg DAILY@06 PO Last administered on 03/14 06:20; Start 03/09/16 at 06:00; Stop 04/08/16 at 05:59 Lorazepam (Ativan) 0.5 mg BID PRN PO ANXIETY/AGITATION; Start 03/08/16 at 19:00 ; Stop 03/08/16 at 20:29; Status DC Lorazepam (Ativan) 0.5 mg BID PRN PO ANXIETY/AGITATION Last administered on 07:49; Start 03/08/16 at 20:29; Stop 03/09/16 at 09:39; Status DC Lorazepam (Ativan) 0.5 mg Q6HP PRN PO ANXIETY/AGITATION Last administered on 10:37; Start 03/11/16 at 21:00; Stop 03/12/16 at 15:25; Status DC Lorazepam (Ativan) 1 mg Q4HP PRN PO ANXIETY/AGITATION Last administered on 03/11 15:05; Start 03/09/16 at 10:00; Stop 03/11/16 at 17:57; Status DC Lorazepam (Ativan) 1 mg STK-MED ONCE As Ordered ; Start 03/08/16 at 15:31; Stop 03/08/16 at 15:32; Status DC Lorazepam (Ativan) 2 mg Q4HP PRN PO ANXIETY/AGITATION; Start 03/09/16 at 09:15 ; Stop 03/09/16 at 09:49; Status DC Lurasidone HCl (Latuda) 40 mg DAILY@08 PO Last administered on 03/11/16 08:32 ; Start 03/09/16 at 08:00; Stop 03/11/16 at 17:57; Status DC Magnesium Hydroxide (Milk Of Magnesia) 30 ml DAILYPRN PRN PO CONSTIPATION Last administered on 03/08/16 20:05; Start 03/08/16 at 19:00; Stop 04/07/16 at 18:59 Omeprazole (PriLOSEC) 20 mg DAILY PO Last administered on 03/14/16 08:47; Start 03/09/16 at 09:00; Stop 04/08/16 at 08:59 Paliperidone (Invega) 3 mg QHS PO Last administered on 03/12/16 20:24; Start 03/11/16 at 21:00; Stop 03/13/16 at 14:35; Status DC Paliperidone (Invega) 6 mg QHS PO Last administered on 03/13/16 20:35; Start 03/13/16 at 21:00; Stop 04/12/16 at 20:59 Sodium Chloride ([place] Nasal [place]) 2 spray Q2HP PRN NA NASAL DRYNESS Last administered on 03/14/16 12:06; Start 03/14/16 at 10:15; Stop 04/13/16 at 10:14 Trazodone HCl (Desyrel) 50 mg QHSP PRN PO INSOMNIA Last administered on 23:07; Start 03/08/16 at 19:00; Stop 04/07/16 at 18:59 Valacyclovir HCl (Valtrex) 500 mg BID PO Last administered on 03/14/16 08:47; Start 03/11/16 at 09:00; Stop 03/18/16 at 08:59 Vitamin D (Vitamin D) 5,000 units MoWeFr@09 PO Last administered on 03/13/16 08:06; Start 03/11/16 at 09:00; Stop 04/10/16 at 08:59 Allergies Coded Allergies: Morphine (Verified Allergy, Unknown, 02/15/16) Penicillins (Verified Allergy, Unknown, 02/15/16) Childhood allergy CLARISA BRANHAM NP Mar 14, 2016 18:02
[2016-03-14] MEDS ORDERED: TUBERCULIN PPD 5 UNITS/0.1 ML ID ONE (19:00)
[2016-03-14] MEDS: LITHIUM CARBONATE 300 MG CAP PO SCH (19:58)
[2016-03-14] MEDS ORDERED: PALIPERIDONE 6 MG ER TAB (INVEGA) PO SCH (21:00)
[2016-03-14] MEDS: traZODone 50 MG TAB PO PRN (21:04)
[2016-03-15] MEDS: SODIUM CHLORIDE NASAL 0.65% SPRAY BTL (OCEAN) PRN ×3 (00:55→17:03)
[2016-03-15] MEDS: guaiFENesin SYRUP 200 MG/10 ML UDC PO PRN ×3 (00:55→20:47)
[2016-03-15] MEDS: hydrOXYzine 25 MG TAB PO PRN ×4 (02:04→20:46)
[2016-03-15] MEDS: IBUPROFEN 400 MG TAB PO PRN ×3 (05:43→21:16)
[2016-03-15] MEDS: LEVOTHYROXINE 0.125 MG TAB (125 MCG) PO SCH (05:44)
[2016-03-15 06:42] VITALS: BP 137/69
[2016-03-15] MEDS: FLUTICASONE PROP 0.05% NASAL SPRAY 16 GM (FLONASE) SCH ×2 (08:09→20:46)
[2016-03-15] MEDS: SYMBICORT 160/4.5MCG INHALER 6GM INH SCH ×2 (08:09→20:46)
[2016-03-15] MEDS: OMEPRAZOLE 20 MG CAP PO SCH (08:10)
[2016-03-15] MEDS: VITAMIN D 1,000 INTERNATIONAL UNITS TABLET PO SCH (08:10)
[2016-03-15] MEDS: KETOCONAZOLE 2% CREAM TOP SCH (08:10)
[2016-03-15] MEDS: valACYclovir HCL 500 MG TAB PO SCH ×2 (08:10→20:44)
[2016-03-15] MEDS: GABAPENTIN 100 MG CAP PO SCH ×3 (08:10→20:45)
[2016-03-15] MEDS: DOCUSATE SODIUM 100 MG CAP PO SCH ×2 (08:10→20:45)
[2016-03-15] MEDS: PALIPERIDONE 3 MG ER TAB (INVEGA) PO SCH (09:41)
[2016-03-15] MEDS: ACETAMINOPHEN TAB 650MG DOSE (2X325MG) PO PRN ×2 (09:41→17:03)
[2016-03-15] MEDS: ALBUTEROL 90 MCG/ACT 8GM HFA INHALER INH PRN ×2 (12:12→22:48)
[2016-03-15] MEDS: MOM 30ML SUSPENSION UDC PO PRN (15:19)
[2016-03-15] MEDS: LevoFLOXacin 750 MG TABLET PO SCH (17:03)
[2016-03-15 18:16] VITALS: BP 117/78
--- NOTE | 2016-03-15 18:34 | IPNPDOC ---
[facility] Progress Note Progress Note DATE OF SERVICE: 03/15/16 HISTORY: This is a 45-year-old white woman with a long standing history of treatment for bipolar disorder, who was admitted after she was brought in by the police. She had been knocking on neighbor's doors over the past days, very delusional and thinking that people were trying to kill her. She was talking about there being evil in her apartment building. She is making statements like "everything I feel is in my heart, God is great, people are evil, they are trying to kill me." She says that there is someone named Deejay is using different names on Facebook trying to get her killed and poison her with magnesium. She has been staying at a motel because she is refusing to stay in her apartment building. The patient is fairly unreliable. It is not clear whether she has been taking her medications. In the emergency room, she says that someone had messed with her bottles of medications, someone threw them out. Today, the patient is very irritated and angry and very loud. She is constantly talking and at times even yelling. She wants to know why she is in the hospital. She says that there is nothing wrong with her. She is demanding to be discharged. Medications were reviewed; the patient was discharged on and she was discharged on Latuda 40 mg daily, Cymbalta 60 mg twice a day, hydroxyzine 50 mg four times a day as needed for anxiety. In the emergency room records, it says that she is also on Cymbalta 60 mg twice a day and Wellbutrin SR 200 mg twice a day, however, when I looked at the medication that she was discharged on, these medications were not included. I reviewed the old records to obtain some history about this patient and it seemed that she was just in the hospital from 02/15/2016 and discharged on 02/27/2016. She was admitted in what appeared to be a manic-like episode. She had been upset with a snowplow man because she thought that he was affiliated with some drug dealers. She was noted to be paranoid with grandiose delusions, talking about being able to predict the future. She also thought that someone was trying to kill her. She was discharged to [facility] for her substance abuse and also for her psychiatric treatment. [facility] PAST PSYCHIATRIC HISTORY: This is obtained from the medical record where it states that she was receiving outpatient treatment from [facility] and they had been prescribing Cymbalta 60 mg twice a day for fibromyalgia and Wellbutrin 200 mg twice a day for depression. She also said they were prescribing Ativan as needed for anxiety. She denies that she has ever made any suicidal attempts and when she was admitted in January she indicated that was her first psychiatric hospitalization, so this would be her second psychiatric hospitalization. FAMILY HISTORY: The patient's mother is bipolar, according to the patient's information that was obtained during her January hospitalization. Also, there was no reported history of family suicides. SUBSTANCE ABUSE: The patient uses cannabis for at least the past few months. According to the January admission, they indicated "off and on all day long," as far as the marijuana goes. According to the records from her January admission, there is some mention that the patient stated that she had some reduced appetite, depressed mood and paranoia during that admission. VITAL SIGNS: Please see below. 96.2 98 16 137/69 NEW TEST RESULTS: NA. Ordered urine for heavy metals I and II, B12, TSH. CURRENT MEDICATIONS: See below. Hydroxyzine hcl 25 mg po q 4 hours prn anxiety , Invega 6 mg po q am, Trazodone 50 mg po qhs PRN sleep, Gabapentin 100 mg po q hs, Dinwiddie 300 mg po q hs.. MENTAL STATUS EXAMINATION: Patient is a 45 year old female, who is emotionally labile, cooperative, mostly well kempt, of obese build. Pt. is assessed with store worker Shobha - RAMONITA. Speech: Is slight circumstantial, some flight of ideas, tangential, of increased rate, louder than average volume, articulate, coherent, and spontaneous. Thought processes: Not clear, somewhat goal-directed, irrational at times. Rate of thoughts: Increased Thought content: Irrational, Illogical, Less paranoid. Abstract reasoning: Limited. Computation: Limited. Associations: Circumstantial, Tangential. Abnormal or psychotic thoughts: Less paranoia, no longer feels people are out to get her or kill her. Pt. is slightly delusional when it comes to jew topics. Judgment: Limited. Insight: Very limited to none. Oriented to: Time , place, person and surroundings. Recent and Remote Memory: "Clearing". Attention Span and Concentration: Poor today. Is obsessed with her thought hat she needs to be on a medical floor. Language: Normal but scattered. Fund of knowledge: Adequate. Mood: "Between OK and good", rational at times, highly labile. Affect: Appropriate, Reactive, Irrational,illogical at times, Agitated at times, Manic, Labile. DIAGNOSES: 1. Bipolar Disorder, mixed depression/anxiety 2. Medication induced delirium due to Cannabis use 3. R/O Schizoaffective, bipolar type ASSESSMENT: Pt. noted to be clearing slowly. Probable d/t marijuana induced symptoms. Pt. continues to be less paranoid but is still delusional in thoughts of being discharged or going to MD appointments.. Pt. seen with RAMONITA Yeager. Pt. is crying off and on, states she is frustrated, misses her dog and is homeless. Pt. is less manic, appropriate, labile, irrational and illogical at times. Speech is not pressured, patient is able to get her thoughts out logically for the most part. Pt. is more agitated today and does seem to be fixated on her medical health. Pt. has convinced herself that her cold is pneumonia "and it needs to be monitored on a medical floor, anyone knows that". After assessment, pt. noted to be with her ex- who brought her in some clothes and is helping with her apartment per pt. MANAGEMENT PLAN: Patient to continue lithium 300 mg po qhs, gabapentin 200 mg by mouth daily at bedtime, 100 mg at am and noon, Invega 6 mg by mouth daily in the morning, hydroxyzine hcl 25 mg every 4 hours when necessary as needed for anxiety or agitation, trazodone 50 mg by mouth daily at bedtime when necessary for sleep, ibuprofen 400 mg po q 6 hours prn pain. Pt's med's discussed with patient and she states her understanding and agrees with the plan. Pt. did state at one point in her assessment that these meds made her nervous but she was willing to try them if they may help her. Vital Signs/I&O Vital Signs Date Time Temp Pulse Resp B/P Pulse Ox O2 Delivery O2 Flow Rate FiO2 03/15/16 06:42 96.2 98 16 137/69 03/14/16 06:51 98 Room Air 1/18/17 06:39 99 03/10/16 06:22 2.0 Current Medications Current Medications Acetaminophen (Tylenol) 650 mg Q4HP PRN PO PAIN OR FEVER Last administered on 17:03; Start 03/10/16 at 22:30; Stop 04/09/16 at 22:29 Acetaminophen (Tylenol) 650 mg Q6HP PRN PO HEADACHE or DISCOMFORT Last administered on 03/10/16 17:30; Start 03/08/16 at 19:00; Stop 03/10/16 at 22:16 ; Status DC Al Hydrox/Mg Hydrox/Simethicone (Mylanta) 30 ml Q4HP PRN PO HEARTBURN/ INDIGESTION Last administered on 03/14/16 21:04; Start 03/08/16 at 19:00; Stop 04/07/16 at 18:59 Albuterol Sulfate (Proventil, Ventolin Hfa) 2 puff Q4HP PRN INH SHORTNESS OF BREATH Last administered on 03/15/16 12:12; Start 03/08/16 at 20:30; Stop 04/07 at 20:29 Budesonide/ Formoterol Fumarate (Symbicort 160/ 4.5mcg) 2 puff BID INH Last administered on 03/15/16 08:09; Start 03/08/16 at 21:00; Stop 04/07/16 at 20:59 Cetylpyridinium Chloride (Cepacol) 1 calista Q2HP PRN PO COUGH Last administered on 03/14/16 02:48; Start 03/10/16 at 22:00; Stop 03/14/16 at 10:10; Status DC Docusate Sodium (Colace) 100 mg BID PO Last administered on 03/15/16 08:10; Start 03/08/16 at 21:00; Stop 04/07/16 at 20:59 Fluticasone Propionate (Flonase 0.05% Nasal Calera) 1 SPRAY IN EACH NOSTRIL BID NA Last administered on 03/15/16 08:09; Start 03/10/16 at 21:00; Stop at 20:59 Furosemide (Lasix) 20 mg Q2DP PRN PO FLUID RETENTION Last administered on 16:54; Start 03/08/16 at 19:00; Stop 04/07/16 at 18:59 Gabapentin (Neurontin) 100 mg BID@ PO Last administered on 03/15/16 13:37 ; Start 03/14/16 at 09:00; Stop 04/13/16 at 08:59 Gabapentin (Neurontin) 100 mg NOW ONCE PO Last administered on 03/12/16 19:37 ; Start 03/12/16 at 19:30; Stop 03/12/16 at 19:32; Status DC Gabapentin (Neurontin) 100 mg QHS PO Last administered on 03/13/16 00:40; Start 03/11/16 at 21:00; Stop 03/13/16 at 14:35; Status DC Gabapentin (Neurontin) 200 mg NOW ONCE PO Last administered on 03/13/16 09:45 ; Start 03/13/16 at 09:45; Stop 03/13/16 at 09:46; Status DC Gabapentin (Neurontin) 200 mg QHS PO Last administered on 03/14/16 19:58; Start 03/13/16 at 21:00; Stop 04/12/16 at 20:59 Guaifenesin (Robitussin) 5 ml Q6HP PRN PO COUGH Last administered on 03/15/16 08:10; Start 03/14/16 at 10:15; Stop 04/13/16 at 10:14 Home Med (Med Rec Complete!) ASDIRECTED XX ; Start 03/08/16 at 16:45; Stop at 16:51; Status DC Hydroxyzine HCl (Atarax) 50 mg Q6HP PRN PO ANXIETY/AGGITATION Last administered on 03/13/16 08:04; Start 03/11/16 at 19:00; Stop 03/13/16 at 14:35 ; Status DC Hydroxyzine HCl (Atarax) 50 mg QIDP PRN PO ANXIETY/AGGITATION Last administered on 03/11/16 14:16; Start 03/08/16 at 19:00; Stop 03/11/16 at 17:57 ; Status DC Hydroxyzine HCl (Vistaril) 25 mg Q4HP PRN PO ANXIETY/AGGITATION Last administered on 03/15/16 13:37; Start 03/13/16 at 14:39; Stop 04/10/16 at 14:38 Ibuprofen (Advil) 400 mg Q6HP PRN PO PAIN Last administered on 03/15/16 11:49 ; Start 03/13/16 at 17:15; Stop 04/12/16 at 17:14 Ketoconazole (Nizoral) 1 dose DAILY TOP Last administered on 03/15/16 08:10; Start 03/14/16 at 09:00; Stop 04/13/16 at 08:59 Levofloxacin (Levaquin) 750 mg DAILY@18 PO Last administered on 03/15/16 17:03 ; Start 03/10/16 at 18:00; Stop 03/17/16 at 17:59 Levothyroxine Sodium (Synthroid) 0.125 mg DAILY@06 PO Last administered on 03/15 05:44; Start 03/09/16 at 06:00; Stop 04/08/16 at 05:59 Dinwiddie Carbonate (Dinwiddie Carbonate) 300 mg QHS PO Last administered on 19:58; Start 03/14/16 at 21:00; Stop 04/13/16 at 20:59 Lorazepam (Ativan) 0.5 mg BID PRN PO ANXIETY/AGITATION; Start 03/08/16 at 19:00 ; Stop 03/08/16 at 20:29; Status DC Lorazepam (Ativan) 0.5 mg BID PRN PO ANXIETY/AGITATION Last administered on 07:49; Start 03/08/16 at 20:29; Stop 03/09/16 at 09:39; Status DC Lorazepam (Ativan) 0.5 mg Q6HP PRN PO ANXIETY/AGITATION Last administered on 10:37; Start 03/11/16 at 21:00; Stop 03/12/16 at 15:25; Status DC Lorazepam (Ativan) 1 mg Q4HP PRN PO ANXIETY/AGITATION Last administered on 03/11 15:05; Start 03/09/16 at 10:00; Stop 03/11/16 at 17:57; Status DC Lorazepam (Ativan) 1 mg STK-MED ONCE As Ordered ; Start 03/08/16 at 15:31; Stop 03/08/16 at 15:32; Status DC Lorazepam (Ativan) 2 mg Q4HP PRN PO ANXIETY/AGITATION; Start 03/09/16 at 09:15 ; Stop 03/09/16 at 09:49; Status DC Lurasidone HCl (Latuda) 40 mg DAILY@08 PO Last administered on 03/11/16 08:32 ; Start 03/09/16 at 08:00; Stop 03/11/16 at 17:57; Status DC Magnesium Hydroxide (Milk Of Magnesia) 30 ml DAILYPRN PRN PO CONSTIPATION Last administered on 03/15/16 15:19; Start 03/08/16 at 19:00; Stop 04/07/16 at 18:59 Non-Formulary Medication ( See Comment Field Below ) SEE COMMENTS SECTION 1T @19 XX ; Start 03/16/16 at 19:00; Stop 04/15/16 at 18:59 Non-Formulary Medication ( See Comment Field Below ) SEE LABEL COMMENTS DAILY XX ; Start 03/14/16 at 09:00; Stop 03/14/16 at 18:11; Status DC Omeprazole (PriLOSEC) 20 mg DAILY PO Last administered on 03/15/16 08:10; Start 03/09/16 at 09:00; Stop 04/08/16 at 08:59 Paliperidone (Invega) 3 mg QHS PO Last administered on 03/12/16 20:24; Start 03/11/16 at 21:00; Stop 03/13/16 at 14:35; Status DC Paliperidone (Invega) 6 mg DAILY@21 PO Last administered on 03/14/16 19:58; Start 03/14/16 at 21:00; Stop 03/14/16 at 22:00; Status DC Paliperidone (Invega) 6 mg QAM PO Last administered on 03/15/16 09:41; Start 03/15/16 at 09:00; Stop 04/14/16 at 08:59 Paliperidone (Invega) 6 mg QHS PO Last administered on 03/13/16 20:35; Start 03/13/16 at 21:00; Stop 03/14/16 at 18:38; Status DC Sodium Chloride ([place] Nasal Calera) 2 spray Q2HP PRN NA NASAL DRYNESS Last administered on 1/20/17at 17:03; Start 03/14/16 at 10:15; Stop 04/13/16 at 10:14 Trazodone HCl (Desyrel) 50 mg QHSP PRN PO INSOMNIA Last administered on 21:04; Start 03/08/16 at 19:00; Stop 04/07/16 at 18:59 Tuberculin PPD (Aplisol, Ppd) 5 units 1T@19 ONCE ID Last administered on 20:16; Start 03/14/16 at 19:00; Stop 03/14/16 at 19:01; Status DC Valacyclovir HCl (Valtrex) 500 mg BID PO Last administered on 03/15/16 08:10; Start 03/11/16 at 09:00; Stop 03/18/16 at 08:59 Vitamin D (Vitamin D) 5,000 units MoWeFr@09 PO Last administered on 03/15/16 08:10; Start 03/11/16 at 09:00; Stop 04/10/16 at 08:59 Allergies Coded Allergies: Morphine (Verified Allergy, Unknown, 02/15/16) Penicillins (Verified Allergy, Unknown, 02/15/16) Childhood allergy CLARISA BRANHAM NP Mar 15, 2016 18:34
[2016-03-15] MEDS: LITHIUM CARBONATE 300 MG CAP PO SCH (20:45)
[2016-03-15] MEDS: traZODone 50 MG TAB PO PRN (22:19)
[2016-03-16] MEDS: ACETAMINOPHEN TAB 650MG DOSE (2X325MG) PO PRN ×3 (02:45→21:18)
[2016-03-16] MEDS: LEVOTHYROXINE 0.125 MG TAB (125 MCG) PO SCH (06:12)
[2016-03-16] MEDS: hydrOXYzine 25 MG TAB PO PRN ×4 (06:13→21:17)
[2016-03-16] MEDS: SODIUM CHLORIDE NASAL 0.65% SPRAY BTL (OCEAN) PRN ×2 (06:14→14:41)
[2016-03-16 06:35] VITALS: BP 114/69
[2016-03-16] MEDS: FLUTICASONE PROP 0.05% NASAL SPRAY 16 GM (FLONASE) SCH ×2 (08:06→20:40)
[2016-03-16] MEDS: SYMBICORT 160/4.5MCG INHALER 6GM INH SCH ×2 (08:06→20:07)
[2016-03-16] MEDS: ALBUTEROL 90 MCG/ACT 8GM HFA INHALER INH PRN (08:07)
[2016-03-16] MEDS: DOCUSATE SODIUM 100 MG CAP PO SCH ×2 (08:07→20:07)
[2016-03-16] MEDS: FUROSEMIDE 20 MG TAB PO PRN (08:07)
[2016-03-16] MEDS: OMEPRAZOLE 20 MG CAP PO SCH (08:07)
[2016-03-16] MEDS: IBUPROFEN 400 MG TAB PO PRN ×2 (08:07→18:42)
[2016-03-16] MEDS: KETOCONAZOLE 2% CREAM TOP SCH (08:08)
[2016-03-16] MEDS: PALIPERIDONE 3 MG ER TAB (INVEGA) PO SCH (08:08)
[2016-03-16] MEDS: GABAPENTIN 100 MG CAP PO SCH ×3 (08:08→20:07)
[2016-03-16] MEDS: valACYclovir HCL 500 MG TAB PO SCH ×2 (08:08→20:07)
[2016-03-16] MEDS: LevoFLOXacin 750 MG TABLET PO SCH (17:31)
[2016-03-16 18:00] VITALS: BP 125/85
[2016-03-16] MEDS ORDERED: PPD DOCUMENTATION ENTRY MISC XX SCH (19:00)
[2016-03-16] MEDS: traZODone 50 MG TAB PO PRN (20:07)
[2016-03-16] MEDS: LITHIUM CARBONATE 300 MG CAP PO SCH (20:07)
[2016-03-16] MEDS: guaiFENesin SYRUP 200 MG/10 ML UDC PO PRN (22:28)
[2016-03-17] MEDS: SODIUM CHLORIDE NASAL 0.65% SPRAY BTL (OCEAN) PRN (02:24)
[2016-03-17] MEDS: hydrOXYzine 25 MG TAB PO PRN ×5 (02:24→21:00)
[2016-03-17] MEDS: ACETAMINOPHEN TAB 650MG DOSE (2X325MG) PO PRN ×2 (02:25→21:01)
[2016-03-17] MEDS: IBUPROFEN 400 MG TAB PO PRN ×2 (06:12→14:32)
[2016-03-17 06:18] VITALS: BP 118/75
[2016-03-17] MEDS: LEVOTHYROXINE 0.125 MG TAB (125 MCG) PO SCH (06:37)
[2016-03-17] MEDS: PALIPERIDONE 3 MG ER TAB (INVEGA) PO SCH (08:14)
[2016-03-17] MEDS: DOCUSATE SODIUM 100 MG CAP PO SCH ×2 (08:14→21:00)
[2016-03-17] MEDS: FLUTICASONE PROP 0.05% NASAL SPRAY 16 GM (FLONASE) SCH ×2 (08:14→21:01)
[2016-03-17] MEDS: valACYclovir HCL 500 MG TAB PO SCH ×2 (08:14→21:00)
[2016-03-17] MEDS: OMEPRAZOLE 20 MG CAP PO SCH (08:14)
[2016-03-17] MEDS: SYMBICORT 160/4.5MCG INHALER 6GM INH SCH ×2 (08:14→21:01)
[2016-03-17] MEDS: GABAPENTIN 100 MG CAP PO SCH ×3 (08:14→21:00)
[2016-03-17] MEDS: KETOCONAZOLE 2% CREAM TOP SCH (08:15)
[2016-03-17] MEDS: LevoFLOXacin 750 MG TABLET PO SCH (17:14)
[2016-03-17 18:00] VITALS: BP 126/80
[2016-03-17] MEDS: LITHIUM CARBONATE 300 MG CAP PO SCH (21:00)
[2016-03-17] MEDS: traZODone 50 MG TAB PO PRN (21:00)
[2016-03-17] MEDS: guaiFENesin SYRUP 200 MG/10 ML UDC PO PRN (21:01)
[2016-03-17] MEDS: ALBUTEROL 90 MCG/ACT 8GM HFA INHALER INH PRN (23:08)
[2016-03-18] MEDS: hydrOXYzine 25 MG TAB PO PRN ×4 (04:46→22:33)
[2016-03-18] MEDS: SODIUM CHLORIDE NASAL 0.65% SPRAY BTL (OCEAN) PRN ×4 (04:48→22:36)
[2016-03-18] MEDS: LEVOTHYROXINE 0.125 MG TAB (125 MCG) PO SCH (05:53)
[2016-03-18] MEDS: IBUPROFEN 400 MG TAB PO PRN ×2 (05:59→16:13)
[2016-03-18 06:39] VITALS: BP 135/76
[2016-03-18] MEDS: OMEPRAZOLE 20 MG CAP PO SCH (08:14)
[2016-03-18] MEDS: DOCUSATE SODIUM 100 MG CAP PO SCH ×2 (08:14→22:36)
[2016-03-18] MEDS: PALIPERIDONE 3 MG ER TAB (INVEGA) PO SCH (08:15)
[2016-03-18] MEDS: VITAMIN D 1,000 INTERNATIONAL UNITS TABLET PO SCH (08:15)
[2016-03-18] MEDS: valACYclovir HCL 500 MG TAB PO SCH ×2 (08:15→22:33)
[2016-03-18] MEDS: GABAPENTIN 100 MG CAP PO SCH ×3 (08:15→22:36)
[2016-03-18] MEDS: FLUTICASONE PROP 0.05% NASAL SPRAY 16 GM (FLONASE) SCH ×2 (08:15→22:36)
[2016-03-18] MEDS: FUROSEMIDE 20 MG TAB PO PRN (08:15)
[2016-03-18] MEDS: SYMBICORT 160/4.5MCG INHALER 6GM INH SCH ×2 (08:15→22:36)
[2016-03-18] MEDS: KETOCONAZOLE 2% CREAM TOP SCH (08:16)
[2016-03-18] MEDS: ACETAMINOPHEN TAB 650MG DOSE (2X325MG) PO PRN ×2 (09:24→22:38)
[2016-03-18] MEDS ORDERED: hydrOXYzine 50 MG TAB PO STA (10:35)
[2016-03-18] MEDS ORDERED: GABAPENTIN 100 MG CAP PO ONE (11:30)
[2016-03-18] MEDS: LevoFLOXacin 750 MG TABLET PO SCH (17:10)
[2016-03-18 18:00] VITALS: BP 129/81
[2016-03-18] MEDS: LITHIUM CARBONATE 300 MG CAP PO SCH (22:35)
[2016-03-18] MEDS: traZODone 50 MG TAB PO PRN (22:35)
[2016-03-18] MEDS: guaiFENesin SYRUP 200 MG/10 ML UDC PO PRN (22:40)
[2016-03-19] MEDS: hydrOXYzine 25 MG TAB PO PRN ×5 (03:23→21:50)
[2016-03-19] MEDS: LEVOTHYROXINE 0.125 MG TAB (125 MCG) PO SCH (06:08)
[2016-03-19] MEDS: IBUPROFEN 400 MG TAB PO PRN ×2 (06:08→15:52)
[2016-03-19] MEDS: SODIUM CHLORIDE NASAL 0.65% SPRAY BTL (OCEAN) PRN ×2 (06:09→20:23)
[2016-03-19 06:23] VITALS: BP 126/79
[2016-03-19] MEDS: SYMBICORT 160/4.5MCG INHALER 6GM INH SCH ×2 (08:40→20:22)
[2016-03-19] MEDS: FLUTICASONE PROP 0.05% NASAL SPRAY 16 GM (FLONASE) SCH ×2 (08:40→20:23)
[2016-03-19] MEDS: KETOCONAZOLE 2% CREAM TOP SCH (08:41)
[2016-03-19] MEDS: OMEPRAZOLE 20 MG CAP PO SCH (08:41)
[2016-03-19] MEDS: DOCUSATE SODIUM 100 MG CAP PO SCH ×2 (08:41→20:22)
[2016-03-19] MEDS: valACYclovir HCL 500 MG TAB PO SCH ×2 (08:41→20:22)
[2016-03-19] MEDS: GABAPENTIN 100 MG CAP PO SCH ×3 (08:41→20:22)
[2016-03-19] MEDS: PALIPERIDONE 3 MG ER TAB (INVEGA) PO SCH (08:41)
--- NOTE | 2016-03-19 09:06 | IPNPDOC ---
[facility] Progress Note Progress Note DATE: 03/18/16 HISTORY: This is a 45-year-old white woman with a long standing history of treatment for bipolar disorder, who was admitted after she was brought in by the police. She had been knocking on neighbor's doors over the past days, very delusional and thinking that people were trying to kill her. She was talking about there being evil in her apartment building. She is making statements like "everything I feel is in my heart, God is great, people are evil, they are trying to kill me." She says that there is someone named Deejay is using different names on Facebook trying to get her killed and poison her with magnesium. She has been staying at a motel because she is refusing to stay in her apartment building. The patient is fairly unreliable. It is not clear whether she has been taking her medications. In the emergency room, she says that someone had messed with her bottles of medications, someone threw them out. Today, the patient is very irritated and angry and very loud. She is constantly talking and at times even yelling. She wants to know why she is in the hospital. She says that there is nothing wrong with her. She is demanding to be discharged. Medications were reviewed; the patient was discharged on and she was discharged on Latuda 40 mg daily, Cymbalta 60 mg twice a day, hydroxyzine 50 mg four times a day as needed for anxiety. In the emergency room records, it says that she is also on Cymbalta 60 mg twice a day and Wellbutrin SR 200 mg twice a day, however, when I looked at the medication that she was discharged on, these medications were not included. I reviewed the old records to obtain some history about this patient and it seemed that she was just in the hospital from 02/15/2016 and discharged on 02/27/2016. She was admitted in what appeared to be a manic-like episode. She had been upset with a snowplow man because she thought that he was affiliated with some drug dealers. She was noted to be paranoid with grandiose delusions, talking about being able to predict the future. She also thought that someone was trying to kill her. She was discharged to [facility] for her substance abuse and also for her psychiatric treatment. [facility] PAST PSYCHIATRIC HISTORY: This is obtained from the medical record where it states that she was receiving outpatient treatment from [facility] and they had been prescribing Cymbalta 60 mg twice a day for fibromyalgia and Wellbutrin 200 mg twice a day for depression. She also said they were prescribing Ativan as needed for anxiety. She denies that she has ever made any suicidal attempts and when she was admitted in January she indicated that was her first psychiatric hospitalization, so this would be her second psychiatric hospitalization. FAMILY HISTORY: The patient's mother is bipolar, according to the patient's information that was obtained during her January hospitalization. Also, there was no reported history of family suicides. SUBSTANCE ABUSE: The patient uses cannabis for at least the past few months. According to the January admission, they indicated "off and on all day long," as far as the marijuana goes. According to the records from her January admission, there is some mention that the patient stated that she had some reduced appetite, depressed mood and paranoia during that admission. VITAL SIGNS: Please see below. 96.1 90 20 135/76 97%. NEW TEST RESULTS: NA. Ordered urine for heavy metals I and II, B12, TSH. CURRENT MEDICATIONS: See below. Hydroxyzine hcl 25 mg po q 4 hours prn anxiety , Trazodone 50 mg po qhs PRN sleep, Invega 6 mg po q am, Gabapentin 100 mg @ 09 ,13; 200 mg po q hs, [place] 300 mg po q hs. MENTAL STATUS EXAMINATION: Patient is a 45 year old female, who continues to be emotionally labile, cooperative, mostly well kempt, of obese build. Pt. is assessed with jerome Cabezas. Speech: Is slight circumstantial, flight of ideas, tangential, of increased rate , average volume, articulate, coherent, and spontaneous. Thought processes: Clearing, somewhat goal-directed, irrational at times. Rate of thoughts: Increased Thought content: Irrational, Illogical, Less paranoid, appropriate and logical at times. Abstract reasoning: Limited. Computation: Limited. Associations: Circumstantial, Tangential. Abnormal or psychotic thoughts: Patient denies hallucinations, delusions, obsessions, compulsions. Patient still appears to have some paranoia regarding her housing and apartment situation patient appears to be preoccupied with housing. Patient has written in response to notification by her housing authority that if she has 1 more behavior issue she will be evicted. Pt. has some delusions about discharge and making her appointments. Patient denies homicidal or suicidal ideation. Patient would like the systems planner to talk to her daughter to possibly see her grandchildren and dog Judgment: Limited. Insight: Very limited to none. Oriented to: Time, place, person and surroundings. Recent and Remote Memory: "Clearing". Attention Span and Concentration: Better today. Language: Normal but scattered. Fund of knowledge: Adequate. Mood: "Good", rational at times, highly labile. When talking about daughter starts crying and is sad. Affect: Appropriate, Reactive , Irrational, illogical at times, Agitated at times, Manic, highly labile. DIAGNOSES: 1. Bipolar Disorder, mixed depression/anxiety 2. Medication induced delirium due to Cannabis use 3. R/O Schizoaffective, bipolar type ASSESSMENT: Pt. continues to clear slowly. Probable marijuana induced symptoms. Pt. continues to be less paranoid but is still delusional in thoughts of being discharged or going to MD appointments. Pt. seen with SIM Franco. Pt. is crying off and on, states she is frustrated, misses her dog and "my grandbabies ". Pt. is manic, appropriate, labile, irrational and illogical at times. Pt. will be a danger to herself, possibly others if released at this time. Pt. 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 Pt. reports that how she started using marijuana. Speech is slightly pressured, patient is not able to get one thought out before going into another one. Pt. was re-directed by provider and RN numerous times. Pt. does not appear agitated today and does seem to be fixated on her dog and grandchildren. Pt. does appear to be improving slowly. MANAGEMENT PLAN: Patient to increase lithium from 300 to 600 mg po qhs, increase gabapentin to 200 mg by mouth three times daily, Invega 6 mg by mouth daily in the morning, hydroxyzine hcl 25 mg every 4 hours when necessary as needed for anxiety or agitation, trazodone 50 mg by mouth daily at bedtime when necessary for sleep, ibuprofen 400 mg po q 6 hours prn pain. Pt's med's discussed with patient and she states her understanding and agrees with the plan. TIME SPENT: 35 minutes Vital Signs Vital Signs Date Time Temp Pulse Resp B/P Pulse Ox O2 Delivery O2 Flow Rate FiO2 03/19/16 06:23 96.4 94 18 126/79 03/18/16 18:00 Room Air 98 03/18/16 06:39 97 Current Medications Current Medications Acetaminophen (Tylenol) 650 mg Q4HP PRN PO PAIN OR FEVER Last administered on 22:38; Start 03/10/16 at 22:30; Stop 04/09/16 at 22:29 Acetaminophen (Tylenol) 650 mg Q6HP PRN PO HEADACHE or DISCOMFORT Last administered on 03/10/16 17:30; Start 03/08/16 at 19:00; Stop 03/10/16 at 22:16 ; Status DC Al Hydrox/Mg Hydrox/Simethicone (Mylanta) 30 ml Q4HP PRN PO HEARTBURN/ INDIGESTION Last administered on 03/14/16 21:04; Start 03/08/16 at 19:00; Stop 04/07/16 at 18:59 Albuterol Sulfate (Proventil, Ventolin Hfa) 2 puff Q4HP PRN INH SHORTNESS OF BREATH Last administered on 03/17/16 23:08; Start 03/08/16 at 20:30; Stop 04/07 at 20:29 Budesonide/ Formoterol Fumarate (Symbicort 160/ 4.5mcg) 2 puff BID INH Last administered on 03/19/16 08:40; Start 03/08/16 at 21:00; Stop 04/07/16 at 20:59 Cetylpyridinium Chloride (Cepacol) 1 calista Q2HP PRN PO COUGH Last administered on 03/14/16 02:48; Start 03/10/16 at 22:00; Stop 03/14/16 at 10:10; Status DC Docusate Sodium (Colace) 100 mg BID PO Last administered on 03/19/16 08:41; Start 03/08/16 at 21:00; Stop 04/07/16 at 20:59 Fluticasone Propionate (Flonase 0.05% Nasal Webb) 1 SPRAY IN EACH NOSTRIL BID NA Last administered on 03/19/16 08:40; Start 03/10/16 at 21:00; Stop at 20:59 Furosemide (Lasix) 20 mg Q2DP PRN PO FLUID RETENTION Last administered on 08:15; Start 03/08/16 at 19:00; Stop 04/07/16 at 18:59 Gabapentin (Neurontin) 100 mg BID@ PO Last administered on 03/19/16 08:41 ; Start 03/14/16 at 09:00; Stop 04/13/16 at 08:59 Gabapentin (Neurontin) 100 mg QHS PO Last administered on 03/13/16 00:40; Start 03/11/16 at 21:00; Stop 03/13/16 at 14:35; Status DC Gabapentin (Neurontin) 200 mg QHS PO Last administered on 03/18/16 22:36; Start 03/13/16 at 21:00; Stop 04/12/16 at 20:59 Guaifenesin (Robitussin) 5 ml Q6HP PRN PO COUGH Last administered on 03/18/16 22:40; Start 03/14/16 at 10:15; Stop 04/13/16 at 10:14 Home Med (Med Rec Complete!) ASDIRECTED XX ; Start 03/08/16 at 16:45; Stop at 16:51; Status DC Hydroxyzine HCl (Atarax) 50 mg Q6HP PRN PO ANXIETY/AGGITATION Last administered on 03/13/16 08:04; Start 03/11/16 at 19:00; Stop 03/13/16 at 14:35 ; Status DC Hydroxyzine HCl (Atarax) 50 mg QIDP PRN PO ANXIETY/AGGITATION Last administered on 03/11/16 14:16; Start 03/08/16 at 19:00; Stop 03/11/16 at 17:57 ; Status DC Hydroxyzine HCl (Vistaril) 25 mg Q4HP PRN PO ANXIETY/AGGITATION Last administered on 03/19/16 08:43; Start 03/13/16 at 14:39; Stop 04/10/16 at 14:38 Ibuprofen (Advil) 400 mg Q6HP PRN PO PAIN Last administered on 03/19/16 06:08 ; Start 03/13/16 at 17:15; Stop 04/12/16 at 17:14 Ketoconazole (Nizoral) 1 dose DAILY TOP Last administered on 03/19/16 08:41; Start 03/14/16 at 09:00; Stop 04/13/16 at 08:59 Levofloxacin (Levaquin) 750 mg DAILY@18 PO Last administered on 03/18/16 17:10 ; Start 03/10/16 at 18:00; Stop 03/23/16 at 17:59 Levothyroxine Sodium (Synthroid) 0.125 mg DAILY@06 PO Last administered on 03/19 06:08; Start 03/09/16 at 06:00; Stop 04/08/16 at 05:59 [place] Carbonate ([place] Carbonate) 300 mg QHS PO Last administered on 22:35; Start 03/14/16 at 21:00; Stop 04/13/16 at 20:59 Lorazepam (Ativan) 0.5 mg BID PRN PO ANXIETY/AGITATION; Start 03/08/16 at 19:00 ; Stop 03/08/16 at 20:29; Status DC Lorazepam (Ativan) 0.5 mg BID PRN PO ANXIETY/AGITATION Last administered on 07:49; Start 03/08/16 at 20:29; Stop 03/09/16 at 09:39; Status DC Lorazepam (Ativan) 0.5 mg Q6HP PRN PO ANXIETY/AGITATION Last administered on 10:37; Start 03/11/16 at 21:00; Stop 03/12/16 at 15:25; Status DC Lorazepam (Ativan) 1 mg Q4HP PRN PO ANXIETY/AGITATION Last administered on 03/11 15:05; Start 03/09/16 at 10:00; Stop 03/11/16 at 17:57; Status DC Lorazepam (Ativan) 2 mg Q4HP PRN PO ANXIETY/AGITATION; Start 03/09/16 at 09:15 ; Stop 03/09/16 at 09:49; Status DC Lurasidone HCl (Latuda) 40 mg DAILY@08 PO Last administered on 03/11/16 08:32 ; Start 03/09/16 at 08:00; Stop 03/11/16 at 17:57; Status DC Magnesium Hydroxide (Milk Of Magnesia) 30 ml DAILYPRN PRN PO CONSTIPATION Last administered on 03/15/16 15:19; Start 03/08/16 at 19:00; Stop 04/07/16 at 18:59 Non-Formulary Medication ( See Comment Field Below ) SEE COMMENTS SECTION 1T @19 XX Last administered on 03/16/16 18:11; Start 03/16/16 at 19:00; Stop at 14:36; Status DC Non-Formulary Medication ( See Comment Field Below ) SEE LABEL COMMENTS DAILY XX ; Start 03/14/16 at 09:00; Stop 03/14/16 at 18:11; Status DC Omeprazole (PriLOSEC) 20 mg DAILY PO Last administered on 03/19/16 08:41; Start 03/09/16 at 09:00; Stop 04/08/16 at 08:59 Paliperidone (Invega) 3 mg QHS PO Last administered on 03/12/16 20:24; Start 03/11/16 at 21:00; Stop 03/13/16 at 14:35; Status DC Paliperidone (Invega) 6 mg DAILY@21 PO Last administered on 03/14/16 19:58; Start 03/14/16 at 21:00; Stop 03/14/16 at 22:00; Status DC Paliperidone (Invega) 6 mg QAM PO Last administered on 03/19/16 08:41; Start 03/15/16 at 09:00; Stop 04/14/16 at 08:59 Paliperidone (Invega) 6 mg QHS PO Last administered on 03/13/16 20:35; Start 03/13/16 at 21:00; Stop 03/14/16 at 18:38; Status DC Sodium Chloride (Benzonia Nasal Webb) 2 spray Q2HP PRN NA NASAL DRYNESS Last administered on 03/19/16 06:09; Start 03/14/16 at 10:15; Stop 04/13/16 at 10:14 Trazodone HCl (Desyrel) 50 mg QHSP PRN PO INSOMNIA Last administered on 22:35; Start 03/08/16 at 19:00; Stop 04/07/16 at 18:59 Valacyclovir HCl (Valtrex) 500 mg BID PO Last administered on 03/19/16 08:41; Start 03/11/16 at 09:00; Stop 03/24/16 at 08:59 Vitamin D (Vitamin D) 5,000 units MoWeFr@09 PO Last administered on 03/18/16 08:15; Start 03/11/16 at 09:00; Stop 04/10/16 at 08:59 Allergies Coded Allergies: Morphine (Verified Allergy, Unknown, 02/15/16) Penicillins (Verified Allergy, Unknown, 02/15/16) Childhood allergy CLARISA BRANHAM NP Mar 19, 2016 09:06
[2016-03-19] MEDS ORDERED: GABAPENTIN 100 MG CAP PO ONE (11:00)
[2016-03-19] MEDS ORDERED: LITHIUM CARBONATE 300 MG CAP PO ONE (11:00)
[2016-03-19] MEDS: FUROSEMIDE 20 MG TAB PO SCH (11:03)
[2016-03-19] MEDS: MAALOX 30 ML SUSP *UDC PO PRN (11:59)
[2016-03-19 14:30] VITALS: BP 132/71
[2016-03-19] MEDS: LevoFLOXacin 750 MG TABLET PO SCH (17:43)
[2016-03-19 18:00] VITALS: BP 139/75
--- NOTE | 2016-03-19 18:16 | IPNPDOC ---
[facility] Progress Note Progress Note DATE: 03/19/16 HISTORY: This is a 45-year-old white woman with a long standing history of treatment for bipolar disorder, who was admitted after she was brought in by the police. She had been knocking on neighbor's doors over the past days, very delusional and thinking that people were trying to kill her. She was talking about there being evil in her apartment building. She is making statements like "everything I feel is in my heart, God is great, people are evil, they are trying to kill me." She says that there is someone named Deejay is using different names on Facebook trying to get her killed and poison her with magnesium. She has been staying at a motel because she is refusing to stay in her apartment building. The patient is fairly unreliable. It is not clear whether she has been taking her medications. In the emergency room, she says that someone had messed with her bottles of medications, someone threw them out. Today, the patient is very irritated and angry and very loud. She is constantly talking and at times even yelling. She wants to know why she is in the hospital. She says that there is nothing wrong with her. She is demanding to be discharged. Medications were reviewed; the patient was discharged on and she was discharged on Latuda 40 mg daily, Cymbalta 60 mg twice a day, hydroxyzine 50 mg four times a day as needed for anxiety. In the emergency room records, it says that she is also on Cymbalta 60 mg twice a day and Wellbutrin SR 200 mg twice a day, however, when I looked at the medication that she was discharged on, these medications were not included. I reviewed the old records to obtain some history about this patient and it seemed that she was just in the hospital from 02/15/2016 and discharged on 02/27/2016. She was admitted in what appeared to be a manic-like episode. She had been upset with a snowplow man because she thought that he was affiliated with some drug dealers. She was noted to be paranoid with grandiose delusions, talking about being able to predict the future. She also thought that someone was trying to kill her. She was discharged to [facility] for her substance abuse and also for her psychiatric treatment. [facility] PAST PSYCHIATRIC HISTORY: This is obtained from the medical record where it states that she was receiving outpatient treatment from [facility] and they had been prescribing Cymbalta 60 mg twice a day for fibromyalgia and Wellbutrin 200 mg twice a day for depression. She also said they were prescribing Ativan as needed for anxiety. She denies that she has ever made any suicidal attempts and when she was admitted in January she indicated that was her first psychiatric hospitalization, so this would be her second psychiatric hospitalization. FAMILY HISTORY: The patient's mother is bipolar, according to the patient's information that was obtained during her January hospitalization. Also, there was no reported history of family suicides. SUBSTANCE ABUSE: The patient uses cannabis for at least the past few months. According to the January admission, they indicated "off and on all day long," as far as the marijuana goes. According to the records from her January admission, there is some mention that the patient stated that she had some reduced appetite, depressed mood and paranoia during that admission. VITAL SIGNS: Please see below. 96.4 94 18 126/79. NEW TEST RESULTS: NA. Ordered urine for heavy metals I and II, - Pending, B12 - (397)Nml, TSH - .245, low. CURRENT MEDICATIONS: See below. Hydroxyzine hcl 25 mg po q 4 hours prn anxiety , Trazodone 50 mg po qhs PRN sleep, Ibuprofen 400 mg po q6h prn pain, Invega 6 mg po q am, Gabapentin 200 mg po tid, [place] 600 mg po q hs. MENTAL STATUS EXAMINATION: Patient is a 45 year old female, who continues to be emotionally labile, cooperative, mostly well kempt, of obese build. Pt. is assessed with jerome Cabezas. Speech: Is slight circumstantial, flight of ideas, tangential, of increased rate , average volume, articulate, coherent, and spontaneous. Thought processes: Clearing, somewhat goal-directed, irrational at times. Rate of thoughts: Increased Thought content: Irrational, Illogical, Less paranoid, appropriate and logical at times. Abstract reasoning: Limited. Computation: Limited. Associations: Circumstantial, Tangential. Abnormal or psychotic thoughts: Patient denies hallucinations, delusions, obsessions, compulsions. Patient still appears to have some paranoia regarding her housing and apartment situation. Patient appears to be less preoccupied with housing today, now peoccupied with going to court. Pt. states "I really wanted to go to court to smell the outside air", Pt. also states "I also wanted to talk to vp training to ask if I could stay a few more days". Reviewed what court appearance may mean for patient. Pt. reports she does not want to be here another weekend as she does not get visitors. Patient has not sent in response to notification by her housing authority that if she has 1 more behavior issue she will be evicted. Pt. has some delusions about discharge and making her appointments. Patient denies homicidal or suicidal ideation. Patient would like the corporate event planner to talk to her daughter to possibly see her grandchildren and dog. Judgment: Limited. Insight: Slowly improving. Oriented to: Time, place, person and surroundings. Recent and Remote Memory: "Is good". Attention Span and Concentration: Improving. Language: Normal but scattered, tangential. Fund of knowledge: Adequate. Mood: "Optimistic", rational at times, highly labile at others. Less labile today. Affect: Appropriate, Reactive, Irrational , illogical at times, Agitated at times, Manic, less labile today. DIAGNOSES: 1. Bipolar Disorder, mixed depression/anxiety 2. Medication induced delirium due to Cannabis use 3. R/O Schizoaffective, bipolar type ASSESSMENT: Pt. continues to clear slowly. Probable marijuana induced symptoms. Pt. continues to be less paranoid but is still delusional in thoughts of being discharged or going to MD appointments. Pt. seen with SIM Franco. Pt. is crying off and on, states she is frustrated, misses her dog and "my grandbabies ". Pt. is manic, appropriate at times, labile, irrational and illogical at times. Pt. will be a danger to herself, possibly others if released at this time. 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 Pt. reports that is how she started using marijuana. Speech is slightly pressured, patient better able to process thoughts today. Pt. was re -directed by provider and RN numerous times. Pt. does not appear agitated today and does seem to be fixated on going home and making her ex- her "guarantor". Pt. makes no mention of her grandchildren or dog today. Pt. does appear to be improving very slowly. Pt. states "I have different things I can do when I go home". Pt. is starting to make more realistic plans for the future. MANAGEMENT PLAN: Patient to continue lithium 600 mg po qhs, gabapentin 200 mg by mouth three times daily, Invega 6 mg by mouth daily in the morning, hydroxyzine hcl 25 mg every 4 hours when necessary as needed for anxiety or agitation, trazodone 50 mg by mouth daily at bedtime when necessary for sleep, ibuprofen 400 mg po q 6 hours prn pain. Pt's med's discussed with patient and she states her understanding and agrees with the plan. Pt. states she feels the medications have helped her "feel so much better". TIME SPENT: 25 minutes Vital Signs Vital Signs Date Time Temp Pulse Resp B/P Pulse Ox O2 Delivery O2 Flow Rate FiO2 03/19/16 14:30 97.3 94 20 132/71 98 Room Air 03/18/16 18:00 98 Current Medications Current Medications Acetaminophen (Tylenol) 650 mg Q4HP PRN PO PAIN OR FEVER Last administered on 22:38; Start 03/10/16 at 22:30; Stop 04/09/16 at 22:29 Acetaminophen (Tylenol) 650 mg Q6HP PRN PO HEADACHE or DISCOMFORT Last administered on 03/10/16 17:30; Start 03/08/16 at 19:00; Stop 03/10/16 at 22:16 ; Status DC Al Hydrox/Mg Hydrox/Simethicone (Mylanta) 30 ml Q4HP PRN PO HEARTBURN/ INDIGESTION Last administered on 03/19/16 11:59; Start 03/08/16 at 19:00; Stop 04/07/16 at 18:59 Albuterol Sulfate (Proventil, Ventolin Hfa) 2 puff Q4HP PRN INH SHORTNESS OF BREATH Last administered on 03/17/16 23:08; Start 03/08/16 at 20:30; Stop 04/07 at 20:29 Budesonide/ Formoterol Fumarate (Symbicort 160/ 4.5mcg) 2 puff BID INH Last administered on 03/19/16 08:40; Start 03/08/16 at 21:00; Stop 04/07/16 at 20:59 Cetylpyridinium Chloride (Cepacol) 1 calista Q2HP PRN PO COUGH Last administered on 03/14/16 02:48; Start 03/10/16 at 22:00; Stop 03/14/16 at 10:10; Status DC Docusate Sodium (Colace) 100 mg BID PO Last administered on 03/19/16 08:41; Start 03/08/16 at 21:00; Stop 04/07/16 at 20:59 Fluticasone Propionate (Flonase 0.05% Nasal [place]) 1 SPRAY IN EACH NOSTRIL BID NA Last administered on 03/19/16 08:40; Start 03/10/16 at 21:00; Stop at 20:59 Furosemide (Lasix) 10 mg DAILY PO Last administered on 03/19/16 11:03; Start 03/19/16 at 09:00; Stop 04/18/16 at 08:59 Furosemide (Lasix) 20 mg Q2DP PRN PO FLUID RETENTION Last administered on 08:15; Start 03/08/16 at 19:00; Stop 03/19/16 at 10:08; Status DC Gabapentin (Neurontin) 100 mg BID@ PO Last administered on 03/19/16 08:41 ; Start 03/14/16 at 09:00; Stop 03/19/16 at 10:33; Status DC Gabapentin (Neurontin) 100 mg QHS PO Last administered on 03/13/16 00:40; Start 03/11/16 at 21:00; Stop 03/13/16 at 14:35; Status DC Gabapentin (Neurontin) 200 mg QHS PO Last administered on 03/18/16 22:36; Start 03/13/16 at 21:00; Stop 03/19/16 at 10:33; Status DC Gabapentin (Neurontin) 200 mg TID PO Last administered on 03/19/16 15:51; Start 03/19/16 at 16:00; Stop 04/18/16 at 15:59 Guaifenesin (Robitussin) 5 ml Q6HP PRN PO COUGH Last administered on 03/18/16 22:40; Start 03/14/16 at 10:15; Stop 04/13/16 at 10:14 Home Med (Med Rec Complete!) ASDIRECTED XX ; Start 03/08/16 at 16:45; Stop at 16:51; Status DC Hydroxyzine HCl (Atarax) 50 mg Q6HP PRN PO ANXIETY/AGGITATION Last administered on 03/13/16 08:04; Start 03/11/16 at 19:00; Stop 03/13/16 at 14:35 ; Status DC Hydroxyzine HCl (Atarax) 50 mg QIDP PRN PO ANXIETY/AGGITATION Last administered on 03/11/16 14:16; Start 03/08/16 at 19:00; Stop 03/11/16 at 17:57 ; Status DC Hydroxyzine HCl (Vistaril) 25 mg Q4HP PRN PO ANXIETY/AGGITATION Last administered on 03/19/16 17:44; Start 03/13/16 at 14:39; Stop 04/10/16 at 14:38 Ibuprofen (Advil) 400 mg Q6HP PRN PO PAIN Last administered on 03/19/16 15:52 ; Start 03/13/16 at 17:15; Stop 04/12/16 at 17:14 Ketoconazole (Nizoral) 1 dose DAILY TOP Last administered on 03/19/16 08:41; Start 03/14/16 at 09:00; Stop 04/13/16 at 08:59 Levofloxacin (Levaquin) 750 mg DAILY@18 PO Last administered on 03/19/16 17:43 ; Start 03/10/16 at 18:00; Stop 03/23/16 at 17:59 Levothyroxine Sodium (Synthroid) 0.125 mg DAILY@06 PO Last administered on 03/19 06:08; Start 03/09/16 at 06:00; Stop 04/08/16 at 05:59 Kewanna Carbonate (Kewanna Carbonate) 300 mg QHS PO Last administered on 22:35; Start 03/14/16 at 21:00; Stop 03/19/16 at 10:33; Status DC [place] Carbonate ([place] Carbonate) 600 mg QHS PO ; Start 03/19/16 at 21:00; Stop 04/18/16 at 20:59 Lorazepam (Ativan) 0.5 mg BID PRN PO ANXIETY/AGITATION; Start 03/08/16 at 19:00 ; Stop 03/08/16 at 20:29; Status DC Lorazepam (Ativan) 0.5 mg BID PRN PO ANXIETY/AGITATION Last administered on 07:49; Start 03/08/16 at 20:29; Stop 03/09/16 at 09:39; Status DC Lorazepam (Ativan) 0.5 mg Q6HP PRN PO ANXIETY/AGITATION Last administered on 10:37; Start 03/11/16 at 21:00; Stop 03/12/16 at 15:25; Status DC Lorazepam (Ativan) 1 mg Q4HP PRN PO ANXIETY/AGITATION Last administered on 03/11 15:05; Start 03/09/16 at 10:00; Stop 03/11/16 at 17:57; Status DC Lorazepam (Ativan) 2 mg Q4HP PRN PO ANXIETY/AGITATION; Start 03/09/16 at 09:15 ; Stop 03/09/16 at 09:49; Status DC Lurasidone HCl (Latuda) 40 mg DAILY@08 PO Last administered on 03/11/16 08:32 ; Start 03/09/16 at 08:00; Stop 03/11/16 at 17:57; Status DC Magnesium Hydroxide (Milk Of Magnesia) 30 ml DAILYPRN PRN PO CONSTIPATION Last administered on 03/15/16 15:19; Start 03/08/16 at 19:00; Stop 04/07/16 at 18:59 Non-Formulary Medication ( See Comment Field Below ) SEE COMMENTS SECTION 1T @19 XX Last administered on 03/16/16 18:11; Start 03/16/16 at 19:00; Stop at 14:36; Status DC Non-Formulary Medication ( See Comment Field Below ) SEE LABEL COMMENTS DAILY XX ; Start 03/14/16 at 09:00; Stop 03/14/16 at 18:11; Status DC Omeprazole (PriLOSEC) 20 mg DAILY PO Last administered on 03/19/16 08:41; Start 03/09/16 at 09:00; Stop 04/08/16 at 08:59 Paliperidone (Invega) 3 mg QHS PO Last administered on 03/12/16 20:24; Start 03/11/16 at 21:00; Stop 03/13/16 at 14:35; Status DC Paliperidone (Invega) 6 mg DAILY@21 PO Last administered on 03/14/16 19:58; Start 03/14/16 at 21:00; Stop 03/14/16 at 22:00; Status DC Paliperidone (Invega) 6 mg QAM PO Last administered on 03/19/16 08:41; Start 03/15/16 at 09:00; Stop 04/14/16 at 08:59 Paliperidone (Invega) 6 mg QHS PO Last administered on 03/13/16 20:35; Start 03/13/16 at 21:00; Stop 03/14/16 at 18:38; Status DC Sodium Chloride (Croom Nasal [place]) 2 spray Q2HP PRN NA NASAL DRYNESS Last administered on 03/19/16 06:09; Start 03/14/16 at 10:15; Stop 04/13/16 at 10:14 Trazodone HCl (Desyrel) 50 mg QHSP PRN PO INSOMNIA Last administered on 22:35; Start 03/08/16 at 19:00; Stop 04/07/16 at 18:59 Valacyclovir HCl (Valtrex) 500 mg BID PO Last administered on 03/19/16 08:41; Start 03/11/16 at 09:00; Stop 03/24/16 at 08:59 Vitamin D (Vitamin D) 5,000 units MoWeFr@09 PO Last administered on 03/18/16 08:15; Start 03/11/16 at 09:00; Stop 04/10/16 at 08:59 Allergies Coded Allergies: Morphine (Verified Allergy, Unknown, 02/15/16) Penicillins (Verified Allergy, Unknown, 02/15/16) Childhood allergy CLARISA BRANHAM NP Mar 19, 2016 18:16
[2016-03-19] MEDS: LITHIUM CARBONATE 600 MG CAP PO SCH (20:22)
[2016-03-19] MEDS: ACETAMINOPHEN TAB 650MG DOSE (2X325MG) PO PRN (20:24)
[2016-03-19] MEDS: guaiFENesin SYRUP 200 MG/10 ML UDC PO PRN (20:24)
[2016-03-19] MEDS: traZODone 50 MG TAB PO PRN (21:23)
[2016-03-20] MEDS: IBUPROFEN 400 MG TAB PO PRN ×2 (02:41→15:52)
[2016-03-20] MEDS: hydrOXYzine 25 MG TAB PO PRN ×5 (02:41→20:23)
[2016-03-20] MEDS: LEVOTHYROXINE 0.125 MG TAB (125 MCG) PO SCH (06:06)
[2016-03-20 06:27] VITALS: BP 107/71
[2016-03-20] MEDS: DOCUSATE SODIUM 100 MG CAP PO SCH ×2 (08:04→20:23)
[2016-03-20] MEDS: OMEPRAZOLE 20 MG CAP PO SCH (08:04)
[2016-03-20] MEDS: valACYclovir HCL 500 MG TAB PO SCH ×2 (08:05→20:23)
[2016-03-20] MEDS: VITAMIN D 1,000 INTERNATIONAL UNITS TABLET PO SCH (08:05)
[2016-03-20] MEDS: PALIPERIDONE 3 MG ER TAB (INVEGA) PO SCH (08:05)
[2016-03-20] MEDS: GABAPENTIN 100 MG CAP PO SCH ×3 (08:05→20:23)
[2016-03-20] MEDS: SYMBICORT 160/4.5MCG INHALER 6GM INH SCH ×2 (08:05→20:23)
[2016-03-20] MEDS: FUROSEMIDE 20 MG TAB PO SCH (08:05)
[2016-03-20] MEDS: FLUTICASONE PROP 0.05% NASAL SPRAY 16 GM (FLONASE) SCH ×2 (08:06→20:24)
[2016-03-20] MEDS: ACETAMINOPHEN TAB 650MG DOSE (2X325MG) PO PRN ×2 (12:11→21:45)
[2016-03-20] MEDS: KETOCONAZOLE 2% CREAM TOP SCH (12:12)
[2016-03-20] MEDS: SODIUM CHLORIDE NASAL 0.65% SPRAY BTL (OCEAN) PRN ×3 (12:14→20:24)
[2016-03-20] MEDS: MOM 30ML SUSPENSION UDC PO PRN (13:36)
[2016-03-20] MEDS: CEPACOL LOZENGE PO PRN ×2 (16:14→22:19)
[2016-03-20] MEDS: LevoFLOXacin 750 MG TABLET PO SCH (17:16)
--- NOTE | 2016-03-20 18:09 | IPNPDOC ---
[facility] Progress Note Progress Note DATE OF SERVICE: 03/20/16 HISTORY: This is a 45-year-old white woman with a long standing history of treatment for bipolar disorder, who was admitted after she was brought in by the police. She had been knocking on neighbor's doors over the past days, very delusional and thinking that people were trying to kill her. She was talking about there being evil in her apartment building. She is making statements like "everything I feel is in my heart, God is great, people are evil, they are trying to kill me." She says that there is someone named Deejay is using different names on Facebook trying to get her killed and poison her with magnesium. She has been staying at a motel because she is refusing to stay in her apartment building. The patient is fairly unreliable. It is not clear whether she has been taking her medications. In the emergency room, she says that someone had messed with her bottles of medications, someone threw them out. Today, the patient is very irritated and angry and very loud. She is constantly talking and at times even yelling. She wants to know why she is in the hospital. She says that there is nothing wrong with her. She is demanding to be discharged. Medications were reviewed; the patient was discharged on and she was discharged on Latuda 40 mg daily, Cymbalta 60 mg twice a day, hydroxyzine 50 mg four times a day as needed for anxiety. In the emergency room records, it says that she is also on Cymbalta 60 mg twice a day and Wellbutrin SR 200 mg twice a day, however, when I looked at the medication that she was discharged on, these medications were not included. I reviewed the old records to obtain some history about this patient and it seemed that she was just in the hospital from 02/15/2016 and discharged on 02/27/2016. She was admitted in what appeared to be a manic-like episode. She had been upset with a snowplow man because she thought that he was affiliated with some drug dealers. She was noted to be paranoid with grandiose delusions, talking about being able to predict the future. She also thought that someone was trying to kill her. She was discharged to [facility] for her substance abuse and also for her psychiatric treatment. [facility] PAST PSYCHIATRIC HISTORY: This is obtained from the medical record where it states that she was receiving outpatient treatment from [facility] and they had been prescribing Cymbalta 60 mg twice a day for fibromyalgia and Wellbutrin 200 mg twice a day for depression. She also said they were prescribing Ativan as needed for anxiety. She denies that she has ever made any suicidal attempts and when she was admitted in January she indicated that was her first psychiatric hospitalization, so this would be her second psychiatric hospitalization. FAMILY HISTORY: The patient's mother is bipolar, according to the patient's information that was obtained during her January hospitalization. Also, there was no reported history of family suicides. SUBSTANCE ABUSE: The patient uses cannabis for at least the past few months. According to the January admission, they indicated "off and on all day long," as far as the marijuana goes. According to the records from her January admission, there is some mention that the patient stated that she had some reduced appetite, depressed mood and paranoia during that admission. VITAL SIGNS: Please see below. 96.2 95 20 107/71 99% NEW TEST RESULTS: NA. Ordered urine for heavy metals I and II, - Results Pending , B12 - (397)Nml, TSH -.245, low. CURRENT MEDICATIONS: See below. 1. Hydroxyzine hcl 25 mg po q 4 hours prn for anxiety. 2. Trazodone 50 mg po qhs PRN for sleep. 3. Ibuprofen 400 mg po q6h prn for pain. 4. Invega 6 mg po q am for psychotic features. 5. Gabapentin 200 mg po tid for mood stabilization. 6. [place] 600 mg po q hs for mood stabilizaton. MENTAL STATUS EXAMINATION: Patient is a 45 year old female, who continues to be emotionally labile, cooperative, mostly well kempt, of obese build. Pt. is assessed twice in hallway , 1st in AM with no scrum product owner, 2nd time before court with Dr. Brewster. Continued assessment thru court appearance and travel back to the hospital. Pt. is wearing own clothes and is well kempt. Speech: Is slight circumstantial, flight of ideas, tangential, of increased rate , average volume, articulate, coherent, and spontaneous. Thought processes: Clearing, appears incrementally better daily, somewhat goal- directed for discharge, irrational at times. Rate of thoughts: Increased Thought content: Irrational, Illogical, Less paranoid, appropriate and logical at times. Abstract reasoning: Limited. Computation: Limited. Associations: Circumstantial, Tangential. Abnormal or psychotic thoughts: Patient denies hallucinations, delusions, obsessions, compulsions. Patient still appears to have some paranoia regarding her housing and apartment situation. Patient appears to be less preoccupied with housing today, now preoccupied with going to court and what will happen. Pt. states "I really wanted to go to court to smell the outside air", Pt. also states "I also wanted to talk to property accountant to ask if I could stay a few more days". Pt. reports she does not want to be here another weekend as she does not get visitors. Patient has not sent in response to notification by her housing authority that if she has 1 more behavior issue she will be evicted, pt. states she did talk to hr manager lsw. Patient denies homicidal or suicidal ideation. Patient would like the shutdown planner to talk to her daughter to possibly seeif she could see her grandchildren and dog. Judgment: Fair. Insight: Fair. Oriented to: Time, place, person and surroundings. Recent and Remote Memory: "Improving". Attention Span and Concentration: Fair. Language: Normal but scattered, tangential. Fund of knowledge: Adequate. Mood: "Hopeful I can go home", rational at times, highly labile at others. Affect: Appropriate, Reactive, Irrational, illogical at times , Agitated at times, Manic, less labile today. DIAGNOSES: 1. Bipolar Disorder, mixed depression/anxiety 2. Medication induced delirium due to Cannabis use 3. R/O Schizoaffective, bipolar type ASSESSMENT: Pt. continues to clear gradually. Probable marijuana induced symptoms. Pt. continues to be less paranoid but is still delusional in thoughts of being discharged or going to MD appointments. Pt. is assessed twice in hallway, 1st in AM with no scrum product owner as she had "questions", 2nd time before court with Dr. Brewster. Continued assessment thru court appearance and travel back to the hospital. Pt. is crying off and on, states she is frustrated. Pt. is manic, appropriate at times, labile, irrational and illogical at times. Pt. would be a danger to herself, possibly others if released at this time. Pt. had dangerous activity with substance use and on "supervisor drapery hanging" sites meeting various men for sexual encounters, putting herself at increased risk for violence. Pt. reports that is how she started using marijuana. Speech is slightly pressured, patient is gradually better in processing thoughts. Pt. was re-directed by provider multiple times. Pt. does not appear agitated today and does seem to be fixated on going home and making arrangements for "all i need to do". Pt. makes no mention of her grandchildren or dog today. Pt. does appear to be improving gradually. Pt. states "I have to get my meds,then start cleaning up my apartment ". Pt. is continuing to make more realistic plans for the future. MANAGEMENT PLAN: Patient to continue lithium 600 mg po qhs, gabapentin 200 mg by mouth three times daily, Invega 6 mg by mouth daily in the morning, hydroxyzine hcl 25 mg every 4 hours when necessary as needed for anxiety or agitation, trazodone 50 mg by mouth daily at bedtime when necessary for sleep, ibuprofen 400 mg po q 6 hours prn pain. Pt's med's discussed with patient and she states her understanding and agrees with the plan. Pt. states she feels the medications have helped her "feel so much better". TIME SPENT: 35 minutes. Vital Signs Vital Signs Date Time Temp Pulse Resp B/P Pulse Ox O2 Delivery O2 Flow Rate FiO2 03/20/16 06:27 96.2 95 20 107/71 99 03/19/16 14:30 Room Air 03/18/16 18:00 98 Laboratory Data 24H Labs Laboratory Tests 2 03/20/16 06:10: Bedside Glucose (Misc Panel) 103 Current Medications Current Medications Acetaminophen (Tylenol) 650 mg Q4HP PRN PO PAIN OR FEVER Last administered on 12:11; Start 03/10/16 at 22:30; Stop 04/09/16 at 22:29 Acetaminophen (Tylenol) 650 mg Q6HP PRN PO HEADACHE or DISCOMFORT Last administered on 03/10/16 17:30; Start 03/08/16 at 19:00; Stop 03/10/16 at 22:16 ; Status DC Al Hydrox/Mg Hydrox/Simethicone (Mylanta) 30 ml Q4HP PRN PO HEARTBURN/ INDIGESTION Last administered on 03/19/16 11:59; Start 03/08/16 at 19:00; Stop 04/07/16 at 18:59 Albuterol Sulfate (Proventil, Ventolin Hfa) 2 puff Q4HP PRN INH SHORTNESS OF BREATH Last administered on 03/17/16 23:08; Start 03/08/16 at 20:30; Stop 04/07 at 20:29 Budesonide/ Formoterol Fumarate (Symbicort 160/ 4.5mcg) 2 puff BID INH Last administered on 03/20/16 08:05; Start 03/08/16 at 21:00; Stop 04/07/16 at 20:59 Cetylpyridinium Chloride (Cepacol) 1 calista Q1HP PRN PO SORE THROAT Last administered on 03/20/16 16:14; Start 03/20/16 at 16:15; Stop 04/19/16 at 16:14 Cetylpyridinium Chloride (Cepacol) 1 calista Q2HP PRN PO COUGH Last administered on 03/14/16 02:48; Start 03/10/16 at 22:00; Stop 03/14/16 at 10:10; Status DC Docusate Sodium (Colace) 100 mg BID PO Last administered on 03/20/16 08:04; Start 03/08/16 at 21:00; Stop 04/07/16 at 20:59 Fluticasone Propionate (Flonase 0.05% Nasal [place]) 1 SPRAY IN EACH NOSTRIL BID NA Last administered on 03/20/16 08:06; Start 03/10/16 at 21:00; Stop at 20:59 Furosemide (Lasix) 10 mg DAILY PO Last administered on 03/20/16 08:05; Start 03/19/16 at 09:00; Stop 04/18/16 at 08:59 Furosemide (Lasix) 20 mg Q2DP PRN PO FLUID RETENTION Last administered on 08:15; Start 03/08/16 at 19:00; Stop 03/19/16 at 10:08; Status DC Gabapentin (Neurontin) 100 mg BID@ PO Last administered on 03/19/16 08:41 ; Start 03/14/16 at 09:00; Stop 03/19/16 at 10:33; Status DC Gabapentin (Neurontin) 100 mg QHS PO Last administered on 03/13/16 00:40; Start 03/11/16 at 21:00; Stop 03/13/16 at 14:35; Status DC Gabapentin (Neurontin) 200 mg QHS PO Last administered on 03/18/16 22:36; Start 03/13/16 at 21:00; Stop 03/19/16 at 10:33; Status DC Gabapentin (Neurontin) 200 mg TID PO Last administered on 03/20/16 15:52; Start 03/19/16 at 16:00; Stop 04/18/16 at 15:59 Guaifenesin (Robitussin) 5 ml Q6HP PRN PO COUGH Last administered on 03/19/16 20:24; Start 03/14/16 at 10:15; Stop 04/13/16 at 10:14 Home Med (Med Rec Complete!) ASDIRECTED XX ; Start 03/08/16 at 16:45; Stop at 16:51; Status DC Hydroxyzine HCl (Atarax) 50 mg Q6HP PRN PO ANXIETY/AGGITATION Last administered on 03/13/16 08:04; Start 03/11/16 at 19:00; Stop 03/13/16 at 14:35 ; Status DC Hydroxyzine HCl (Atarax) 50 mg QIDP PRN PO ANXIETY/AGGITATION Last administered on 03/11/16 14:16; Start 03/08/16 at 19:00; Stop 03/11/16 at 17:57 ; Status DC Hydroxyzine HCl (Vistaril) 25 mg Q4HP PRN PO ANXIETY/AGGITATION Last administered on 03/20/16 16:14; Start 03/13/16 at 14:39; Stop 04/10/16 at 14:38 Ibuprofen (Advil) 400 mg Q6HP PRN PO PAIN Last administered on 03/20/16 15:52 ; Start 03/13/16 at 17:15; Stop 04/12/16 at 17:14 Ketoconazole (Nizoral) 1 dose DAILY TOP Last administered on 03/20/16 12:12; Start 03/14/16 at 09:00; Stop 04/13/16 at 08:59 Levofloxacin (Levaquin) 750 mg DAILY@18 PO Last administered on 03/20/16 17:16 ; Start 03/10/16 at 18:00; Stop 03/23/16 at 17:59 Levothyroxine Sodium (Synthroid) 0.125 mg DAILY@06 PO Last administered on 03/20 06:06; Start 03/09/16 at 06:00; Stop 04/08/16 at 05:59 [place] Carbonate ([place] Carbonate) 300 mg QHS PO Last administered on 22:35; Start 03/14/16 at 21:00; Stop 03/19/16 at 10:33; Status DC [place] Carbonate ([place] Carbonate) 600 mg QHS PO Last administered on 20:22; Start 03/19/16 at 21:00; Stop 04/18/16 at 20:59 Lorazepam (Ativan) 0.5 mg BID PRN PO ANXIETY/AGITATION; Start 03/08/16 at 19:00 ; Stop 03/08/16 at 20:29; Status DC Lorazepam (Ativan) 0.5 mg BID PRN PO ANXIETY/AGITATION Last administered on 07:49; Start 03/08/16 at 20:29; Stop 03/09/16 at 09:39; Status DC Lorazepam (Ativan) 0.5 mg Q6HP PRN PO ANXIETY/AGITATION Last administered on 10:37; Start 03/11/16 at 21:00; Stop 03/12/16 at 15:25; Status DC Lorazepam (Ativan) 1 mg Q4HP PRN PO ANXIETY/AGITATION Last administered on 03/11 15:05; Start 03/09/16 at 10:00; Stop 03/11/16 at 17:57; Status DC Lorazepam (Ativan) 2 mg Q4HP PRN PO ANXIETY/AGITATION; Start 03/09/16 at 09:15 ; Stop 03/09/16 at 09:49; Status DC Lurasidone HCl (Latuda) 40 mg DAILY@08 PO Last administered on 03/11/16 08:32 ; Start 03/09/16 at 08:00; Stop 03/11/16 at 17:57; Status DC Magnesium Hydroxide (Milk Of Magnesia) 30 ml DAILYPRN PRN PO CONSTIPATION Last administered on 03/20/16 13:36; Start 03/08/16 at 19:00; Stop 04/07/16 at 18:59 Non-Formulary Medication ( See Comment Field Below ) SEE COMMENTS SECTION 1T @19 XX Last administered on 03/16/16 18:11; Start 03/16/16 at 19:00; Stop at 14:36; Status DC Non-Formulary Medication ( See Comment Field Below ) SEE LABEL COMMENTS DAILY XX ; Start 03/14/16 at 09:00; Stop 03/14/16 at 18:11; Status DC Omeprazole (PriLOSEC) 20 mg DAILY PO Last administered on 03/20/16 08:04; Start 03/09/16 at 09:00; Stop 04/08/16 at 08:59 Paliperidone (Invega) 3 mg QHS PO Last administered on 03/12/16 20:24; Start 03/11/16 at 21:00; Stop 03/13/16 at 14:35; Status DC Paliperidone (Invega) 6 mg DAILY@21 PO Last administered on 03/14/16 19:58; Start 03/14/16 at 21:00; Stop 03/14/16 at 22:00; Status DC Paliperidone (Invega) 6 mg QAM PO Last administered on 03/20/16 08:05; Start 03/15/16 at 09:00; Stop 04/14/16 at 08:59 Paliperidone (Invega) 6 mg QHS PO Last administered on 03/13/16 20:35; Start 03/13/16 at 21:00; Stop 03/14/16 at 18:38; Status DC Sodium Chloride ([place]iller Nasal [place]) 2 spray Q2HP PRN NA NASAL DRYNESS Last administered on 03/20/16 15:51; Start 03/14/16 at 10:15; Stop 04/13/16 at 10:14 Trazodone HCl (Desyrel) 50 mg QHSP PRN PO INSOMNIA Last administered on 21:23; Start 03/08/16 at 19:00; Stop 04/07/16 at 18:59 Valacyclovir HCl (Valtrex) 500 mg BID PO Last administered on 03/20/16 08:05; Start 03/11/16 at 09:00; Stop 03/24/16 at 08:59 Vitamin D (Vitamin D) 5,000 units MoWeFr@09 PO Last administered on 03/20/16 08:05; Start 03/11/16 at 09:00; Stop 04/10/16 at 08:59 Allergies Coded Allergies: Morphine (Verified Allergy, Unknown, 02/15/16) Penicillins (Verified Allergy, Unknown, 02/15/16) Childhood allergy CLARISA BRANHAM NP Mar 20, 2016 18:09
[2016-03-20 18:23] VITALS: BP 100/60
[2016-03-20] MEDS: LITHIUM CARBONATE 600 MG CAP PO SCH (20:23)
[2016-03-20] MEDS: traZODone 50 MG TAB PO PRN (21:43)
[2016-03-21] MEDS: hydrOXYzine 25 MG TAB PO PRN ×5 (01:33→19:34)
[2016-03-21] MEDS: IBUPROFEN 400 MG TAB PO PRN ×3 (01:35→22:10)
[2016-03-21] MEDS: SODIUM CHLORIDE NASAL 0.65% SPRAY BTL (OCEAN) PRN (06:36)
[2016-03-21] MEDS: CEPACOL LOZENGE PO PRN ×2 (06:36→17:12)
[2016-03-21] MEDS: LEVOTHYROXINE 0.125 MG TAB (125 MCG) PO SCH (06:36)
[2016-03-21] MEDS: ACETAMINOPHEN TAB 650MG DOSE (2X325MG) PO PRN ×2 (06:37→22:56)
[2016-03-21 06:50] VITALS: BP 126/66
[2016-03-21] MEDS: KETOCONAZOLE 2% CREAM TOP SCH (08:08)
[2016-03-21] MEDS: SYMBICORT 160/4.5MCG INHALER 6GM INH SCH ×2 (08:08→20:26)
[2016-03-21] MEDS: OMEPRAZOLE 20 MG CAP PO SCH (08:08)
[2016-03-21] MEDS: DOCUSATE SODIUM 100 MG CAP PO SCH ×2 (08:08→20:25)
[2016-03-21] MEDS: PALIPERIDONE 3 MG ER TAB (INVEGA) PO SCH (08:09)
[2016-03-21] MEDS: FUROSEMIDE 20 MG TAB PO SCH (08:09)
[2016-03-21] MEDS: valACYclovir HCL 500 MG TAB PO SCH ×2 (08:09→20:26)
[2016-03-21] MEDS: GABAPENTIN 100 MG CAP PO SCH ×3 (08:09→20:26)
[2016-03-21] MEDS: FLUTICASONE PROP 0.05% NASAL SPRAY 16 GM (FLONASE) SCH ×2 (08:09→20:25)
[2016-03-21] MEDS: MAALOX 30 ML SUSP *UDC PO PRN (09:48)
[2016-03-21] MEDS: guaiFENesin SYRUP 200 MG/10 ML UDC PO PRN (15:24)
--- NOTE | 2016-03-21 16:25 | IPNPDOC ---
[facility] Progress Note Progress Note DATE: 03/21/16 HISTORY: This is a 45-year-old white woman with a long standing history of treatment for bipolar disorder, who was admitted after she was brought in by the police. She had been knocking on neighbor's doors over the past days, very delusional and thinking that people were trying to kill her. She was talking about there being evil in her apartment building. She is making statements like "everything I feel is in my heart, God is great, people are evil, they are trying to kill me." She says that there is someone named Deejay is using different names on Facebook trying to get her killed and poison her with magnesium. She has been staying at a motel because she is refusing to stay in her apartment building. The patient is fairly unreliable. It is not clear whether she has been taking her medications. In the emergency room, she says that someone had messed with her bottles of medications, someone threw them out. Today, the patient is very irritated and angry and very loud. She is constantly talking and at times even yelling. She wants to know why she is in the hospital. She says that there is nothing wrong with her. She is demanding to be discharged. Medications were reviewed; the patient was discharged on and she was discharged on Latuda 40 mg daily, Cymbalta 60 mg twice a day, hydroxyzine 50 mg four times a day as needed for anxiety. In the emergency room records, it says that she is also on Cymbalta 60 mg twice a day and Wellbutrin SR 200 mg twice a day, however, when I looked at the medication that she was discharged on, these medications were not included. I reviewed the old records to obtain some history about this patient and it seemed that she was just in the hospital from 02/15/2016 and discharged on 02/27/2016. She was admitted in what appeared to be a manic-like episode. She had been upset with a snowplow man because she thought that he was affiliated with some drug dealers. She was noted to be paranoid with grandiose delusions, talking about being able to predict the future. She also thought that someone was trying to kill her. She was discharged to [facility] for her substance abuse and also for her psychiatric treatment. [facility] PAST PSYCHIATRIC HISTORY: This is obtained from the medical record where it states that she was receiving outpatient treatment from [facility] and they had been prescribing Cymbalta 60 mg twice a day for fibromyalgia and Wellbutrin 200 mg twice a day for depression. She also said they were prescribing Ativan as needed for anxiety. She denies that she has ever made any suicidal attempts and when she was admitted in January she indicated that was her first psychiatric hospitalization, so this would be her second psychiatric hospitalization. FAMILY HISTORY: The patient's mother is bipolar, according to the patient's information that was obtained during her January hospitalization. Also, there was no reported history of family suicides. SUBSTANCE ABUSE: The patient uses cannabis for at least the past few months. According to the January admission, they indicated "off and on all day long," as far as the marijuana goes. According to the records from her January admission, there is some mention that the patient stated that she had some reduced appetite, depressed mood and paranoia during that admission. VITAL SIGNS: Please see below. 97.5 96 16 126/66 98% NEW TEST RESULTS: NA. Ordered urine for heavy metals I and II, - Results Pending , B12 - (397)Nml, TSH -.245, low. CURRENT MEDICATIONS: See below. 1. Hydroxyzine hcl 25 mg po q 4 hours prn for anxiety. 2. Trazodone 50 mg po qhs PRN for sleep. 3. Ibuprofen 400 mg po q6h prn for pain. 4. Invega 6 mg po q am for psychotic features. 5. Gabapentin 200 mg po tid for mood stabilization. 6. [place] 600 mg po q hs for mood stabilizaton. MENTAL STATUS EXAMINATION: Patient is a 45 year old female, who continues to be emotionally labile, cooperative, mostly well kempt, wearing her own clothes, of obese build. Pt. is assessed today in interview room with [place]. Pt. appears to be somewhat manic with rapid speech, flight of ideas. Speech: Is slight circumstantial, flight of ideas, tangential, rapid rate, average volume, articulate, coherent, and spontaneous. Thought processes: Clearing, appears incrementally better daily, somewhat goal- directed for discharge, irrational at times. Rate of thoughts: Increased Thought content: Irrational, Illogical, Less paranoid, hwever appropriate and logical at times. Abstract reasoning: Limited. Computation: Limited. Associations: Circumstantial, Tangential. Abnormal or psychotic thoughts: Patient denies hallucinations, delusions, obsessions, compulsions. Patient still appears to have some paranoia regarding her housing and apartment situation. Patient appears to be less preoccupied with housing today, court appearance yesterday and what happened. Pt. states "I really just had to finish what I started". Pt. still reports she does not want to be here another weekend as she does not get visitors. Patient denies homicidal or suicidal ideation. Patient would like the materials planner/production planner to talk to her daughter to possibly see if she could see her grandchildren and dog. Judgment: Fair. Insight: Fair. Oriented to: Time, place, person and surroundings. Recent and Remote Memory: "Clearing". Attention Span and Concentration: Fair. Language: Normal but scattered, tangential. Fund of knowledge: Adequate. Mood: "Is a lot different today, more of a professional level". Pt. continues with mood lability from tears, isolation to agitation. Affect: Appropriate, Reactive, Irrational, illogical at times, Agitated at times , Manic. DIAGNOSES: 1. Bipolar Disorder, mixed depression/anxiety 2. Medication induced delirium due to Cannabis use 3. R/O Schizoaffective, bipolar type ASSESSMENT: Pt. continues to clear mentally, slowly. Probable marijuana induced symptoms. Pt. continues to be less paranoid but is still delusional in thoughts. Pt. is manic, appropriate at times, labile, irrational and illogical at times. Speech is slightly pressured, patient is gradually better in processing thoughts. Pt. was re-directed by provider multiple times. Pt. does not appear agitated today and does seem to be fixated on going home and making arrangements for "all I need to do". Pt. reports 7 hours of "Good, solid, sound sleep", with no dreams or night terrors. Pt. makes no mention of other issues at this time. Pt. does appear to be improving gradually. Pt. states "I wish I was going home tomorrow". MANAGEMENT PLAN: Patient to continue lithium 600 mg po qhs, gabapentin 200 mg by mouth three times daily, Invega 6 mg by mouth daily in the morning to be discontinued, to start 234 mg IM x 1, hydroxyzine hcl 25 mg every 4 hours when necessary as needed for anxiety or agitation, trazodone 50 mg by mouth daily at bedtime when necessary for sleep, ibuprofen 400 mg po q 6 hours prn pain. Pt's med's discussed with patient and she states her understanding and agrees with the plan. Pt. states she feels the medications have helped her "get clearer and feel better". TIME SPENT: 25 minutes. Vital Signs Vital Signs Date Time Temp Pulse Resp B/P Pulse Ox O2 Delivery O2 Flow Rate FiO2 03/21/16 06:50 97.5 96 16 126/66 98 03/20/16 18:23 96 Room Air Current Medications Current Medications Acetaminophen (Tylenol) 650 mg Q4HP PRN PO PAIN OR FEVER Last administered on 06:37; Start 03/10/16 at 22:30; Stop 04/09/16 at 22:29 Acetaminophen (Tylenol) 650 mg Q6HP PRN PO HEADACHE or DISCOMFORT Last administered on 03/10/16 17:30; Start 03/08/16 at 19:00; Stop 03/10/16 at 22:16 ; Status DC Al Hydrox/Mg Hydrox/Simethicone (Mylanta) 30 ml Q4HP PRN PO HEARTBURN/ INDIGESTION Last administered on 03/21/16 09:48; Start 03/08/16 at 19:00; Stop 04/07/16 at 18:59 Albuterol Sulfate (Proventil, Ventolin Hfa) 2 puff Q4HP PRN INH SHORTNESS OF BREATH Last administered on 03/17/16 23:08; Start 03/08/16 at 20:30; Stop 04/07 at 20:29 Budesonide/ Formoterol Fumarate (Symbicort 160/ 4.5mcg) 2 puff BID INH Last administered on 03/21/16 08:08; Start 03/08/16 at 21:00; Stop 04/07/16 at 20:59 Cetylpyridinium Chloride (Cepacol) 1 calista Q1HP PRN PO SORE THROAT Last administered on 03/21/16 06:36; Start 03/20/16 at 16:15; Stop 04/19/16 at 16:14 Cetylpyridinium Chloride (Cepacol) 1 calista Q2HP PRN PO COUGH Last administered on 03/14/16 02:48; Start 03/10/16 at 22:00; Stop 03/14/16 at 10:10; Status DC Docusate Sodium (Colace) 100 mg BID PO Last administered on 03/21/16 08:08; Start 03/08/16 at 21:00; Stop 04/07/16 at 20:59 Fluticasone Propionate (Flonase 0.05% Nasal Ellery) 1 SPRAY IN EACH NOSTRIL BID NA Last administered on 03/21/16 08:09; Start 03/10/16 at 21:00; Stop at 20:59 Furosemide (Lasix) 10 mg DAILY PO Last administered on 03/21/16 08:09; Start 03/19/16 at 09:00; Stop 04/18/16 at 08:59 Furosemide (Lasix) 20 mg Q2DP PRN PO FLUID RETENTION Last administered on 08:15; Start 03/08/16 at 19:00; Stop 03/19/16 at 10:08; Status DC Gabapentin (Neurontin) 100 mg BID@ PO Last administered on 03/19/16 08:41 ; Start 03/14/16 at 09:00; Stop 03/19/16 at 10:33; Status DC Gabapentin (Neurontin) 100 mg QHS PO Last administered on 03/13/16 00:40; Start 03/11/16 at 21:00; Stop 03/13/16 at 14:35; Status DC Gabapentin (Neurontin) 200 mg QHS PO Last administered on 03/18/16 22:36; Start 03/13/16 at 21:00; Stop 03/19/16 at 10:33; Status DC Gabapentin (Neurontin) 200 mg TID PO Last administered on 03/21/16 08:09; Start 03/19/16 at 16:00; Stop 04/18/16 at 15:59 Guaifenesin (Robitussin) 5 ml Q6HP PRN PO COUGH Last administered on 03/19/16 20:24; Start 03/14/16 at 10:15; Stop 04/13/16 at 10:14 Home Med (Med Rec Complete!) ASDIRECTED XX ; Start 03/08/16 at 16:45; Stop at 16:51; Status DC Hydroxyzine HCl (Atarax) 50 mg Q6HP PRN PO ANXIETY/AGGITATION Last administered on 03/13/16 08:04; Start 03/11/16 at 19:00; Stop 03/13/16 at 14:35 ; Status DC Hydroxyzine HCl (Atarax) 50 mg QIDP PRN PO ANXIETY/AGGITATION Last administered on 03/11/16 14:16; Start 03/08/16 at 19:00; Stop 03/11/16 at 17:57 ; Status DC Hydroxyzine HCl (Vistaril) 25 mg Q4HP PRN PO ANXIETY/AGGITATION Last administered on 03/21/16 11:09; Start 03/13/16 at 14:39; Stop 04/10/16 at 14:38 Ibuprofen (Advil) 400 mg Q6HP PRN PO PAIN Last administered on 03/21/16 01:35 ; Start 03/13/16 at 17:15; Stop 04/12/16 at 17:14 Ketoconazole (Nizoral) 1 dose DAILY TOP Last administered on 03/21/16 08:08; Start 03/14/16 at 09:00; Stop 04/13/16 at 08:59 Levofloxacin (Levaquin) 750 mg DAILY@18 PO Last administered on 03/20/16 17:16 ; Start 03/10/16 at 18:00; Stop 03/23/16 at 17:59 Levothyroxine Sodium (Synthroid) 0.125 mg DAILY@06 PO Last administered on 03/21 06:36; Start 03/09/16 at 06:00; Stop 04/08/16 at 05:59 De[place] River Carbonate ([place] Carbonate) 300 mg QHS PO Last administered on 22:35; Start 03/14/16 at 21:00; Stop 03/19/16 at 10:33; Status DC [place] Carbonate ([place] Carbonate) 600 mg QHS PO Last administered on 20:23; Start 03/19/16 at 21:00; Stop 04/18/16 at 20:59 Lorazepam (Ativan) 0.5 mg BID PRN PO ANXIETY/AGITATION; Start 03/08/16 at 19:00 ; Stop 03/08/16 at 20:29; Status DC Lorazepam (Ativan) 0.5 mg BID PRN PO ANXIETY/AGITATION Last administered on 07:49; Start 03/08/16 at 20:29; Stop 03/09/16 at 09:39; Status DC Lorazepam (Ativan) 0.5 mg Q6HP PRN PO ANXIETY/AGITATION Last administered on 10:37; Start 03/11/16 at 21:00; Stop 03/12/16 at 15:25; Status DC Lorazepam (Ativan) 1 mg Q4HP PRN PO ANXIETY/AGITATION Last administered on 03/11 15:05; Start 03/09/16 at 10:00; Stop 03/11/16 at 17:57; Status DC Lorazepam (Ativan) 2 mg Q4HP PRN PO ANXIETY/AGITATION; Start 03/09/16 at 09:15 ; Stop 03/09/16 at 09:49; Status DC Lurasidone HCl (Latuda) 40 mg DAILY@08 PO Last administered on 03/11/16 08:32 ; Start 03/09/16 at 08:00; Stop 03/11/16 at 17:57; Status DC Magnesium Hydroxide (Milk Of Magnesia) 30 ml DAILYPRN PRN PO CONSTIPATION Last administered on 03/20/16 13:36; Start 03/08/16 at 19:00; Stop 04/07/16 at 18:59 Non-Formulary Medication ( See Comment Field Below ) SEE COMMENTS SECTION 1T @19 XX Last administered on 03/16/16 18:11; Start 03/16/16 at 19:00; Stop at 14:36; Status DC Non-Formulary Medication ( See Comment Field Below ) SEE LABEL COMMENTS DAILY XX ; Start 03/14/16 at 09:00; Stop 03/14/16 at 18:11; Status DC Omeprazole (PriLOSEC) 20 mg DAILY PO Last administered on 03/21/16 08:08; Start 03/09/16 at 09:00; Stop 04/08/16 at 08:59 Paliperidone (Invega) 3 mg QHS PO Last administered on 03/12/16 20:24; Start 03/11/16 at 21:00; Stop 03/13/16 at 14:35; Status DC Paliperidone (Invega) 6 mg DAILY@21 PO Last administered on 03/14/16 19:58; Start 03/14/16 at 21:00; Stop 03/14/16 at 22:00; Status DC Paliperidone (Invega) 6 mg QAM PO Last administered on 03/21/16 08:09; Start 03/15/16 at 09:00; Stop 04/14/16 at 08:59 Paliperidone (Invega) 6 mg QHS PO Last administered on 03/13/16 20:35; Start 03/13/16 at 21:00; Stop 03/14/16 at 18:38; Status DC Sodium Chloride ([place] Nasal Ellery) 2 spray Q2HP PRN NA NASAL DRYNESS Last administered on 03/21/16 06:36; Start 03/14/16 at 10:15; Stop 04/13/16 at 10:14 Trazodone HCl (Desyrel) 50 mg QHSP PRN PO INSOMNIA Last administered on 21:43; Start 03/08/16 at 19:00; Stop 04/07/16 at 18:59 Valacyclovir HCl (Valtrex) 500 mg BID PO Last administered on 03/21/16 08:09; Start 03/11/16 at 09:00; Stop 03/24/16 at 08:59 Vitamin D (Vitamin D) 5,000 units MoWeFr@09 PO Last administered on 03/20/16 08:05; Start 03/11/16 at 09:00; Stop 04/10/16 at 08:59 Allergies Coded Allergies: Morphine (Verified Allergy, Unknown, 02/15/16) Penicillins (Verified Allergy, Unknown, 02/15/16) Childhood allergy CLARISA BRANHAM NP Mar 21, 2016 16:25 Allergies Coded Allergies: Morphine (Verified Allergy, Unknown, 02/15/16) Penicillins (Verified Allergy, Unknown, 02/15/16) Childhood allergy CLARISA BRANHAM NP Mar 21, 2016 16:25
[2016-03-21] MEDS: LevoFLOXacin 750 MG TABLET PO SCH (17:12)
[2016-03-21 18:00] VITALS: BP 122/80
[2016-03-21] MEDS ORDERED: PALIPERIDONE PALMITATE 234 MG/1.5 ML INJ (INVEGA SUSTENNA)(J2426) IM ONE (18:00)
[2016-03-21] MEDS: BIOTENE SSP PRN (19:34)
[2016-03-21] MEDS: LITHIUM CARBONATE 600 MG CAP PO SCH (20:26)
[2016-03-21] MEDS: traZODone 50 MG TAB PO PRN (22:09)
[2016-03-22 06:00] VITALS: BP 118/73
[2016-03-22] MEDS: hydrOXYzine 25 MG TAB PO PRN ×4 (06:47→21:34)
[2016-03-22] MEDS: LEVOTHYROXINE 0.125 MG TAB (125 MCG) PO SCH (06:48)
[2016-03-22] MEDS: ACETAMINOPHEN TAB 650MG DOSE (2X325MG) PO PRN ×3 (06:49→21:35)
[2016-03-22] MEDS: FLUTICASONE PROP 0.05% NASAL SPRAY 16 GM (FLONASE) SCH ×2 (08:34→20:23)
[2016-03-22] MEDS: SYMBICORT 160/4.5MCG INHALER 6GM INH SCH ×2 (08:35→20:24)
[2016-03-22] MEDS: OMEPRAZOLE 20 MG CAP PO SCH (08:35)
[2016-03-22] MEDS: FUROSEMIDE 20 MG TAB PO SCH (08:36)
[2016-03-22] MEDS: VITAMIN D 1,000 INTERNATIONAL UNITS TABLET PO SCH (08:38)
[2016-03-22] MEDS: KETOCONAZOLE 2% CREAM TOP SCH (08:38)
[2016-03-22] MEDS: PALIPERIDONE 3 MG ER TAB (INVEGA) PO SCH (08:38)
[2016-03-22] MEDS: DOCUSATE SODIUM 100 MG CAP PO SCH ×2 (08:38→20:22)
[2016-03-22] MEDS: valACYclovir HCL 500 MG TAB PO SCH ×2 (08:38→20:22)
[2016-03-22] MEDS: IBUPROFEN 400 MG TAB PO PRN ×2 (08:39→14:44)
[2016-03-22] MEDS: GABAPENTIN 100 MG CAP PO SCH ×3 (08:44→20:22)
[2016-03-22] MEDS: BIOTENE SSP PRN ×2 (08:44→20:24)
--- NOTE | 2016-03-22 10:09 | IPNPDOC ---
Assessment/Plan Date Seen The patient was seen on 03/22/16. Problems Problems: (1) Bronchitis Status: Acute Problem Text: * Patient has completed course of Levaquin by mouth. * Discontinue Levaquin. Nausea possibly related to Levaquin. * Zofran if needed. * Continue Flonase twice a day * Continue saline nasal spray every 2 hours as needed * Robitussin 5 mL every 6 hours as needed * Symptoms have resolved (2) Dermatophytosis of foot Status: Acute Problem Text: * Apply ketoconazole cream to feet bilaterally daily (3) Hypothyroid Status: Chronic Problem Text: * TSH is noted to be low * Adjust supplement slightly, reduced to 112 g daily * Plan to recheck TSH/free T4 in 4 weeks as outpatient. Plan / VTE VTE Prophylaxis Ordered?: No (ambulatory) Disposition Krystal MONTEMAYOR present through exam. Subjective Review of Systems CC/HPI The patient is a 45-year-old female admitted with a reason for visit of Other Specified Psychotic Do. Events since last encounter She was some mild nausea. Objective Physical Examination General Exam: Positive: Alert Eye Exam: Positive: PERRLA ENT Exam: Positive: Atraumatic Chest Exam: Positive: Clear to auscultation, Normal air movement Heart Exam: Positive: Normal S1, Normal S2, Rate Normal, Regular Rhythm, Negative: Murmurs, Rubs Skin Exam: Positive: Nl turgor and temperature, Other skin issue (there is some erythema and skin scaling of the toes and between the toes bilaterally.) Vital Signs/I&O Vital Signs Date Time Temp Pulse Resp B/P Pulse Ox O2 Delivery O2 Flow Rate FiO2 03/22/16 06:00 97.0 83 18 118/73 03/21/16 18:00 99 Room Air 03/21/16 06:50 98 Nataly Escalante Mar 22, 2016 10:09
[2016-03-22] MEDS: MAALOX 30 ML SUSP *UDC PO PRN (10:36)
--- NOTE | 2016-03-22 11:57 | IPNPDOC ---
[facility] Progress Note Progress Note DATE OF SERVICE: 03/22/16 HISTORY: This is a 45-year-old white woman with a long standing history of treatment for bipolar disorder, who was admitted after she was brought in by the police. She had been knocking on neighbor's doors over the past days, very delusional and thinking that people were trying to kill her. She was talking about there being evil in her apartment building. She is making statements like "everything I feel is in my heart, God is great, people are evil, they are trying to kill me." She says that there is someone named Deejay is using different names on Facebook trying to get her killed and poison her with magnesium. She has been staying at a motel because she is refusing to stay in her apartment building. The patient is fairly unreliable. It is not clear whether she has been taking her medications. In the emergency room, she says that someone had messed with her bottles of medications, someone threw them out. Today, the patient is very irritated and angry and very loud. She is constantly talking and at times even yelling. She wants to know why she is in the hospital. She says that there is nothing wrong with her. She is demanding to be discharged. Medications were reviewed; the patient was discharged on and she was discharged on Latuda 40 mg daily, Cymbalta 60 mg twice a day, hydroxyzine 50 mg four times a day as needed for anxiety. In the emergency room records, it says that she is also on Cymbalta 60 mg twice a day and Wellbutrin SR 200 mg twice a day, however, when I looked at the medication that she was discharged on, these medications were not included. I reviewed the old records to obtain some history about this patient and it seemed that she was just in the hospital from 02/15/2016 and discharged on 02/27/2016. She was admitted in what appeared to be a manic-like episode. She had been upset with a snowplow man because she thought that he was affiliated with some drug dealers. She was noted to be paranoid with grandiose delusions, talking about being able to predict the future. She also thought that someone was trying to kill her. She was discharged to [facility] for her substance abuse and also for her psychiatric treatment. [facility] was [facility] PAST PSYCHIATRIC HISTORY: This is obtained from the medical record where it states that she was receiving outpatient treatment from [facility] and they had been prescribing Cymbalta 60 mg twice a day for fibromyalgia and Wellbutrin 200 mg twice a day for depression. She also said they were prescribing Ativan as needed for anxiety. She denies that she has ever made any suicidal attempts and when she was admitted in January she indicated that was her first psychiatric hospitalization, so this would be her second psychiatric hospitalization. FAMILY HISTORY: The patient's mother is bipolar, according to the patient's information that was obtained during her January hospitalization. Also, there was no reported history of family suicides. SUBSTANCE ABUSE: The patient uses cannabis for at least the past few months. According to the January admission, they indicated "off and on all day long," as far as the marijuana goes. According to the records from her January admission, there is some mention that the patient stated that she had some reduced appetite, depressed mood and paranoia during that admission. VITAL SIGNS: Please see below. 97 83 18 448/73 98% NEW TEST RESULTS: NA. Ordered urine for heavy metals I and II, - Results Pending , B12 - (397)Nml, TSH -.245, low. CURRENT MEDICATIONS: See below. 1. Hydroxyzine hcl 25 mg po q 4 hours prn for anxiety. 2. Trazodone 50 mg po qhs PRN for sleep. 3. Ibuprofen 400 mg po q6h prn for pain. 4. Invega 6 mg po q am for psychotic features. 5. Gabapentin 200 mg po tid for mood stabilization. 6. Sudley 600 mg po q hs for mood stabilizaton. MENTAL STATUS EXAMINATION: Patient is a 45 year old female, who continues to be emotionally labile, cooperative, mostly well kempt, wearing her own clothes, of obese build. Pt. is assessed today in interview room with Placido. Pt. appears to be somewhat manic with rapid speech, flight of ideas. Provider had been told that patient was upset with her. On begin of assessment pt. stated she was not told of med changes, reminded of each day we had discussed meds and changes made. Pt. also complained about getting her shot in her arm. Provider reminded patient "That is why it was recommended that you get it in your butt". Pt. states remembering provider encouraging that. Speech: Is slight circumstantial, flight of ideas, tangential, increased rate, average volume, articulate, coherent, and spontaneous. Thought processes: Clearing, appears gradually better each day, somewhat goal- directed for discharge, irrational at times. Rate of thoughts: Increased Thought content: Irrational, Illogical, Less paranoid, however appropriate and logical at times. Abstract reasoning: Limited. Computation: Limited. Associations: Circumstantial, Tangential. Abnormal or psychotic thoughts: Patient denies hallucinations, delusions, obsessions, compulsions. Patient still appears to have some reservations, possible slight paranoia about her housing and apartment situation. Patient appears to be less preoccupied with housing each day. Pt. still reports she does not want to be here another weekend as she does not get visitors. Patient denies homicidal or suicidal ideation. Judgment: Fair. Insight: Fair. Oriented to: Time, place, person and surroundings. Recent and Remote Memory: "Getting better". Attention Span and Concentration: Fair. Language: Normal but scattered, tangential. Fund of knowledge: Adequate. Mood: "Kind of yucky". Pt. continues with mood lability from tears to agitation. Affect: Appropriate, Reactive, Irrational, illogical at times, Agitated at times, Manic. DIAGNOSES: 1. Bipolar Disorder, mixed depression/anxiety 2. Medication induced delirium due to Cannabis use 3. R/O Schizoaffective, bipolar type ASSESSMENT: Pt. continues to clear mentally, slowly. Probable marijuana induced symptoms. Pt. continues to be less paranoid but is still delusional in thoughts. Pt. is manic, appropriate at times, labile, irrational and illogical at times. Speech is slightly pressured, patient is gradually better in processing thoughts. Pt. was re-directed by provider multiple times. Pt. does not appear agitated today and does seem to be fixated on going home and making arrangements for getting on with her life. Pt. reports 7-8 hours of "Good sleep ", with no dreams or night terrors. Pt. states she feels "Rested". Pt. makes no mention of other issues at this time. Pt. does appear to be improving gradually. MANAGEMENT PLAN: Patient to continue lithium 600 mg po qhs, gabapentin 200 mg by mouth three times daily, Invega 234 mg IM x 1 - Received yesterday; may need 156 mg in 1 week, hydroxyzine hcl 25 mg every 4 hours when necessary as needed for anxiety or agitation, trazodone 50 mg by mouth daily at bedtime when necessary for sleep, ibuprofen 400 mg po q 6 hours prn pain. Pt's med's discussed with patient and she states her understanding and agrees with the plan. Pt. states she feels the medications have helped her during this admission. TIME SPENT: 25 minutes. Vital Signs Vital Signs Date Time Temp Pulse Resp B/P Pulse Ox O2 Delivery O2 Flow Rate FiO2 03/22/16 06:00 97.0 83 18 118/73 03/21/16 18:00 99 Room Air 03/21/16 06:50 98 Current Medications Current Medications Medications (Trade) Dose Ordered Sig/Jeannette Route PRN Reason Start Time Stop Time Status Last Admin Dose Admin Acetaminophen (Tylenol) 650 mg Q4HP PRN PO PAIN OR FEVER 03/10/16 22:30 04/09/16 22:29 03/22/16 06:49 Acetaminophen (Tylenol) 650 mg Q6HP PRN PO HEADACHE or DISCOMFORT 03/08/16 19:00 03/10/16 22:16 DC 03/10/16 17:30 Al Hydrox/Mg Hydrox/Simethicone (Mylanta) 30 ml Q4HP PRN PO HEARTBURN/INDIGESTION 03/08/16 19:00 04/07/16 18:59 03/22/16 10:36 Albuterol Sulfate (Proventil, Ventolin Hfa) 2 puff Q4HP PRN INH SHORTNESS OF BREATH 03/08/16 20:30 04/07/16 20:29 03/17/16 23:08 Budesonide/ Formoterol Fumarate (Symbicort 160/ 4.5mcg) 2 puff BID INH 03/08/16 21:00 04/07/16 20:59 03/22/16 08:35 Cetylpyridinium Chloride (Cepacol) 1 calista Q1HP PRN PO SORE THROAT 03/20/16 16:15 04/19/16 16:14 03/21/16 17:12 Cetylpyridinium Chloride (Cepacol) 1 calista Q2HP PRN PO COUGH 03/10/16 22:00 03/14/16 10:10 DC 03/14/16 02:48 Docusate Sodium (Colace) 100 mg BID PO 03/08/16 21:00 04/07/16 20:59 03/22/16 08:38 Fluticasone Propionate (Flonase 0.05% Nasal [place]) 1 SPRAY IN EACH NOSTRIL BID NA 03/10/16 21:00 04/09/16 20:59 03/22/16 08:34 Furosemide (Lasix) 10 mg DAILY PO 03/19/16 09:00 04/18/16 08:59 03/22/16 08:36 Furosemide (Lasix) 20 mg Q2DP PRN PO FLUID RETENTION 03/08/16 19:00 03/19/16 10:08 DC 03/18/16 08:15 Gabapentin (Neurontin) 100 mg BID@ PO 03/14/16 09:00 03/19/16 10:33 DC 03/19/16 08:41 Gabapentin (Neurontin) 100 mg QHS PO 03/11/16 21:00 03/13/16 14:35 DC 03/13/16 00:40 Gabapentin (Neurontin) 200 mg QHS PO 03/13/16 21:00 03/19/16 10:33 DC 03/18/16 22:36 Gabapentin (Neurontin) 200 mg TID PO 03/19/16 16:00 04/18/16 15:59 03/22/16 08:44 Guaifenesin (Robitussin) 5 ml Q6HP PRN PO COUGH 03/14/16 10:15 04/13/16 10:14 03/21/16 15:24 Home Med (Med Rec Complete!) ASDIRECTED XX 03/08/16 16:45 03/08/16 16:51 DC Hydroxyzine HCl (Atarax) 50 mg Q6HP PRN PO ANXIETY/AGGITATION 03/11/16 19:00 03/13/16 14:35 DC 03/13/16 08:04 Hydroxyzine HCl (Atarax) 50 mg QIDP PRN PO ANXIETY/AGGITATION 03/08/16 19:00 03/11/16 17:57 DC 03/11/16 14:16 Hydroxyzine HCl (Vistaril) 25 mg Q4HP PRN PO ANXIETY/AGGITATION 03/13/16 14:39 2/15/17 14:38 03/22/16 06:47 Ibuprofen (Advil) 400 mg Q6HP PRN PO PAIN 03/13/16 17:15 04/12/16 17:14 03/22/16 08:39 Ketoconazole (Nizoral) 1 dose DAILY TOP 03/14/16 09:00 04/13/16 08:59 03/22/16 08:38 Levofloxacin (Levaquin) 750 mg DAILY@18 PO 03/10/16 18:00 03/22/16 10:08 DC 03/21/16 17:12 Levothyroxine Sodium (Synthroid) 0.112 mg DAILY@06 PO 03/23/16 06:00 04/22/16 05:59 Levothyroxine Sodium (Synthroid) 0.125 mg DAILY@06 PO 03/09/16 06:00 03/22/16 10:08 DC 03/22/16 06:48 Sudley Carbonate (Sudley Carbonate) 300 mg QHS PO 03/14/16 21:00 03/19/16 10:33 DC 03/18/16 22:35 Sudley Carbonate (Sudley Carbonate) 600 mg QHS PO 03/19/16 21:00 04/18/16 20:59 03/21/16 20:26 Lorazepam (Ativan) 0.5 mg BID PRN PO ANXIETY/AGITATION 03/08/16 19:00 03/08/16 20:29 DC Lorazepam (Ativan) 0.5 mg BID PRN PO ANXIETY/AGITATION 03/08/16 20:29 03/09/16 09:39 DC 03/09/16 07:49 Lorazepam (Ativan) 0.5 mg Q6HP PRN PO ANXIETY/AGITATION 03/11/16 21:00 03/12/16 15:25 DC 03/12/16 10:37 Lorazepam (Ativan) 1 mg Q4HP PRN PO ANXIETY/AGITATION 03/09/16 10:00 03/11/16 17:57 DC 03/11/16 15:05 Lorazepam (Ativan) 2 mg Q4HP PRN PO ANXIETY/AGITATION 03/09/16 09:15 03/09/16 09:49 DC Lurasidone HCl (Latuda) 40 mg DAILY@08 PO 03/09/16 08:00 03/11/16 17:57 DC 03/11/16 08:32 Magnesium Hydroxide (Milk Of Magnesia) 30 ml DAILYPRN PRN PO CONSTIPATION 03/08/16 19:00 04/07/16 18:59 03/20/16 13:36 Non-Formulary Medication ( See Comment Field Below ) SEE COMMENTS SECTION 1T@19 XX 03/16/16 19:00 03/17/16 14:36 DC 03/16/16 18:11 Non-Formulary Medication ( See Comment Field Below ) SEE LABEL COMMENTS DAILY XX 03/14/16 09:00 03/14/16 18:11 DC Omeprazole (PriLOSEC) 20 mg DAILY PO 03/09/16 09:00 04/08/16 08:59 03/22/16 08:35 Ondansetron HCl (Zofran) 4 mg Q8HP PRN PO NAUSEA OR VOMITING 03/22/16 10:00 04/21/16 09:59 Paliperidone (Invega) 3 mg QHS PO 03/11/16 21:00 03/13/16 14:35 DC 03/12/16 20:24 Paliperidone (Invega) 6 mg DAILY@21 PO 03/14/16 21:00 03/14/16 22:00 DC 03/14/16 19:58 Paliperidone (Invega) 6 mg QAM PO 03/15/16 09:00 04/14/16 08:59 03/22/16 08:38 Paliperidone (Invega) 6 mg QHS PO 03/13/16 21:00 03/14/16 18:38 DC 03/13/16 20:35 Patient Own Medication (Patient'S Own Med) Biotene ORAL RIN... TIDP PRN SSP DRY MOUTH 03/21/16 17:00 04/20/16 16:59 03/22/16 08:44 Sodium Chloride ([place] Nasal [place]) 2 spray Q2HP PRN NA NASAL DRYNESS 03/14/16 10:15 04/13/16 10:14 03/21/16 06:36 Trazodone HCl (Desyrel) 50 mg QHSP PRN PO INSOMNIA 03/08/16 19:00 04/07/16 18:59 03/21/16 22:09 Valacyclovir HCl (Valtrex) 500 mg BID PO 03/11/16 09:00 03/24/16 08:59 03/22/16 08:38 Vitamin D (Vitamin D) 5,000 units MoWeFr@09 PO 03/11/16 09:00 04/10/16 08:59 03/22/16 08:38 Allergies Coded Allergies: Morphine (Verified Allergy, Unknown, 02/15/16) Penicillins (Verified Allergy, Unknown, 02/15/16) Childhood allergy CLARISA BRANHAM NP Mar 22, 2016 11:57
[2016-03-22 18:21] VITALS: BP 116/70
[2016-03-22] MEDS: LITHIUM CARBONATE 600 MG CAP PO SCH (20:22)
[2016-03-22] MEDS: traZODone 50 MG TAB PO PRN (21:35)
[2016-03-23] MEDS: hydrOXYzine 25 MG TAB PO PRN ×4 (02:04→19:39)
[2016-03-23] MEDS: LEVOTHYROXINE 0.112 MG TAB (112 MCG) PO SCH (06:18)
[2016-03-23 06:35] VITALS: BP 118/64
[2016-03-23] MEDS: FLUTICASONE PROP 0.05% NASAL SPRAY 16 GM (FLONASE) SCH ×2 (08:00→20:19)
[2016-03-23] MEDS: SYMBICORT 160/4.5MCG INHALER 6GM INH SCH ×2 (08:00→20:19)
[2016-03-23] MEDS: KETOCONAZOLE 2% CREAM TOP SCH (08:00)
[2016-03-23] MEDS: OMEPRAZOLE 20 MG CAP PO SCH (08:01)
[2016-03-23] MEDS: valACYclovir HCL 500 MG TAB PO SCH ×2 (08:01→20:16)
[2016-03-23] MEDS: GABAPENTIN 100 MG CAP PO SCH ×3 (08:01→20:17)
[2016-03-23] MEDS: DOCUSATE SODIUM 100 MG CAP PO SCH ×2 (08:01→20:16)
[2016-03-23] MEDS: FUROSEMIDE 20 MG TAB PO SCH (08:02)
[2016-03-23] MEDS: PALIPERIDONE 3 MG ER TAB (INVEGA) PO SCH (08:02)
[2016-03-23] MEDS: IBUPROFEN 400 MG TAB PO PRN (08:05)
[2016-03-23] MEDS: SODIUM CHLORIDE NASAL 0.65% SPRAY BTL (OCEAN) PRN ×3 (10:32→19:39)
[2016-03-23] MEDS: CEPACOL LOZENGE PO PRN ×2 (10:33→19:39)
[2016-03-23] MEDS: ONDANSETRON 4 MG TAB (S0181) PO PRN (13:43)
[2016-03-23] MEDS: BIOTENE SSP PRN ×2 (14:42→20:18)
[2016-03-23 18:15] VITALS: BP 116/67
[2016-03-23] MEDS: ACETAMINOPHEN TAB 650MG DOSE (2X325MG) PO PRN (19:40)
[2016-03-23] MEDS: LITHIUM CARBONATE 600 MG CAP PO SCH (20:16)
[2016-03-23] MEDS: traZODone 50 MG TAB PO PRN (20:17)
[2016-03-24] MEDS: ALBUTEROL 90 MCG/ACT 8GM HFA INHALER INH PRN (02:21)
[2016-03-24] MEDS: hydrOXYzine 25 MG TAB PO PRN ×4 (02:21→23:35)
[2016-03-24] MEDS: IBUPROFEN 400 MG TAB PO PRN ×3 (05:55→20:12)
[2016-03-24] MEDS: LEVOTHYROXINE 0.112 MG TAB (112 MCG) PO SCH (05:56)
[2016-03-24 06:08] VITALS: BP 106/66
[2016-03-24] MEDS: OMEPRAZOLE 20 MG CAP PO SCH (08:13)
[2016-03-24] MEDS: DOCUSATE SODIUM 100 MG CAP PO SCH ×2 (08:13→20:11)
[2016-03-24] MEDS: GABAPENTIN 100 MG CAP PO SCH ×3 (08:13→20:12)
[2016-03-24] MEDS: FUROSEMIDE 20 MG TAB PO SCH (08:13)
[2016-03-24] MEDS: PALIPERIDONE 3 MG ER TAB (INVEGA) PO SCH (08:14)
[2016-03-24] MEDS: FLUTICASONE PROP 0.05% NASAL SPRAY 16 GM (FLONASE) SCH ×2 (08:14→20:10)
[2016-03-24] MEDS: KETOCONAZOLE 2% CREAM TOP SCH (08:14)
[2016-03-24] MEDS: SYMBICORT 160/4.5MCG INHALER 6GM INH SCH ×2 (08:14→20:09)
[2016-03-24] MEDS: SODIUM CHLORIDE NASAL 0.65% SPRAY BTL (OCEAN) PRN (08:36)
[2016-03-24] MEDS: ONDANSETRON 4 MG TAB (S0181) PO PRN ×2 (09:43→18:37)
[2016-03-24] MEDS: valACYclovir HCL 500 MG TAB PO SCH ×2 (09:43→20:11)
[2016-03-24] MEDS: ACETAMINOPHEN TAB 650MG DOSE (2X325MG) PO PRN (15:27)
[2016-03-24 18:00] VITALS: BP 116/68
[2016-03-24] MEDS: traZODone 50 MG TAB PO PRN (20:11)
[2016-03-24] MEDS: LITHIUM CARBONATE 600 MG CAP PO SCH (20:12)
[2016-03-25] MEDS: LEVOTHYROXINE 0.112 MG TAB (112 MCG) PO SCH (05:46)
[2016-03-25 06:00] VITALS: BP 125/63
[2016-03-25] MEDS: hydrOXYzine 25 MG TAB PO PRN ×2 (06:33→11:10)
[2016-03-25] MEDS: IBUPROFEN 400 MG TAB PO PRN (06:34)
[2016-03-25] MEDS: OMEPRAZOLE 20 MG CAP PO SCH (08:16)
[2016-03-25] MEDS: GABAPENTIN 100 MG CAP PO SCH (08:16)
[2016-03-25] MEDS: DOCUSATE SODIUM 100 MG CAP PO SCH (08:16)
[2016-03-25] MEDS: FUROSEMIDE 20 MG TAB PO SCH (08:16)
[2016-03-25] MEDS: PALIPERIDONE 3 MG ER TAB (INVEGA) PO SCH (08:17)
[2016-03-25] MEDS: VITAMIN D 1,000 INTERNATIONAL UNITS TABLET PO SCH (08:17)
[2016-03-25] MEDS: valACYclovir HCL 500 MG TAB PO SCH (08:17)
[2016-03-25] MEDS: SYMBICORT 160/4.5MCG INHALER 6GM INH SCH (08:17)
[2016-03-25] MEDS: FLUTICASONE PROP 0.05% NASAL SPRAY 16 GM (FLONASE) SCH (08:17)
[2016-03-25] MEDS: KETOCONAZOLE 2% CREAM TOP SCH (08:53)
[2016-03-25] MEDS ORDERED: SYNT112T2 PO (10:12)
[2016-03-25] MEDS ORDERED: ONDA1TAB15 PO (10:12)
[2016-03-25] MEDS ORDERED: PALIPERIDONE PALMITATE 156 MG/1ML INJ(INVEGA SUSTENNA)(J2426) IM ONE (11:00)
[2016-03-25] MEDS: SODIUM CHLORIDE NASAL 0.65% SPRAY BTL (OCEAN) PRN (11:44)
[2016-03-25] MEDS ORDERED: BIOTLIQ9 MT (11:47)
[2016-03-25] MEDS ORDERED: VITA100037 PO (11:47)
[2016-03-25] MEDS ORDERED: NEUR100C PO (11:47)
[2016-03-25] MEDS ORDERED: INVE156I IM ×2 (11:47→13:14)
[2016-03-25] MEDS ORDERED: TRAZ50TA4 PO (11:47)
[2016-03-25] MEDS ORDERED: COLA100C PO (11:47)
[2016-03-25] MEDS ORDERED: LASI20TA PO (11:47)
[2016-03-25] MEDS ORDERED: LITH300C PO (11:47)
[2016-03-25] MEDS ORDERED: HYDR25T PO ×2 (11:47→13:12)
[2016-03-25] MEDS ORDERED: OCEA0.654 (11:47)
[2016-03-25] MEDS ORDERED: VALT500T PO (11:47)
[2016-03-25] MEDS: ONDANSETRON 4 MG TAB (S0181) PO PRN (12:55)
--- NOTE | 2016-03-25 13:06 | DS.PDOC ---
[facility] Discharge Summary Discharge Summary DATE OF ADMISSION: Mar 08, 2016 at 16:53 DATE OF DISCHARGE: Mar 25, 2016 DISCHARGE DIAGNOSES: Schizoaffective, bipolar type. REASON FOR ADMISSION: This is a 45-year-old white woman with a long standing history of treatment for bipolar disorder, who was admitted after she was brought in by the police. She had been knocking on neighbor's doors over the past days, very delusional and thinking that people were trying to kill her. She was talking about there being evil in her apartment building. She is making statements like "everything I feel is in my heart, God is great, people are evil , they are trying to kill me." She says that there is someone named Deejay is using different names on Facebook trying to get her killed and poison her with magnesium. She has been staying at a motel because she is refusing to stay in her apartment building. The patient is fairly unreliable. It is not clear whether she has been taking her medications. In the emergency room, she says that someone had messed with her bottles of medications, someone threw them out. Today, the patient is very irritated and angry and very loud. She is constantly talking and at times even yelling. She wants to know why she is in the hospital. She says that there is nothing wrong with her. She is demanding to be discharged. Medications were reviewed; the patient was discharged on and she was discharged on Latuda 40 mg daily, Cymbalta 60 mg twice a day, hydroxyzine 50 mg four times a day as needed for anxiety. In the emergency room records, it says that she is also on Cymbalta 60 mg twice a day and Wellbutrin SR 200 mg twice a day, however, when I looked at the medication that she was discharged on, these medications were not included. I reviewed the old records to obtain some history about this patient and it seemed that she was just in the hospital from 02/15/2016 and discharged on 02/27/2016. She was admitted in what appeared to be a manic-like episode. She had been upset with a snowplow man because she thought that he was affiliated with some drug dealers. She was noted to be paranoid with grandiose delusions, talking about being able to predict the future. She also thought that someone was trying to kill her. She was discharged to followup at [facility] for her substance abuse and also for her psychiatric treatment. [facility] ([facility] PAST PSYCHIATRIC HISTORY: This is obtained from the medical record where it states that she was receiving outpatient treatment from [facility] and they had been prescribing Cymbalta 60 mg twice a day for fibromyalgia and Wellbutrin 200 mg twice a day for depression. She also said they were prescribing Ativan as needed for anxiety. She denies that she has ever made any suicidal attempts and when she was admitted in January she indicated that was her first psychiatric hospitalization, so this would be her second psychiatric hospitalization. FAMILY HISTORY: The patient's mother is bipolar, according to the patient's information that was obtained during her January hospitalization. Also, there was no reported history of family suicides. SUBSTANCE ABUSE: The patient uses cannabis for at least the past few months. According to the January admission, they indicated "off and on all day long," as far as the marijuana goes. According to the records from her January admission, there is some mention that the patient stated that she had some reduced appetite, depressed mood and paranoia during that admission. TREATMENT AND PROGRESS ON THE UNIT: Pt. has improved significantly on the unit through her own work as well as medication adjustment. Pt. continues to clear mentally. Probable marijuana induced symptoms. Pt. continues to be less delusional in thoughts, is no longer paranoid. Pt. is manic but appropriate at times. Pt. has decreased lability, now is emotional in reference to family or pets. Pt. is now rational and logical. Pt. is thinking before acting, no impulsivity noted. Speech is slightly pressured, patient is better in processing thoughts. Pt. does not require re-direction more than once during assessment by provider. Pt. does not appear agitated today and does not seem to be preoccupied on going home. Pt. reports 7-8 hours of "Good sleep", feels well rested on waking. Pt. denies dreams or night terrors. Pt. makes no mention of other issues at this time. Pt. does appear to be happy she is able to be discharged and has appointments and services in place. MENTAL STATUS EXAMINATION ON DISCHARGE: Patient is a 45 year old female, who appears to be emotionally stable, cooperative, mostly well kempt, wearing her own clothes, of obese build. Pt. is assessed today in interview room with Raulito. Pt. appears to be appropriate with increased speech. Speech: Is slight circumstantial, increased rate, average volume, articulate, coherent, and spontaneous. Thought processes: Clear, appears to have greatly improved over this past weekend, goal-directed for discharge, rational. Rate of thoughts: Increased Thought content: Rational, logical, no evidence of paranoia. Abstract reasoning : Adequate. Computation: Adequate. Associations: Intact. Abnormal or psychotic thoughts: Patient denies hallucinations, delusions, obsessions, compulsions, paranoia, preoccupation. Patient denies homicidal or suicidal ideation. Judgment: Fair. Insight: Fair. Oriented to: Time, place, person and surroundings. Recent and Remote Memory: "Good". Attention Span and Concentration: Good. Language: Normal. Fund of knowledge: Adequate. Mood: "My mood is good, I'm able to laugh and maintain myself". Pt. does not appear to have mood lability other than when discussing grandkids or pets. Affect: Appropriate, rational, logical. MEDICATIONS ON DISCHARGE: 1. Hydroxyzine hcl 25 mg po q 4 hours prn for anxiety. 2. Trazodone 50 mg po qhs PRN for sleep. 3. Invega Sustenna 156 mg IM q 30 days for psychotic features, schizoaffective disorder. 4. Gabapentin 200 mg po tid for mood stabilization. 5. [place] 600 mg po q hs for mood stabilization. Pt. to wean off and/or increase gabapentin as per outpatient medication management. Today's level is low at 0.49. PLAN/FOLLOWUP ARRANGEMENTS: Pt. is to discharge to home of ex- initially. Pt. will then move back into her apartment when she feels ready. Pt. has been connected with [facility]. Patient to continue lithium 600 mg po qhs with hopes of discontinuing per outpatient provider recommendation, gabapentin 200 mg by mouth three times daily, Invega 156 mg IM q 30 days, hydroxyzine hcl 25 mg every 4 hours when necessary as needed for anxiety or agitation, trazodone 50 mg by mouth daily at bedtime when necessary for sleep. Pt's med's discussed with patient and she states her understanding and agrees with the plan. Pt. states she feels the medications have helped her during this admission. The amount of time spent in the coordination of care for this patient was approximately 25 minutes. Vital Signs Vital Sign - Last 24 Hours 03/24/16 03/25/16 18:00 06:00 Temp 98.1 97.5 Pulse 85 76 Resp 16 16 B/P 116/68 125/63 Pulse Ox 97 99 O2 Delivery Room Air Laboratory Data Labs 24H Laboratory Tests 2 03/25/16 06:38: [place] Level 0.49L Medications Scheduled (Flonase Allergy Relief) 50 Mcg/Act Spr 1 SPRAY NA BID (Reported) Budesonide/Formoterol (Symbicort 160-4.5 Mcg/Act) 60 Puff/Inhaler Aers 2 PUFF INH BID SHORTNESS OF BREATH (Reported) Docusate Sodium (Colace) 100 Mg Cap 100 MG PO BID CONSTIPATION (Reported) Furosemide (Lasix) 20 Mg Tab 10 MG PO DAILY fluid retention (Reported) Gabapentin (Neurontin) 100 Mg Cap 200 MG PO TID mood stabilization (Reported) Gabapentin (Gabapentin) 100 Mg Cap #21 200 MG PO TID MOOD Levothyroxine Sodium (Synthroid) 112 Mcg Tab #30 0.112 MG PO DAILY@06 supplement [place] Carbonate ([place] Carbonate) 300 Mg Cap 600 MG PO QHS mood stabilization (Reported) [place] Carbonate ([place] Carbonate) 600 Mg Cap #7 600 MG PO QHS MOOD Omeprazole (Omeprazole) 20 Mg Cap 20 MG PO DAILY (Reported) Paliperidone Palmitate (Invega Sustenna) 156 Mg/Ml Inj #1 156 MG IM QMONTH psychosis Valacyclovir Hydrochloride (Valtrex) 500 Mg Tab 500 MG PO BID anti-viral ( Reported) Vitamin D (Vitamin D) 1,000 Unit Cap 5,000 UNIT PO 3XW supplement (Reported) Scheduled PRN (Biotene Dry Mouth Oral Ri) 1 Liq Liq 1 LIQ MT TIDP PRN PRN dry mouth (Reported ) Albuterol Sulfate (Proventil Hfa) 167 Puff/6.7 Gm Aers 2 PUFFS INH Q4HP PRN PRN SHORTNESS OF BREATH (Reported) Hydroxyzine HCl (Hydroxyzine HCl) 25 Mg Tab 25 MG PO Q4DP PRN PRN ANXIETY/ AGITATION (Reported) Hydroxyzine HCl (Hydroxyzine HCl) 25 Mg Tab #28 25 MG PO Q4HP PRN PRN ANXIETY/ AGGITATION Ondansetron HCl (Ondansetron HCl) 4 Mg Tab #20 4 MG PO Q8HP PRN PRN NAUSEA OR VOMITING Sodium Chloride ([place] Nasal [place]) 0.65 % Spr 2 SPRAY NA Q2HP PRN PRN nasal dryness (Reported) EACH NOSTRIL Trazodone HCl (Trazodone HCl) 50 Mg Tab 50 MG PO QHSP PRN PRN INSOMNIA (Reported ) Trazodone HCl (Trazodone HCl) 50 Mg Tab #7 50 MG PO QHSP PRN PRN INSOMNIA Allergies Coded Allergies: Morphine (Verified Allergy, Unknown, 02/15/16) Penicillins (Verified Allergy, Unknown, 02/15/16) Childhood allergy CLARISA BRANHAM NP Mar 25, 2016 13:06 Laboratory Data Labs 24H Laboratory Tests 2 03/25/16 06:38: [place] Level 0.49L Medications Scheduled (Flonase Allergy Relief) 50 Mcg/Act Spr 1 SPRAY NA BID (Reported) Budesonide/Formoterol (Symbicort 160-4.5 Mcg/Act) 60 Puff/Inhaler Aers 2 PUFF INH BID SHORTNESS OF BREATH (Reported) Docusate Sodium (Colace) 100 Mg Cap 100 MG PO BID CONSTIPATION (Reported) Furosemide (Lasix) 20 Mg Tab 10 MG PO DAILY fluid retention (Reported) Gabapentin (Neurontin) 100 Mg Cap 200 MG PO TID mood stabilization (Reported) Gabapentin (Gabapentin) 100 Mg Cap #21 200 MG PO TID MOOD Levothyroxine Sodium (Synthroid) 112 Mcg Tab #30 0.112 MG PO DAILY@06 supplement [place] Carbonate ([place] Carbonate) 300 Mg Cap 600 MG PO QHS mood stabilization (Reported) [place] Carbonate ([place] Carbonate) 600 Mg Cap #7 600 MG PO QHS MOOD Omeprazole (Omeprazole) 20 Mg Cap 20 MG PO DAILY (Reported) Paliperidone Palmitate (Invega Sustenna) 156 Mg/Ml Inj #1 156 MG IM QMONTH psychosis Valacyclovir Hydrochloride (Valtrex) 500 Mg Tab 500 MG PO BID anti-viral ( Reported) Vitamin D (Vitamin D) 1,000 Unit Cap 5,000 UNIT PO 3XW supplement (Reported) Scheduled PRN (Biotene Dry Mouth Oral Ri) 1 Liq Liq 1 LIQ MT TIDP PRN PRN dry mouth (Reported ) Albuterol Sulfate (Proventil Hfa) 167 Puff/6.7 Gm Aers 2 PUFFS INH Q4HP PRN PRN SHORTNESS OF BREATH (Reported) Hydroxyzine HCl (Hydroxyzine HCl) 25 Mg Tab 25 MG PO Q4DP PRN PRN ANXIETY/ AGITATION (Reported) Hydroxyzine HCl (Hydroxyzine HCl) 25 Mg Tab #28 25 MG PO Q4HP PRN PRN ANXIETY/ AGGITATION Ondansetron HCl (Ondansetron HCl) 4 Mg Tab #20 4 MG PO Q8HP PRN PRN NAUSEA OR VOMITING Sodium Chloride ([place] Nasal [place]) 0.65 % Spr 2 SPRAY NA Q2HP PRN PRN nasal dryness (Reported) EACH NOSTRIL Trazodone HCl (Trazodone HCl) 50 Mg Tab 50 MG PO QHSP PRN PRN INSOMNIA (Reported ) Trazodone HCl (Trazodone HCl) 50 Mg Tab #7 50 MG PO QHSP PRN PRN INSOMNIA Allergies Coded Allergies: Morphine (Verified Allergy, Unknown, 02/15/16) Penicillins (Verified Allergy, Unknown, 02/15/16) Childhood allergy CLARISA BRANHAM NP Mar 25, 2016 13:06
[2016-03-25] MEDS ORDERED: GABA-279 PO (13:12)
[2016-03-25] MEDS ORDERED: LITH600C PO (13:12)
[2016-03-25] MEDS ORDERED: TRAZO50TA PO (13:12)
== END 2016-03-25 14:55 | disposition home or self-care (01) | DRG 885 ==
LOC: M ED 12:57 → M PSY 16:53
PROVIDERS: ADMIT Psychiatry & Neurology Psychiatry; ATTEND Psychiatry & Neurology Psychiatry
DX: F25.0 Schizoaffective disorder, bipolar type (principal); J44.0 Chronic obstructive pulmonary disease with (acute) lower respiratory infection; F41.9 Anxiety disorder, unspecified; F32.9 Major depressive disorder, single episode, unspecified; M54.5 Low back pain; Z98.84 Bariatric surgery status; Z88.0 Allergy status to penicillin; Z88.5 Allergy status to narcotic agent; G47.33 Obstructive sleep apnea (adult) (pediatric); E03.9 Hypothyroidism, unspecified; J20.9 Acute bronchitis, unspecified; B35.3 Tinea pedis

== ENCOUNTER → 2016-03-26 | Outpatient (REF) | payer MEDICARE, MEDICAID ==
[~2016-03-26] MED LIST changes: +BIOTLIQ9 MT; +COLA100C PO; +FLON1SPR; +GABA-279 PO; +HYDR25T PO; +INVE156I IM; +LASI20TA PO; +LITH300C PO; +LITH600C PO; +NEUR100C PO; +NICO14DI20 TD; +OCEA0.654; +OMEP20CA3 PO; +ONDA1TAB15 PO; +SYNT112T2 PO; +TRAZ50TA4 PO; +TRAZO50TA PO; +VALT500T PO; +VITA100037 PO
== END ==
LOC: M LAB REF 09:20
PROVIDERS: ATTEND Physician Assistant
DX: R30.0 Dysuria (principal)

== ENCOUNTER → 2016-03-28 | Outpatient (CLI) | payer MEDICARE, MEDICAID | LOC: M OUTALCOH 10:00 | PROVIDERS: ATTEND Psychiatry & Neurology Psychiatry | DX: Z13.9 Encounter for screening, unspecified (principal); F12.20 Cannabis dependence, uncomplicated ==

== ENCOUNTER → 2016-04-02 | Outpatient (CLI) | payer MEDICARE, MEDICAID ==
[2016-04-02 18:24] LABS: MEAN CORPUSCULAR HEMOGLOBIN 28.5 pg (27.0-33.0); MEAN CORPUSCULAR HGB CONC 32.1 g/dl (32.0-36.5); MEAN CORPUSCULAR VOLUME 88.8 fl (80.0-96.0); RED CELL DISTRIBUTION WIDTH 14.9 % (11.5-14.5)
[2016-04-02 18:37] LABS: ALBUMIN 3.1 GM/DL (3.2-5.2); ALBUMIN/GLOBULIN RATIO 1.07 (1.00-1.93); ALKALINE PHOSPHATASE 62 U/L (45-117); ALT/SGPT 26 U/L (12-78); ANION GAP 8 MEQ/L (8-16); AST/SGOT 10 U/L (15-37); BILIRUBIN,TOTAL 0.2 MG/DL (0.2-1.0); BLOOD UREA NITROGEN 7 MG/DL (7-18); CALCIUM LEVEL 8.7 MG/DL (8.5-10.1); CARBON DIOXIDE LEVEL 27 MEQ/L (21-32); CHLORIDE LEVEL 108 MEQ/L (98-107); CHOLESTEROL LEVEL 98 MG/DL (<200); CREATININE FOR GFR 0.79 MG/DL (0.55-1.02); GLOMERULAR FILTRATION RATE > 60.0 (>58); GLUCOSE, FASTING 85 MG/DL (70-105); POTASSIUM SERUM 4.1 MEQ/L (3.5-5.1); SODIUM LEVEL 143 MEQ/L (136-145); TRIGLYCERIDES LEVEL 89 MG/DL (<150)
[2016-04-02 18:46] LABS: LITHIUM LEVEL 0.26 MEQ/L (0.60-1.20)
== END ==
LOC: M WUC 14:31
DX: F31.13 Bipolar disorder, current episode manic without psychotic features, severe (principal); Z79.899 Other long term (current) drug therapy

== ENCOUNTER → 2016-04-03 | Outpatient (CLI) | payer MEDICARE, MEDICAID ==
--- NOTE | 2016-04-03 11:12 | REP ---
Lumbar spine three views: Vertebral body heights and alignment are normal.. There is disc space narrowing and degenerative disc disease at every lumbar level. There is no spondylolysis or spondylolisthesis. The pedicles, facets and sacroiliac articulations are unremarkable. There are surgical homeostasis clips in the abdomen bilaterally. There ligation clips in the pelvis. Impression: Multilevel degenerative disc disease. Signed by Harpreet Joiner MD 04/03/2016 11:04 A
--- NOTE | 2016-04-03 11:19 | REP ---
CERVICAL SPINE SERIES: TWO VIEWS. HISTORY: Degenerative disc disease. FINDINGS: Standing AP and swimmer's lateral views are presented. These show straightening of the normal cervical lordosis. Cervical vertebral body heights are preserved. There is minimal disc space narrowing at C5-6. Alignment is normal. Prevertebral soft tissues are unremarkable. Facets are normally aligned. No bony destructive lesion seen. IMPRESSION: Minimal disc space narrowing at C5-6, otherwise negative two-view cervical spine series. Signed by Wil Schmidt MD 04/03/2016 03:03 P
--- NOTE | 2016-04-03 12:08 | REP ---
Thoracic spine three views: Comparison is the PA and lateral chest study dated 02/19/2015. There is mild scoliosis convex right, unchanged. Vertebral body heights and alignment are normal. There is no listhesis. There is moderate multilevel degenerative disc disease in the inferior thoracic spine. The discs in the superior thoracic spine are unremarkable. Mineralization is normal. Pedicles are unremarkable. There are multiple surgical clips in the upper abdomen bilaterally. Impression: Scoliosis. Multilevel moderate degenerative disc disease in the inferior thoracic spine. Signed by Harpreet Joiner MD 04/03/2016 11:59 A
== END ==
LOC: M WUC 09:16
PROVIDERS: ATTEND Chiropractor
DX: M41.9 Scoliosis, unspecified (principal); M51.34 Other intervertebral disc degeneration, thoracic region; M51.37 Other intervertebral disc degeneration, lumbosacral region

== ENCOUNTER 2016-04-18 11:00 | Outpatient (RCR) | payer MEDICARE, MEDICAID | END 2016-04-23 | LOC: M OUTALCOH 11:00 | PROVIDERS: ATTEND Psychiatry & Neurology Psychiatry | DX: Z13.9 Encounter for screening, unspecified (principal); F12.20 Cannabis dependence, uncomplicated; F17.200 Nicotine dependence, unspecified, uncomplicated ==

== ENCOUNTER → 2016-04-18 | Outpatient (CLI) | payer MEDICARE, MEDICAID | LOC: M WUC 09:32 | PROVIDERS: ATTEND Nurse Practitioner Family | DX: F31.30 Bipolar disorder, current episode depressed, mild or moderate severity, unspecified (principal); Z51.81 Encounter for therapeutic drug level monitoring ==

== ENCOUNTER → 2016-05-03 | Outpatient (CLI) | payer MEDICARE, MEDICAID | LOC: M WUC 12:15 | PROVIDERS: ATTEND Physician Assistant Medical | DX: E03.9 Hypothyroidism, unspecified (principal) ==

== ENCOUNTER 2016-05-22 16:00 | Outpatient (RCR) | payer MEDICARE, MEDICAID | END 2016-05-24 | LOC: M OUTALCOH 16:00 | PROVIDERS: ATTEND Psychiatry & Neurology Psychiatry | DX: F12.20 Cannabis dependence, uncomplicated (principal); F17.200 Nicotine dependence, unspecified, uncomplicated ==

== ENCOUNTER → 2016-07-23 | Outpatient (REF) | payer BC ==
[~2016-07-23] MED LIST changes: -COLA100C PO; +COLA100C3 PO
== END ==
LOC: M SFHCLERA 19:00
PROVIDERS: ATTEND Nurse Practitioner Family
DX: R50.9 Fever, unspecified (principal)

== ENCOUNTER → 2016-07-24 | Outpatient (REF) | payer BC | LOC: M SFHCLERA 11:25 | PROVIDERS: ATTEND Nurse Practitioner Family | DX: R50.9 Fever, unspecified (principal) ==